=== PATIENT | female | born 1970 | race Caucasian/White ===

== ENCOUNTER → 2018-10-24 08:07 | Outpatient (CLI) | payer OTHER, SELFPAY ==
[2018-10-24 15:06] VITALS: BMI 22.4
[2018-10-30 12:02] LABS: HPV APTIMA, High Risk Negative (Negative)
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
== END ==
PROVIDERS: Family Provider Internal Medicine; PCP Internal Medicine; Referring Provider Nurse Practitioner Women's Health; Visit Provider Nurse Practitioner Women's Health
DX: Z12.4 Encounter for screening for malignant neoplasm of cervix (principal)
CPT/HCPCS: 87624; 88175; G0145

== ENCOUNTER → 2018-10-24 16:04 | Outpatient (CLI) | payer OTHER, SELFPAY ==
[2018-10-24 15:06] VITALS: BMI 22.4
[2018-10-24 17:21] LABS: Absolute Lymphocyte Count 1.82 X10^3/ul (0.83-4.51); Absolute Neutrophil Count 3.9 X10^3/uL (2.0-7.7); Basophil# 0.04 X10^3/uL; Basophil% 0.6 % (0-1); Eosinophil# 0.15 X10^3/uL; Eosinophils% 2.4 % (0-5); Hematocrit 39.5 % (37-47); Hemoglobin 13.2 g/dl (12.0-15.0); Lymphocyte # 1.82 X10^3/ul (4.0); Lymphocyte % 28.6 % (19-41); Mean Corp Hgb Conc 33.4 g/gl (32-36); Mean Corpuscular Hgb 31.2 pg (27.0-32.0); Mean Corpuscular Volume 93.4 fL (81-99); Mean Platelet Vol. 10.3 fl (6.2-12.0); Monocyte# 0.47 X10^3/uL; Monocyte% 7.4 % (0-10); Neutrophil # 3.89 X10^3/uL (2.7-7.7); Platelet Count 230 K/mm3 (150-450); RBC Distribution Width CV 12.7 % (11.6-14.6); RBC Distribution Width SD 42.9 fl (35.1-43.9); Red Blood Count 4.23 M/mm3 (4.2-5.4); White Blood Count 6.4 K/mm3 (4.4-11.0)
[2018-10-24 17:23] LABS: POSITIVE COUNT NO; POSITIVE DIFFERENTIAL NO; POSITIVE MORPHOLOGY NO
[2018-10-24 18:20] LABS: T4 Free Direct 1.04 ng/dL (0.76-1.46); Thyroid Stim Hormone (TSH) 2.41 uIU/mL (0.358-3.74)
[2018-10-29 09:54] LABS: Vitamin D 1,25-Dihydroxy 53.7 pg/mL (19.9-79.3)
--- OUTSIDE RECORDS SUMMARY | 2018-12-19 22:24 | XMS RPT_ITS ---
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 ADMIT/DISCHARGE ACCOUNT NUMBER ADMITTING ENCOUNTER LOCATION SOURCE CLASS 10/24/2018 [id number] Ambulatory [facility] ding:LAB Repository 10/24/2018/10/24/20 [id number] Ambulatory BMSBuilding: [place] 18 BMS.[facility] Repository 10/24/2018 8499 Ambulatory Building:[facility] Practices Repository 10/24/2018 [id number] Ambulatory [facility] ding:LABSPEC Repository 08/31/2018/08/31/20 [id number] COLLIN FRAGOSO, Ambulatory [place]ig[place] Lantig[place] [address] DR BRAYAN Estrada [facility] LiveBuilding Repository :MOCC 07/24/2018/07/24/20 [id number] CARRI Ambulatory Lantigua Lantigua 18 ARMANDO Valencia [facility] LiveBuilding Repository :EMERGENCY DEPTRoom: ED8Bed: A 03/28/2018 [id number] Ambulatory BMSBuilding: [place] BMS.[facility] Repository 11/21/2017 [id number] [address] [place] [address] ([place]) Repository PAYERS PAYERS ENCOUNTER GUARANTOR PAYER SUBSCRIBER SOURCE 10/24/2018 EVELYN ALLEN Primary Insurance:[employer]ATION EVELYN JORDAN[address] [place] [address] SERVICES [facility]: [facility] Number: [id number], [place] [id number] Repository [address]Jnu: (330) Date:8583-36-29O[phone] (HP) 27472TCWFYHJTN, [place] [address]OC: 10/24/2018 Secondary Insurance:SELF NOT GIVENUNK [place] PAY [facility]Children[facility] Community Number: Effective Hospital Date:2018-10-24 Repository 10/24/2018 EVELYN TIFFANY Primary Insurance:MUTUAL EVELYN ALLEN Dorothytoyin JORDAN271 HEALTH SERVICES [facility]: [facility] Number: [id number] [facility] id [id number] Repository [address]Szb: (330) Date:1719-70-30UW [phone] (HP) [address]47ZFSPXCPCS, [place] [address]MF: 10/24/2018 Secondary Insurance:SELF NOT GIVENUNK [place] PAY [facility]Pol[facility] Community Number: Effective Hospital Date:2018-10-24 Repository 10/24/2018 Evelyn Huy Primary Insurance:Medical Evelyn Son OHIP Practices SmithDOB: [facility]: Repository Number: [id number] [facility] [id number] 1 [facility] Date:8676-81-17CjxvKansas [place], [place] Name:[facility] [place]ax [place], [place] [address]Yfy: [phone], [place] [address]Rkd: [phone]: () (HP) [phone] () 10/24/2018 Secondary David OHIP Practices Insurance:Nationwide ReynoldsDOB: Repository Insurance Co.Policy [id number] Number: 31 TR [id number] [address] [place] [address], Date: 8688-04-70[place] [address] Name:[facility] Jax 996708Zjpiltrs, [place] [address]XT: 10/24/2018 Tertiary David OHIP Practices Insurance:Cooperative ReynoldsDOB: Repository Benefit [id number] [facility] 31 TR Number: [address] [place] [address] [id number] [place] [address] Date:2006-11-269305-63-64Msfo Name:[facility] Jax 6249LinHilo, [place] [address]WG: 10/24/2018 Tertiary David OHIP Practices Insurance:Medical Bastian ReynoldsDOB: Repository of [place]Policy Number: [id number] 31 TR Date:2009-11-26[place]2530-91-66Nmti Name:[facility] [address] [place] [phone]: 10/24/2018 Tertiary David OHIP Practices Insurance:Medical Bastian ReynoldsDOB: Repository of [place]Poly Number: [id number] 31 TR Date:2014-11-26[place], 4836-89-98Mkgn Name:[facility] [address] [place] [address] [phone]: 10/24/2018 Tertiary Evelyn Son OHIP Practices Insurance:[facility]carePol[facility]ceola [facility] SmithDOB: Repository Number: [id number] [address] [place] [address] Date:2015-11-26 [facility] 8662-71-45Trrk Name:[place], [place] [address], [place] [address]Ldc: [phone]: () [phone] 10/24/2018 EVELYN ALLEN Primary Insurance:MUTUAL EVELYN JORDAN[address] [place], [place] [address]DOB: [facility] Number: [id number] [place], [place] [id number] Repository [address]Cvv: ([phone]) Date:1509-78-74PH [phone] () 63271OZQYFVXNS, [place] [address]ES: 10/24/2018 Secondary Insurance:[facility] [place] PAY INS[facility]ANCESt[facility] Hospitaly [facility] Number: Effective Hospital Date:2018-10-24 Repository 08/31/2018 Primary Insurance:SELF EVELYN Lantigua [facility] PAYChildren'[facility] Of [facility] Number: SMITHDOB: Hospital Effective [id number] Repository Date: 1 [address] [facility] [place], [place] [address]TK: [phone] 07/24/2018 EVELYN Son Primary Insurance:[facility] EVELYN Lantigua [facility] SMITHDOB: Farm Auto/LiabilityPolicy SMITHDOB: Hospital N Number: [id number] Repository [facility] [id number] [address] [place], [place] Date:7815-73-98JJ [place], [place] [address]Qgo: [phone]) 050003QBKKRHL, [place] [phone] (HP) [address]QH: 07/24/2018 Secondary EVELYN Huy [facility] Insurance:MEDICAL COGAN STATION SMITHDOB: [facility] Number: [id number] Repository [id number] 1 N [facility] Date:9510-21-54UI [place], [place] [address] [address]~[facility] 6[address]WP: 03/28/2018 EVELYN ALLEN Primary EVELYN JORDAN271 N Insurance:AULTCAREPolicy SMITHDOB: [facility] Number: [id number] [place], [place] [id number] Repository [address]Egv: (330) Date:5958-97-66KJ [phone] (HP) [address] [address]FD: 03/28/2018 Secondary Insurance:SELF NOT [facility]IVENVal[facility]Care [facility] Number: Effective Hospital Date:2018-02-26 Repository
== END ==
PROVIDERS: Family Provider Internal Medicine; PCP Internal Medicine; Referring Provider Obstetrics & Gynecology; Visit Provider Obstetrics & Gynecology
DX: L65.9 Nonscarring hair loss, unspecified (principal); R53.82 Chronic fatigue, unspecified
CPT/HCPCS: 36415; 82652; 84439; 84443; 85025

== ENCOUNTER → 2018-12-18 15:45 | Outpatient (CLI) | payer OTHER, SELFPAY ==
[2018-10-24 15:06] VITALS: BMI 22.4
--- NOTE | 2018-12-18 16:09 | ECHOD_ITS ---
Reason For Study: PFO Procedure This was a 2D Doppler, Color Flow transthoracic echocardiogram. Exam performed in department. Left Ventricle Normal LV size. Left ventricular systolic function is normal. The estimated ejection fraction is 55 %. Normal diastology for age. No regional wall motion abnormalities noted. Right Ventricle Normal RV size. Normal systolic function. Atria Normal left atrium. Normal right atrium. Patent foramen ovale. Mitral Valve Mild mitral valve prolapse. Mild (1+) eccentric mitral valve insufficiency. Tricuspid Valve Normal tricuspid valve. Mild tricuspid valve insufficiency. Pulmonary artery systolic pressure is 30 mmHg. Aortic Valve Normal aortic valve. Trisinus/trileaflet aortic valve. Pulmonic Valve Normal pulmonic valve. Great Vessels Normal aortic root. The pulmonary artery is normal size. Normal inferior vena cava. Pericardium/Pleural No pericardial effusion. MMode/2D Measurements & Calculations LVIDd: 4.5 cm IVSd: 0.74 cm Ao root diam: 2.9 cm LVIDs: 3.2 cm LVPWd: 0.73 cm RVDd: 2.9 cm FS: 29.4 % LAV(MOD-bp): 47.2 ml EDV(MOD-sp4): 76.4 ml EDV(MOD-sp2): 70.3 ml LAV(MOD-bp) Indexed: 29.0 ml/m2 ESV(MOD-sp4): 31.1 ml EF(MOD-sp2): 55.0 % LAV(MOD-sp2): 45.0 ml EF(MOD-sp4): 59.3 % LAV(MOD-sp4): 46.2 ml SV(MOD-sp4): 45.3 ml SV(MOD-sp2): 38.7 ml LA A4 area: 16.7 cm2 LA dimension(2D): 3.3 cm RA A4 area: 13.4 cm2 Time Measurements MV dec time: 0.23 sec Doppler Measurements & Calculations MV E max kirk: 78.0 cm/sec Lat Peak E' Kirk: 14.5 cm/sec Med Peak E' Kirk: 11.9 cm/sec MV A max kirk: 45.9 cm/sec E/E' lat: 5.4 E/E' med: 6.6 MV E/A: 1.7 Ao V2 max: 104.8 cm/sec LV V1 max: 94.9 cm/sec TR max kirk: 252.9 cm/sec Ao max P.4 mmHg LV V1 max P.6 mmHg TR max P.6 mmHg Interpretation Summary Normal LV size. Left ventricular systolic function is normal. The estimated ejection fraction is 55 %. Normal diastology for age. Mild mitral valve prolapse. Mild (1+) eccentric mitral valve insufficiency. Mild tricuspid valve insufficiency. Patent foramen ovale. Compared to previous the above is unchanged Ordering Physician: Bambi Mondragon Referring Physician: Bambi Mondragon Performed By: Elaine Porter, ROSARIO, RVT
--- OUTSIDE RECORDS SUMMARY | 2019-02-19 18:18 | XMS RPT_ITS | Continuity of Care Document ---
:1970 Author Organization [facility] Address [address] [place] [id number] Phone Care Team Providers Name Role Phone Bambi Mondragon DO Unavailable Sarah Nieves Unavailable Erik Olivarez Unavailable Osmani JOYA, Tong Aviles Unavailable Katrina Herrera Unavailable Ami JOYA, Ankit Unavailable Pauly Sommer Unavailable Stevie Varma Unavailable Unavailable HORACE Villa Unavailable Unavailable Deboralaurieilia MANAGER MOTOR, Nayely Unavailable Unavailable Unavailable Problems Name Dates Details Acne (L70.9, 706.1) Comments: saw derm. considering spirolactone Status: Active Allergic rhinitis (J30.9, 477.9) Comments: off nasal spray. not as much nasal drainage as pressure and with barometricseasonal Status: Active Annual physical exam (Z00.00, V70.0) Status: Active BMI 20.0-20.9, adult (Z68.20, V85.1) Status: Active BMI 22.0-22.9, adult (Z68.22, V85.1) Status: Active Body mass index (BMI) 21.0-21.9, adult (Z68.21, V85.1) Status: Active Breast cancer screening (Z12.31, V76.10) Status: Active Chest pain at rest (R07.9, 786.50) Status: Active Chronic sinusitis (J32.9, 473.9) Comments: see above Status: Active Current nonsmoker (Renamed from Current non-smoker) (Z78.9, V49.89) Status: Active Degeneration of intervertebral disc of cervical region (M50.30, 722.4) Comments: mri 6-14 see duluis some herniation pain free now with PTmild cervical Status: Active Encounter for screening for lipid disorder (Z13.220, V77.91) Status: Active Encounter for screening for other suspected endocrine disorder (Z13.29, V77.99) Comments: family history of thyroid Status: Active Family history of arteriosclerotic cardiovascular disease (Z82.49, V17.49) Status: Active Headache (R51, 784.0) Comments: stable now 4 a month related to menses. under stress. rightnow not want proph. will call if need more roph. see ent for sinus Status: Active Hypercholesteremia (E78.00, 272.0) Comments: pt recntl labs she will get to me -- states normalized Status: Active Motion sickness (T75.3XXA, 994.6) Status: Active MVP (mitral valve prolapse) (I34.1, 424.0) Status: Active Palpitations (R00.2, 785.1) Status: Active Persistent headaches (R51, 784.0) Comments: has had cervical x-rays in apstmultifactorial-- cervicogenic, migraines-with weather fronts and menstrual, muscle tension, Status: Active PFO (patent foramen ovale) (Q21.1, 745.5) Status: Active Physical exam, routine (Z00.00, V70.0) Comments: pap 8-15, mammo 5-16 Status: Active PMDD (premenstrual dysphoric disorder) (F32.81, 625.4) Comments: ssri is helping. she wants to try off ssri will see. 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) Status: Active Stress reaction (F43.0, 308.9) Comments: HUGE Status: Active Unspecified Diagnosis Status: Active Unspecified Diagnosis Status: Active Urinary frequency (R35.0, 788.41) Status: Active UTI (urinary tract infection) (N39.0, 599.0) Status: Active Vitamin D deficiency, unspecified (E55.9, 268.9) Comments: ck new level to see where at Status: Active Medications Name Dates Details Ergocalciferol 14238 UNIT Oral Capsule 1 (one) Capsule weekly for 8 days Quantity: 8 {Capsule} Refills: 3 Ordered:14-Nov-2018 Harriet Mondragon DO, DO, Kathleen Start : 14-Nov-2018 Active Imitrex 50 MG Oral Tablet 1-2 Tablet for migraine for 0 days Quantity: 16 {Tablet} Refills: 6 Ordered:29-Mar-2018 Harriet Mondragon DO, DO, Kathleen Start : 29-Mar-2018 Active Macrobid 100 MG Oral Capsule 1 (one) Capsule bid for 7 days Quantity: 14 {Capsule} Refills: 0 Ordered:20-Nov-2018 Rudolph COBOS Nayely Start : 20-Nov-2018 Active MONY-D 24 HOUR, 180-240MG (Oral Tablet Extended Release 24 Hour) Tablet ER 24HR Daily for 0 days Refills: 0 Ordered:25-Mar-2007 BRANDEE Miller Start : 25-Mar-2007 End : 16-Jul-2008 Inactive ALPRAZOLAM ER, 0.5MG (Oral Tablet Extended Release 24 Hour) 1 (one) Tablet ER 24HR q 6-8 hrs prn for 0 days Quantity: 30 {Tablet} Refills: 0 Ordered:11-Nov-2015 BRANDEE Miller Start : 11-Nov-2015 End : 11-Nov-2015 Inactive Comments:th[age], patient never filled AMITRIPTYLINE HCL, 10MG (Oral Tablet) 1 Tablet qhs for 0 days Quantity: 60 {Tablet} Refills: 2 Ordered:02-Feb-2012 BRANDEE Miller Start : 17-Nov-2011 End : 02-Feb-2012 Inactive Amoxicillin 875 MG Oral Tablet 1 (one) Tablet bid for 0 days Quantity: 20 {Tablet} Refills: 0 Ordered:06-May-2018 Shala Villa LPN Start : 10-Apr-2018 End : 06-May-2018 Inactive AMOXICILLIN, 875MG (Oral Tablet) 1 (one) Tablet BID for 10 days Quantity: 20 {Tablet} Refills: 0 Ordered:25-Mar-2007 JACINTA MARIE CNP Start : 25-Mar-2007 End : 13-May-2007 Inactive ASTELIN, 137MCG/SPRAY (Nasal Solution) 1 Solution 1 spray each nostril daily for 0 days Quantity: 1 {Solution} Refills: 2 Ordered:05-Sep-2013 BRANDEE Miller Start : 11-Apr-2013 End : 05-Sep-2013 Inactive BIOTIN, 5000MCG (Oral Tablet) 1 (one) Tablet Tablet bid for 30 days Quantity: 30 {Tablet} Refills: 0 Ordered:06-Aug-2015 BRANDEE Miller Start : 24-Jun-2015 End : 24-Jul-2015 Inactive CALCIUM CITRATE-VITAMIN D3, 627-624NM-ESQT (Oral Tablet) 1 (one) Tablet Tablet qid for 30 days Quantity: 30 {Tablet} Refills: 0 Ordered:06-Aug-2015 BRANDEE Miller Start : 24-Jun-2015 End : 24-Jul-2015 Inactive CELEXA, 10MG (Oral Tablet) 1 Tablet qd except 2 daily for 5 days around menses. for 0 days Quantity: 35 {Tablet} Refills: 3 Ordered:11-Apr-2013 Svetlana Ibarra MD Start : 11-Apr-2013 End : 11-Apr-2013 Inactive Comments:fatigue CEREFOLIN NAC, 6-2-600MG (Oral Tablet) 1 Tablet qd for 0 days Quantity: 30 {Tablet} Refills: 6 Ordered:17-Nov-2011 Gricel Pimentel LPN End : 17-Nov-2011 Inactive Cipro 500 MG Oral Tablet 1 (one) Tablet bid for 7 days Quantity: 14 {Tablet} Refills: 0 Ordered:20-Nov-2018 Lauren Galdamez CNP Start : 18-Nov-2018 End : 20-Nov-2018 Inactive CYMBALTA, 30MG (Oral Capsule Delayed Release Particles) [address] Part qd for 0 days Quantity: 30 {Capsule_DR_Part} Refills: 3 Ordered:23-Jun-2013 Svetlana Ibarra MD Start : 23-Jun-2013 End : 23-Jun-2013 Inactive Comments:219.00 for 30 days Drisdol 30239 UNIT Oral Capsule uad Capsule Capsule monthly for 0 days Quantity: 30 {Capsule} Refills: 3 Ordered:10-Sep-2017 Allen Shala VU Start : 21-May-2017 End : 10-Sep-2017 Inactive Comments:then once monthly and maintain DULOXETINE HCL, 60MG (Oral Capsule Delayed Release Particles) 1 (one) Capsule DR Part daily for 0 days Quantity: 30 {Capsule} Refills: 2 Ordered:12-Aug-2015 Svetlana Ibarra MD Start : 12-Aug-2015 End : 12-Aug-2015 Inactive Comments:bad taste in mouth EFFEXOR XR, 37.5MG (Oral Capsule Extended Release 24 Hour) 1 Capsule ER 24HR daiy 2 weeks for 0 days Quantity: 14 {Capsule} Refills: 6 Ordered:04-Mar-2015 BRANDEE Miller Start : 16-Feb-2015 End : 04-Mar-2015 Inactive ERGOCALCIFEROL, 90358XZHS (Oral Capsule) 1 Capsule twice weekly for 0 days Quantity: 8 {Capsule} Refills: 3 Ordered:10-Sep-2014 BRANDEE Miller Start : 08-May-2013 End : 10-Sep-2014 Inactive MEDROL (MELBA), 4MG (Oral Tablet) 1 (one) Tablet TAD for 0 days Quantity: 1 {Package} Refills: 0 Ordered:10-Sep-2014 BARNDEE Miller Start : 18-May-2014 End : 10-Sep-2014 Inactive NASONEX, 50MCG/ACT (Nasal Suspension) 1 Suspension daily for 0 days Quantity: 3 {Suspension} Refills: 2 Ordered:19-Jul-2012 BRANDEE Miller Start : 02-Feb-2012 End : 19-Jul-2012 Inactive SPIRONOLACTONE, 50MG (Oral Tablet) 1 Tablet daily for 0 days Quantity: 30 {Tablet} Refills: 6 Ordered:12-May-2014 Mayra Bloom Start : 05-Sep-2013 End : 12-May-2014 Inactive TEMAZEPAM, 15MG (Oral Capsule) 1 (one) Capsule Capsule qhs for 0 days Quantity: 30 {Capsule} Refills: 1 Ordered:29-Apr-2015 BRANDEE Miller Start : 16-Feb-2015 End : 29-Apr-2015 Inactive Comments:thirty TESSALON, 200MG (Oral Capsule) 1 Capsule every 8 hours prn for 0 days Quantity: 20 {Capsule} Refills: 0 Ordered:02-Feb-2012 BRANDEE Miller Start : 17-Nov-2011 End : 02-Feb-2012 Inactive TREXIMET, 85-500MG (Oral Tablet) 1 Tablet onset of headache severe for 0 days Quantity: 20 {Tablet} Refills: 0 Ordered:03-Nov-2011 Long ROD CUP FILLER, Gricel L Start : 02-Nov-2011 End : 03-Nov-2011 Inactive VERAMYST, 27.5MCG/SPRAY (Nasal Suspension) 2 sprays each nostril qd for 0 days Refills: 0 Ordered:02-Feb-2012 BRANDEE Miller End : 02-Feb-2012 Inactive VITAMIN B6, 200MG (Oral Tablet) 1/2 (one half) Tablet Tablet qd for 30 days Quantity: 30 {Tablet} Refills: 0 Ordered:06-Aug-2015 BRANDEE Miller Start : 24-Jun-2015 End : 24-Jul-2015 Inactive Comments:shyann VITAMIN D3, 15395LUKL (Oral Capsule) 1 (one) Capsule Capsule qd for 30 days Quantity: 30 {Capsule} Refills: 0 Ordered:06-Aug-2015 BRANDEE Miller Start : 24-Jun-2015 End : 24-Jul-2015 Inactive VITAMIN D3, 5000UNIT (Oral Capsule) 1 Capsule qd for 0 days Quantity: 30 {Capsule} Refills: 3 Ordered:05-Sep-2013 BRANDEE Miller Start : 11-Apr-2013 End : 05-Sep-2013 Inactive ZIANA, 1.2-0.025% (External Gel) 1 Gel daily for acne for 0 days Quantity: 1 {Gel} Refills: 0 Ordered:12-May-2014 Mayra Bloom Start : 11-Apr-2013 End : 12-May-2014 Inactive ZITHROMAX Z-MELBA, 250MG (Oral Tablet) 1 Tablet qd for 5 days Quantity: 1 {package(s)} Refills: 0 Ordered:26-Dec-2011 Long ROD CUP FILLER, Gricel L Start : 21-Nov-2011 End : 26-Nov-2011 Inactive Adapalene 0.1 % External Gel uad Gel apply thin layer to affecetd area(s) after washing for 0 days Quantity: 45 {Gram} Refills: 3 Ordered:21-May-2017 Gema Berumen LPN Start : 09-Nov-2016 End : 21-May-2017 Discontinued ALDACTONE, 100MG (Oral Tablet) 1 qd (100 MG) End : 21-May-2017 Discontinued Comments:Dr. Valentin Cyclobenzaprine HCl 5 MG Oral Tablet 1 (one) Tablet tid prn for 0 days Quantity: 30 {Tablet} Refills: 1 Ordered:21-May-2017 Gema Berumen LPN Start : 12-Aug-2015 End : 21-May-2017 Discontinued Comments:thirty Effexor XR 37.5 MG Oral Capsule Extended Release 24 Hour 1 (one) Capsule ER 24HR Capsule ER 24HR daily for 0 days Quantity: 30 {Capsule} Refills: 6 Ordered:21-May-2017 Gema Berumen LPN Start : 11-Nov-2015 End : 21-May-2017 Discontinued Fluticasone Propionate 50 MCG/ACT Nasal Suspension 1-2 [place](s) each nostril daily for 0 days Quantity: 1 {Canister} Refills: 6 Ordered:21-May-2017 Gema Berumen LPN Start : 09-Oct-2016 End : 21-May-2017 Discontinued MULTIVITAMIN (Oral Liquid) 1 (one) qd End : 21-May-2017 Discontinued Transderm-Scop (1.5 MG) 1 MG/3DAYS Transdermal Patch 72 Hour uad Patch 72HR 1 q 72 hours prn travel for 0 days Quantity: 2 {Patch} Refills: 0 Ordered:21-May-2017 Gema Berumen LPN Start : 20-Sep-2016 End : 21-May-2017 Discontinued Comments:09-20-16 patient would like to have only 2 patches if possible and not an entire box Allergies and Adverse Reactions Name Dates Details No Known Drug Allergies (Allergy) Onset: 21-May-2017 Status: Active Penicillins (Allergy) Status: Active Past Medical History Name Dates Details Abrasion of right cornea, sequela (S05.01XS, 906.2) Comments: seeing eye DrRaymond for this. Status: Inactive as of 11-Nov-2015 Acute bronchitis (J20.9, 466.0) Comments: viral Status: Inactive as of 05-Sep-2013 Back pain (M54.9, 724.5) Comments: thoracic areausing ibuprofen saw Chiropracter Status: Inactive as of 10-Sep-2014 Back spasm (M62.830, 724.8) Status: Inactive as of 10-Sep-2014 Breast screening (Z12.39, V76.10) Status: Inactive as of 10-Sep-2014 CONTACT DERMATITIS, NOS (692.9) Status: Inactive as of 05-Sep-2013 DISORDER, TMJ, JOINT SOUND ON OPN/CLS JAW (524.64) Comments: saw Dr. montelongo. disc slipped and with time did heal. Status: Inactive as of 05-Sep-2013 DUB (dysfunctional uterine bleeding) (N93.8, 626.8) Comments: had endoablation, help alot Status: Inactive as of 05-Sep-2013 Dysuria (R30.0, 788.1) Status: Inactive as of 05-Sep-2013 Encounter for routine preventive care for patient older than 28 days (Z00.129, V20.2) Status: Inactive as of 10-Sep-2014 Eustachian tube dysfunction (H69.80, 381.81) Comments: Pt leaving for [place]- gave script for antibiotic in case things worsen. Status: Inactive as of 10-Sep-2014 Fatigue (R53.83, 780.79) Comments: stable after work really tired. Status: Inactive as of 10-Sep-2014 Heel spur (726.73) Status: Inactive as of 10-Sep-2014 Mitral Valve Prolapse Comments: mild over 10 plus years Status: Inactive as of 11-Nov-2015 Neck muscle spasm (M62.838, 728.85) Status: Inactive as of 10-Sep-2014 Neck pain (M54.2, 723.1) Comments: ? disc vs other use flexeril and doing Pt right now wants chiropactor Status: Inactive as of 11-Nov-2015 Other specified abnormal findings of blood chemistry (R79.89, 790.6) Status: Inactive as of 05-Sep-2013 OTITIS MEDIA, NOS (382.9) Status: Inactive as of 05-Sep-2013 Pain in unspecified joint (M25.50, 719.40) Comments: PERLITA postive but panel negative. follow if inflammatory signs and symptoms then to rheum. Status: Inactive as of 05-Sep-2013 Patent Foramen Ovale Comments: small Status: Inactive as of 12-Jul-2015 Pharyngitis, acute (J02.9, 462) Comments: ? referred pain from jaw. tom with node tender Status: Inactive as of 05-Sep-2013 Plantar fasciitis (M72.2, 728.71) Comments: see shirley herrera. orthotics really help. 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 Status: Inactive as of 10-Sep-2014 Unspecified Diagnosis Status: Inactive as of 05-Sep-2013 Unspecified Diagnosis Status: Inactive as of 10-Sep-2014 Unspecified Diagnosis Status: Inactive as of 05-Sep-2013 Unspecified Diagnosis Status: Inactive as of 05-Sep-2013 Varicose veins (I83.90, 454.9) Comments: will be seeing Dr. proctor for ones behind knee. bother her. claudette have surgery with hx of PFO will have lovenox to protect.left lower extremity Status: Inactive as of 30-Jun-2016 Visit for screening mammogram (Z12.31, V76.12) Status: Inactive as of 30-Jun-2016 VRCS VEIN, LWR EXTREMITIES W/COMPLICTN NOS (454.8) Comments: pain. will send to osmani Status: Inactive as of 05-Sep-2013 Weight loss (R63.4, 783.21) Comments: stable now Status: Resolved as of 11-Nov-2015 [facility] Comments: [facility] Status: Inactive as of 12-Jul-2015 Procedures Procedure Dates Details Adenoidectomy Completed Comments: Inpatient. Section - 2 Completed Comments: Inpatient. 2002 and 1999 endovenous laser ablation left leg- greater Completed and lesser saphenous Enometrial ablation February 2010 Completed Tonsillectomy Completed Comments: Inpatient. Tubal Ligation Completed Comments: clips 2003 tubes in ears as child Completed Appendectomy Completed Comments: 10-12-98 Date Value Details 24-Oct-2018 Entry Level Account Manager Office Visit Report Result: Comments: See Note; NOTES: [facility] [address] [place] [address] OFFICE VISIT Date of Service: 10/24/18 MR#: [id number] Acct: [id number] Name: MELVIN VARMA Rep #: [id number] : 1970 Provider: Bozena Fuentes MD Age/Sex: 48/F [place] [facility] [place]igned Intake Vital Signs10/24/18 Height 5 ft 4 in 10/24/18 Weight: 131 lb 10/24/18 Bod y Mass Index (BMI) 22.4 10/24/18 Blood Pressure 104/70 Intake Visit Reasons: ANNUAL Chief Complaint: NEW annual Surgical Instruments Inspector Required: No Is patient in pain?: No Allergies No Known Allergies Allergy ( Verified 10/24/18 15:07) Medications Sumatriptan Succinate [Imitrex] 50 mg PO .X1 PRN 09/24/14 [History Confirmed 10/24/18] Is last menstrual period known: No Post menopausal: No Patient : No : No PFSH Medical History History of headache (Acute) Tubal ligation status (Acute) Surgical History delivery delivered (Acute) History of endometrial ablation (Acute) S ocial History Smoking Status: Never smoker alcohol intake: current details: social substance use type: does not use caffeine: Yes what type of physical activity do you participate in: walking seatbelt u se: always do you feel safe at home: Yes additional social history: [facility] Pregancy History 2 Elective abortions Hx Para 2 Spontaneous abortions HPI ANNUAL: Details: TED VARMA is a 48 year old who presents for annual exam. here to establish care Last PAP: due History of abnormal PAP: no Last mammogram: due History of abnormal mammogram: Colon cancer screening: Oth er preventative health care screenings: Female Reproductive History Cycle Length: >35 associated symptoms: cyclic ovulation pain mild Questions: Metorrhagia: No, Sexually active: Yes, Dyspare unia: No Menopausal Symptoms: Yes hot flashes, No night sweats, No weight change, No mood changes, No difficulty concentrating, No sleep problems, No change in libido ROS Const Constitutional: Reports as per HPI; denies poor appetite, fatigue, increased appetite, weight gain, weight loss or night sweats Cardio Card: Denies chest pain Resp Resp: Denies dyspnea or cough GI GI: Reports as per HPI; colin es bloating, abdominal pain, constipation, vomiting or nausea : Reports as per HPI, other and hot flashes; denies blood in urine, vaginal odor, vaginal itching, vaginal dryness, vaginal discharge, urinary urgency, urinary incontinence, urinary frequency, pelvic pain, painful urination, difficulty urinating, prolapse symptoms or nipple discharge Skin Skin/Breast: Denies breast pain, breast skin ch anges, nipple discharge, breast lump or changing lesions Psych Psych: Denies difficulty concentrating or change in sex drive Exam Const General: cooperative, healthy appearing, comfortable, no acute d istress, well developed, well groomed HENWA Head: normal to inspection, normocephalic Ears: hearing grossly normal bilaterally, external ears normal Nose: external nose normal Face and sinus: normal fac ial exam Neck Neck: normal visual inspection, full ROM, no lymphadenopathy Thyroid: thyroid normal Chest Chest palpation AND inspection: normal inspection of the chest Breast inspection: normal inspecti on of the breasts, normal inspection of the axillae Breast palpation: normal palpation of the breasts, normal palpation of the axillae, no axillary lymphadenopathy Resp Effort AND Inspection: normal res piratory effort GI Inspection: normal to inspection, non-distended Palpation: no guarding, soft, no hepatosplenomegaly General: bladder normal to palpation External Female Exam: normal external appea bony, normal appearance of the urethra, no lesions [...] other: normal adnexae, no adnexal masses, adnexae non-t taya Skin General: no rashes or lesions noted Neuro General: alert, moves all extremities, no focal motor deficits Extrem General: no pedal edema, normal to inspection Psych Appearance: grossly normal Mental Status: mental status grossly normal Affect: normal affect Speech and Movement: speech and movement normal Attitude: cooperative Assessment AND Plan Problems 1. Chronic fatigue R53.82 2. Hair l oss L65.9 3. Encounter for gynecological examination with abnormal finding Z01.411 Plan Cervical cancer screening: done Breast cancer screening: ordered other health maintenance examination reviewed an d orders placed if needed. Encouraged maintenance of [...] Gynecological examination findings: abnormal findings PRESENT 10/24/18 1537 <Electronically signed by Bozena Fuentes MD> Date _ Bozena Fuentes MD Cosigner Signature: Date (if applicable) CC: 05-Apr-2016 Bilat Scrn Digital AND CAD Result: Comments: See Note; NOTES: [facility] Imaging Services [address] [place] [address] Verdana 4d Bilat Scrn Digital AND CAD MR#: [id number] Acct: [id number] Name: EVELYN VARMA Rep #: [id number] : 1970 F 46 From: Dangelo Mondragon MD PCP: Svetlana Ibarra MD Status: [facility] CLI Study: Bilat Scrn Digital AND CAD Date of Exam: 04/05/16 Exam# [id number] Or dering Dr: Svetlana Ibarra MD MAMMOGRAPHY - BILATERAL SCREENING REASON FOR EXAM: Female, 46 years old. Routine annual screening examination. PERTINENT HISTORY: Non-contributory. TECHNIQUE: Digi anisa bilateral breast tomosynthesis (3-D mammographic acquisition) in the CC and MLO projections. Synthesized 2-D images (C-View reconstruction from tomosynthesis acquisition) providing bilateral breas t CC and MLO views. Mediolateral oblique (MLO) and craniocaudad (CC) views of both breasts were obtained. CAD: Full Field Digital Mammography with Computer Added Detection was performed. COMPARISON : Comparison is made with prior study dated November 12, 2014 and May 26, 2011. FINDINGS: Breast Composition: The breasts are extremely dense, which lowers the sensitivity of mammography. There are no dominant masses or suspicious calcifications. No other significant abnormalities are identified. There has been no significant change since the prior study. IMPRESSION: Stable bilateral screening mammogram. Yearly follow-up mammogram recommended. (A) ASSESSMENT CATEGORY: BIRA DS Category 1: Negative. A letter regarding these results will be sent to the patient by the facility within 30 days. Approximately 10% of breast cancers are not detected by mammography. A normal ma mmogram should not delay biopsy of a clinically suspicious abnormality. [id number] Electronically Signed: Dangelo Mondragon MD at 10:09 EDT Tel [phone], Service support [phone], CC: Svetlana Ibarra MD Entry Level Account Manager: Signed 12-Nov-2014 Bilat Scrn Digital AND CAD Result: Comments: See Note; NOTES: [facility] Imaging Services [address] [place] [id number] Breast Imaging Report MR#: [id number] Acct: [id number] Name: EVELYN BAUTISTA Rep #: [id number] : 1970 F 44 From: Smith Ruelas MD PCP: Svetlana Ibarra MD Status: [facility] CLI Study: Clarence Walkervolodymyr Digital AND CAD Date of Exam: 11/12/14 Exam# [id number] Ordering Dr: Svetlana Ibarra MD MAMMOGRAPHY - BILATERAL SCREENING REASON FOR EXAM: Female, 44 years old. Routine annual screening examination. PERTINENT HISTORY: Non-contributory. TECHNIQUE: Digital examination. Mediolateral oblique (MLO) and craniocaudad (CC) views of both breasts were obtained. CAD: CAD was performed on this study. COMPARISON: 2010 FINDINGS: Breast Composition: The breasts are heterogeneously dense, which may obscure small masses. There are no dominant masses or suspicious calcifications. No other significant abnormalities are identified. There has been no significant change since the prior study. IMPRESSION: Stable bilateral screening mammogram. Yearly follow-up recommended. (A) ____ ASSESSMENT CATEGORY: BIRADS Category 2: Benign. A letter regarding these results will be sent to the patient by the facility within 30 days. BR2 Approximately 10% of breast cancers are not detected by mammography. A normal mammogram should not delay biopsy of a clinically suspicious abnormality. Electronically Signed: Jf Ruelas MD at 15:10 EST Tel [phone], Serv ice support [phone], CC: Svetlana Ibarra MD Entry Level Account Manager: Signed 29-Sep-2014 Operative Report Result: Comments: See Note; NOTES: [facility] Medical Records Department [address] [place] [address] Operative Report MR#: [id number] Acct: [id number] Name: EVELYN BAUTISTA Rep #: [id number] : 1970 44 From: Tong Proctor MD PCP: Svetlana Ibarra MD Status: [facility] DATE OF SERVICE: 09/29/2014 DATE OF SERVICE: September 29, 2014. PREOPERATIVE DIAGNOSES: [employer] ludy venous insufficiency, varicose veins with inflammation, leg pain, leg swelling -- left lower extremity. POSTOPERATIVE DIAGNOSES: Chronic venous insufficiency, varicose veins with inflammation, leg pain, leg swelling -- left lower extremity. OPERATIVE PROCEDURE: 1. Endovenous laser ablation of the left great saphenous vein. 2. Endovenous laser ablation of the left small saphenous vein. SURGEON: Annita Proctor MD. ANESTHESIA: 1. General anesthesia. 2. Tumescent anesthesia. ESTIMATED BLOOD LOSS: Minimal. COMPLICATIONS: None. INDICATIONS: This is a 44-year-old white femal e with a long-standing history of chronic venous insufficiency, varicose veins with inflammation, leg pain and leg swelling involving her left lower extremity. A venous duplex examination revealed i ncompetence involving the left great and small saphenous veins. The implications of this diagnosis were discussed with the patient in detail. The options of management were fully explained. Conserv ative treatment measures were implemented, which included leg elevation, avoidance of idle standing and sitting, graduated compression stockings, weight control measures, active lifestyle, over-the-c ounter analgesics, etc. Despite these measures, the patient remained symptomatic, with symptoms which adversely affected daily activities quality of life and job functions. The indications and risks of endovenous laser ablation of the left great saphenous vein and the left small saphenous vein were discussed with the patient in detail. The appropriate preoperative consent process was undertaken . DESCRIPTION OF PROCEDURE: The patient underwent ultrasound marking of the left great saphenous vein and the left small saphenous veins preoperatively. She was then brought to the operating suite , placed supine upon the operating room table, where general anesthesia was administered by the anesthesia staff. The patient's left lower extremity and left groin were prepped and draped in the filiberto ropriate sterile manner. The patient was placed in reverse Trendelenburg position. Ultrasonography was used to image the left great saphenous vein in the distal calf. The micropuncture technique was used to access the left great saphenous vein percutaneously in the distal calf. In this manner, a 0.018-inch guidewire was advanced intraluminally into the left great saphenous vein and was visuali zed by ultrasonography. A micropuncture sheath was advanced over the guidewire. The 0.018-inch guidewire was exchanged for a 0.035-inch guidewire, which was then advanced intraluminally to a level just distal to the left saphenofemoral junction, as confirmed by ultrasound imaging. A long 4-Mauritian sheath was then advanced over the guidewire, and its tip was positioned approximately 2 cm distal to the left saphenofemoral junction. Attention was then directed to the incompetent left small saphenous vein, so as to enhance exposure, the left lower extremity was placed in an externally rotated position with the left knee flexed. Using ultrasound imaging and the micropuncture technique, a micropuncture sheath was introduced intraluminally, and left in place, capped, for subsequent access purposes. Attention was then redirected to the long 4-Mauritian sheath, which had been previously placed intraluminally into the left great saphenous vein. Perivenous tumescent anesthesia was injected from the 4-Mauritian sheath exit site up to the left saphenofemoral junction. This was performed segmentally using ultrasound imaging. The [employer] laser fiber was then introduced into the 4-Fren ch sheath and coupled appropriately. Ultrasonography was used to confirm that the tip of the laser fiber was positioned within the left great saphenous vein approximately 2 cm distal to the left sap henofemoral junction. The patient was placed in Trendelenburg position and the laser fiber was activated. The AngioD[employer] laser was slowly withdrawn at a constant rate throughout the length of th e left great saphenous vein, thereby ablating the left great saphenous vein segmentally. The energy applied was approximately 80-100 joules per cm. Following laser ablation, the laser fiber and she ath were removed, and manual pressure was briefly applied to the percutaneous access site to achieve hemostasis. Attention was then directed to the micropuncture sheath, which had been previously pl aced intraluminally in the left small saphenous vein near the inferior border of the left gastrocnemius muscle. A 0.035-inch guidewire was introduced intraluminally and advanced into the proximal lef t small saphenous vein. The long 4-Mauritian sheath was advanced over the guidewire and into position intraluminally in the left small saphenous vein. Perivenous tumescent anesthesia was injected from the 4-Mauritian sheath exit site up to the tip of the sheath. This was performed segmentally using ultrasound imaging. The AngioDynamics laser fiber was then introduced into the 4-Mauritian sheath and cou pled appropriately. Ultrasonography was used to confirm that the tip of the laser fiber was positioned within the proximal left small saphenous vein, several centimeters distal to its junction with the deep venous system, and remaining within the superficial portion of the left small saphenous vein. The patient was placed in Trendelenburg position and the laser fiber was activated. The [employer] laser was slowly withdrawn at a constant rate throughout the length of the left small saphenous vein, thereby ablating the left small saphenous vein segmentally. The energy applied was filiberto roximately 80-100 joules per cm. Following the laser ablation, the laser fiber and sheath were removed, and manual pressure was briefly applied to the percutaneous access site to achieve hemostasis. After assuring satisfactory hemostasis, the access sites were approximated using Cavilon and Steri-Strips. Dry sterile gauze dressings were applied over each of the access sites, and the leg was w rapped from the base of the toes to the upper thigh with Kerlix, followed by Jeremy wrap. The blood loss for the procedure was minimal. The sponge, needle , and instrument counts at the end of the proce dure were correct. The patient tolerated the procedure well and was transported from the operating room to the post anesthesia care unit in stable condition. The amount of tumescent anesthesia uti lized, number of joules applied and treatment times were recorded separately. Tong Proctor MD T: [facility] JOB: [id number] 09/29/14 1435 <Electronically signed by Tong Proctor MD> D ate Tong Proctor MD CC: Svetlana Ibarra MD; Tong Proctor MD Date Dictated: 09/29/141135 Date Transcribed: 09/29/141135 Entry Level Account Manager: Signed 29-Sep-2014 Discharge Instruction Result: Comments: See Note; NOTES: [facility] Medical Records Department [address] [place] [address] Instructions for Home/Discharge Instructions 09/29/14 0917 MR#: [id number] Acc t: [id number] Name: EVELYN BAUTISTA Rep #: [id number] : 1970 44 From: Tong Proctor MD PCP: Svetlana Ibarra MD Status: REG [facility] Discharge Diet: No Restrictions Discharge Activity: May Not Drive May shower in (days): 2 Weight Bearing Status: Weight bearing as mulugeta Keep extremity elevated above heart level: Left Leg Call your doctor if you observe: Fever of 101 or Higher, Inability to urinate, Shortness of breath, Dizziness, Fainting spells, Chest pain, Prolonged hiccoughing, Increased palpitations (irregular heartbeat), Uncontrolled pain Suture Line Care: Avoid Pulling/Pushin g Remove Dressing in (days):: 2 - Then rewrap leg daily with Jeremy from base of toes to upper thigh. Allergies/Adverse Reactions: Allergies No Known Allergies Allergy (Verified 09/24/14 14:17) Me dications to take at Discharge Fluticasone 0.05% [Flonase Nasal [place]] 1 spray NASAL DAILY Spironolactone [Aldactone] 100 mg PO DAILY Sumatriptan Succinate [Imitrex] 50 mg PO .X1 PRN Oxycodone HCl/ Acetaminophen [Percocet 5-325] 1 - 2 tablet PO Q6H PRN PRN #20 tablet The following prescriptions were given: Oxycodone HCl/Acetaminophen [Percocet 5- 325] 1 - 2 tablet PO Q6H PRN PRN #20 tablet P RN Reason: Pain Please Follow Up With: Tong Proctor - Call [phone] to schedule a followup appointment. When: 10-14 days 09/29/14 0919 <Electronically signed by Tong Proctor MD&am p;#62; Date Tong Proctor MD CC: Svetlana Ibarra MD 27-Sep-2014 History and Physical Exam Result: Comments: See Note; NOTES: [facility] Medical Records Department [address] [place] [address] History and Physical 09/27/14 1014 MR#: [id number] Acct: [id number] Name: EVELYN BAUTISTA Rep #: [id number] : 1970 44 From: Tong Proctor MD PCP: Svetlana Ibarra MD Status: PRE [facility] Location: [facility] DATE OF SERVICE: This is a history and physical for outpatient surgery to be performed on September 29, 2014. CHIEF COMPLAINT: Chronic venous insufficiency, varicose veins with inflammation, leg pain, leg swelling - left lower extremity. HISTORY OF PRESENT I LLNESS: This is a 44-year-old white female for long-standing history of chronic venous insufficiency, varicose veins with inflammation, leg pain and leg swelling involving her lower extremities. Her left lower extremity is more severely affected. She complains of pain, aching and discomfort in her left lower extremity. This is associated with swelling. She denies history of thrombophlebitis. S he has a history of injection sclerotherapy many years ago in her lower extremities. However, her symptoms have become progressively more severe. A venous duplex examination has revealed incompeten ce involving the left great saphenous vein and the left small saphenous vein. The implications of this diagnosis have been discussed with the patient in detail. The options of management have been f ully explained. Conservative treatment measures have been implemented, which have included leg elevation, avoidance of idle standing and sitting, graduated compression stockings, weight control measu res, active lifestyle, bzvj-ico-jeyxogc analgesics, etc. Despite these measures, the patient has remained symptomatic, with symptoms which have adversely affected daily activities, quality of life and job functions. PAST MEDICAL HISTORY: ALLERGIES: No known drug allergies. MEDICATIONS: Aldactone 50 mg p.o. daily, Effexor extended release 37.5 mg daily, sumatriptan 50 mg p.r.n., vitamin an d vitamin tablets over the counter. MEDICAL ILLNESSES: The patient has a history of mitral valve prolapse and is known to have a small patent foramen ovale. She suffers from borderline hyperlipidemi a. She also suffers from acne and migraine headaches. The patient's history is negative for myocardial infarction, congestive heart failure, hypertension, diabetes mellitus, cerebrovascular acciden t, cancer, renal disease, pulmonary disease, thyroid disease, peripheral arterial occlusive disease, arthritis and gastroesophageal reflux disease. SURGERIES: The patient has undergone se ction x2. She was also undergone prior endometrial ablation. OBSTETRIC AND GYNECOLOGIC: The patient is a Ab0. FAMILY HISTORY: The patient's father of age of 77 with a history of hyper lipidemia, coronary artery disease and Alzheimer's disease. The patient's mother is living, age 80, with a history of varicose veins and deep vein thrombosis. She also has a history of hypertension , osteopenia and arthritis. SOCIAL HISTORY: The patient denies use of tobacco products. She consumes alcoholic beverages rarely. She is . 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 REVIEW OF SYSTEMS: Noncontributory. PHYSICAL EXAMINATION: GENERAL: This is a well-developed, well-nourished 44-year-old white female in no acute distress. The patient has abnormal body habitus. VITAL SIGNS: Temperature 99.4, pulse 64, respirations 16, blood pressure 98/65 , weight 128 pounds. HEENT: Head: Normocephalic, atraumatic . Eyes: Sclerae nonicteric. Extraocular muscles intact. Ears: Canals bilaterally clear. Nose: Nares patent without discharge. Throat: Mucous membranes without icterus, erythema or exudate. Dentition is intact. NECK: Soft, supple without masses. Carotids 2+ bilaterally without bruits. LUNGS: Clear to auscultation bilaterally. HEART: Regular sinus rhythm, S1, S2, physiologic without murmurs. ABD OMEN: Soft, nontender without masses. RECTAL: Deferred. NEUROLOGIC: The patient is alert and oriented x3. Cranial nerves II-XII are intact. Sensory motor is without gross deficit. EXTREMITIES: With out clubbing, cyanosis, edema or atrophy. Full range of motion. Peripheral extremities are warm and well perfused. Pedal pulses are bilaterally palpable. Multiple varicosities are noted in the lower extremities bilaterally. IMPRESSION: This is a 44-year-old white female for long-standing history of chronic venous insufficiency, varicose veins with inflammation, leg pain, leg swelling involvin g her left lower extremity. The left lower extremity is more severely affected than the right. Venous duplex examination reveals incompetence involving the left great saphenous vein and left small saphenous vein. The implications of this diagnosis have been discussed with the patient in detail. The options of management have been fully explained. Conservative treatment measures have failed to alleviate the patient's symptoms. The indications and risks of endovenous laser ablation of the left great saphenous vein and the left small saphenous vein had been discussed with the patient in de tail. PLAN: The patient was admitted for the purpose of elective endovenous laser ablation of the left great saphenous vein and the left small saphenous vein. The indications and risks of the pro cedure have been discussed with the patient in detail. The appropriate preprocedure consent process has been undertaken. Tong Proctor MD T: [facility] JOB: [id number] 09/27/14 1341 <[facility]> Date: Time: Tong Proctor MD CC: Svetlana Ibarra MD; Tong Proctor MD Date Dictated: 09/27/14 1014 Date T ranscribed: 09/27/14 1014 Entry Level Account Manager: Signed ____ I have re-examined the patient. There are no clinical changes since date of exam. ____ See Progress Notes for Changes ____ Dictated on Ad mission Date: Time: Signature: 13-Aug-2014 PT Discharge Summary Result: Comments: See Note; NOTES: [facility] [address] [place] [address]. [address] [place] [address] Fax REHABILITATION SERVICES DISCHARGE SUMMARY MR#: [id number] Acct: [id number] Name: EVELYN BAUTISTA Rep #: [id number] : 1970 44 From: Franky Bruce Referring : Lauren Galdamez Status: DIS RCR Eval Date: Discha rge Date: 06/25/14 DATE OF SERVICE: REFERRING PHYSICIAN: Ana Galdamez. This patient by the name of Evelyn Bautista was seen in our clinic with a diagnosis of cervicalgia, backache, joint sp asms. The patient was seen in our clinic for 6 visits. Our physical therapy treatment today mainly focused on Yamilka exercises, posture education, manual therapy to include soft tissue massage, ce rvical distraction manually some modalities. At the time of discharge, the patient had an MRI, which showed she had a herniated disk at C5-C6. At that point, she saw a health communications specialist and she call ed and canceled her appointments after she saw the health communications specialist and the MRI. At this point, she is discharged from our care. If physical therapy is needed different time, I am glad to see this p atient. Once again, thank you for this referral. Sincerely, Franky Bruce, PT T: [facility] JOB: [id number] <Electronically signed by Franky Bruce > 08/13/14 1502 CC: Signed 18-Jun-2014 Spine Cervical (Routine) Result: Comments: See Note; NOTES: [facility] Imaging Services [address] [place] [address] MRI Report MR#: [id number] Acct: [id number] Name: EVELYN BAUTISTA Rep #: [id number] : 1970 F 44 From: Mahnaz Ascencio MD PCP: Svetlana Ibarra MD Status: REG CLI Study: Spine Cervical (Routine) Date of Exam: 06/18/14 Exam# [id number] Ordering Dr: Lauren Galdamez STUDY: M RI CERVICAL SPINE WITHOUT CONTRAST REASON FOR EXAM: Female, 44 years old neck pain right shoulder. TECHNIQUE: Standardized fat and water weighted pulse sequences were obtained in the sagittal and a xial planes. COMPARISON: None FINDINGS: Normal foramen magnum and brainstem-cervical cord junction. Normal craniovertebral junction. Normal anterior atlantoaxi al articulation. Normal odontoid process. There is straightening of the normal cervical lordosis. Normal vertebral bodies and posterior osseous elements. C2-3: Normal endplates. Normal disc height , signal and morphology. Normal central canal and intervertebral neural foramina. C3-4: Normal endplates. Normal disc height, signal and morphology. Normal central canal and intervertebral neural fo ramina. C4-5: There is disc desiccation and normal disc height, with mild bulge and endplate spur. Normal central canal and intervertebral neural foramina. C5-6: There is disc height, and focal ri ght paramedian disc herniation superimposed on disc bulge. There is mild canal and right foraminal stenosis. C6-7: Normal endplates. Normal disc height, signal and morphology. Normal central canal and intervertebral neural foramina. C7-T1: Normal endplates. Normal disc height, signal and morphology. Normal central canal and intervertebral neural foramina. Normal cervical cord. Normal visua lized soft tissue structures. IMPRESSION: Central to right paramedian C5-6 disc herniation with mild canal and right foraminal stenosis. Mild bulge and endplat e spur slight deformity of the thecal sac C4-5. Electronically Signed: Mahnaz Ascencio MD at 22:49 EDT Tel , Service support [phone], CC: Bal Galdamez; Svetlana Ibarra MD Entry Level Account Manager: Signed 18-Jun-2014 Spine Thoracic (Routine) Result: Comments: See Note; NOTES: [facility] Imaging Services [address] [place] [address] MRI Report MR#: [id number] Acct: [id number] Name: BAUTISTAEVELYN Huy Rep #: [id number] : 1970 F 44 From: Mahnaz Ascencio MD PCP: Svetlana Ibarra MD Status: REG CLI Study: Spine Thoracic (Routine) Date of Exam: 06/18/14 Exam# [id number] Ordering Dr: Lauren Galdamez STUDY: M RI THORACIC SPINE WITHOUT CONTRAST REASON FOR EXAM: Female, 44 years old back pain. TECHNIQUE: Standardized fat and water weighted pulse sequences were obtained in the sagittal and axial planes. COMPARISON: None. FINDINGS: Normal visualized cervical spine. The visualized cervical cord is unremarkable. Normal kyphosis of the thoracic spine. There is no substantial scoliosis. Normal thoracic vertebrae and endplates. Normal hydration and heights of the visualized disc spaces. There is a small central to right paramedian T5-6 disc herniation and sli ghtly deforming the ventral cord and resulting in mild stenosis. Normal visualized thoracic cord. The soft tissue structures are unremarkable. IMPRESSION: Sm all central to right paramedian T5-6 herniation and mild stenosis. Electronically Signed: Mahnaz Ascencio MD at 22:52 EDT Tel , Service support [phone], Fax CC: Lauren Galdamez; Svetlana Ibarra MD Entry Level Account Manager: Signed 13-Jun-2014 Upper Ext Joint Only(Routine) Result: Comments: See Note; NOTES: [facility] Imaging Services [address] [place] [address] MRI Report MR#: [id number] Acct: [id number] Name: EVELYN BAUTISTA Rep #: [id number] : 1970 F 44 From: Juan Manuel Phillips MD PCP: Svetlana Ibarra MD Status: REG CLI Study: Upper Ext Joint Only(Routine) Date of Exam: 06/13/14 Exam# [id number] Ordering Dr: Lauren Galdamez STUDY: MRI RIGHT SHOULDER REASON FOR EXAM: Female, 44 years old. Right shoulder pain with decreased range of motion TECHNIQUE: Standardized fat and water weighted pulse sequences were obtained in all 3 o rthogonal planes. COMPARISON: X-rays of the right shoulder on 05-12-14. FINDINGS: Normal supraspinatus tendon. Normal infraspinatus tendon. Normal subscapulari s tendon. Normal teres minor tendon. Normal supraspinatus muscle. Normal infraspinatus muscle. Normal subscapularis muscle. Normal teres minor muscle. Normal glenohumeral articulation. There are sm all cystic changes in the greater tuberosity of the humerus Normal biceps labral complex. Normal intracapsular long biceps tendon. Normal labrum. Normal capsulo- ligamentous complex. Normal rotator i nterval. There is mild arthrosis of the acromioclavicular articulation. There is a Type II morphology (curved), with a neutral orientation. There is no subacromial-subdeltoid bursal fluid. Normal visualized coracohumeral and coracoacromial ligaments. Normal quadrilateral space. Normal axillary space. Normal deltoid muscle. Normal trapezius muscle. IMPRES TRESA: Mild arthrosis of the acromioclavicular joint. No rotator cuff or labral pathology is noted. Electronically Signed: Juan Manuel Phillips MD, FACR at 21:44 EDT , Ser vice support [phone], CC: Lauren Galdamez; Svetlana Ibarra MD Entry Level Account Manager: Signed 25-May-2014 Inital Evaluation - PT Result: Comments: See Note; NOTES: [facility] [address] [place] [address]. [address] [place] [address] Fax REHABILITATION SERVICES INITIAL EVALUATION MR#: [id number] Acct: [id number] Name: EVELYN BAUTISTA Rep #: [id number] : 1970 44 From: Franky Bruce Referring DrRaymond: Lauren Galdamez Status: REG R Insurance: [facility] Date: DATE OF SERVICE: 05/21/2014 Lauren Galdamez is the nurse practitioner. SUBJECTIVE: This patient by the name of Evelyn Bautista who was born on 1970 was referred to physical therapy with diagnosis of cervicalgia, joint dysfunction and spasms. This patient has a history of neck and upper back pain for many years. Most recently , May 03, 2014, she was gardenin g and lifting pots etc. She noticed increased pain in the upper back, neck area, which radiated across the shoulders down her arm. She also states she has a history of injuring her right shoulder man y years ago when she is lifting something and felt something pull in her shoulder. She states that ever since then she has had shoulder pain. The pain became so persistent where symptoms have been d escribed more as a burning pain, stabbing pain, left greater than right side, upper back and neck area on top of the shoulder, scapular area as well. This affected decreased range of motion in neck. She also has some headaches, crepitus and cracking in the right shoulder with a history of that injury many years ago. She states that she also has a TENS unit at home which she has been using from her . Neck pain is intermittent and worse with activities, bending, flexing her neck, sitting and especially in the morning, her job demands, homework, housework chores. She does not attempt to use heat or cold. She has a Tempur-Pedic mattress. She sleeps on her side. She has tried many foam pillows. She is able to sleep throughout the night pretty fairly well. She has a history of se eing a chiropractor for low back adjustments. She denies any dizziness, tinnitus, nausea, swallowing problems. Upper limb is normal. No abnormal night pain. No abnormal weight loss. X-rays were don e, which showed some degenerative changes in the thoracic spine and neck area as well. Her goals are to decrease pain, improve range of motion, decrease tightness on problem area, strengthen her nec k, back and shoulders. SOCIAL HISTORY: . 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 PAST MEDICAL HISTORY: She has good health otherwise. She has a mild mitral valve, tonsillecto my, adenoidectomy, history of right shoulder pain. MEDICATIONS: She was on prednisone. HOBBIES: She is very active. She does skiing, yardwork, etc. OBJECTIVE OBSERVATION: POSTURE: The patient has rounded shoulders, head forward, reduced lordosis, fair posture. Correction of posture makes symptoms a little better, but reluctantly no effect. There is no torticollis noted. PALPATION: The patient has tenderness throughout the upper trapezius, levator scapula, paraspinals, left greater than right side. The right levator is very tight and restricted tissue occipital is mildly tight. In terscapular muscle group some tightness as well. Otherwise, spasms throughout the upper trapezius levator. NEUROLOGICAL: Denies numbness/tingling. Reflexes symmetrically elicited 2/3, myotomes inta ct. Rotator cuff is 4/5. Dural signs are negative. Motor deficit strength , biceps, triceps 5/5, wrist flexion extensors are 5/5, shoulder anterior deltoid is 4/5. Rotator cuff is 4/5. Sensory examin ation is movement loss, protrusion minimal loss, slight pain, flexion minimal loss with pain, retraction with functional limitation, extension mildly with pain. Side bending to the right and rotation to the right is moderately limited and side bending to the left and rotation to the left is moderate to severe limited both with pain. She has decreased ability to side bend and rotate that left si de. PRETEST PAIN: Neck pain, scapular slight symptoms slightly worse in neck, no worse afterwards. Retraction increases symptoms, but no better. Extension increases neck pain, but no worse, increa sed symptoms in the center of neck, especially on the left side is slightly worse. SPECIAL TESTS: Distraction relieves symptoms. Compression negative. Quadrant test is negative ANR. Negative slump test is negative. Vertebral artery is negative. ASSESSMENT: This patient exhibits pressure, possible derangement due to flexion increases symptoms slightly worse. She is limited with rotation as w ell and lateral flexion along with muscle spasms in upper trapezius, levator area, paraspinals. The patient will benefit from skilled physical therapy to decrease the spasms, improve the range of m otion and decrease her pain as well as improve her overall function. PROBLEMS: 1. Decreased home exercise program. 2. Decreased posture. 3. Increased cervical pain with radicular symptoms. 4. Dec reased range of motion of cervical spine without recurrent symptoms in her neck. 5. Tenderness throughout the levator scapula, levators upper trapezius. 6. Decreased function. 7. Decreased prophylax is. GOALS: 1. The patient will be independent with home exercise program to self-manage symptoms. 2. The patient will be independent with posture for ADLs. 3. The patient to reduce cervical radicu lopathy in her neck as well by at least 60-70% or greater to improve function. 4. The patient will display the ability to perform daily functional activities to include housework chores, ADLs, job d emands with decreased recurrent symptoms as well as sitting postures. 5. The patient to restore full range of motion of cervical spine to minimally loss. Lateral flexion, rotation and return to func tional recovery with flexion. 6. The patient will be discharged with prophylaxis home exercise program to help manage her symptoms. 7. The patient to have decreased spasms in upper trapezius, levato r scapula to palpational assessment to improve function. PLAN: Plan of care was reviewed with the patient. We discussed with the patient extensively possible mechanisms of pain and how faulty post ure, poor body mechanics, cervical spine affects the disks. We educated the patient on the anatomy of the disk as well. Correction of posture. We initiated an exercise program to include cervical re tractions x10 repetitions every 1-2 hours, avoid flexion. Our goals are to decrease the patient's pain to improve her function, decrease the spasms, improve range of motion, to initiate physical th erapy twice a week for the next 4-6 weeks focusing on home exercise program, posture exercises, [place] exercises, manual therapy to include soft tissue massage, distraction, modalities, ultrasound with electrical stimulation, cold pack, moist hot pack, patient education, postural strengthening exercises. Franky Bruce, SHIVANI C C: Lauren Galdamez T: ROSE JOB: [id number] <Electronically signed by Franky Bruce > 05/25/14 1648 CC: Signed For Medicare only, by signing this I certify the plan of care. Physicians Signature Date 12-May-2014 Cerv Spine 4 or 5 Views Result: Comments: See Note; NOTES: [facility] [address] [place] [address] Radiology Report MR#: [id number] Acct: [id number] Name: EVELYN BAUTISTA Rep #: [id number] : 1970 F 44 From: Dangelo Mondragon MD PCP: Svetlana Ibarra MD Status: REG CLI Study: Cerv Spine 4 or 5 Views Date of Exam: 05/12/14 Exam# [id number] Ordering Dr: Lauren Galdamez DY: X-RAY - CERVICAL SPINE REASON FOR EXAM: Female, 44 years old. Neck pain following a lifting injury. TECHNIQUE: 6 view(s) of the cervical spine were obtained including oblique views. COMPARIS ON: None FINDINGS: Normal anterior atlantoaxial articulation. Normal odontoid process. Normal cervical lordosis. Normal vertebral bodies and endplates. Normal disc space heights. Normal visualized intervertebral neuroforamina. The soft tissue structures are unremarkable. IMPRESSION: Normal x-ray examination of the vis ualized cervical spine. Electronically Signed: Dangelo Mondragon MD at 16:13 EDT Tel [phone], Service support [phone], RAD/Cerv Spine 4 or 5 Views IMPRESSION: Normal x-ray examination of the visualized cervical spine. Electronically Signed: Dangelo Mondragon MD at 16:13 EDT Tel [phone], Service support [phone], CC: Lauren Galdamez; Svetlana Ibarra MD Entry Level Account Manager: Signed 12-May-2014 Shoulder min 2 Views Result: Comments: See Note; NOTES: [facility] [address] [place] [address] Radiology Report MR#: [id number] Acct: [id number] Name: EVELYN BAUTISTA Rep #: [id number] : 1970 F 44 From: Smith Ruelas MD PCP: Svetlana Ibarra MD Status: REG CLI Study: Shoulder min 2 Views Date of Exam: 05/12/14 Exam# [id number] Ordering Dr: Lauren Galdamez STUDY: X-RAY - RIGHT SHOULDER REASON FOR EXAM: Female, 44 years old. Pain after lifting TECHNIQUE: 4 view(s) of the shoulder. COMPARISON: None. FINDINGS: Normal glenohum eral articulation. Normal acromioclavicular joint. Normal acromion. Normal humeral head and visualized proximal humerus. The soft tissue structures are unremarkable. Normal visualized pulmonary a pex. IMPRESSION: Normal x-ray examination of the shoulder. Electronically Signed: Jf Ruelas MD at 20:14 EDT , Service suppo rt [phone], CC: Lauren Galdamez; Svetlana Ibarra MD Entry Level Account Manager: Signed 12-May-2014 Thoracic Spine 3 Views Result: Comments: See Note; NOTES: [facility] [address] [place] [address] Radiology Report MR#: [id number] Acct: [id number] Name: EVELYN BAUTISTA Rep #: [id number] : 1970 F 44 From: Dangelo Mondragon MD PCP: Svetlana Ibarra MD Status: REG CLI Study: Thoracic Spine 3 Views Date of Exam: 05/12/14 Exam# [id number] Ordering Dr: Lauren Galdamez Y: X-RAY - THORACIC SPINE REASON FOR EXAM: Female, 44 years old. Pain following a lifting injury. TECHNIQUE: 3 view(s) of the thoracic spine were obtained. COMPARISON: None. FINDINGS: Normal kyphosis of the thoracic spine. There is no substantial scoliosis. There is multilevel endplate spondylosis of the thoracic vertebrae. There is mild multilevel disc space narrowing of the thoracic spine. The soft tissue structures are unremarkable. IMPRESSION: Mild degree of disc space narrowing with anterior spondylosis. Electronically Signed: Dangelo Mondragon MD at 16:12 EDT Tel [phone], Service support [phone], [id number] RAD/Thoracic Spine 3 Views IMPRESSION: M ild degree of disc space narrowing with anterior spondylosis. Electronically Signed: Dangelo Mondragon MD at 16:12 EDT Tel [phone], Service support [phone], CC: Lauren Galdamez; Svetlana Ibarra MD Entry Level Account Manager: Signed Family History Unknown Family Member Name Dates Details Father Comments: bladder cancer alzheimer. dm. 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 Status: Active Smoking Status Name Dates Details Never smoker Vital Signs Date Test Result Details :46 Temperature 97.6 f Comments: Method: Temporal Pulse 73 /min Comments: Pattern: Regular Respiration Rate 17 /min Comments: Pattern: Unlabored O2 SAT 99 % Comments: Room air BP Systolic 116 mm[Hg] Comments: Patient Position: Sitting; Cuff Location: Left Arm; Cuff Size: Standard BP Diastolic 66 mm[Hg] Comments: Patient Position: Sitting; Cuff Location: Left Arm; Cuff Size: Standard Weight 130.125 lb Height 64 in Body Mass Index Calculated 22.34 kg/m2 Body Surface Area Calculated 1.63 m2 :56 Pulse 68 /min Comments: Pattern: Regular Respiration Rate 18 /min Comments: Pattern: Unlabored O2 SAT 98 % Comments: Room air BP Systolic 98 mm[Hg] Comments: Patient Position: Sitting; Cuff Location: Left Arm; Cuff Size: Standard BP Diastolic 68 mm[Hg] Comments: Patient Position: Sitting; Cuff Location: Left Arm; Cuff Size: Standard Weight 124.375 lb Height 64 in Body Mass Index Calculated 21.35 kg/m2 Body Surface Area Calculated 1.6 m2 :41 Temperature 98.7 f Pulse 80 /min Comments: Pattern: Regular Respiration Rate 16 /min Comments: Pattern: Unlabored O2 SAT 99 % Comments: Room air BP Systolic 102 mm[Hg] Comments: Patient Position: Sitting; Cuff Location: Left Arm; Cuff Size: Standard BP Diastolic 68 mm[Hg] Comments: Patient Position: Sitting; Cuff Location: Left Arm; Cuff Size: Standard Weight 122 lb Height 64 in Body Mass Index Calculated 20.94 kg/m2 Body Surface Area Calculated 1.59 m2 [id number] Pulse 64 /min Comments: Pattern: Regular O2 SAT 99 % Comments: Room air BP Systolic 120 mm[Hg] Comments: Patient Position: Sitting; Cuff Location: Left Arm; Cuff Size: Standard BP Diastolic 60 mm[Hg] Comments: Patient Position: Sitting; Cuff Location: Left Arm; Cuff Size: Standard Weight 122 lb Height 64 in Body Mass Index Calculated 20.94 kg/m2 Body Surface Area Calculated 1.59 m2 :59 Temperature 97.5 f Pulse 77 /min Comments: Pattern: Regular Respiration Rate 16 /min Comments: Pattern: Unlabored O2 SAT 96 % Comments: Room air BP Systolic 108 mm[Hg] Comments: Patient Position: Sitting; Cuff Location: Left Arm; Cuff Size: Standard BP Diastolic 72 mm[Hg] Comments: Patient Position: Sitting; Cuff Location: Left Arm; Cuff Size: Standard Weight 122.5 lb Height 64 in Body Mass Index Calculated 21.03 kg/m2 Body Surface Area Calculated 1.59 m2 :17 Temperature 97.9 f Comments: Method: Temporal Pulse 64 /min Comments: Pattern: Regular Respiration Rate 18 /min Comments: Pattern: Unlabored O2 SAT 99 % Comments: Room air BP Systolic 110 mm[Hg] Comments: Patient Position: Sitting; Cuff Location: Left Arm; Cuff Size: Standard BP Diastolic 70 mm[Hg] Comments: Patient Position: Sitting; Cuff Location: Left Arm; Cuff Size: Standard Weight 115.0125 lb Height 64 in Body Mass Index Calculated 19.74 kg/m2 Body Surface Area Calculated 1.55 m2 :21 Temperature 97.2 f Comments: Method: Temporal Pulse 70 /min Comments: Pattern: Regular Respiration Rate 18 /min Comments: Pattern: Unlabored O2 SAT 99 % Comments: Room air BP Systolic 104 mm[Hg] Comments: Patient Position: Sitting; Cuff Location: Left Arm; Cuff Size: Standard BP Diastolic 68 mm[Hg] Comments: Patient Position: Sitting; Cuff Location: Left Arm; Cuff Size: Standard Weight 111.0375 lb Height 64 in Body Mass Index Calculated 19.06 kg/m2 Body Surface Area Calculated 1.52 m2 :03 Temperature 97.9 f Comments: Method: Temporal Pulse 70 /min Comments: Pattern: Regular Respiration Rate 18 /min Comments: Pattern: Unlabored O2 SAT 99 % Comments: Room air BP Systolic 108 mm[Hg] Comments: Patient Position: Sitting; Cuff Location: Left Arm; Cuff Size: Standard BP Diastolic 68 mm[Hg] Comments: Patient Position: Sitting; Cuff Location: Left Arm; Cuff Size: Standard Weight 109 lb Height 64 in Body Mass Index Calculated 18.71 kg/m2 Body Surface Area Calculated 1.51 m2 :13 Temperature 97.6 f Comments: Method: Temporal Pulse 74 /min Comments: Pattern: Regular Respiration Rate 18 /min Comments: Pattern: Unlabored O2 SAT 98 % Comments: Room air BP Systolic 104 mm[Hg] Comments: Patient Position: Sitting; Cuff Location: Left Arm; Cuff Size: Standard BP Diastolic 64 mm[Hg] Comments: Patient Position: Sitting; Cuff Location: Left Arm; Cuff Size: Standard Weight 110 lb Height 64 in Body Mass Index Calculated 18.88 kg/m2 Body Surface Area Calculated 1.52 m2 :56 Temperature 98.7 f Comments: Method: Tympanic Pulse 74 /min Comments: Pattern: Regular Respiration Rate 18 /min Comments: Pattern: Unlabored O2 SAT 98 % Comments: Room air BP Systolic 116 mm[Hg] Comments: Patient Position: Sitting; Cuff Location: Left Arm; Cuff Size: Standard BP Diastolic 64 mm[Hg] Comments: Patient Position: Sitting; Cuff Location: Left Arm; Cuff Size: Standard Weight 107 lb Height 64 in Body Mass Index Calculated 18.37 kg/m2 Body Surface Area Calculated 1.5 m2 :44 Temperature 97.8 f Comments: Method: Temporal Respiration Rate 18 /min Comments: Pattern: Unlabored O2 SAT 98 % Comments: Room air BP Systolic 108 mm[Hg] Comments: Patient Position: Sitting; Cuff Location: Left Arm; Cuff Size: Standard BP Diastolic 70 mm[Hg] Comments: Patient Position: Sitting; Cuff Location: Left Arm; Cuff Size: Standard Weight 114 lb Height 64 in Body Mass Index Calculated 19.57 kg/m2 Body Surface Area Calculated 1.54 m2 :36 Temperature 97.4 f Comments: Method: Temporal Pulse 72 /min Comments: Pattern: Regular Respiration Rate 17 /min Comments: Pattern: Unlabored O2 SAT 99 % Comments: Room air BP Systolic 102 mm[Hg] Comments: Patient Position: Sitting; Cuff Location: Left Arm; Cuff Size: Standard BP Diastolic 70 mm[Hg] Comments: Patient Position: Sitting; Cuff Location: Left Arm; Cuff Size: Standard Weight 116.6 lb Height 64 in Body Mass Index Calculated 20.01 kg/m2 Body Surface Area Calculated 1.56 m2 :10 Temperature 98.9 f Comments: Method: Temporal Pulse 84 /min Comments: Pattern: Regular Respiration Rate 20 /min Comments: Pattern: Unlabored O2 SAT 98 % Comments: Room air BP Systolic 104 mm[Hg] Comments: Patient Position: Sitting; Cuff Location: Left Arm; Cuff Size: Standard BP Diastolic 70 mm[Hg] Comments: Patient Position: Sitting; Cuff Location: Left Arm; Cuff Size: Standard Weight 122 lb Height 64 in Body Mass Index Calculated 20.94 kg/m2 Body Surface Area Calculated 1.59 m2 :29 Temperature 97.6 f Comments: Method: Temporal Pulse 70 /min Comments: Pattern: Regular Respiration Rate 18 /min Comments: Pattern: Unlabored BP Systolic 100 mm[Hg] Comments: Patient Position: Sitting; Cuff Location: Left Arm; Cuff Size: Standard BP Diastolic 68 mm[Hg] Comments: Patient Position: Sitting; Cuff Location: Left Arm; Cuff Size: Standard Weight 122 lb Height 64 in Body Mass Index Calculated 20.94 kg/m2 Body Surface Area Calculated 1.59 m2 :51 Temperature 98.1 f Comments: Method: Oral Pulse 74 /min Comments: Pattern: Regular Respiration Rate 16 /min Comments: Pattern: Unlabored O2 SAT 98 % Comments: Room air BP Systolic 100 mm[Hg] Comments: Patient Position: Sitting; Cuff Location: Left Arm; Cuff Size: Standard BP Diastolic 70 mm[Hg] Comments: Patient Position: Sitting; Cuff Location: Left Arm; Cuff Size: Standard Weight 128 lb Height 64 in Body Mass Index Calculated 21.97 kg/m2 Body Surface Area Calculated 1.62 m2 :45 Temperature 97.6 f Comments: Method: Oral Pulse 70 /min Comments: Pattern: Regular Respiration Rate 20 /min Comments: Pattern: Unlabored BP Systolic 118 mm[Hg] Comments: Patient Position: Sitting; Cuff Location: Left Arm; Cuff Size: Standard BP Diastolic 72 mm[Hg] Comments: Patient Position: Sitting; Cuff Location: Left Arm; Cuff Size: Standard Weight 126 lb Height 64 in Body Mass Index Calculated 21.63 kg/m2 Body Surface Area Calculated 1.61 m2 :12 Temperature 98 f Comments: Method: Temporal Pulse 68 /min Comments: Pattern: Regular Respiration Rate 16 /min Comments: Pattern: Unlabored BP Systolic 166 mm[Hg] Comments: Patient Position: Sitting; Cuff Location: Left Arm; Cuff Size: Standard BP Diastolic 66 mm[Hg] Comments: Patient Position: Sitting; Cuff Location: Left Arm; Cuff Size: Standard Weight 128.7 lb Height 64 in Body Mass Index Calculated 22.09 kg/m2 Body Surface Area Calculated 1.62 m2 :09 Temperature 97.8 f Comments: Method: Oral Pulse 68 /min Comments: Pattern: Regular Respiration Rate 18 /min Comments: Pattern: Unlabored BP Systolic 110 mm[Hg] Comments: Patient Position: Sitting; Cuff Location: Left Arm; Cuff Size: Standard BP Diastolic 70 mm[Hg] Comments: Patient Position: Sitting; Cuff Location: Left Arm; Cuff Size: Standard Weight 126 lb Height 64 in Body Mass Index Calculated 21.63 kg/m2 Body Surface Area Calculated 1.61 m2 :38 Temperature 97.8 f Comments: Method: Oral Pulse 62 /min Comments: Pattern: Regular Respiration Rate 18 /min Comments: Pattern: Unlabored BP Systolic 102 mm[Hg] Comments: Patient Position: Sitting; Cuff Location: Left Arm; Cuff Size: Standard BP Diastolic 68 mm[Hg] Comments: Patient Position: Sitting; Cuff Location: Left Arm; Cuff Size: Standard Weight 126 lb Height 64 in Body Mass Index Calculated 21.63 kg/m2 Body Surface Area Calculated 1.61 m2 :42 Temperature 97.6 f Comments: Method: Oral Pulse 68 /min Comments: Pattern: Regular Respiration Rate 18 /min Comments: Pattern: Unlabored BP Systolic 114 mm[Hg] Comments: Patient Position: Sitting; Cuff Location: Left Arm; Cuff Size: Standard BP Diastolic 74 mm[Hg] Comments: Patient Position: Sitting; Cuff Location: Left Arm; Cuff Size: Standard Weight 129 lb Height 64 in Body Mass Index Calculated 22.14 kg/m2 Body Surface Area Calculated 1.62 m2 :39 Temperature 98.2 f Comments: Method: Oral Pulse 64 /min Comments: Pattern: Regular Respiration Rate 18 /min Comments: Pattern: Unlabored BP Systolic 122 mm[Hg] Comments: Patient Position: Sitting; Cuff Location: Left Arm; Cuff Size: Standard BP Diastolic 72 mm[Hg] Comments: Patient Position: Sitting; Cuff Location: Left Arm; Cuff Size: Standard Weight 129 lb Height 64 in Body Mass Index Calculated 22.14 kg/m2 Body Surface Area Calculated 1.62 m2 :20 Temperature 97.9 f Comments: Method: Oral Pulse 68 /min Comments: Pattern: Regular Respiration Rate 16 /min Comments: Pattern: Unlabored BP Systolic 122 mm[Hg] Comments: Patient Position: Sitting; Cuff Location: Left Arm; Cuff Size: Standard BP Diastolic 70 mm[Hg] Comments: Patient Position: Sitting; Cuff Location: Left Arm; Cuff Size: Standard Weight 126 lb Height 64 in Body Mass Index Calculated 21.63 kg/m2 Body Surface Area Calculated 1.61 m2 :00 Temperature 97.7 f Comments: Method: Oral Pulse 68 /min Comments: Pattern: Regular Respiration Rate 16 /min Comments: Pattern: Unlabored BP Systolic 118 mm[Hg] Comments: Patient Position: Sitting; Cuff Location: Left Arm; Cuff Size: Standard BP Diastolic 72 mm[Hg] Comments: Patient Position: Sitting; Cuff Location: Left Arm; Cuff Size: Standard Weight 126 lb Height 64 in Body Mass Index Calculated 21.63 kg/m2 Body Surface Area Calculated 1.61 m2 :53 Temperature 97.6 f Comments: Method: Oral Pulse 70 /min Comments: Pattern: Regular Respiration Rate 18 /min Comments: Pattern: Unlabored BP Systolic 108 mm[Hg] Comments: Patient Position: Sitting; Cuff Location: Left Arm; Cuff Size: Standard BP Diastolic 72 mm[Hg] Comments: Patient Position: Sitting; Cuff Location: Left Arm; Cuff Size: Standard Weight 126 lb Height 64 in Body Mass Index Calculated 21.63 kg/m2 Body Surface Area Calculated 1.61 m2 :44 Temperature 97 f Comments: Method: Oral Pulse 70 /min Comments: Pattern: Regular Respiration Rate 16 /min Comments: Pattern: Unlabored BP Systolic 100 mm[Hg] Comments: Patient Position: Sitting; Cuff Location: Left Arm; Cuff Size: Standard BP Diastolic 68 mm[Hg] Comments: Patient Position: Sitting; Cuff Location: Left Arm; Cuff Size: Standard Weight 120.0313 lb Height 64 in Body Mass Index Calculated 20.6 kg/m2 Body Surface Area Calculated 1.57 m2 [id number] Pulse 70 /min Comments: Pattern: Regular Respiration Rate 16 /min Comments: Pattern: Unlabored BP Systolic 100 mm[Hg] Comments: Patient Position: Sitting; Cuff Location: Left Arm; Cuff Size: Standard BP Diastolic 70 mm[Hg] Comments: Patient Position: Sitting; Cuff Location: Left Arm; Cuff Size: Standard Weight 120.0313 lb Height 64 in Body Mass Index Calculated 20.6 kg/m2 Body Surface Area Calculated 1.57 m2 Head Circumference 0.00 cm :19 Temperature 97.8 f Comments: Method: Oral Pulse 74 /min Comments: Pattern: Regular Respiration Rate 16 /min Comments: Pattern: Unlabored BP Systolic 98 mm[Hg] Comments: Patient Position: Sitting; Cuff Location: Left Arm; Cuff Size: Standard BP Diastolic 60 mm[Hg] Comments: Patient Position: Sitting; Cuff Location: Left Arm; Cuff Size: Standard Weight 117.0313 lb Height 63.5 in Body Mass Index Calculated 20.41 kg/m2 Body Surface Area Calculated 1.55 m2 Head Circumference 0.00 cm :00 Temperature 98.6 f Comments: Method: Oral Pulse 68 /min Comments: Pattern: Regular Respiration Rate 17 /min Comments: Pattern: Unlabored BP Systolic 92 mm[Hg] Comments: Patient Position: Sitting; Cuff Location: Left Arm; Cuff Size: Standard BP Diastolic 68 mm[Hg] Comments: Patient Position: Sitting; Cuff Location: Left Arm; Cuff Size: Standard Weight 0 lb Height 0 in Head Circumference 0.00 cm Results Date Description Value Details :30 CALCIFEDIOL (08419) Comments: PATIENT NOT FASTINGPERFORMED BY: KEYANNA [facility] [id number] [facility] [id number] Vitamin D, 25-Hydroxy 18.7 ng/mL (Abnormal) Range: 30.0-100.0 Comments: Vitamin D deficiency has been defined by the [place] of[employer] and an Endocrine Society practice guideline as alevel of serum 25-OH vitamin D less than 20 ng/mL (1,2).The Endocrine Society went on to further define vitamin Dinsufficiency as a level between 21 and 29 ng/mL (2).1. IOM ([place] of [employer]). 2010. Dietary reference intakes for calcium and D. [place]: The National Academies Press.2. Mp MF, Marco A NC, Asif MOULTON, et al. Evaluation, treatment, and prevention of vitamin D deficiency: an Endocrine Society clinical practice guideline. JCEM. 2010; 96(7):1911-30. [id number] URINE RIZWAN CULTURE-IDENTIFICATN Comments: PATIENT NOT FASTINGPERFORMED BY: [facility] [id number] [facility] [id number] Information: SRC: ([id number]) Antimicrobial MIHEAD (Normal) Comments: S = Susceptible; I = Intermediate; R = Resistant P = Positive; N = Negative MICS are expressed in micrograms per mL Antibiotic RSLT#1 RSLT#2 RS Susceptibility LT#3 RSLT#4Amoxicillin/Clavulanic Acid SAmpicillin SCefepime SCeftriaxone SCefuroxime SCiprofloxacin SErtapenem SGentamicin SImipenem SLevofloxacin SMeropenem SNitrofurantoin SPipera cillin/Tazobactam STetracycline RTobramycin STrimethoprim/Sulfa S Result 1 Escherichia coli Comments: Greater than 100,000 colony forming units per mLCefazolin <=4 ug/mLCefazolin with an TIM <=16 predicts susceptibility to the oral agentscefaclor, cefdinir, cefpodoxime, cefprozil, cefuroxime, ceph (Abnormal) alexin,and loracarbef when used for therapy of uncomplicated urinary tractinfections due to E. coli, Klebsiella pneumoniae, and Proteusmirabilis. Urine Final report Culture,Comprehensive (Abnormal) [id number] Urinalysis, Office ([id number]) UA - LEUKOCYTE ESTERASE Moderate (Normal) Comments: 15leu/uL UA - NITRITE Negative (Normal) URINE UROBILINGN MITRA TIMED 2 mg/dL (Normal) UA - PROTEIN Negative mg/dL (Normal) UA - PH 6 (Abnormal) UA - BLOOD Negative (Normal) UA - SPECIFIC GRAVITY 1.025 (Normal) UA - KETONES Negative mg/dL (Normal) UA - BILIRUBIN Negative (Normal) UA - GLUCOSE Negative (Normal) [id number] CBC W/Diff, Automated Comments: [facility] [id number] [place], [place], [id number] Absolute Lymph 1.82 {X10_3/ul} (Normal) Range: 0.83-4.51 Absolute Neut 3.9 {X10_3/uL} (Normal) Range: 2.0-7.7 IM GRAN % 0.000 % (Normal) Range: 0.0-0.9 Comments: IG% - Immature Granulocytes (promyelocytes, myelocytes andmetamyelocytes) > 1% indicates that a LEFT SHIFT is Present. BASO% 0.6 % (Normal) Range: 0-1 EO% 2.4 % (Normal) Range: 0-5 MONO% 7.4 % (Normal) Range: 0-10 LY% 28.6 % (Normal) Range: 19-41 NEUT% 61.0 % (Normal) Range: 47-70 MPV 10.3 fL (Normal) Range: 6.2-12.0 PLT 230 K/mm3 (Normal) Range: 150-450 RDW SD 42.9 fL (Normal) Range: 35.1-43.9 RDW CV 12.7 % (Normal) Range: 11.6-14.6 MCHC 33.4 {g/gl} (Normal) Range: 32-36 MCH 31.2 pg (Normal) Range: 27.0-32.0 MCV 93.4 fL (Normal) Range: 81-99 HCT 39.5 % (Normal) Range: 37-47 HGB 13.2 g/dL (Normal) Range: 12.0-15.0 RBC 4.23 {M/mm3} (Normal) Range: 4.2-5.4 WBC 6.4 K/mm3 (Normal) Range: 4.4-11.0 96-Lzv-038410:10 T4 Free Direct Comments: [facility] [address] [place], [address] T4 FREE DIRECT 1.04 ng/dL (Normal) Range: 0.76-1.46 03-Guh-599076:10 Thyroid Stim Hormone (TSH) Comments: [facility] Qrvnigomyq2436 KEKE Morris, [address] TSH 2.41 {uIU/mL} (Normal) Range: 0.358-3.74 16-Hal-342906:10 Vitamin D 1,25-Dihydroxy Comments: [facility] (refer to report for specific site)refer to report for address and phone number VITD 35780 53.7 pg/mL (Normal) Range: 19.9-79.3 Comments: Performed at: [facility] Lab[address] [id number] Director: Suzy Vigil MD, Phone: [phone] 85-Egw-968303:00 PAP IG HPV APTIMA Comments: CYTOLOGY INFORMATION:- CLINICAL INFORMATION: ANNUAL- DATE LMP/MENOPAUSE:- COLLECTION 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 of containers..01 ThinPrep [facility]ialLab[facility] (refer to report for specific site)refer to report for address and phone number HPV APTIMA, HR Negative (Normal) Comments: This test detects fourteen high- risk HPV types(16/18/31/33/35/39/45/ 51/52/56/58/59/66/68) withoutdifferentiation.Performed at: - [address] [place], [place] [id number] Dire ctor: Shari Hall MD, Phone: [phone] at: =[facility] [place], [place] [id number] Director: Shari Hall MD, Phone: [phone] PAPSMR Comment (Normal) Comments: The Pap smear is a screening test designed to aid in thedetection of premalignant and malignant conditions of theuterine cervix. It is not a diagnostic procedure andshould not be used as the sole means of detecting cervicalcancer. Both false-positive and false-negative reports dooccur. COMM . (Normal) TEST METHOD Comment (Normal) Comments: This liquid based ThinPrep(R) pap test was screened withthe use of an image guided system. PERFORM Comment (Normal) Comments: Krystle Ferro, Administrator Pesticide (ASCP) ADEQ Comment (Normal) Comments: Satisfactory for evaluation. Endocervical and/or squamous metaplasticcells (endocervical component) are present. DIAGN Comment (Normal) Comments: NEGATIVE FOR INTRAEPITHELIAL LESION AND MALIGNANCY. :42 Rapid Strep Test, Office (42241) Rapid Strep Test, Office Negative (Normal) :48 THROAT CULTURE (15211) Comments: PATIENT NOT FASTINGPERFORMED BY: [facility]70 [facility] [id number] Information: SRC:TH Result 1 RRF (Normal) Comments: Routine respiratory mellisa Upper Respiratory Culture Final report (Normal) 81-Pov-329761:53 Metabolic Panel, Comprehensive Comments: PATIENT WAS FASTINGPERFORMED BY: [employer] Jdscsy4746 [facility] [id number] (93004) ALT (SGPT) 46 [iU]/L (Abnormal) Range: 0-32 AST (SGOT) 51 [iU]/L (Abnormal) Range: 0-40 Alkaline Phosphatase, S 68 [iU]/L (Normal) Range: 39-117 Bilirubin, Total 0.4 mg/dL (Normal) Range: 0.0-1.2 A/G Ratio 2.1 (Normal) Range: 1.2-2.2 Globulin, Total 2.3 g/dL (Normal) Range: 1.5-4.5 Albumin, Serum 4.8 g/dL (Normal) Range: 3.5-5.5 Protein, Total, Serum 7.1 g/dL (Normal) Range: 6.0-8.5 Calcium, Serum 8.9 mg/dL (Normal) Range: 8.7-10.2 Carbon Dioxide, Total 24 mmol/L (Normal) Range: 18-29 Chloride, Serum 103 mmol/L (Normal) Range: 96-106 Potassium, Serum 4.2 mmol/L (Normal) Range: 3.5-5.2 Sodium, Serum 144 mmol/L (Normal) Range: 134-144 BUN/Creatinine Ratio 24 (Abnormal) Range: 9-23 eGFR If Africn Am 122 mL/min/1.73 (Normal) eGFR If NonAfricn Am 106 mL/min/1.73 (Normal) Creatinine, Serum 0.67 mg/dL (Normal) Range: 0.57-1.00 BUN 16 mg/dL (Normal) Range: 6-24 Glucose, Serum 89 mg/dL (Normal) Range: 65-99 88-Tan-219704:53 TSH (THYROID STIMULATING Comments: PATIENT WAS FASTINGPERFORMED BY: [facility] EnergyPalisades Medical CenterXzycdx4412 [facility] [id number] HORMONE) (58897) TSH 1.840 {uIU/mL} (Normal) Range: 0.450-4.500 84-Knq-740084:53 LIPID PANEL (29043) Comments: PATIENT WAS FASTINGPERFORMED BY: [facility] EnergyPalisades Medical CenterWuuypg6790 [facility] [id number] LDL/HDL Ratio 1.7 {ratio_units} (Normal) Range: 0.0-3.2 Comments: LDL/HDL Ratio Men Women 1/2 Avg.Risk 1.0 1.5 Av g.Risk 3.6 3.2 2X Avg.Risk 6.2 5.0 3X Avg.Risk 8.0 6.1 LDL Cholesterol Calc 120 mg/dL (Abnormal) Range: 0-99 VLDL Cholesterol Zeyad 10 mg/dL (Normal) Range: 5-40 HDL Cholesterol 71 mg/dL (Normal) Triglycerides 51 mg/dL (Normal) Range: 0-149 Cholesterol, Total 201 mg/dL (Abnormal) Range: 100-199 41-Jhv-276455:53 Thin prep Pap Comments: Source.............Cervical;EndocervicalNo. of containers..01 CYTYC Thin Prep VialPATIENT NOT FASTINGPERFORMED BY: [facility] [employer] [id number] Information: [id number] (82912) (no STD testing) Note: PAPSMR (Normal) Comments: The Pap smear is a screening test designed to aid in the detection ofpremalignant and malignant conditions of the uterine cervix. It is not adiagnostic procedure and should not be used as the sole mean s of detectingcervical cancer. Both false-positive and false-negative reports do occur. .This liquid based ThinPrep(R) pap test w as screened with theuse of an image guided system.The HPV DNA reflex criteria were not met with this specimen resulttherefore, no HPV testing was performed. . See Note . (Normal) DIAGNOSIS: SPRCS (Normal) Comments: NEGATIVE FOR INTRAEPITHELIAL LESION AND MALIGNANCY.Satisfactory for evaluation. Endocervical and/or squamous metaplasticcells (endocervical component) are present.V70.0 ; Routine general va dical examin [facility]Astrdi Rodríguez Administrator Pesticide (ASCP) 12-Ksd-461255:54 [facility] STD (STD W/ Comments: PATIENT NOT FASTINGPERFORMED BY: Lab[address] [id number] Information: [id number] Herpes) (04671) HSV 2 ALEA Negative (Normal) HSV 1 ALEA Negative (Normal) Neisseria gonorrhoeae, ALEA Negative (Normal) Chlamydia trachomatis, ALEA Negative (Normal) Trich vag by ALEA Negative (Normal) Susi glabrata, ALEA Negative (Normal) Comments: This test was developed and its performance characteristics determinedby [facility]. It has not been cleared or approved by the Food and DrugAdministration. The FDA has determined that such clearance orapproval is not necessary. Susi albicans, ALEA Negative (Normal) Megasphaera 1 Low - 0 {Score} (Normal) Comments: Calculate total score by adding the 3 individual bacterial vaginosis(BV) marker scores together. Total score is interpreted as follows: .Total score 0-1: Indicates the absence of BV.Total score 2: Indeterminate for BV. Additional clinical data should be evaluated to establish a diagnosis.Total score 3-6: Indicates th e presence of BV. .This test was developed and its performance characteristics determinedby [facility]. It has not been cleared or appro bhavesh by the Food and DrugAdministration. The FDA has determined that such clearance orapproval is not necessary. BVAB 2 Low - 0 {Score} (Normal) Atopobium vaginae Low - 0 {Score} (Normal) 18-Toe-063332:21 Thyroid Stim Hormone (TSH) Comments: Test performed at:[facility] [address] [place] [address] TSH 2.22 {uIU/mL} (Normal) Range: 0.358-3.74 16-Csq-237485:21 Vitamin B12 366 pg/mL (Normal) Comments: Test performed at:[facility] [address] [place] [address] Range: 211-911 95-Rog-732608:21 Vitamin D,25 Hydroxy Comments: Test performed at:[facility] [address] [place], [place] [id number] Vitamin D 25-OH 21.6 ng/mL (Normal) Comments: Vitamin D 25(OH) Status Range Deficiency <20 ng/mL (50nmol/L) Insuffciency 20 - 30 ng/mL (50 - 75 nmol/L) Sufficiency 30 - 100 ng/mL (75 - 250 nmol/L) Toxicity >100 ng/mL (>250 nmol/L) 29-Sep-20146:20 BMP GAP 8 (Normal) Range: 5-15 CO2 26.0 mmol/L (Normal) Range: 21.0-32.0 CL 106 mmol/L (Normal) Range: 98-107 K 3.3 mmol/L (Abnormal) Range: 3.5-5.1 NA 140 mmol/L (Normal) Range: 136-145 CA 8.7 mg/dL (Normal) Range: 8.5-10.1 BC 22.9 {RATIO} (Abnormal) Range: 10-20 ECRCL 89.04 ml/min (Normal) GFRAA 118 mL/min (Normal) GFR 97 mL/min (Normal) CREAT 0.7 mg/dL (Normal) Range: 0.6-1.0 BUN 16 mg/dL (Normal) Range: 7-18 GLU 88 mg/dL (Normal) Range: 70-110 98-Qhj-758263:54 CBCD ALC 1.35 {X10_3/ul} (Normal) Range: 0.83-4.51 ANC 4.5 {X10_3/uL} (Normal) Range: 2.0-7.7 IG% 0.200 % (Normal) Range: 0.0-0.9 Comments: IG% - Immature Granulocytes (promyelocytes, myelocytes andmetamyelocytes) > 1% indicates that a LEFT SHIFT is Present. B% 0.5 % (Normal) Range: 0-1 E% 0.8 % (Normal) Range: 0-5 M% 6.0 % (Normal) Range: 0-10 L% 21.5 % (Normal) Range: 19-41 N% 71.0 % (Abnormal) Range: 47-70 MPV 10.8 fL (Normal) Range: 6.2-12.0 PLT 227 K/mm3 (Normal) Range: 150-450 RDWSD 42.9 fL (Normal) Range: 35.1-43.9 RDWCV 12.5 % (Normal) Range: 11.6-14.6 MCHC 34.0 {g/gl} (Normal) Range: 32-36 MCH 32.1 pg (Abnormal) Range: 27.0-32.0 MCV 94.3 fL (Normal) Range: 81-99 HCT 39.7 % (Normal) Range: 37-47 HGB 13.5 g/dL (Normal) Range: 12.0-15.0 RBC 4.21 {M/mm3} (Normal) Range: 4.2-5.4 WBC 6.3 K/mm3 (Normal) Range: 4.4-11.0 47-Zxn-392349:05 PREGU tPREGU Negative {Negative} (Normal) Comments: Very dilute urine specimens, as indicated by a low specificgravity, may not contain sales representative publications levels of hCG.If is still suspected, a first morning urinespecimen should be collected 48 hours later and tested. :23 Metabolic Panel, Basic Comments: PATIENT WAS FASTINGPERFORMED BY: LabCoPalisades Medical CenterJzfqvd3325 [facility] [id number] Information: [id number] (84336) Calcium, Serum 9.6 mg/dL (Normal) Range: 8.7-10.2 Carbon Dioxide, Total 22 mmol/L (Normal) Range: 19-28 Chloride, Serum 103 mmol/L (Normal) Range: 97-108 Potassium, Serum 4.6 mmol/L (Normal) Range: 3.5-5.2 Sodium, Serum 141 mmol/L (Normal) Range: 134-144 BUN/Creatinine Ratio 21 (Normal) Range: 9-23 eGFR If Africn Am 108 mL/min/1.73 (Normal) eGFR If NonAfricn Am 94 mL/min/1.73 (Normal) Creatinine, Serum 0.78 mg/dL (Normal) Range: 0.57-1.00 BUN 16 mg/dL (Normal) Range: 6-24 Glucose, Serum 95 mg/dL (Normal) Range: 65-99 :23 CALCIFEDIOL (48305) Comments: PATIENT WAS FASTINGPERFORMED BY: [facility] [id number] Vitamin D, 25-Hydroxy 38.5 ng/mL (Normal) Range: 30.0-100.0 Comments: Vitamin D deficiency has been defined by the [place] of[facility] and an Endocrine Society practice guideline as alevel of serum 25-OH vitamin D less than 20 ng/mL (1,2).The Endocrine Society went on to further define vitamin Dinsufficiency as a level between 21 and 29 ng/mL (2).1. IOM ([place] of Medicine). 2010. Dietary reference intakes for calcium and D. [place]: The National Academies Press.2. Mp MF, Marco A NC, Asif MOULTON, et al. Evaluation, treatment, and prevention of vitamin D deficiency: an Endocrine Society clinical practice guideline. JCEM. 2010; 96(7):1911-30. :23 LIPID PANEL (17104) Comments: PATIENT WAS FASTINGPERFORMED BY: [employer]70 [facility] [id number] LDL/HDL Ratio 2.4 {ratio_units} (Normal) Range: 0.0-3.2 LDL Cholesterol Calc 156 mg/dL (Abnormal) Range: 0-99 VLDL Cholesterol Zeyad 12 mg/dL (Normal) Range: 5-40 HDL Cholesterol 64 mg/dL (Normal) Comments: According to ATP-III Guidelines, HDL-C >59 mg/dL is considered anegative risk factor for CHD. Triglycerides 60 mg/dL (Normal) Range: 0-149 Cholesterol, Total 232 mg/dL (Abnormal) Range: 100-199 :56 LIPID PANEL (84088) Comments: PATIENT WAS FASTINGPERFORMED BY: [employer] [facility] [id number] LDL/HDL Ratio 2.0 {ratio_units} (Normal) Range: 0.0-3.2 LDL Cholesterol Calc 133 mg/dL (Abnormal) Range: 0-99 VLDL Cholesterol Zeyad 10 mg/dL (Normal) Range: 5-40 HDL Cholesterol 66 mg/dL (Normal) Comments: According to ATP-III Guidelines, HDL-C >59 mg/dL is considered anegative risk factor for CHD. Triglycerides 52 mg/dL (Normal) Range: 0-149 Cholesterol, Total 209 mg/dL (Abnormal) Range: 100-199 :56 TSH (95135) Comments: PATIENT WAS FASTINGPERFORMED BY: [employer]70 [facility] [id number] TSH 2.520 {uIU/mL} (Normal) Range: 0.450-4.500 :56 CBC (Auto) (37727) Comments: PATIENT WAS FASTINGPERFORMED BY: [employer] Fhrzqj6883 [facility] [id number] Platelets 193 {x10E3/uL} (Normal) Range: 140-415 RDW 12.7 % (Normal) Range: 12.3-15.4 MCHC 32.5 g/dL (Normal) Range: 31.5-35.7 MCH 30.6 pg (Normal) Range: 26.6-33.0 MCV 94 fL (Normal) Range: 79-97 Hematocrit 40.6 % (Normal) Range: 34.0-46.6 Hemoglobin 13.2 g/dL (Normal) Range: 11.1-15.9 RBC 4.32 {x10E6/uL} (Normal) Range: 3.77-5.28 WBC 5.6 {x10E3/uL} (Normal) Range: 4.0-10.5 :56 Metabolic Panel, Comments: PATIENT WAS FASTINGPERFORMED BY: [employer] Xfbsrb3638 [facility] [id number] Information: [id number] Comprehensive (19112) ALT (SGPT) 17 [iU]/L (Normal) Range: 0-32 AST (SGOT) 20 [iU]/L (Normal) Range: 0-40 Alkaline Phosphatase, S 44 [iU]/L (Normal) Range: 25-150 Bilirubin, Total 0.6 mg/dL (Normal) Range: 0.0-1.2 A/G Ratio 2.1 (Normal) Range: 1.1-2.5 Globulin, Total 2.3 g/dL (Normal) Range: 1.5-4.5 Albumin, Serum 4.9 g/dL (Normal) Range: 3.5-5.5 Protein, Total, Serum 7.2 g/dL (Normal) Range: 6.0-8.5 Calcium, Serum 9.7 mg/dL (Normal) Range: 8.7-10.2 Carbon Dioxide, Total 21 mmol/L (Normal) Range: 20-32 Chloride, Serum 104 mmol/L (Normal) Range: 97-108 Potassium, Serum 4.4 mmol/L (Normal) Range: 3.5-5.2 BUN/Creatinine Ratio 20 (Normal) Range: 9-23 Sodium, Serum 142 mmol/L (Normal) Range: 134-144 eGFR If Africn Am 116 mL/min/1.73 (Normal) eGFR If NonAfricn Am 100 mL/min/1.73 (Normal) BUN 15 mg/dL (Normal) Range: 6-24 Creatinine, Serum 0.74 mg/dL (Normal) Range: 0.57-1.00 Glucose, Serum 100 mg/dL (Abnormal) Range: 65-99 :56 CALCIFIDIOL (26263) VIT D 25 Comments: PATIENT WAS FASTINGPERFORMED BY: [facility] FundsCoPalisades Medical CenterCwgros9589 [facility] [id number] Vitamin D, 25-Hydroxy 19.1 ng/mL (Abnormal) Range: 30.0-100.0 Comments: Vitamin D deficiency has been defined by the [place] ofMedicine and an Endocrine Society practice guideline as alevel of serum 25-OH vitamin D less than 20 ng/mL (1,2).The Endocrine Society went on to further define vitamin Dinsufficiency as a level between 21 and 29 ng/mL (2).1. IOM ([place] of Medicine). 2010. Dietary reference intakes for calcium and D. [place]: The National Academies Press.2. Mp MF, Marco A BHAKTA, Asif MOULTON, et al. Evaluation, treatment, and prevention of vitamin D deficiency: an Endocrine Society clinical practice guideline. JCEM. 2010; 96(7):1911-30. 52-Tmp-842873:34 BMP GAP 8 (Normal) Range: 5-15 CO2 28.0 mmol/L (Normal) Range: 21.0-32.0 CL 104 mmol/L (Normal) Range: 98-107 K 4.0 mmol/L (Normal) Range: 3.5-5.1 NA 140 mmol/L (Normal) Range: 136-145 CA 9.0 mg/dL (Normal) Range: 8.5-10.1 BC 20.0 {RATIO} (Normal) Range: 10-20 GFRAA 119 mL/min (Normal) GFR 98 mL/min (Normal) CREAT 0.7 mg/dL (Normal) Range: 0.6-1.0 BUN 14 mg/dL (Normal) Range: 7-18 GLU 84 mg/dL (Normal) Range: 70-110 31-Yyu-621622:34 CBC MPV 9.2 fL (Normal) Range: 6.5-12.0 PLT 198 K/mm3 (Normal) Range: 150-450 RDW 12.5 % (Normal) Range: 11.6-14.6 MCHC 34.5 g/dL (Normal) Range: 32-36 MCH 31.7 pg (Normal) Range: 27.0-32.0 MCV 91.9 fL (Normal) Range: 81-99 HCT 37.9 % (Normal) Range: 37-47 HGB 13.1 g.dL (Normal) Range: 12.0-15.0 Comments: Please note: Revised HEMOGLOBIN REFERENCE RANGES Reference Range effective 12. RBC 4.13 {M/mm3} (Abnormal) Range: 4.2-5.4 WBC 6.4 K/mm3 (Normal) Range: 4.4-11.0 :34 FT3 3.5 pg/mL (Normal) Range: 2.18-3.98 :34 LIPID VLDL 11 mg/dL (Normal) Range: 5-40 HDL 56 mg/dL (Normal) Comments: Reference Range HDL <40 mg/dL Low HDL Cholesterol HDL >or= 60 mg/dL High HDL Cholesterol LDL 119 mg/dL (Normal) Range: 0-130 TRIG 55 mg/dL (Normal) Comments: Serum Triglycerides Reference Interval Normal <150 mg/dL Borderline high 150 - 199 mg/dL High 200 - 499 mg/dL Very High > or = 500 mg/dL CHOL 186 mg/dL (Normal) Comments: <200 mg/dL Desirable 200-240 mg/dL Borderline >240 mg/dL High Risk :34 T4F 1.05 ng/dL (Normal) Range: 0.76-1.46 :34 TSH 2.18 {uIU/mL} (Normal) Range: 0.358-3.74 :34 VITD 27.3 ng/mL (Abnormal) Range: 30.0-100.0 Comments: Vitamin D deficiency has been defined by the [place] ofMedicine and an Endocrine Society practice guideline as alevel of serum 25-OH vitamin D less than 20 ng/mL (1,2).The Endocrine Society went on to further define vitamin Dinsufficiency as a level between 21 and 29 ng/mL (2).1. IOM ([place] of Medicine). 2010. Dietary reference intakes for calcium and D. [place]: The National Academies Press.2. Mp MF, Marco A NC, Asif MOULTON, et al. Evaluation, treatment, and prevention of vitamin D deficiency: an Endocrine Society clinical practice guideline. JCEM. 2010; 96(7): 1911-30.Performed at: [address] [id number] Director: Faye Mackey MD, Phone: [phone] 27-Oct-20119:22 PERLITA DIR SEMI-QL PERLITA DIRECT 202 AU/mL (Abnormal) Comments: REFLEX PERLITA PANEL TESTING CAN BE PERFORMED FROM THISSPECIMEN. PHYSICIAN ORDER REQUIRED. CALL [facility] FORTHIS REFLEX TESTING. [phone] :22 ANTI-CCP [id number] 5 {units} (Normal) Range: 0-19 Comments: Negative <20 Weak positive 20 - 39 Moderate positive 40 - 59 Strong positive >59Performed at: - [facility] [id number] Director: Faye Mackey MD, Phone: [phone] at: - [facility] [place], [place] [id number] Director: Yoni Orozco MD, Phone: [phone] :22 C-REACTIVE PROT < 2.90 mg/L (Normal) Range: 0.0-3.0 Comments: C-Reactive Protein (CRP) provides useful information for thediagnosis, therapy and monitoring of inflammatory processesand associated diseases. For the evaluation of Relative Riskfor Cardiovascular Dise ase, a High Sensitivity CRP (HSCRP)should be ordered. :22 CBCD,SMEAR DIFF RED CELL MORPH SeeNote {NORMAL} (Normal) Comments: Result: NORM C+C PLT MORPH LARGE (Normal) PLT EST SeeNote (Normal) Comments: Result: ADEQUATE BASOPHIL 1 % (Normal) Range: 0-1 EOS 1 % (Normal) Range: 0-5 MONOCYTE 4 % (Normal) Range: 0-10 LYMPH 21 % (Normal) Range: 19-41 SEGS 73 % (Abnormal) Range: 47-70 CELLS COUNTED 100 (Normal) ABSOLUTE NEUT 3.7 3/uL (Normal) Range: 2.0-7.7 PLT 197 K/mm3 (Normal) Range: 150-450 RDW 12.8 % (Normal) Range: 11.6-14.6 MCHC 35.0 g/dL (Normal) Range: 32-36 MCH 32.5 pg (Abnormal) Range: 27.0-32.0 MCV 92.8 fL (Normal) Range: 81-99 HCT 38.2 % (Normal) Range: 37-47 HGB 13.4 g/dL (Normal) Range: 12.0-16.0 RBC 4.12 {M/mm3} (Abnormal) Range: 4.2-5.4 WBC 5.3 K/mm3 (Normal) Range: 4.4-11.0 :22 COMP METABOLIC GAP 7 (Normal) Range: 5-15 CL 103 mmol/L (Normal) Range: 98-107 CO2 28.0 mmol/L (Normal) Range: 21.0-32.0 K 4.5 mmol/L (Normal) Range: 3.5-5.1 NA 138 mmol/L (Normal) Range: 136-145 T BILI 0.40 mg/dL (Normal) Range: 0.00-1.00 ALT 41 U/L (Normal) Range: 12-78 ALK P 62 U/L (Normal) Range: 50-136 AST 24 U/L (Normal) Range: 15-37 CA 8.7 mg/dL (Normal) Range: 8.5-10.1 A/G 1.5 {RATIO} (Normal) Range: 0.9-2.4 GLOB 3.0 g/dL (Normal) Range: 2.7-4.2 ALB 4.6 g/dL (Normal) Range: 3.4-5.0 T PROT 7.6 g/dL (Normal) Range: 6.4-8.2 BUN/CRE 22.9 {RATIO} (Abnormal) Range: 10-20 EST GFR - AA 120 mL/min (Normal) EST GFR 99 mL/min (Normal) CREAT,SERUM 0.7 mg/dL (Normal) Range: 0.6-1.0 BUN 16 mg/dL (Normal) Range: 7-18 GLU 94 mg/dL (Normal) Range: 70-110 :22 ESR SED RATE 4 mm/h (Normal) Range: 0-20 :22 FREE T3 3.4 pg/mL (Normal) Range: 2.18-3.98 :22 LIPID VLDL 8 mg/dL (Normal) Range: 5-40 HDL 67 mg/dL (Normal) Comments: Reference Range HDL <40 mg/dL Low HDL Cholesterol HDL >or= 60 mg/dL High HDL Cholesterol LDL 144 mg/dL (Abnormal) Range: 0-130 TRIG 40 mg/dL (Normal) Comments: Serum Triglycerides Reference Interval Normal <150 mg/dL Borderline high 150 - 199 mg/dL High 200 - 499 mg/dL Very High > or = 500 mg/dL CHOL 219 mg/dL (Abnormal) Comments: <200 mg/dL Desirable 200-240 mg/dL Borderline >240 mg/dL High Risk :22 [facility] . (Normal) Comments: ADD ON BY OFFICE 11/02/11 Comments: TEST RESULT LIMITSSystemic Lupus Profile A TIRE TRUCKER Antibodies < 0.2 AI 0.0 - 0.9 Varma Antibodies < 0.2 AI 0.0 - 0.9 RA Latex Tu rbid. 1.4 IU/mL 0.0 - 13.9 Antichromatin Abs < 0.2 AI 0.0 - 0.9 Sjogren's Anti-SS-A < 0.2 AI 0.0 - 0.9 Sjogren's Anti-SS-B 0.2 AI 0.0 - 0.9 Anti-DNA (DS) Ab Qn 1 IU/mL 0 - 9 Negative < 5 Equivocal 5 - 9 Positive > 9 TESTING PERFORMED AT [facility]. ORIGINAL REPORT ON FILE IN LAB CONTAINS ADDITIONAL TEST SITE INFORMATION.___ :22 RHEUMATOID FAC < 10.0 {IU/mL} (Normal) :22 T4 FREE DIRECT 1.04 ng/dL (Normal) Range: 0.76-1.46 :22 TSH 2.31 {uIU/mL} (Normal) Range: 0.358-3.74 :22 VIT D,25 60588 28.5 ng/mL (Abnormal) Comments: appt 11/17/11 Range: 30.0-100.0 Comments: Vitamin D deficiency has been defined by the [place] ofMedicine and an Endocrine Society practice guideline as alevel of serum 25-OH vitamin D less than 20 ng/mL (1,2).The Endocrine Society went on to further define vitamin Dinsufficiency as a level between 21 and 29 ng/mL (2).1. IOM ([place] of Medicine). 2011. Dietary reference intakes for calcium and D. [place]: The National Academies Press.2. Mp MF, Marco A NC, Asif MOULTON, et al. Evaluation, treatment, and prevention of vitamin D deficiency: an Endocrine Society clinical practice guideline. JCEM. 2010; 96(7): 1911-30. Please note reference interval change 0-Ymt-293550:33 BILAT SCRN DIGITAL & CAD Radiology Report See Note (Normal) Comments: MAMMOGRAPHY - BILATERAL SCREENING REASON FOR EXAM: Female, 41 years old. Routine annual screeningexamination. PERTINENT HISTORY: Non-contributory. This is a baseline study. TECHNIQUE: Digital e xamination. Mediolateral oblique (MLO) andcraniocaudad (CC) views of both breasts were obtained. CAD: CAD wasperformed on this study. COMPARISON: None. FINDINGS:The breast composition is extremely de nse and this may lower thesensitivity of mammography. There are no masses or suspicious microcalcifications. No other significant abnormalities are identified. IMPRESSION:Normal bilateral screening mamm ogram. One year follow-up recommended. (A) ASSESSMENT CATEGORY:BIRADS Category 2: Benign finding(s). A letter regarding these resultswill be sent to the patient by the facility within 30 days. Approx imately 10% of breast cancers are not detected by mammography. Anormal mammogram should not delay biopsy of a clinically suspiciousabnormality. Dictated on 05/26/11954 by Roberto Mondragon MD scribed on 05/26/11 1136 by ITS IMPORTSign by Dangelo Mondragon MD on 05/26/11 1137 Sign by: Dangelo Mondragon MD VIT D,25 37827 20.2 ng/mL Range: 32.0-100.0 :45 (Abnormal) Comments: Recent studies consider the lower limit of 32.0 ng/mL to rita threshold for optimal health.Dominic ARSHAD. J Nutr. 2004;135(2):317- 22.Performed at: - [facility] [address] [id number] Director: Faye Mackey MD, Phone: [phone] TSH 2.17 {uIU/mL} Range: 0.358-3.74 :04 (Normal) 15-Nwu-318837:35 CBCD ABSOLUTE NEUT 2.8 3/uL (Normal) Range: 2.0-7.7 BASO% 0.5 % (Normal) Range: 0-1 EO% 4.1 % (Normal) Range: 0-5 LY% 32.5 % (Normal) Range: 19-41 MONO% 5.5 % (Normal) Range: 0-10 NEUT% 57.4 % (Normal) Range: 47-70 MPV 9.8 fL (Normal) Range: 6.5-12.0 PLT 163 K/mm3 (Normal) Range: 150-450 RDW 13.2 % (Normal) Range: 11.6-14.6 MCH 32.5 pg (Abnormal) Range: 27.0-32.0 MCHC 34.1 g/dL (Normal) Range: 32-36 MCV 95.2 fL (Normal) Range: 81-99 HCT 37.8 % (Normal) Range: 37-47 HGB 12.9 g/dL (Normal) Range: 12.0-16.0 RBC 3.98 {M/mm3} (Abnormal) Range: 4.2-5.4 WBC 4.9 K/mm3 (Normal) Range: 4.4-11.0 39-Cnh-[id number]:00 CULTURE, THROAT See Note (Normal) Comments: Normal throat mellisa isolated. No beta-hemolyticstreptococcus isolated. [id number] Rapid Strep Test, Office ([id number]) Rapid Strep Test, Office Negative (Normal) [id number]:25 Urinalysis, Office ([id number]) UA - LEUKOCYTE ESTERASE Negative (Normal) UA - NITRITE Negative (Normal) URINE UROBILINGN MITRA TIMED Normal mg/dL (Normal) UA - PROTEIN Negative mg/dL (Normal) UA - PH 6.0 (Normal) UA - BLOOD Negative (Normal) UA - SPECIFIC GRAVITY 1.020 (Normal) UA - KETONES Negative mg/dL (Normal) UA - BILIRUBIN Negative (Normal) UA - GLUCOSE Negative (Normal) :00 PROLACTIN ([id number]) Comments: PATIENT WAS FASTINGPERFORMED BY: [address] [id number] Prolactin 6.5 ng/mL (Normal) Range: 2.8-29.2 Comments: Age Male Female 0- 1 mon. 3.7 - 81.2 0.3 - 95.0 1-12 mons. 0.3 - 28.9 0.2 - 29.9 1- 3 yrs. 2.3 - 13.2 1.0 - 17.0 4- 6 yrs. 0.8 - 16.9 1.6 - 13.1 7- 9 yrs. 1.9 - 11.6 0.3 - 12.9 10-12 yrs. 0.9 - 12.9 1.9 - 9.6 13-15 yrs. 1.6 - 16.6 3.0 - 14.4 Adult 2.1 - 17.7 2.8 - 29.2 Female: Non- 2.8 - 29.2 9.7 - 208.5 Postmenopausal 1.8 - 20.3 :00 TSH (72010) Comments: PATIENT WAS FASTINGPERFORMED BY: [facility] [facility] [id number] TSH 2.440 {uIU/mL} (Normal) Range: 0.450-4.500 :00 T4, FREE (THYROXINE) (94251) Comments: PATIENT WAS FASTINGPERFORMED BY: [facility] [facility] [id number] T4,Free(Direct) 1.10 ng/dL (Normal) Range: 0.61-1.76 :00 T3, FREE (TRIDOTHYRONINE) (57946) Comments: PATIENT WAS FASTINGPERFORMED BY: [address] [id number] Triiodothyronine,Free,Serum 2.9 pg/mL (Normal) Range: 2.3-4.2 :00 CBC, Platelet; No Differential Comments: PATIENT WAS FASTINGPERFORMED BY: [facility] [facility] [id number] Hematocrit 40.4 % (Normal) Range: 34.0-44.0 Hemoglobin 14.0 g/dL (Normal) Range: 11.5-15.0 MCH 32.5 pg (Normal) Range: 27.0-34.0 MCHC 34.7 g/dL (Normal) Range: 32.0-36.0 MCV 94 fL (Normal) Range: 80-98 Platelets 187 {x10E3/uL} (Normal) Range: 140-415 RBC 4.30 {x10E6/uL} (Normal) Range: 3.80-5.10 RDW 12.9 % (Normal) Range: 11.7-15.0 WBC 5.8 {x10E3/uL} (Normal) Range: 4.0-10.5 :00 Comp. Metabolic Panel (14) Comments: PATIENT WAS FASTINGPERFORMED BY: [facility] [id number] A/G Ratio 1.7 (Normal) Range: 1.1-2.5 Albumin, Serum 5.1 g/dL (Normal) Range: 3.5-5.5 Alkaline Phosphatase, S 53 [iU]/L (Normal) Range: 25-150 ALT (SGPT) 17 [iU]/L (Normal) Range: 0-40 AST (SGOT) 19 [iU]/L (Normal) Range: 0-40 Bilirubin, Total 0.5 mg/dL (Normal) Range: 0.1-1.2 BUN 12 mg/dL (Normal) Range: 5-26 BUN/Creatinine Ratio 15 (Normal) Range: 8-27 Calcium, Serum 9.7 mg/dL (Normal) Range: 8.5-10.6 Carbon Dioxide, Total 22 mmol/L (Normal) Range: 20-32 Chloride, Serum 100 mmol/L (Normal) Range: 97-108 Creatinine, Serum 0.79 mg/dL (Normal) Range: 0.57-1.00 eGFR >59 mL/min/1.73 (Normal) eGFR AfricanAmerican >59 mL/min/1.73 Comments: Note: Persistent reduction for 3 months or more in an eGFR<60 mL/min/1.73 m2 defines CKD. Patients with eGFR values>/=60 mL/min/1.73 m2 may also have CKD if evidence of persistentproteinuria is (Normal) present. Additional information may be found [email or web address]. Globulin, Total 3.0 g/dL (Normal) Range: 1.5-4.5 Glucose, Serum 90 mg/dL (Normal) Range: 65-99 Potassium, Serum 3.6 mmol/L (Normal) Range: 3.5-5.2 Protein, Total, Serum 8.1 g/dL (Normal) Range: 6.0-8.5 Sodium, Serum 138 mmol/L (Normal) Range: 135-145 :00 Dehydroepiandrosterone Sulfate Comments: PATIENT WAS FASTINGPERFORMED BY: [facility] [id number] DHEA-Sulfate 106 ug/dL (Normal) Range: 45-270 :00 Lipid Panel With LDL/HDL Comments: PATIENT WAS FASTINGPERFORMED BY: [facility] [id number] Ratio Cholesterol, Total 200 mg/dL (Abnormal) Range: 100-199 HDL Cholesterol 63 mg/dL (Normal) Comments: According to ATP-III Guidelines, HDL-C >59 mg/dL is considered anegative risk factor for CHD. LDL Cholesterol Calc 126 mg/dL (Abnormal) Range: 0-99 LDL/HDL Ratio 2.0 {ratio_units} Range: 0.0-3.2 (Normal) Triglycerides 54 mg/dL (Normal) Range: 0-149 VLDL Cholesterol Zeyad 11 mg/dL (Normal) Range: 5-40 Vitamin D, 25-Hydroxy 27.9 ng/mL Comments: PATIENT WAS FASTINGPERFORMED BY: [facility] [id number] :00 (Abnormal) Range: 32.0-100.0 Comments: Recent studies consider the lower limit of 32.0 ng/mL to be athreshold for optimal health.Dominic ARSHAD. J Nutr. 2004;135(2):317-22. :18 B12/FOLATES FOLATES,SERUM 19.70 ng/mL (Normal) VITAMIN B12 309 pg/mL (Normal) Range: 211-911 :18 C-REACTIVE PROT 0.80 mg/L (Normal) Range: 0.0-6.0 Comments: Test performed using the Dimension C-Reactive ProteinExtended Range assay method. This assay meets the AHA/CDC 2003 recommendations fordetermining patients at high risk for cardiovasculardisease. Reference: High risk CRP >3.0 mg/L :18 CBCD BASO% 1.5 % (Abnormal) Range: 0-1 EO% 7.2 % (Abnormal) Range: 0-5 HCT 36.0 % (Abnormal) Range: 37-47 HGB 12.6 g/dL (Normal) Range: 12.0-16.0 LY% 32.3 % (Normal) Range: 19-41 MCH 31.4 pg (Normal) Range: 27.0-32.0 MCHC 35.1 g/dL (Normal) Range: 32-36 MCV 89.6 fL (Normal) Range: 81-99 MONO% 6.3 % (Normal) Range: 0-10 MPV 8.9 fL (Normal) Range: 6.5-12.0 NEUT% 52.7 % (Normal) Range: 47-70 PLT 182 K/mm3 (Normal) Range: 150-450 RBC 4.02 {M/mm3} (Abnormal) Range: 4.2-5.4 RDW 12.2 % (Normal) Range: 11.6-14.6 WBC 5.0 K/mm3 (Normal) Range: 4.4-11.0 :18 COMP METABOLIC A/G 1.3 {RATIO} (Normal) Range: 0.9-2.4 ALB 4.4 g/dL (Normal) Range: 3.4-5.0 ALK P 65 U/L (Normal) Range: 50-136 ALT 49 U/L (Normal) Range: 30-65 AST 21 U/L (Normal) Range: 15-37 CA 8.8 mg/dL (Normal) Range: 8.5-10.1 CL 103 mmol/L (Normal) Range: 98-107 CO2 28.5 mmol/L (Normal) Range: 21.0-32.0 GAP 7 (Normal) Range: 5-15 GLOB 3.3 g/dL (Normal) Range: 2.7-4.2 K 3.7 mmol/L (Normal) Range: 3.5-5.1 NA 138 mmol/L (Normal) Range: 136-145 T BILI 0.66 mg/dL (Normal) Range: 0.00-1.00 T PROT 7.7 g/dL (Normal) Range: 6.4-8.2 BUN 13 mg/dL (Normal) Range: 7-18 BUN/CRE 16.3 {RATIO} (Normal) Range: 10-20 CREAT,SERUM 0.8 mg/dL (Normal) Range: 0.6-1.0 GLU 78 mg/dL (Normal) Range: 70-110 :18 ESR SED RATE 3 mm/h (Normal) Range: 0-20 :18 TSH 1.97 {uIU/mL} (Normal) Range: 0.34-4.82 :43 CBC, EMPLOYEE Comments: EMPLOYEE REFUSED UA. ONLY PRN EMPOYEE HCT 37.8 % (Normal) Range: 37-47 HGB 13.1 g/dL (Normal) Range: 12.0-16.0 MCH 32.4 pg (Abnormal) Range: 27.0-32.0 MCHC 34.7 g/dL (Normal) Range: 32-36 MCV 93.4 fL (Normal) Range: 81-99 MPV 9.3 fL (Normal) Range: 6.5-12.0 PLT 186 K/mm3 (Normal) Range: 150-450 RBC 4.05 {M/mm3} (Abnormal) Range: 4.2-5.4 RDW 12.8 % (Normal) Range: 11.6-14.6 WBC 6.9 K/mm3 (Normal) Range: 4.4-11.0 :43 EMP PROF Comments: EMPLOYEE REFUSED UA. ONLY PRN EMPOYEE A/G 1.4 {RATIO} (Normal) Range: 0.9-2.4 ALB 4.7 g/dL (Normal) Range: 3.4-5.0 ALK P 50 U/L (Normal) Range: 50-136 AST 20 U/L (Normal) Range: 15-37 BUN 14 mg/dL (Normal) Range: 7-18 BUN/CRE 20.0 {RATIO} (Normal) Range: 10-20 CA 8.9 mg/dL (Normal) Range: 8.5-10.1 CHOL 185 mg/dL (Normal) Comments: <200 mg/dL Desirable 200-240 mg/dL Borderline >240 mg/dL High Risk CREAT,SERUM 0.7 mg/dL (Normal) Range: 0.6-1.0 GLOB 3.3 g/dL (Normal) Range: 2.7-4.2 Comments: Please Note Reference Interval Change GLU 86 mg/dL (Normal) Range: 70-110 HDL 65 mg/dL (Normal) Comments: Reference Range HDL <40 mg/dL Low HDL Cholesterol HDL >or= 60 mg/dL High HDL Cholesterol LDH 124 U/L (Normal) Range: 100-190 LDL 112 mg/dL (Normal) Range: 0-130 PHOS 2.8 mg/dL (Normal) Range: 2.5-4.9 T BILI 0.48 mg/dL (Normal) Range: 0.00-1.00 T PROT 8.0 g/dL (Normal) Range: 6.4-8.2 TRIG 40 mg/dL (Normal) Comments: Serum Triglycerides Reference Interval Normal <150 mg/dL Borderline high 150 - 199 mg/dL High 200 - 499 mg/dL Very High > or = 500 mg/dL URIC 2.2 mg/dL (Abnormal) Range: 2.6-6.0 VLDL 8 mg/dL (Normal) Range: 5-40 Plan of Care Name Dates Details Instructions Chest pain at rest : Reviewed Lab Indication: Chest pain at rest Vitamin D deficiency, unspecified : Reviewed Lab Indication: Vitamin D deficiency, unspecified Current nonsmoker (Renamed from Current non-smoker) : Eprescribed prescriptions (G8553) Indication: Current nonsmoker (Renamed from Current non-smoker) BMI 20.0-20.9, adult : Eprescribed prescriptions (G8553) Indication: BMI 20.0-20.9, adult Annual physical exam : Reviewed Lab Indication: Annual physical exam Headache : Eprescribed prescriptions (G8553) Indication: Headache [facility] V73.21 (Renamed from [facility]) : Mammogram *: gynecological health Indication: [facility] V73.21 ([facility]amed [facility]) Stress reaction : Eprescribed prescriptions (G8553) Indication: Stress reaction Back spasm : Follow up if no improvement or if symptoms worsen Indication: Back spasm Neck pain : Muscle Spasms *: muscle spasm Indication: Neck pain Neck pain : Eprescribed prescriptions (G8553) Indication: Neck pain Acne : Acne: Brief Version *: acne Indication: Acne Fatigue : Fatigue: fatigue Indication: Fatigue Fatigue : *fatigue education Indication: Fatigue Planned Observations QVAOB-ARIRLMNGGGH-DXVGN (79611)Indication: Unspecified Diagnosis On: 41-Kgf-84399:48 Request Metabolic Panel, Comprehensive (05380)Indication: Unspecified Diagnosis On: :47 Request HEPATIC FUNCTION PANEL (97272)Indication: Unspecified Diagnosis On: :47 Request LIPID PANEL (55615)Indication: Unspecified Diagnosis On: :47 Request URINE RIZWAN CULTURE-MITRA COL COUNT (04648)Indication: UTI (urinary tract infection) On: 52-Pvt-75471:16 Request Comments: post-atb METABOLIC PANEL, COMPREHENSIVE (51389)Indication: Hypercholesteremia On: 66-Gsd-959260:00 Request LIPID PANEL (69571)Indication: Hypercholesteremia On: 01-Mvq-285596:00 Request CALCIFIDIOL (15513) VIT D 25Indication: Vitamin D deficiency, unspecified On: 23-Mpn-77698:59 Request CULTURE, GONOCOCCUS (92094) (culture obtained)Indication: [facility] V73.21 (Renamed from [facility]) On: 76-Foe-501797:10 Request CULTURE CHLAMYDIA (13379) (culture obtained)Indication: [facility] V73.21 (Renamed from [facility]) On: 03-Nip-973524:10 Request TSH (THYROID STIMULATING HORMONE) (34305)Indication: Weight loss On: 60-Hrk-664001:43 Request CALCIFEDIOL (40549)Indication: Vitamin D deficiency, unspecified On: 94-Hvw-128908:43 Request PREALBUMIN (03632)Indication: Weight loss On: 78-Kem-979024:42 Request CBC with auto diff (15128)Indication: Weight loss On: 51-Lon-564523:42 Request METABOLIC PANEL, COMPREHENSIVE (77567)Indication: Hypercholesteremia On: 10-Vuh-364111:42 Request LIPID PANEL (51186)Indication: Hypercholesteremia On: 17-Xpu-917668:42 Request CALCIFIDIOL (85693) VIT D 25Indication: Vitamin D deficiency, unspecified On: 0-Oap-194498:14 Request CALCIFIDIOL (63808) VIT D 25Indication: Vitamin D deficiency, unspecified On: 91-Lae-541867:16 Request URINALYSIS (71885)Indication: Encounter for routine preventive care for patient older than 28 days On: :11 Request Metabolic Panel, Comprehensive (05416)Indication: Encounter for routine preventive care for patient older than 28 days On: :11 Request Lipid Panel (95021)Indication: Encounter for routine preventive care for patient older than 28 days On: :11 Request CBC, Platelets & Auto Diff (97089)Indication: Encounter for routine preventive care for patient older than 28 days On: :11 Request CALCIFEDIOL (29989)Indication: Vitamin D deficiency, unspecified On: 66-Ink-373692:08 Request GLUCOSE (07905)Indication: Hypercholesteremia On: 5-Gan-395179:19 Request CALCIFEDIOL (94372)Indication: Hypercholesteremia On: 8-Pvj-362315:19 Request LIPID PANEL (83397)Indication: Hypercholesteremia On: 3-Orv-894407:19 Request LIPID PANEL (34516)Indication: Hypercholesteremia On: 84-Psi-291218:38 Request Comments: getting around 02/2014 Potassium Serum (92205)Indication: Acne On: 07-Yqh-93660:44 Request Comments: recheck in 3-4 weeks CALCIFIDIOL (21267) VIT D 25Indication: Vitamin D deficiency, unspecified On: 31-Jmx-75830:34 Request CALCIFIDIOL (16006) VIT D 25Indication: Telogen effluvium On: 29-Kbl-442088:05 Request CBC (Auto) (33582)Indication: Telogen effluvium On: 90-Svn-448545:05 Request Metabolic Panel, Basic (24937)Indication: Telogen effluvium On: 29-Ndw-138034:05 Request TSH (32946)Indication: Telogen effluvium On: 72-Fmu-649147:04 Request T4, FREE (THYROXINE) (32127)Indication: Telogen effluvium On: 62-Luf-519162:04 Request T3, FREE (TRIDOTHYRONINE) (50074)Indication: Telogen effluvium On: 83-Qeh-057851:04 Request LIPID PANEL (25204)Indication: Hypercholesteremia On: 02-Feb-20128:03 Request Lupus ProfileIndication: Other specified abnormal findings of blood chemistry On: 7-Vdr-044952:09 Request T4, FREE (THYROXINE) (46579)Indication: Fatigue On: :39 Request CCP ANTIBODY (47309)Indication: Pain in unspecified joint On: :39 Request SED RATE ERYTHROCYTE (93459)Indication: Pain in unspecified joint On: :39 Request C-REACTIVE PROTEIN (55410)Indication: Pain in unspecified joint On: :39 Request TSH (22083)Indication: Pain in unspecified joint On: :39 Request RHEUMATOID FACTOR-QUANT (22926)Indication: Pain in unspecified joint On: :39 Request PERLITA (ANTINUCLEAR ANTIBODY) (49897)Indication: Pain in unspecified joint On: :39 Request CBC WITH MANUAL DIFF (84731)Indication: Pain in unspecified joint On: :39 Request METABOLIC PANEL, COMPREHENSIVE (34479)Indication: Fatigue On: :39 Request CALCIFIDIOL (95125) VIT D 25Indication: Vitamin D deficiency, unspecified On: 45-Idt-05404:56 Request TSH (02617)Indication: Fatigue On: 86-Kov-616843:26 Request CBC (Auto) (16308)Indication: Fatigue On: 05-Jpn-443161:26 Request CALCIFIDIOL (57563) VIT D 25Indication: Vitamin D deficiency, unspecified On: 11-Asf-118268:26 Request RIZWAN CULTURE-OTHER (52192)Indication: Pharyngitis, acute On: 42-Guj-018915:26 Request CALCIFIDIOL (82667) VIT D 25Indication: Fatigue On: 43-Lty-076438:22 Request CBC (Auto) (32204)Indication: Fatigue On: 20-Azh-642312:15 Request Metabolic Panel, Comprehensive (95470)Indication: Fatigue On: 61-Odb-737614:15 Request Lipid Panel (19411)Indication: [facility] V73.21 (Renamed [facility]) On: 39-Nqx-894733:12 Request DHEA-S (DEHYDROEPIANDROSTERONE SULFATE) (90746)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 On: 51-Yje-324545:11 Request C-REACTIVE PROTEIN (49270)Indication: Fatigue On: 50-Ith-480375:44 Request CBC (AUTO) (99359)Indication: Fatigue On: 07-Usa-170824:44 Request Folate (07135)Indication: Fatigue On: 58-Cim-402064:44 Request METABOLIC PANEL, COMPREHENSIVE (94430)Indication: Fatigue On: 68-Dsz-054942:44 Request SED RATE ERYTHROCYTE (03302)Indication: Fatigue On: 54-Fed-447985:44 Request TSH (48762)Indication: Fatigue On: 37-Wao-652268:44 Request VITAMIN B-12 (CYANOCOBALAMIN) (29211)Indication: Fatigue On: 97-Qqx-739295:44 Request Planned Procedures PROLONGED PHYSICIAN SERVICE, OFFICE On: 13-Nov-2018 Intent (21115)By: Bambi Mondragon DO, DO, Kathleen HOLTER MONITORING WITH INTERPRETATION On: 13-Nov-2018 Intent (40590)By: Bambi Mondragon DO Comments: 24-hours Bambi FRAGOSO Nuclear Stress Test/Stress On: 13-Nov-2018 Intent SPECT/TreadmillBy: Bambi Mondragon DO, DO, Kathleen Echo CompleteBy: Bambi Mondragon DO On: 13-Nov-2018 Intent Bambi Mondragon DO Comments: with bubble study ELECTROCARDIOGRAM, COMPLETE (ECG) On: 13-Nov-2018 Intent ([id number])By: Bambi Mondragon DO Comments: nsr no acute chg Bambi FRAGOSO CT SCAN OF HEAD OR BRAIN WITHOUT On: 06-May-2018 Intent CONTRAST ([id number])By: Bambi Mondragon DO, DO, Kathleen MAMMOGRAM BREAST BILATERAL SCREENING On: 21-May-2017 Intent DIGITAL (32292)By: Lauren Galdamez CNP BILATERAL MAMMOGRAMS (76541)By: On: 11-Nov-2015 Intent Svetlana Ibarra MD MAMMOGRAM, SCREENING, BOTH BREAST On: 10-Sep-2014 Intent ([id number])By: Svetlana Ibarra MD BILATERAL MAMMOGRAMS ([id number])By: On: 28-Jul-2014 Intent Svetlana Ibarra MD MRI - Cervical SpineBy: Rudolph COBOS, On: 27-May-2014 Intent Lauren Negrete MRI - Shoulder(s) - RightBy: Rudolph On: 14-May-2014 Intent Lauren COBOS Comments: having lateral pain MRI - Cervical SpineBy: Rudolph COBOS, On: 13-May-2014 Intent Lauren Negrete MRI - Thoracic Spine (IV Contrast On: 13-May-2014 Intent Needed)By: Lauren Galdamez CNP PHYSICAL THERAPY EVALUATION ([id number])By: On: 12-May-2014 Intent Lauren Galdamez CNP Radiology - Shoulder - RightBy: Rudolph On: 12-May-2014 Intent Lauren COBOS Toradol Injection, 30 mg ([id number])By: On: 12-May-2014 Intent Lauren Galdamez CNP Comments: rt hip Oct 26, 2015, 36-341-DK Radiology - Cervical SpineBy: Rudolph On: 12-May-2014 Intent Lauren COBOS Radiology - Thoracic SpineBy: Rudolph On: 12-May-2014 Intent Lauren COBOS Eprescribed prescriptions (G8553)By: On: 05-Sep-2013 Intent Svetlana Ibarra MD EKG (52909)By: Svetlana Ibarra MD On: 16-Aug-2012 Intent Comments: see scanned document of test done to see results reviewed today with patient MAMMOGRAM, SCREENING, BOTH BREASTS On: 19-Jul-2012 Intent ([id number])By: Svetlana Ibarra MD MAMMOGRAM, SCREENING, BOTH BREASTS On: 27-Mar-2011 Intent ([id number])By: Svetlana Ibarra MD Comments: 04-05 SPECIMEN HNDLNG/TRNSPRT, OFFC > LAB On: 15-Nov-2010 Intent ([id number])By: Svetlana Ibarra MD Planned Medications INJECTION, KETOROLAC TROMETHAMINE, PER 15 MG Ordered: 12-May-2014 Pending Rudolph COBOS, Lauren Negrete Instructions Name Dates Details Current nonsmoker (Renamed from Current non-smoker) : How to access health information online Indication: Current nonsmoker (Renamed from Current non-smoker) Current nonsmoker (Renamed from Current non-smoker) : How to access health information online - Detail Indication: Current nonsmoker (Renamed from Current non-smoker) Current nonsmoker (Renamed from Current non-smoker) : Patient Instructions Indication: Current nonsmoker (Renamed from Current non-smoker) Current nonsmoker (Renamed from Current non-smoker) : How to access health information online Indication: Current nonsmoker (Renamed from Current non-smoker) Current nonsmoker (Renamed from Current non-smoker) : How to access health information online - Detail Indication: Current nonsmoker (Renamed from Current non-smoker) Current nonsmoker (Renamed from Current non-smoker) : Patient Instructions Indication: Current nonsmoker (Renamed from Current non-smoker) BMI 20.0-20.9, adult : How to access health information online Indication: BMI 20.0-20.9, adult BMI 20.0-20.9, adult : How to access health information online - Detail Indication: BMI 20.0-20.9, adult BMI 20.0-20.9, adult : Patient Instructions Indication: BMI 20.0-20.9, adult Body mass index (BMI) 21.0-21.9, adult : How to access health information online Indication: Body mass index (BMI) 21.0-21.9, adult Body mass index (BMI) 21.0-21.9, adult : How to access health information online - Detail Indication: Body mass index (BMI) 21.0-21.9, adult Body mass index (BMI) 21.0-21.9, adult : Patient Instructions Indication: Body mass index (BMI) 21.0-21.9, adult Physical exam, routine : How to access health information online Indication: Physical exam, routine Physical exam, routine : How to access health information online - Detail Indication: Physical exam, routine Physical exam, routine : Patient Instructions Indication: Physical exam, routine Stress reaction : How to access health information online Indication: Stress reaction Stress reaction : How to access health information online - Detail Indication: Stress reaction Stress reaction : Patient Instructions Indication: Stress reaction Headache : How to access health information online Indication: Headache Headache : How to access health information online - Detail Indication: Headache Headache : Patient Instructions Indication: Headache [facility] V73.21 (Renamed from [facility]) : How to access health information online - Detail Indication: [facility] V73.21 (Renamed from [facility]) [facility] V73.21 (Renamed from [facility]) : Patient Instructions Indication: [facility] V73.21 (Renamed from [facility]) Stress reaction : How to access health information online Indication: Stress reaction Stress reaction : How to access health information online - Detail Indication: Stress reaction Stress reaction : Patient Instructions Indication: Stress reaction Neck pain : Patient Instructions Indication: Neck pain Acne : Patient Instructions Indication: Acne Fatigue : Patient Instructions Indication: Fatigue Encounters Annotation/Addendum On: 20-Nov-2018 16:02 Encounter Diagnosis: Unspecified Diagnosis End: 20-Nov-2018 16:08 [facility] Annotation/Addendum On: 14-Nov-2018 8:46 Encounter Diagnosis: Vitamin D deficiency, unspecified End: 14-Nov-2018 9:04 [facility] Office Visit On: 13-Nov-2018 13:34 Encounter Reason: Follow up for chronic medical issues - The patient feels well with minor complaints, has good energy level (depends on day) and is sleeping well. Patient has been compliant with instructions. Current me End: 13-Nov-2018 17:42 dication use: no side effects, compliant with dosing regimen and considered effective by patient. Patient sleeps 7 hours per night. Impact of disease: emotional impact-mild. Nutrition: balanced diet and supplemental vitamins. The medical issues the patient is following up for include cardiac issues, high cholesterol and other (stress reaction,vitamin d def., acne, DDD (cervical)). Note for Follow up for chronic medical issues: i have heaviness in lower center abd -- took a bath one week ago -- no buring some freq startign -- very dark and smelly urine lately -no fevers no flank painEncounter Diagnosis: BMI 22.0-22.9, adult, Current nonsmoker (Renamed from Current non-smoker), Stress reaction, PFO (patent foramen ovale), MVP (mitral valve prolapse), Chest pain at rest, Family history of arteriosclerotic cardiovascular disease, Hypercholesteremia, Vitamin D deficiency, unspecified, Palpitations, Urinary frequency [facility] Office Visit On: 06-May-2018 9:38 Encounter Diagnosis: Body mass index (BMI) 21.0-21.9, adult, Current nonsmoker (Renamed from Current non-smoker), Persistent headaches, SOB (shortness of breath), Vitamin D deficiency, unspecified, Stress reaction End: 08-May-2018 10:08 [facility] Office Visit On: 10-Apr-2018 8:39 Encounter Reason: Sore Throat - Symptoms include sore throat. The symptoms are symmetrical. Onset was sudden 4 day(s) ago. The patient describes this as worsening.Encounter Diagnosis: Current nonsmoker (Renamed from Current non- smoker), Sore throat, End: 10-Apr-2018 9:18 BMI 20.0-20.9, adult [facility] Office Visit On: 10-Sep-2017 11:19 Encounter Reason: Forms - had physical done already in April and now needs the forms filled outEncounter Diagnosis: Current nonsmoker (Renamed from Current non- smoker), Body mass index (BMI) 21.0-21.9, adult, Annual physical exam End: 10-Sep-2017 12:06 [facility] Phone Encounter On: 22-May-2017 9:47 Encounter Diagnosis: Unspecified Diagnosis End: 22-May-2017 9:50 [facility] Office Visit On: 21-May-2017 9:47 Encounter Reason: Physical female exam - Last seen between 6-12 months ago. General health: feels well with no complaints and has good energy level. The patient's appetite is normal. Nutrition: appropriate balanced diet. End: 21-May-2017 11:06 Exercises 2 days per week. Sleeps on average 6 hours per night. Normal bowel and bladder habits. screening, mammography (03/2016) and screening, Pap smear (2014 on record here).Encounter Diagnosis: Current nonsmoker (Renamed from Current non-smoker) , Body mass index (BMI) 21.0-21.9, adult, Breast cancer screening, Physical exam, routine, Encounter for screening for lipid disorder, Encounter for screening for other suspected endocrine disorder, Screening for diabetes mellitus [facility] Prescription Refill On: 09-Nov-2016 7:33 Encounter Diagnosis: Acne End: 09-Nov-2016 7:37 [facility] Refill Request On: 20-Sep-2016 16:04 Encounter Diagnosis: Motion sickness End: 20-Sep-2016 16:06 [facility] Phone Encounter On: 21-Jun-2016 15:12 Encounter Diagnosis: UTI (urinary tract infection) End: 22-Jun-2016 8:18 [facility] Office Visit On: 18-May-2016 10:17 Encounter Diagnosis: Physical exam, routine, Current nonsmoker (Renamed from Current non-smoker), Degeneration of intervertebral disc of cervical region, Acne, Allergic rhinitis, Visit for screening mammogram, Spondylosis, thoracic, End: 21-May-2016 20:46 MVP (mitral valve prolapse), Stress reaction, Vitamin D deficiency, unspecified, Hypercholesteremia, Chronic sinusitis, PFO (patent foramen ovale), PMDD (premenstrual dysphoric disorder), Headache [facility] Office Visit On: 11-Nov-2015 9:20 Encounter Reason: Follow up for chronic medical issues - The patient feels well with no complaints, has good energy level and is sleeping well. Patient has been compliant with instructions. Current medication use: no immanuel End: 11-Nov-2015 10:04 e effects, compliant with dosing regimen and considered effective by patient. Patient sleeps 7 hours per night. Impact of disease: emotional impact-mild. Nutrition: balanced diet and supplemental vitami ns. The medical issues the patient is following up for include cardiac issues, high cholesterol and other (stress reaction,vitamin d def., acne, DDD (cervical) ).Encounter Diagnosis: Stress reaction, Current nonsmoker (Renamed from Current non-smoker), Visit for screening mammogram, Weight loss, Vitamin D deficiency, unspecified, Plantar fasciitis, Spondylosis, thoracic, Varicose veins (454.9), MVP (mitral valve prolapse), PFO (patent foramen ovale), Headache, Hypercholesteremia, PMDD (premenstrual dysphoric disorder), Degeneration of intervertebral disc of cervical region, Acne, Allergic rhinitis, Chronic sinusitis [facility] Office Visit On: 12-Aug-2015 9:01 Encounter Reason: Follow up acute care visit - The patient feeling better since last seen and improving. Patient has been compliant with instructions. Current medication use: experiencing side effects (cymbalta caused ba End: 12-Aug-2015 13:06 d taste in mouth ). Patient sleeps 7 hours per night. Impact of disease: emotional impact-moderate. Nutrition: balanced diet and supplemental vitamins. The medical issues the patient is following up for include other (stress reaction ). Encounter Diagnosis: Headache (784.0), Stress Reaction (308.4), Weight loss, Neck pain [facility] Office Visit On: 08-Jul-2015 11:45 Encounter Diagnosis: PHYSICAL EXAM, ROUTINE (V70.0) End: 08-Jul-2015 11:46 [facility] Office Visit On: 08-Jul-2015 10:12 Encounter Reason: Well Women Exam - The patient feels well with no complaints, has good energy level and is sleeping well. Pap smear: date of last pap: (2013). Contraceptive history: The patient is not using any method o End: 08-Jul-2015 11:15 f contraception at this time. Patient exercises 3 - 4 times per week. The patient's libido is normal. The patient reports that she performs monthly self breast exam. Calcium intake includes 1200 mg hussein y supplment and 1 serving milk daily (yogurt ). Menstruation: Last menstrual period date: (hx. ablation but approx. 2 weeks ago (very scant) ).Encounter Diagnosis: [facility] V73.21 (Renamed from [facility]), Stress Reaction (308.4) [facility] Office Visit On: 24-Jun-2015 11:36 Encounter Reason: Depression - Symptoms include depressed mood, fatigue, appetite change, poor sleep, headaches and anxiety. Onset was gradual. Onset followed stress and family stressors. Symptoms are exacerbated by emot End: 24-Jun-2015 12:52 ional stress, fatigue and family stressors., [ADDITIONAL REASON] Follow up for chronic medical issues - The patient feels well with minor complaints, has good energy level (exercising more) and is sleeping poorly. Patient has been compliant with instructions. Current medication use: no side effects and compliant with dosing regimen. Patient sleeps 4 hours per night. Nutrition: balanced diet. , [ADDITIONAL REASON] Depression - characteristics include distractable, trouble concentrating or staying on track, got less sleep and felt not need it (doing laundry so less sleep) and irritable, shout and argue with otherscharacteristics do not include did unusual things, risky, foolish, felt more confident than usual, more energy than usual, more interested in sex, more talkative and spoke faster t rojas usual, much more active and did many more things than usual, much more social, like phone friend in middle of night, racing thoughts, unable to slow mind down or spending money got family in trouble. Encounter Diagnosis: Stress Reaction (308.4), PHYSICAL EXAM, ROUTINE (V70.0), MVP (mitral valve prolapse), PFO (patent foramen ovale), Weight loss, DEFICIENCY, VITAMIN D NOS (268.9), Hypercholesteremia (272.0), Syndrome, premenstrual tension (625.4) [facility] Office Visit On: 29-Apr-2015 9:43 Encounter Reason: Follow up acute care visit - The patient feeling better since last seen and improving. Patient has been compliant with instructions. Current medication use: no side effects, compliant with dosing regime End: 29-Apr-2015 10:28 n and considered effective by patient. Patient sleeps 7 hours per night. Impact of disease: emotional impact-mild. Nutrition: balanced diet and supplemental vitamins. The medical issues the patient is following up for include depression (anxiety ). Encounter Diagnosis: Stress Reaction (308.4), Headache (784.0), DEFICIENCY, VITAMIN D NOS (268.9) [facility] Office Visit On: 16-Mar-2015 9:35 Encounter Reason: Follow up acute care visit - The patient improving (seeing Carol -- Jyothi)., [ADDITIONAL REASON] Forms - The patient presents to the office to be evaluate for disability (fmla) (see scanned in form filled out). End: 16-Mar-2015 10:23 Encounter Diagnosis: Stress Reaction (308.4), DEFICIENCY, VITAMIN D NOS (268.9) [facility] Refill Request On: 16-Feb-2015 9:28 Encounter Diagnosis: Stress Reaction (308.4) End: 16-Feb-2015 9:29 [facility] Office Visit On: 16-Feb-2015 8:10 Encounter Diagnosis: Stress Reaction (308.4) End: 16-Feb-2015 9:20 [facility] Office Visit On: 10-Sep-2014 11:29 Encounter Reason: Follow up for chronic medical issues - The patient feels well with minor complaints, has good energy level and is sleeping well. Patient has been compliant with instructions. Current medication use: no End: 10-Sep-2014 12:27 side effects, compliant with dosing regimen and considered effective by patient. Patient sleeps 7 hours per night. Impact of disease: emotional impact-mild. Nutrition: balanced diet and supplemental vit amins. The medical issues the patient is following up for include high cholesterol and other (vitamin d def., anemia, acne, anxiety, migraine, varicose veins ).Encounter Diagnosis: Degenerative Disc Disease (722.6), Abrasion of right cornea, sequela , PHYSICAL EXAM, ROUTINE (V70.0), Varicose veins (454.9), Acne (706.1) [facility] Admission Note On: 13-Aug-2014 14:08 Encounter Diagnosis: DEFICIENCY, VITAMIN D NOS (268.9), Encounter for routine preventive care for patient older than 28 days End: 13-Aug-2014 14:21 [facility] Phone Encounter On: 28-Jul-2014 17:17 Encounter Diagnosis: Hypercholesteremia (272.0), Breast screening End: 28-Jul-2014 17:21 [facility] Phone Encounter On: 27-May-2014 12:01 Encounter Diagnosis: Neck pain End: 27-May-2014 12:03 [facility] Annotation/Addendum On: 18-May-2014 12:05 Encounter Diagnosis: Unspecified Diagnosis End: 18-May-2014 12:07 [facility] Phone Encounter On: 14-May-2014 8:32 Encounter Diagnosis: Shoulder pain End: 14-May-2014 8:38 [facility] Annotation/Addendum On: 13-May-2014 15:45 Encounter Diagnosis: Spondylosis, thoracic End: 13-May-2014 15:51 [facility] Office Visit On: 12-May-2014 11:45 Encounter Reason: Back Pain - Symptoms include back pain, spasm and stiffness. Symptoms are located in the midline upper back. The pain radiates to the neck and shoulder. The patient describes the pain as burning and sti End: 12-May-2014 12:26 nging. Onset was week(s) after the injury. The symptoms occur constantly. The patient describes symptoms as severe and worsening. Symptoms are exacerbated by twisting. Associated symptoms do not include arm numbness. Current treatment includes physical therapy (chiropractor), ice and heat.Encounter Diagnosis: Back pain, Neck pain, Shoulder pain, Neck muscle spasm, Back spasm [facility] Phone Encounter On: 09-Sep-2013 12:34 Encounter Diagnosis: Hypercholesteremia (272.0) End: 09-Sep-2013 12:38 [facility] Office Visit On: 05-Sep-2013 7:45 Encounter Reason: Follow up for chronic medical issues - The patient feels well with minor complaints and has decreased energy level. Patient has been compliant with instructions. Current medication use: no side effects, End: 05-Sep-2013 8:21 compliant with dosing regimen and considered effective by patient. Patient sleeps 7 hours per night. Impact of disease: emotional impact-mild. Nutrition: balanced diet and supplemental vitamins. 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), Hypercholesteremia (272.0), Fatigue (780.79), Heel spur (726.73), Eustachian tube dysfunction (381.81), Chronic sinusitis (473.9), Plantar Fascititis (728.71), Stress Reaction (308.4), DEFICIENCY, VITAMIN D NOS (268.9), WWV V73.21 (Renamed from [facility]), Varicose veins (454.9) [facility] Phone Encounter On: 12-May-2013 17:50 Encounter Diagnosis: Headache (784.0) End: 12-May-2013 17:57 [facility] Office Visit On: 11-Apr-2013 8:07 Encounter Reason: Follow up for chronic medical issues - The patient feels well with minor complaints and has decreased energy level. Patient sleeps 6 hours per night. Nutrition: balanced diet. 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 Patient has been compliant with instructions. Current medication use: compliant with dosing regimen. Patient sleeps End: 16-Aug-2012 9:43 7 hours per night. Impact of disease: emotional impact-moderate. Nutrition: balanced diet and supplemental vitamins. 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), Stress Reaction (308.4), Syndrome, premenstrual tension (625.4), Headache (784.0), VRCS VEIN, LWR EXTREMITIES W/COMPLICTN NOS (454.8), Plantar Fascititis (728.71), WWV V73.21 (Renamed from [facility]) End: 19-Jul-2012 11:14 [facility] Office Visit On: 02-Feb-2012 7:42 Encounter Diagnosis: Stress Reaction (308.4), Fatigue (780.79), Headache (784.0), Chronic sinusitis (473.9), Hypercholesteremia (272.0) End: 02-Feb-2012 8:04 [facility] Office Visit On: 05-Jan-2012 7:33 Encounter Reason: Follow up acute care visit - The patient does not feel well and has decreased energy level. Patient has been compliant with instructions. Current medication use: experiencing side effects (amitriptyline End: 05-Jan-2012 8:24 - very sedating), compliant with dosing regimen and considered effective by patient. Patient sleeps 7 hours per night. Impact of disease: emotional impact-moderate. Nutrition: balanced diet and suppleme ntal vitamins. The medical issues the patient is following up for include other (fatigue and headaches).Encounter Diagnosis: DEFICIENCY, VITAMIN D NOS (268.9), Headache (784.0), Fatigue (780.79), Stress Reaction (308.4), Syndrome, premenstrual tension (625.4) [facility] Phone Encounter On: 21-Nov-2011 13:32 Encounter Diagnosis: Unspecified Diagnosis End: 21-Nov-2011 13:35 [facility] Office Visit On: 17-Nov-2011 7:51 Encounter Reason: Follow up acute care visit, [ADDITIONAL REASON] Follow up tests - Date: (october 2011). Encounter Diagnosis: Headache (784.0), Fatigue (780.79), ARTHRALGIAS 719.40, Acute bronchitis (466.0), Hypercholesteremia (272.0) End: 17-Nov-2011 9:04 [facility] Phone Encounter On: 03-Nov-2011 11:40 Encounter Diagnosis: Unspecified Diagnosis End: 03-Nov-2011 11:44 [facility] Phone Encounter On: 03-Nov-2011 11:20 Encounter Diagnosis: Unspecified Diagnosis End: 03-Nov-2011 11:25 [facility] Office Visit On: 02-Nov-2011 13:05 Encounter Diagnosis: ABNORMAL BLOOD CHEMISTRY NEC (790.6) End: 02-Nov-2011 13:10 [facility] Annotation/Addendum On: 02-Nov-2011 12:42 Encounter Diagnosis: ABNORMAL BLOOD CHEMISTRY NEC (790.6) End: 02-Nov-2011 13:05 [facility] Office Visit On: 27-Oct-2011 7:46 Encounter Reason: Headache, [ADDITIONAL REASON] Fatigue - Symptoms include fatigue (bloating), irritability and depressed mood. Encounter Diagnosis: DEFICIENCY, VITAMIN D NOS (268.9), Fatigue (780.79), WWV V73.21 (Renamed from [facility]), End: 27-Oct-2011 8:54 Allergic rhinitis (477.9), DISORDER, TMJ, JOINT SOUND ON OPN/CLS JAW (524.64), Headache (784.0), DUB (626.8), ARTHRALGIAS 719.40 [facility] Annotation/Addendum On: 21-Nov-2010 9:55 Encounter Diagnosis: DEFICIENCY, VITAMIN D NOS (268.9) End: 21-Nov-2010 9:57 [facility] Nurse Visit (Non-Billalbe) On: 21-Nov-2010 9:54 Encounter Diagnosis: DEFICIENCY, VITAMIN D NOS (268.9) End: 21-Nov-2010 9:55 [facility] Annotation/Addendum On: 15-Nov-2010 15:53 Encounter Diagnosis: Fatigue (780.79) End: 15-Nov-2010 16:20 [facility] Office Visit On: 15-Nov-2010 14:51 Encounter Reason: Physical female exam - Last seen more than 1 year ago. General health: feels well with minor complaints and has decreased energy level. The patient's appetite is normal. Nutrition: normal/adequate. Exer End: 15-Nov-2010 15:30 cises 2 days per week. Sleeps on average 8 hours per night. Normal bowel and bladder habits. Safety measures include appropriate use of safety belts and home smoke detectors. There are no current emotio nal problems. screening, Pap smear (Shruthi Miranda ).Encounter Diagnosis: Fatigue (780.79), Acute Pharyngitis (462.), DISORDER, TMJ, JOINT SOUND ON OPN/CLS JAW (524.64), DEFICIENCY, VITAMIN D NOS (268.9), DUB (626.8), WWV V73.21 (Renamed from [facility]) [facility] Office Visit On: 31-Mar-2010 11:24 Encounter Reason: Dysuria - The onset of the dysuria has been sudden and has been occurring in a persistent pattern for days. The course has been constant. The dysuria is described as moderate. The quality of the pain is End: 31-Mar-2010 11:53 described as a burning sensation The dysuria does not radiate. The symptoms have been associated with frequency and urgency, while the symptoms have not been associated with fever ,flank pain ,history of passing a stone ,incontinence or nocturia. Encounter Diagnosis: Dysuria (788.1) [facility] Phone Encounter On: 16-Aug-2009 17:26 [facility] End: 16-Aug-2009 17:29 Phone Encounter On: 28-Jun-2009 15:04 [facility] End: 28-Jun-2009 15:06 Office Visit On: 25-Jun-2009 10:41 Encounter Reason: Follow up for chronic medical issues - The patient feels well with minor complaints and has decreased energy level. Patient has been compliant with instructions. Patient sleeps 7 hours per night. Impact End: 25-Jun-2009 11:22 of disease: emotional impact-mild. Nutrition: balanced diet. 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 General health: feels well with minor complaints ,has decreased energy level and is sleeping well. The patient's appetite is normal. Nutrition: nor End: 16-Jul-2008 10:55 mal/adequate. Exercises 0 days per week. Sleeps on average 7 hours per night. Normal bowel and bladder habits. Safety measures include appropriate use of safety belts and home smoke detectors. There are no current emotional problems. screening, Pap smear (2006 Dr. Miller ) and screening, visual acuity (2005 wears reading glasses ). Encounter Diagnosis: Allergic rhinitis (477.9), Fatigue (780.79), Eustachian tube dysfunction (381.81), [facility] Historical Summary On: 03-Mar-2008 10:09 [facility] End: 03-Mar-2008 10:16 Office Visit On: 25-Mar-2007 8:56 Encounter Reason: Ear pain - The onset of the pain has been gradual (had sinus infection) and has been occurring in a persistent pattern for 2 days. The course has been constant. The pain is described as a moderate dull End: 25-Mar-2007 13:18 aching and stabbing (occasional). The pain is described as being located in the inner ear. The pain is felt in the right ear. The symptoms have been associated with decreased hearing and sinus problems (wasn't treated with ATB, 2 weeks ago), while the symptoms have not been associated with chills ,fever ,inability to 'pop' ear drum ,non-purulent discharge from ear ,protrusion of ear or purulent discharge from ear. 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
--- OUTSIDE RECORDS SUMMARY | 2019-02-19 18:19 | XMS RPT_ITS | Continuity of Care Document ---
:1970 Author Organization [facility] Address [facility] [address] [address] Phone Care Team Providers Name Role Phone Bambi Mondragon DO Unavailable Sarah Nieves Unavailable Erik Olivarez Unavailable Osmani JOYA, Tong Aviles Unavailable Katrina Herrera Unavailable Ami JOYA, Ankit Unavailable Pauly Sommer Unavailable Stevie Varma Unavailable Unavailable HORACE Villa Unavailable Unavailable Unavailable Unavailable Problems Name Dates Details [...] HUGE Status: Active Unspecified Diagnosis Status: Active Urinary frequency (R35.0, 788.41) Status: Active UTI (urinary tract infection) (N39.0, 599.0) Status: Active Vitamin D deficiency, unspecified (E55.9, 268.9) Comments: ck new level to see where at Status: Active Medications Name Dates Details Imitrex 50 MG Oral Tablet 1-2 Tablet for migraine for 0 days Quantity: 16 {Tablet} Refills: 6 Ordered:29-Mar-2018 Harriet Mondragon DO, DO, Kathleen Start : 29-Mar-2018 Active MONY-D 24 HOUR, 180-240MG (Oral Tablet [...] End : 24-Jul-2015 Inactive CALCIUM CITRATE-VITAMIN D3, 001-021JO-LBCB (Oral Tablet) 1 (one) Tablet Tablet qid [...] Oral Tablet 1 (one) Tablet bid for 10 days Quantity: 20 {Tablet} Refills: 0 Ordered:21-Jun-2016 Evelyn Staples Start : 21-Jun-2016 End : 01-Jul-2016 Inactive CYMBALTA, 30MG (Oral Capsule Delayed Release Particles) [address] Part qd for 0 days Quantity: 30 {Capsule_DR_Part} Refills: 3 Ordered:23-Jun-2013 Svetlana Ibarra MD Start : 23-Jun-2013 End : 23-Jun-2013 Inactive Comments:219.00 for 30 days Drisdol 10673 UNIT Oral Capsule uad Capsule Capsule monthly for 0 days Quantity: 30 {Capsule} Refills: 3 Ordered:10-Sep-2017 Shala Villa LPN Start : 21-May-2017 End : 10-Sep-2017 Inactive [...] : 16-Feb-2015 End : 04-Mar-2015 Inactive ERGOCALCIFEROL, 50234WKQW (Oral Capsule) 1 Capsule twice weekly for 0 days Quantity: 8 {Capsule} Refills: 3 Ordered:10-Sep-2014 BRANDEE Miller Start : 08-May-2013 End : 10-Sep-2014 Inactive MEDROL (MELBA), 4MG (Oral Tablet) 1 (one) Tablet TAD for 0 days Quantity: 1 {Package} Refills: 0 Ordered:10-Sep-2014 BRANDEE Miller Start : 18-May-2014 End : 10-Sep-2014 [...] Quantity: 20 {Tablet} Refills: 0 Ordered:03-Nov-2011 Long CONCRETING SUPERVISOR, Gricel L Start : 02-Nov-2011 End : 03-Nov-2011 Inactive VERAMYST, 27.5MCG/SPRAY (Nasal Suspension) 2 sprays each nostril qd for 0 days Refills: 0 Ordered:02-Feb-2012 BRANDEE Miller End : 02-Feb-2012 Inactive VITAMIN B6, 200MG (Oral Tablet) 1/2 (one half) Tablet Tablet qd for 30 days Quantity: 30 {Tablet} Refills: 0 Ordered:06-Aug-2015 BRANDEE Miller Start : 24-Jun-2015 End : 24-Jul-2015 Inactive Comments:shyann VITAMIN D3, 17879LDCS (Oral Capsule) 1 (one) Capsule Capsule qd [...] days Quantity: 1 {package(s)} Refills: 0 Ordered:26-Dec-2011 Gricel Pimentel LPN Start : 21-Nov-2011 End : 26-Nov-2011 Inactive [...] days Quantity: 30 {Tablet} Refills: 1 Ordered:21-May-2017 Kit Berumen LPNa Start : 12-Aug-2015 End : 21-May-2017 Discontinued Comments:thirty Effexor XR 37.5 MG Oral Capsule Extended Release 24 Hour 1 (one) Capsule ER 24HR Capsule ER 24HR daily for 0 days Quantity: 30 {Capsule} Refills: 6 Ordered:21-May-2017 Gema Berumen LPN Start : 11-Nov-2015 End : 21-May-2017 Discontinued Fluticasone Propionate 50 MCG/ACT Nasal Suspension 1-2 Pitman(s) each nostril daily for 0 days Quantity: [...] dysfunction (H69.80, 381.81) Comments: Pt leaving for [place]- gave script for antibiotic in case things [...] stable now Status: Resolved as of 11-Nov-2015 [facility] V73.21 (Renamed from [facility]) Comments: [facility] Status: Inactive as of 12-Jul-2015 Procedures Procedure Dates Details Adenoidectomy Completed Comments: Inpatient. Section - 2 Completed Comments: Inpatient. 2002 and 1999 endovenous laser ablation left leg- greater Completed and lesser saphenous Enometrial ablation February 2010 Completed Tonsillectomy Completed Comments: Inpatient. Tubal Ligation Completed Comments: clips 2002 tubes in ears as child Completed Appendectomy Completed Comments: 10-12-98 Date Value Details 24-Oct-2018 Food Stand Manager Office Visit Report Result: Comments: See Note; NOTES: [facility] [address] [place] [address] OFFICE VISIT Date of Service: 10/24/18 MR#: [id number] Acct: [id number] Name: MELVIN VARMA Rep #: [id number] : 1970 Provider: Bozena Fuentes MD Age/Sex: 48/F [place] [facility] [place]: Signed Intake Vital Signs10/24/18 Height 5 ft 4 in 10/24/18 Weight: 131 lb 10/24/18 Bod y Mass Index (BMI) 22.4 10/24/18 Blood Pressure 104/70 Intake Visit Reasons: ANNUAL Chief Complaint: NEW annual Diagnostic Imaging Manager Required: No Is patient in pain?: No [...] safe at home: Yes additional social history: [facility] Pre[facility] History 2 Elective abortions Hx Para 2 Spontaneous abortions HPI ANNUAL: Details: TED VARMA is a 48 year old who presents for annual exam. here to establish care Last PAP: due History of abnormal PAP: no Last mammogram: due History of abnormal mammogram: Colon [facility] screenings: Female Reproductive History [...] acute d istress, well developed, well groomed [facility] Head: normal to inspection, normocephalic Ears: hearing [...] AND CAD Result: Comments: See Note; NOTES: [facility] Imaging Services [address] [place] [address] Verdana 4d Bilat Scrn Digital AND CAD MR#: [id number] Acct: [id number] Name: EVELYN VARMA Rep #: [id number] : 1970 F 46 From: Dangelo Mondragon MD PCP: Svetlana Ibarra MD [facility]: Bilat Scrn Digital AND CAD Date of Exam: 04/05/16 Exam# [id number] Or brendaing Dr: Svetlana Ibarra MD MAMMOGRAPHY - BILATERAL [...] delay biopsy of a clinically suspicious abnormality. [id number] Electronically Signed: Dangelo Mondragon MD at 10:09 EDT Tel [phone], Service support [phone], CC: Svetlana Ibarra MD Handkerchief Folder: Signed 12-Nov-2014 Bilat Scrn Digital AND CAD Result: Comments: See Note; NOTES: [facility] Imaging Services [address] [place] [address] Breast Imaging Report MR#: [id number] Acct: [id number] Name: EVELYN BAUTISTA Rep #: [id number] : 1970 F 44 From: Smith Ruelas MD PCP: Svetlana Ibarra MD Status: REG CLI Study: Bilat Scrn Digital AND CAD Date of Exam: 11/12/14 Exam# [id number] Ordering Dr: Svetlana Ibarra MD MAMMOGRAPHY - [...] Jf Ruelas MD at 15:10 EST Tel [phone], Serv ice support [phone], CC: Svetlana Ibarra MD Handkerchief Folder: Signed 29-Sep-2014 Operative Report Result: Comments: See Note; NOTES: [facility] Medical Records Department [address] [place] [address] Operative Report MR#: [id number] Acct: [id number] Name: EVELYN BAUTISTA Rep #: [id number] : 1970 44 From: Tong Proctor MD PCP: Svetlana Ibarra MD Status: [facility] DATE OF SERVICE: 09/29/2014 DATE OF SERVICE: September 29, 2014. 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 A long 4-Bangladeshi sheath was then advanced over the guidewire, [...] Attention was then redirected to the long 4-Bangladeshi sheath, which had been previously placed intraluminally into the left great saphenous vein. Perivenous tumescent anesthesia was injected from the 4-Bangladeshi sheath exit site up to the left [...] lef t small saphenous vein. The long 4-Bangladeshi sheath was advanced over the guidewire and into position intraluminally in the left small saphenous vein. Perivenous tumescent anesthesia was injected from the 4-Bangladeshi sheath exit site up to the tip of the sheath. This was performed segmentally using ultrasound imaging. The AngioDynamics laser fiber was then introduced into the 4-Bangladeshi sheath and cou pled appropriately. Ultrasonography was [...] the laser fiber was activated. The Karla enosiXs laser was slowly withdrawn at a constant [...] separately. Tong Proctor MD T: NTS JOB: [id number] 09/29/14 1435 <Electronically signed by Tong Proctor MD> D ate Tong Proctro MD CC: Svetlana Ibarra MD; Tong Proctor MD Date Dictated: 09/29/141135 Date Transcribed: 09/29/141135 Handkerchief Folder: Signed 29-Sep-2014 Discharge Instruction Result: Comments: See Note; NOTES: [facility] Medical Records Department [address] [place] [address] Instructions for Home/Discharge Instructions 09/29/14 0917 MR#: [id number] Acc t: [id number] Name: EVELYN BAUTISTA Rep #: [id number] : 1970 44 From: Tong Proctor MD PCP: Svetlana Ibarra MD Status: REG [facility] Discharge Diet: No Restrictions Discharge Activity: May [...] take at Discharge Fluticasone 0.05% [Flonase Nasal Pitman] 1 spray NASAL DAILY Spironolactone [Aldactone] 100 [...] Follow Up With: Tong Proctor - Call [phone] to schedule a followup appointment. When: - days 09/29/14 0919 <Electronically signed by Tong Proctor MD&am p;#62; Date Tong Proctor MD CC: Svetlana Ibarra MD 27-Sep-2014 History and Physical Exam Result: Comments: See Note; NOTES: [facility] Medical Records Department [address] [place] [address] History and Physical 09/27/14 1014 MR#: [id number] Acct: [id number] Name: EVELYN BAUTISTA Rep #: [id number] : 1970 44 From: Tong Proctor MD PCP: Svetlana Ibarra MD Status: PRE [facility] Location: [facility] DATE OF SERVICE: This is a history [...] stockings, weight control measu res, active lifestyle, ullj-msv-vphyovn analgesics, etc. 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 REVIEW [...] has been undertaken. Tong Proctor MD T: NTS JOB: [id number] 09/27/14 1341 <[facility] signed by Tong A Proctor MD> Date: Time: Tong Proctor MD CC: Svetlana Ibarra MD; Tong Proctor MD Date Dictated: 09/27/14 1014 Date T ranscribed: 09/27/14 1014 Handkerchief Folder: Signed ____ I have re-examined the patient. There are no clinical changes since date of exam. ____ See Progress Notes for Changes ____ Dictated on Ad mission Date: Time: Signature: -Jul-2014 PT Discharge Summary Result: Comments: See Note; NOTES: [facility] [address] [place] [address]. [address] [place] [address] Fax REHABILITATION SERVICES DISCHARGE SUMMARY MR#: [id number] Acct: [id number] Name: EVELYN BAUTISTA Rep #: [id number] : 1970 44 From: Franky Bruce Referring DrRaymond: Lauren Galdamez Status: DIS RCR Eval Date: [...] C5-C6. At that point, she saw a seo specialist and she call ed and canceled her appointments after she saw the seo specialist and the MRI. At this point, she is discharged from our care. If physical therapy is needed different time, I am glad to see this p atient. Once again, thank you for this referral. Sincerely, Franky Bruce, PT T: NTS JOB: [id number] <Electronically signed by Franky Bruce > 08/13/14 1502 CC: Signed 18-Jun-2014 Spine Cervical (Routine) Result: Comments: See Note; NOTES: [facility] Imaging Services [address] [place] [address] MRI Report MR#: [id number] Acct: [id number] Name: EVELYN BAUTISTA Rep #: [id number] : 1970 F 44 From: Mahnaz Ascencio MD PCP: Svetlana Ibarra MD Status: REG CLI Study: Spine Cervical (Routine) Date of Exam: 06/18/14 Exam# [id number] Ordering Dr: Lauren Galdamez STUDY: M RI [...] at 22:49 EDT Tel , Service support [phone], CC: Bal Galdamez; Svetlana Ibarra MD Handkerchief Folder: Signed 18-Jun-2014 Spine Thoracic (Routine) Result: Comments: See Note; NOTES: [facility] Imaging Services [address] [place] [address] MRI Report MR#: [id number] Acct: [id number] Name: EVELYN BAUTISTA Rep #: [id number] : 1970 F 44 From: Mahnaz Ascencio MD PCP: Svetlana Ibarra MD Status: REG CLI Study: Spine Thoracic (Routine) Date of Exam: 06/18/14 Exam# [id number] Ordering Dr: Lauren Galdamez STUDY: M RI [...] at 22:52 EDT Tel , Service support [phone], Fax CC: Lauren Galdamez; Svetlana Ibarra MD Handkerchief Folder: Signed 13-Jun-2014 Upper Ext Joint Only(Routine) Result: Comments: See Note; NOTES: [facility] Imaging Services [address] [place] [address] MRI Report MR#: [id number] Acct: [id number] Name: EVELYN BAUTISTA Rep #: [id number] : 1970 F 44 From: Juan Manuel Phillips MD PCP: Svetlana Ibarra MD Status: REG CLI Study: Upper Ext Joint Only(Routine) Date of Exam: 06/13/14 Exam# [id number] Ordering Dr: Lauren Galdamez STUDY: MRI RIGHT [...] at 21:44 EDT , Ser vice support [phone], CC: Lauren Galdamez; Svetlana Ibarra MD Handkerchief Folder: Signed 25-May-2014 Inital Evaluation - PT Result: Comments: See Note; NOTES: [facility] [address] [place], [place] [address] Fax REHABILITATION SERVICES INITIAL EVALUATION MR#: [id number] Acct: [id number] Name: EVELYN BAUTISTA Rep #: [id number] : 1970 44 From: Franky Bruce Referring Dr.: Lauren Galdamez Status: REG R Insurance: [facility] Date: DATE OF SERVICE: 05/21/2014 Lauren Galdamez is the nurse practitioner. 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 PAST MEDICAL HISTORY: She has good health [...] patient education, postural strengthening exercises. Franky Bruce, PT C C: Lauren Galdamez T: ROSE JOB: [id number] <Electronically signed by Franky Bruce > 05/25/14 1648 CC: Signed For Medicare only, by signing this I certify the plan of care. Physicians Signature Date 12-May-2014 Cerv Spine 4 or 5 Views Result: Comments: See Note; NOTES: [facility] Imaging Services [address] [place] [address] Radiology Report MR#: [id number] Acct: [id number] Name: EVELYN BAUTISTA Rep #: [id number] : 1970 F 44 From: Dangelo Mondragon MD PCP: Svetlana Ibarra MD Status: REG CLI Study: Cerv Spine 4 or 5 Views Date of Exam: 05/12/14 Exam# [id number] Ordering Dr: Lauren Galdamez DY: X-RAY - [...] Dangelo Mondragon MD at 16:13 EDT Tel [phone], Service support [phone], RAD/Cerv Spine 4 or 5 Views IMPRESSION: Normal x-ray examination of the visualized cervical spine. Electronically Signed: Dangelo Mondragon MD at 16:13 EDT Tel [phone], Service support [phone], CC: Lauren Galdamez; Svetlana Ibarra MD Handkerchief Folder: Signed 12-May-2014 Shoulder min 2 Views Result: Comments: See Note; NOTES: [facility] Imaging Services [address] [place] [address] Radiology Report MR#: [id number] Acct: [id number] Name: EVELYN BAUTISTA Rep #: [id number] : 1970 F 44 From: Smith Ruelas MD PCP: Svetlana Ibarra MD Status: REG CLI Study: Shoulder min 2 Views Date of Exam: 05/12/14 Exam# [id number] Ordering Dr: Lauren Galdamez STUDY: X-RAY - [...] at 20:14 EDT , Service suppo rt [phone], CC: Lauren Galdamez; Svetlana Ibarra MD Handkerchief Folder: Signed 12-May-2014 Thoracic Spine 3 Views Result: Comments: See Note; NOTES: [facility] Imaging Services [address] [place] [address] Radiology Report MR#: [id number] Acct: [id number] Name: EVELYN BAUTISTA Rep #: [id number] : 1970 F 44 From: Dangelo Mondragon MD PCP: Svetlana Ibarra MD Status: REG CLI Study: Thoracic Spine 3 Views Date of Exam: 05/12/14 Exam# [id number] Ordering Dr: Lauren Galdamez Y: X-RAY - [...] Dangelo Mondragon MD at 16:12 EDT Tel [phone], Service support [phone], 0038 RAD/Thoracic Spine 3 Views IMPRESSION: M ild degree of disc space narrowing with anterior spondylosis. Electronically Signed: Dangelo Mondragon MD at 16:12 EDT Tel [phone], Service support [phone], CC: Lauren Galdamez; Svetlana Ibarra MD Handkerchief Folder: Signed Family History Unknown Family Member Name Dates Details Father Comments: bladder cancer alzheimer. dm. 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 No Drug Use [...] kg/m2 Body Surface Area Calculated 1.59 m2 :23 Pulse 64 /min Comments: Pattern: Regular O2 [...] kg/m2 Body Surface Area Calculated 1.57 m2 98-Xfn-534294:41 Pulse 70 /min Comments: Pattern: Regular Respiration [...] 0.00 cm Results Date Description Value Details 84-Nsv-680578:45 Urinalysis, Office (71161) UA - LEUKOCYTE ESTERASE Moderate (Normal) Comments: 15leu/uL UA - NITRITE Negative (Normal) URINE UROBILINGN MITRA TIMED 2 mg/dL (Normal) UA - PROTEIN Negative mg/dL (Normal) UA - PH 6 (Abnormal) UA - BLOOD Negative (Normal) UA - SPECIFIC GRAVITY 1.025 (Normal) UA - KETONES Negative mg/dL (Normal) UA - BILIRUBIN Negative (Normal) UA - GLUCOSE Negative (Normal) 48-Vjh-389063:10 CBC W/Diff, Automated Comments: [facility] [address] [place], [place], [address] Absolute Lymph 1.82 {X10_3/ul} (Normal) Range: 0.83-4.51 [...] 4.2-5.4 WBC 6.4 K/mm3 (Normal) Range: 4.4-11.0 72-Utn-051161:10 T4 Free Direct Comments: [facility] [address] [place] [address], [id number] T4 FREE DIRECT 1.04 ng/dL (Normal) Range: 0.76-1.46 83-Oif-170822:10 Thyroid Stim Hormone (TSH) Comments: [facility] [address] [place], [place], [address] TSH 2.41 {uIU/mL} (Normal) Range: 0.358-3.74 31-Qap-034642:10 Vitamin D 1,25-Dihydroxy Comments: [facility] (refer to report for specific site)refer to report for address and phone number VITD 1,25 01635 53.7 pg/mL (Normal) Range: 19.9-79.3 Comments: Performed at: [facility] [address] [id number] Director: Suzy Vigil MD, Phone: [phone] 92-Vhz-889197:00 PAP IG HPV APTIMA Comments: CYTOLOGY INFORMATION:- CLINICAL INFORMATION: ANNUAL- DATE LMP/MENOPAUSE:- COLLECTION VIAL: Thin Prep Vial- CONCRETE STONE FABRICATING SUPERVISOR SOURCE: CERVICAL- COLLECTION TECHNIQUE: CX BROOM/BRUSHSpecimen Comment: [facility] [id number] 16/18,45 Specimen Comment: Source.............CervixSpecimen Comment: No. of containers..01 ThinPrep Vial[facility] (refer to report for specific site)refer to report for address and phone number HPV APTIMA, HR Negative (Normal) Comments: This test detects fourteen high- risk HPV types(16/18/31/33/35/39/45/ 51/52/56/58/59/66/68) withoutdifferentiation.Performed at: [address] [id number] Dire ctor: Shari Hall MD, Phone: [phone] at: =[address] [id number] Director: Shari Hall MD, Phone: [phone] PAPSMR Comment (Normal) Comments: The Pap smear [...] system. PERFORM Comment (Normal) Comments: Krystle Ferro, Program Manager Transportation (ASCP) ADEQ Comment (Normal) Comments: Satisfactory for evaluation. Endocervical and/or squamous metaplasticcells (endocervical component) are present. DIAGN Comment (Normal) Comments: NEGATIVE FOR INTRAEPITHELIAL LESION AND MALIGNANCY. 44-Ibl-37898:42 Rapid Strep Test, Office (93832) Rapid Strep Test, Office Negative (Normal) :48 THROAT CULTURE (48989) Comments: PATIENT NOT FASTINGPERFORMED BY: [facility] Czdjwv4021 [facility] [id number] Information: SRC:TH Result 1 RRF (Normal) Comments: Routine respiratory mellisa Upper Respiratory Culture Final report (Normal) 66-Pjc-542945:53 Metabolic Panel, Comprehensive Comments: PATIENT WAS FASTINGPERFORMED BY: [facility] Hgwjcu6654 [facility] [id number] (55188) ALT (SGPT) 46 [iU]/L (Abnormal) Range: 0-32 [...] Glucose, Serum 89 mg/dL (Normal) Range: 65-99 69-Etg-175595:53 TSH (THYROID STIMULATING Comments: PATIENT WAS FASTINGPERFORMED BY: [facility]6370 [facility] [id number] HORMONE) (23156) TSH 1.840 {uIU/mL} (Normal) Range: 0.450-4.500 :53 LIPID PANEL (85325) Comments: PATIENT WAS FASTINGPERFORMED BY: [facility] [id number] LDL/HDL Ratio 1.7 {ratio_units} (Normal) Range: 0.0-3.2 Comments: LDL/HDL Ratio Men Women 1/2 Avg.Risk 1.0 1.5 Av g.Risk 3.6 3.2 2X Avg.Risk 6.2 5.0 3X Avg.Risk 8.0 6.1 LDL Cholesterol Calc 120 mg/dL (Abnormal) Range: 0-99 VLDL Cholesterol Zeyad 10 mg/dL (Normal) Range: 5-40 HDL Cholesterol 71 mg/dL (Normal) Triglycerides 51 mg/dL (Normal) Range: 0-149 Cholesterol, Total 201 mg/dL (Abnormal) Range: 100-199 58-Leg-531454:53 Thin prep Pap Comments: Source.............Cervical;EndocervicalNo. of containers..01 CYTYC Thin Prep VialPATIENT NOT FASTINGPERFORMED BY: [address] [place] [id number] Information: [id number] (80688) (no STD testing) Note: PAPSMR (Normal) Comments: [...] (endocervical component) are present.V70.0 ; Routine general me dical examin [facility] health centerAstrid Rodríguez Program Manager Transportation (ESTELLEP) 10-Uuw-833362:54 Nuab STD (STD W/ Comments: PATIENT NOT FASTINGPERFORMED BY: [address] [id number] Information: [id number] Herpes) (04867) HSV 2 ALEA Negative (Normal) HSV 1 ALEA Negative (Normal) Neisseria gonorrhoeae, ALEA Negative (Normal) Chlamydia trachomatis, ALEA Negative (Normal) Trich vag by ALEA Negative (Normal) Susi glabrata, ALEA Negative (Normal) Comments: This test was developed and its performance characteristics determinedby [facility]. It has not been cleared or approved [...] was developed and its performance characteristics determinedby [facility]. It has not been cleared or appro bhavesh by the Food and DrugAdministration. The FDA has determined that such clearance orapproval is not necessary. BVAB 2 Low - 0 {Score} (Normal) Atopobium vaginae Low - 0 {Score} (Normal) 92-Hvf-221347:21 Thyroid Stim Hormone (TSH) Comments: Test performed at:[facility] [address] [place] [address] TSH 2.22 {uIU/mL} (Normal) Range: 0.358-3.74 01-Opq-690784:21 Vitamin B12 366 pg/mL (Normal) Comments: Test performed at:[facility] [address] [address] Range: 211-911 78-Orq-262249:21 Vitamin D,25 Hydroxy Comments: Test performed at:[facility] [address]adt[address] [address] Vitamin D 25-OH 21.6 ng/mL (Normal) Comments: Vitamin D 25(OH) Status Range Deficiency <20 ng/mL (50nmol/L) Insuffciency 20 - 30 ng/mL (50 - 75 nmol/L) Sufficiency 30 - 100 ng/mL (75 - 250 nmol/L) Toxicity >100 ng/mL (>250 nmol/L) :20 BMP GAP 8 (Normal) Range: 5-15 CO2 [...] 7-18 GLU 88 mg/dL (Normal) Range: 70-110 13-Qkj-194532:54 CBCD ALC 1.35 {X10_3/ul} (Normal) Range: 0.83-4.51 [...] 4.2-5.4 WBC 6.3 K/mm3 (Normal) Range: 4.4-11.0 42-Ihd-740460:05 PREGU tPREGU Negative {Negative} (Normal) Comments: Very dilute urine specimens, as indicated by a low specificgravity, may not contain guest experience representative levels of hCG.If is still suspected, a first morning urinespecimen should be collected 48 hours later and tested. 64-Dab-22911:23 Metabolic Panel, Basic Comments: PATIENT WAS FASTINGPERFORMED BY: [facility]CoThe [facility] HospitalWoazjf2542 [facility] [id number] Information: [id number] (30502) Calcium, Serum 9.6 mg/dL (Normal) Range: 8.7-10.2 [...] 95 mg/dL (Normal) Range: 65-99 :23 CALCIFEDIOL (50108) Comments: PATIENT WAS FASTINGPERFORMED BY: [facility] ToolsThe Valley HospitalOaigns3225 [facility] [id number] Vitamin D, 25-Hydroxy 38.5 ng/mL (Normal) Range: 30.0-100.0 Comments: Vitamin D deficiency has been defined by the [place] and an Endocrine Society practice guideline as alevel of serum 25-OH vitamin D less than 20 ng/mL (1,2).The Endocrine Society went on to further define vitamin Dinsufficiency as a level between 21 and 29 ng/mL (2).1. IOM ([place] [employer]). 2010. Dietary reference intakes for calcium and D. [place]: The National Academies Press.2. Mp MF, Marco A BHAKTA, Asif MOULTON, et al. Evaluation, treatment, and prevention of vitamin D deficiency: an Endocrine Society clinical practice guideline. JCEM. 2010; 96(7):1911-30. :23 LIPID PANEL (82734) Comments: PATIENT WAS FASTINGPERFORMED BY: Bosse ToolsThe Valley HospitalKervrt6088 [facility] [id number] LDL/HDL Ratio 2.4 {ratio_units} (Normal) Range: 0.0-3.2 LDL Cholesterol Calc 156 mg/dL (Abnormal) Range: 0-99 VLDL Cholesterol Zeyad 12 mg/dL (Normal) Range: 5-40 HDL Cholesterol 64 mg/dL (Normal) Comments: According to ATP-III Guidelines, HDL-C >59 mg/dL is considered anegative risk factor for CHD. Triglycerides 60 mg/dL (Normal) Range: 0-149 Cholesterol, Total 232 mg/dL (Abnormal) Range: 100-199 :56 LIPID PANEL (92080) Comments: PATIENT WAS FASTINGPERFORMED BY: Bosse ToolsThe Valley HospitalOyezjf2162 [facility] [id number] LDL/HDL Ratio 2.0 {ratio_units} (Normal) Range: 0.0-3.2 LDL Cholesterol Calc 133 mg/dL (Abnormal) Range: 0-99 VLDL Cholesterol Zeyad 10 mg/dL (Normal) Range: 5-40 HDL Cholesterol 66 mg/dL (Normal) Comments: According to ATP-III Guidelines, HDL-C >59 mg/dL is considered anegative risk factor for CHD. Triglycerides 52 mg/dL (Normal) Range: 0-149 Cholesterol, Total 209 mg/dL (Abnormal) Range: 100-199 :56 TSH (08310) Comments: PATIENT WAS FASTINGPERFORMED BY: [employer] [facility] [id number] TSH 2.520 {uIU/mL} (Normal) Range: 0.450-4.500 :56 CBC (Auto) (45155) Comments: PATIENT WAS FASTINGPERFORMED BY: [place] [employer]6370 [facility] [id number] Platelets 193 {x10E3/uL} (Normal) Range: 140-415 RDW 12.7 % (Normal) Range: 12.3-15.4 MCHC 32.5 g/dL (Normal) Range: 31.5-35.7 MCH 30.6 pg (Normal) Range: 26.6-33.0 MCV 94 fL (Normal) Range: 79-97 Hematocrit 40.6 % (Normal) Range: 34.0-46.6 Hemoglobin 13.2 g/dL (Normal) Range: 11.1-15.9 RBC 4.32 {x10E6/uL} (Normal) Range: 3.77-5.28 WBC 5.6 {x10E3/uL} (Normal) Range: 4.0-10.5 :56 Metabolic Panel, Comments: PATIENT WAS FASTINGPERFORMED BY: [employer]3169 [facility] [id number] Information: [id number] Comprehensive (86264) ALT (SGPT) 17 [iU]/L (Normal) Range: 0-32 [...] Glucose, Serum 100 mg/dL (Abnormal) Range: 65-99 26-Eou-68843:56 CALCIFIDIOL (87495) VIT D 25 Comments: PATIENT WAS FASTINGPERFORMED BY: LabCoThe Valley HospitalOsxjkt3119 [facility] [id number] Vitamin D, 25-Hydroxy 19.1 ng/mL (Abnormal) Range: 30.0-100.0 Comments: Vitamin D deficiency has been defined by the [place] and an Endocrine Society practice guideline as alevel of serum 25-OH vitamin D less than 20 ng/mL (1,2).The Endocrine Society went on to further define vitamin Dinsufficiency as a level between 21 and 29 ng/mL (2).1. IOM ([place]). 2010. Dietary reference intakes for calcium and D. [place]: The National Academies Press.2. Mp MF, Maroc A BHAKTA, Asif MOULTON, et al. Evaluation, treatment, and prevention of vitamin D deficiency: an Endocrine Society clinical practice guideline. JCEM. 2010; 96(7):1911-30. 19-Vtk-792779:34 BMP GAP 8 (Normal) Range: 5-15 CO2 [...] 7-18 GLU 84 mg/dL (Normal) Range: 70-110 :34 CBC MPV 9.2 fL (Normal) Range: 6.5-12.0 [...] D deficiency has been defined by the [place] and an Endocrine Society practice guideline as alevel of serum 25-OH vitamin D less than 20 ng/mL (1,2).The Endocrine Society went on to further define vitamin Dinsufficiency as a level between 21 and 29 ng/mL (2).1. IOM ([place]). 2010. Dietary reference intakes for calcium and D. [place]: The National Academies Press.2. Mp MF, Marco A BHAKTA, Asif MOULTON, et al. Evaluation, treatment, and prevention of vitamin D deficiency: an Endocrine Society clinical practice guideline. JCEM. 2010; 96(7): 1911-30.Performed at: [facility] [address] [id number] Director: Faye Mackey MD, Phone: [phone] :[phone] PERLITA DIR SEMI-QL PERLITA DIRECT 202 AU/mL (Abnormal) Comments: REFLEX PERLITA PANEL TESTING CAN BE PERFORMED FROM [facility]. PHYSICIAN ORDER REQUIRED. CALL [facility] FORTHIS REFLEX TESTING. [phone] :22 ANTI-CCP 064709 5 {units} (Normal) Range: 0-19 Comments: Negative <20 Weak positive 20 - 39 Moderate positive 40 - 59 Strong positive >59Performed at: [facility] [id number] Director: Faye Mackey MD, Phone: [phone] at: [facility] [place] [address] [address] [place], [place] [id number] Director: Yoni Orozco MD, Phone: [phone] :22 C-REACTIVE PROT < 2.90 mg/L (Normal) [...] mg/dL Borderline >240 mg/dL High Risk :22 [facility] . (Normal) Comments: ADD ON BY OFFICE 11/02/11 Comments: TEST RESULT LIMITSSystemic Lupus Profile A BRIM CURLER Antibodies < 0.2 AI 0.0 - 0.9 [...] 9 Positive > 9 TESTING PERFORMED AT [facility]. ORIGINAL REPORT ON FILE IN LAB CONTAINS ADDITIONAL TEST SITE INFORMATION.___ :22 RHEUMATOID FAC < 10.0 {IU/mL} (Normal) :22 T4 FREE DIRECT 1.04 ng/dL (Normal) Range: 0.76-1.46 :22 TSH 2.31 {uIU/mL} (Normal) Range: 0.358-3.74 :22 VIT D,25 66966 28.5 ng/mL (Abnormal) Comments: appt 11/17/11 Range: 30.0-100.0 Comments: Vitamin D deficiency has been defined by the [place] and an Endocrine Society practice guideline as alevel of serum 25-OH vitamin D less than 20 ng/mL (1,2).The Endocrine Society went on to further define vitamin Dinsufficiency as a level between 21 and 29 ng/mL (2).1. IOM ([place]). 2011. Dietary reference intakes for calcium and D. [place]: The National Academies Press.2. Mp MF, Marco A [place], Asif MOULTON, et al. Evaluation, treatment, and prevention of vitamin D deficiency: an Endocrine Society clinical practice guideline. JCEM. 2010; 96(7): 1911-30. Please note reference interval change 6-Yqf-938639:33 BILAT SCRN DIGITAL & CAD Radiology Report [...] biopsy of a clinically suspiciousabnormality. Dictated on 05/26/11 0955 by Roberto Mondragon MD scribed on 05/26/11 113 by ITS IMPORTSign by Dangelo Mondragon MD on 05/26/11 113 Sign by: Dangelo Mondragon MD VIT D,25 82207 20.2 ng/mL Range: 32.0-100.0 :45 (Abnormal) Comments: Recent studies consider the lower limit of 32.0 ng/mL to rita threshold for optimal health.Dominic ARSHAD. J Nutr. 2004;135(2):317- 22.Performed at: [place] [address] Director: Faye Mackey MD, Phone: [phone] TSH 2.17 {uIU/mL} Range: 0.358-3.74 :04 (Normal) 62-Iwb-989800:35 CBCD ABSOLUTE NEUT 2.8 3/uL (Normal) Range: [...] 4.2-5.4 WBC 4.9 K/mm3 (Normal) Range: 4.4-11.0 68-Fer-09243:00 CULTURE, THROAT See Note (Normal) Comments: Normal throat mellisa isolated. No beta-hemolyticstreptococcus isolated. 45-Ehl-421281:26 Rapid Strep Test, Office (18492) Rapid Strep Test, Office Negative (Normal) 0-Ryh-019802:25 Urinalysis, Office (20446) UA - LEUKOCYTE ESTERASE Negative (Normal) UA - NITRITE Negative (Normal) URINE UROBILINGN MITRA TIMED Normal mg/dL (Normal) UA - PROTEIN Negative mg/dL (Normal) UA - PH 6.0 (Normal) UA - BLOOD Negative (Normal) UA - SPECIFIC GRAVITY 1.020 (Normal) UA - KETONES Negative mg/dL (Normal) UA - BILIRUBIN Negative (Normal) UA - GLUCOSE Negative (Normal) 13-Dpk-88075:00 PROLACTIN (72941) Comments: PATIENT WAS FASTINGPERFORMED BY: LabCoThe Valley HospitalGspjyn7982 [facility] [id number] Prolactin 6.5 ng/mL (Normal) Range: 2.8-29.2 Comments: [...] 9.7 - 208.5 Postmenopausal 1.8 - 20.3 49-Wrt-29545:00 TSH (40927) Comments: PATIENT WAS FASTINGPERFORMED BY: [place] [id number] [facility] [id number] TSH 2.440 {uIU/mL} (Normal) Range: 0.450-4.500 :00 T4, FREE (THYROXINE) (84179) Comments: PATIENT WAS FASTINGPERFORMED BY: [address] [id number] T4,Free(Direct) 1.10 ng/dL (Normal) Range: 0.61-1.76 :00 T3, FREE (TRIDOTHYRONINE) (79469) Comments: PATIENT WAS FASTINGPERFORMED BY: [facility]6370 [facility] [id number] Triiodothyronine,Free,Serum 2.9 pg/mL (Normal) Range: 2.3-4.2 :00 CBC, Platelet; No Differential Comments: PATIENT WAS FASTINGPERFORMED BY: [facility]6370 [facility] [id number] Hematocrit 40.4 % (Normal) Range: 34.0-44.0 Hemoglobin 14.0 g/dL (Normal) Range: 11.5-15.0 MCH 32.5 pg (Normal) Range: 27.0-34.0 MCHC 34.7 g/dL (Normal) Range: 32.0-36.0 MCV 94 fL (Normal) Range: 80-98 Platelets 187 {x10E3/uL} (Normal) Range: 140-415 RBC 4.30 {x10E6/uL} (Normal) Range: 3.80-5.10 RDW 12.9 % (Normal) Range: 11.7-15.0 WBC 5.8 {x10E3/uL} (Normal) Range: 4.0-10.5 30-Jhk-07352:00 Comp. Metabolic Panel (14) Comments: PATIENT WAS FASTINGPERFORMED BY: [facility] Vbpqhq5626 [facility] [id number] A/G Ratio 1.7 (Normal) Range: 1.1-2.5 Albumin, [...] Dehydroepiandrosterone Sulfate Comments: PATIENT WAS FASTINGPERFORMED BY: [facility]6370 [facility] [id number] DHEA-Sulfate 106 ug/dL (Normal) Range: 45-270 :00 Lipid Panel With LDL/HDL Comments: PATIENT WAS FASTINGPERFORMED BY: [facility]6370 [facility] [id number] Ratio Cholesterol, Total 200 mg/dL (Abnormal) Range: [...] 27.9 ng/mL Comments: PATIENT WAS FASTINGPERFORMED BY: [facility]6370 [facility] [id number] :00 (Abnormal) Range: 32.0-100.0 Comments: Recent studies consider the lower limit of 32.0 ng/mL to be athreshold for optimal health.Dominic ARSHAD. J Nutr. 2004;135(2):317-22. 93-Fpg-254978:18 B12/FOLATES FOLATES,SERUM 19.70 ng/mL (Normal) VITAMIN B12 309 pg/mL (Normal) Range: 211-911 00-Kdd-358238:18 C-REACTIVE PROT 0.80 mg/L (Normal) Range: 0.0-6.0 Comments: Test performed using the Dimension C-Reactive ProteinExtended Range assay method. This assay meets the AHA/CDC 2003 recommendations fordetermining patients at high risk for cardiovasculardisease. Reference: High risk CRP >3.0 mg/L 24-Tus-267723:18 CBCD BASO% 1.5 % (Abnormal) Range: 0-1 [...] 11.6-14.6 WBC 5.0 K/mm3 (Normal) Range: 4.4-11.0 90-Wtg-289603:18 COMP METABOLIC A/G 1.3 {RATIO} (Normal) Range: [...] 0.6-1.0 GLU 78 mg/dL (Normal) Range: 70-110 97-Umw-642189:18 ESR SED RATE 3 mm/h (Normal) Range: [...] Headache : Eprescribed prescriptions (G8553) Indication: Headache [facility] V73.21 (Renamed from myMatrixx) : Mammogram *: gynecological health Indication: [facility] V73.21 (Renamed from [employer]x) Stress reaction : Eprescribed prescriptions (G8553) Indication: [...] : *fatigue education Indication: Fatigue Planned Observations CALCIFEDIOL (21781)Indication: Vitamin D deficiency, unspecified On: 07-Hlu-344064:47 Request URINE RIZWAN CULTURE-IDENTIFICATN (76740)Indication: Urinary frequency On: 24-Fow-246478:46 Request VUJWB-YAKVPQXIYHB-PTCBD (46586)Indication: Unspecified Diagnosis On: 32-Zhs-30435:48 Request Metabolic Panel, Comprehensive (27133)Indication: Unspecified Diagnosis On: :47 Request HEPATIC FUNCTION PANEL (16579)Indication: Unspecified Diagnosis On: 28-Qhc-25972:47 Request LIPID PANEL (97530)Indication: Unspecified Diagnosis On: :47 Request URINE RIZWAN CULTURE-MITRA COL COUNT (76943)Indication: UTI (urinary tract infection) On: 30-Hci-10331:16 Request Comments: post-atb METABOLIC PANEL, COMPREHENSIVE (53129)Indication: Hypercholesteremia On: 26-Ekh-817145:00 Request LIPID PANEL (58162)Indication: Hypercholesteremia On: 58-Bob-231457:00 Request CALCIFIDIOL (07417) VIT D 25Indication: Vitamin D deficiency, unspecified On: 58-Lur-03059:59 Request CULTURE, GONOCOCCUS (11202) (culture obtained)Indication: WWV V73.21 (Renamed from [facility]) On: 68-Lsi-477475:10 Request CULTURE CHLAMYDIA (57806) (culture obtained)Indication: WWV V73.21 (Renamed from [facility]) On: 87-Lri-638157:10 Request TSH (THYROID STIMULATING HORMONE) (80963)Indication: Weight loss On: 31-Adi-975656:43 Request CALCIFEDIOL (24405)Indication: Vitamin D deficiency, unspecified On: 20-Exz-256910:43 Request PREALBUMIN (96869)Indication: Weight loss On: :42 Request CBC with auto diff (80550)Indication: Weight loss On: 64-Vjn-602861:42 Request METABOLIC PANEL, COMPREHENSIVE (30773)Indication: Hypercholesteremia On: 82-Lje-706001:42 Request LIPID PANEL (22485)Indication: Hypercholesteremia On: 81-Gfp-216495:42 Request CALCIFIDIOL (35890) VIT D 25Indication: Vitamin D deficiency, unspecified On: 4-Tlw-764447:14 Request CALCIFIDIOL (93605) VIT D 25Indication: Vitamin D deficiency, unspecified On: 82-Dmv-466719:16 Request URINALYSIS (92474)Indication: Encounter for routine preventive care for patient older than 28 days On: :11 Request Metabolic Panel, Comprehensive (04373)Indication: Encounter for routine preventive care for patient older than 28 days On: :11 Request Lipid Panel (35195)Indication: Encounter for routine preventive care for patient older than 28 days On: :11 Request CBC, Platelets & Auto Diff (03570)Indication: Encounter for routine preventive care for patient older than 28 days On: :11 Request CALCIFEDIOL (54148)Indication: Vitamin D deficiency, unspecified On: :08 Request GLUCOSE (70978)Indication: Hypercholesteremia On: :19 Request CALCIFEDIOL (92357)Indication: Hypercholesteremia On: :19 Request LIPID PANEL (91102)Indication: Hypercholesteremia On: :19 Request LIPID PANEL (87847)Indication: Hypercholesteremia On: 49-Gyf-574873:38 Request Comments: getting around 02/2014 Potassium Serum (06811)Indication: Acne On: 36-And-86333:44 Request Comments: recheck in 3-4 weeks CALCIFIDIOL (70090) VIT D 25Indication: Vitamin D deficiency, unspecified On: 65-Mnr-99827:34 Request CALCIFIDIOL (81988) VIT D 25Indication: Telogen effluvium On: 24-Jxk-767975:05 Request CBC (Auto) (07887)Indication: Telogen effluvium On: 25-Ond-007613:05 Request Metabolic Panel, Basic (83431)Indication: Telogen effluvium On: 09-Ism-110847:05 Request TSH (63406)Indication: Telogen effluvium On: :04 Request T4, FREE (THYROXINE) (16905)Indication: Telogen effluvium On: :04 Request T3, FREE (TRIDOTHYRONINE) (38942)Indication: Telogen effluvium On: 74-Kne-860722:04 Request LIPID PANEL (14877)Indication: Hypercholesteremia On: 02-Feb-20128:03 Request Lupus ProfileIndication: Other specified abnormal findings of blood chemistry On: 9-Yzp-832564:09 Request T4, FREE (THYROXINE) (75347)Indication: Fatigue On: :39 Request CCP ANTIBODY (85955)Indication: Pain in unspecified joint On: :39 Request SED RATE ERYTHROCYTE (80458)Indication: Pain in unspecified joint On: :39 Request C-REACTIVE PROTEIN (62287)Indication: Pain in unspecified joint On: :39 Request TSH (09173)Indication: Pain in unspecified joint On: :39 Request RHEUMATOID FACTOR-QUANT (21102)Indication: Pain in unspecified joint On: :39 Request PERLIAT (ANTINUCLEAR ANTIBODY) (99212)Indication: Pain in unspecified joint On: :39 Request CBC WITH MANUAL DIFF (87642)Indication: Pain in unspecified joint On: :39 Request METABOLIC PANEL, COMPREHENSIVE (57424)Indication: Fatigue On: :39 Request CALCIFIDIOL (65207) VIT D 25Indication: Vitamin D deficiency, unspecified On: 97-Tob-02780:56 Request TSH (85162)Indication: Fatigue On: 27-Fzh-599012:26 Request CBC (Auto) (53610)Indication: Fatigue On: 24-Xza-500902:26 Request CALCIFIDIOL (22763) VIT D 25Indication: Vitamin D deficiency, unspecified On: 69-Ses-666051:26 Request RIZWAN CULTURE-OTHER (78316)Indication: Pharyngitis, acute On: 88-Utl-479055:26 Request CALCIFIDIOL (09672) VIT D 25Indication: Fatigue On: 62-Bhf-749548:22 Request CBC (Auto) (44495)Indication: Fatigue On: 64-Zrz-218218:15 Request Metabolic Panel, Comprehensive (48614)Indication: Fatigue On: 02-Veg-033941:15 Request Lipid Panel (95493)Indication: WWV V73.21 (Renamed from WW) On: 62-Mlt-103250:12 Request DHEA-S (DEHYDROEPIANDROSTERONE SULFATE) (99135)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 On: 23-Pzu-923657:11 Request C-REACTIVE PROTEIN (49252)Indication: Fatigue On: :44 Request CBC (AUTO) (26862)Indication: Fatigue On: 86-Vto-601497:44 Request Folate (20665)Indication: Fatigue On: 22-Vzi-319600:44 Request METABOLIC PANEL, COMPREHENSIVE (36435)Indication: Fatigue On: :44 Request SED RATE ERYTHROCYTE (13753)Indication: Fatigue On: :44 Request TSH (20215)Indication: Fatigue On: :44 Request VITAMIN B-12 (CYANOCOBALAMIN) (57490)Indication: Fatigue On: :44 Request Planned Procedures PROLONGED PHYSICIAN SERVICE, OFFICE On: 13-Nov-2018 Intent (27546)By: Bambi Mondragon DO, DO, Kathleen HOLTER MONITORING WITH INTERPRETATION On: 13-Nov-2018 Intent (36641)By: Bambi Mondragon DO Comments: 24-hours Bambi FRAGOSO Nuclear Stress Test/Stress On: 13-Nov-2018 Intent SPECT/TreadmillBy: Bambi Mondragon DO, DO, Kathleen Echo CompleteBy: aBmbi Mondragon DO On: 13-Nov-2018 Intent Bambi Mondragon DO Comments: with bubble study ELECTROCARDIOGRAM, COMPLETE (ECG) On: 13-Nov-2018 Intent (96447)By: Bambi Mondragon DO Comments: nsr no acute chg Bambi FRAGOSO CT SCAN OF HEAD OR BRAIN WITHOUT On: 06-May-2018 Intent CONTRAST (60152)By: Bambi Mondragon DO, DO, Kathleen MAMMOGRAM BREAST BILATERAL SCREENING On: 21-May-2017 Intent DIGITAL (40548)By: Lauren Galdamez CNP BILATERAL MAMMOGRAMS (23089)By: On: 11-Nov-2015 Intent Svetlana Ibarra MD MAMMOGRAM, SCREENING, BOTH BREAST On: 10-Sep-2014 Intent (90848)By: Svetlana Ibarra MD BILATERAL MAMMOGRAMS (90201)By: On: 28-Jul-2014 Intent Svetlana Ibarra MD MRI - Cervical SpineBy: Rudolph COBOS, On: 27-May-2014 Intent Lauren Negrete MRI - Shoulder(s) - RightBy: Rudolph On: 14-May-2014 Intent Lauren COBOS Comments: having lateral pain MRI - Cervical SpineBy: Rudolph COBOS, On: 13-May-2014 Intent Nayely MRI - Thoracic Spine (IV Contrast On: 13-May-2014 Intent Needed)By: Lauren Galdamez CNP PHYSICAL THERAPY EVALUATION (18629)By: On: 12-May-2014 Intent Lauren Galdamez CNP Radiology [...] On: 05-Sep-2013 Intent Svetlana Ibarra MD EKG (49429)By: Svetlana Ibarra MD On: 16-Aug-2012 Intent Comments: see scanned document of test done to see results reviewed today with patient MAMMOGRAM, SCREENING, BOTH BREASTS On: 19-Jul-2012 Intent (95814)By: Svetlana Ibarra MD MAMMOGRAM, SCREENING, BOTH BREASTS On: 27-Mar-2011 Intent (71477)By: Svetlana Ibarra MD Comments: 04-05 SPECIMEN HNDLNG/TRNSPRT, OFFC > LAB On: 15-Nov-2010 Intent (31622)By: Svetlana Ibarra MD Planned Medications INJECTION, KETOROLAC TROMETHAMINE, PER 15 MG Ordered: 12-May-2014 Pending Lauren Galdamez CNP Instructions Name Dates Details Current nonsmoker (Renamed [...] Instructions Indication: Headache WWV V73.21 (Renamed from myMatrixxV) : How to access health information online - Detail Indication: WWV V73.21 (Renamed from WWV) WWV V73.21 (Renamed from WWV) : Patient Instructions Indication: WWV V73.21 (Renamed from WWV) Stress reaction : How to access health information online Indication: Stress reaction Stress reaction : How to access health information online - Detail Indication: Stress reaction Stress reaction : Patient Instructions Indication: Stress reaction Neck pain : Patient Instructions Indication: Neck pain Acne : Patient Instructions Indication: Acne Fatigue : Patient Instructions Indication: Fatigue Encounters Office Visit On: 13-Nov-2018 13:34 Encounter Reason: [...] scant) ).Encounter Diagnosis: WWV V73.21 (Renamed from [facility]), Stress Reaction (308.4) [facility] [...] care visit - The patient improving (seeing [facility])., [ADDITIONAL REASON] Forms - The [...] Nutrition: balanced diet and supplemental vitamins. The me dical issues the patient is following up [...] D NOS (268.9), WWV V73.21 (Renamed from myMatrixx), Varicose veins (454.9) [facility] Phone [...] (454.8), ARTHRALGIAS 719.40, WWV V73.21 (Renamed from WWV), Headache (784.0), Acne (706.1) [facility] [...] Plantar Fascititis (728.71), WWV V73.21 (Renamed from [facility]) End: 19-Jul-2012 11:14 [facility] Office [...] DEFICIENCY, VITAMIN D NOS (268.9), Fatigue (780.79), [facility] V73.21 (Renamed from [facility]), End: 27-Oct-2011 8:54 Allergic rhinitis (477.9), DISORDER, [...] DEFICIENCY, VITAMIN D NOS (268.9), DUB (626.8), [facility] V73.21 (Renamed from [facility]) [facility] Office Visit On: 31-Mar-2010 [...] dysfunction with other specified psychosexual dysfunctions (302.79), [facility] V73.21 (Renamed from [facility]) [facility] Office Visit On: 16-Jul-2008 [...] (477.9), Fatigue (780.79), Eustachian tube dysfunction (381.81), [facility] Historical Summary On: 03-Mar-2008 [...] dysfunction (381.81) [facility] Yari Varma; ilia guarantor
--- OUTSIDE RECORDS SUMMARY | 2019-02-19 18:20 | XMS RPT_ITS | Continuity of Care Document ---
:1970 Author Organization [facility] Address [address] [place] [address] Phone Care Team Providers Name Role Phone Bambi Mondragon DO Unavailable Sarah Nieves Unavailable Erik Olivarez Unavailable Osmani JOYA, Tong Aviles Unavailable Katrina Herrera Unavailable Ami JOYA, Ankit Unavailable Pauly Sommer Unavailable Stevie Varma Unavailable Unavailable HORACE Villa Unavailable Unavailable Tonya CHANDRIKA, Nayely Unavailable Mayra Bloom Unavailable Unavailable Unavailable Unavailable Problems Name Dates [...] Status: Active Medications Name Dates Details Ergocalciferol 58354 UNIT Oral Capsule 1 (one) Capsule weekly [...] days Quantity: 20 {Tablet} Refills: 0 Ordered:25-Mar-2007 CYNTHIA COBOS JACINTA Start : 25-Mar-2007 End : 13-May-2007 Inactive [...] End : 24-Jul-2015 Inactive CALCIUM CITRATE-VITAMIN D3, 152-029XC-GQUB (Oral Tablet) 1 (one) Tablet Tablet qid [...] days Quantity: 14 {Tablet} Refills: 0 Ordered:20-Nov-2018 Rudolph COBOS Nayely Start : 18-Nov-2018 End : 20-Nov-2018 Inactive CYMBALTA, 30MG (Oral Capsule Delayed Release Particles) [address] Part qd for 0 days Quantity: 30 {Capsule_DR_Part} Refills: 3 Ordered:23-Jun-2013 Svetlana Ibarra MD Start : 23-Jun-2013 End : 23-Jun-2013 Inactive Comments:219.00 for 30 days Drisdol 83483 UNIT Oral Capsule uad Capsule Capsule monthly [...] : 16-Feb-2015 End : 04-Mar-2015 Inactive ERGOCALCIFEROL, 16739EOQS (Oral Capsule) 1 Capsule twice weekly for 0 days Quantity: 8 {Capsule} Refills: 3 Ordered:10-Sep-2014 BRANDEE Miller Start : 08-May-2013 End : 10-Sep-2014 Inactive Macrobid 100 MG Oral Capsule 1 (one) Capsule bid for 7 days Quantity: 14 {Capsule} Refills: 0 Ordered:20-Nov-2018 Deboraantione CHANDRIKALauren Start : 20-Nov-2018 End : 27-Nov-2018 Inactive MEDROL (MELBA), 4MG (Oral Tablet) 1 [...] Quantity: 20 {Tablet} Refills: 0 Ordered:03-Nov-2011 Long BRICK PICKER, Gricel L Start : 02-Nov-2011 End : 03-Nov-2011 Inactive VERAMYST, 27.5MCG/SPRAY (Nasal Suspension) 2 sprays each nostril qd for 0 days Refills: 0 Ordered:02-Feb-2012 BRANDEE Miller End : 02-Feb-2012 Inactive VITAMIN B6, 200MG (Oral Tablet) 1/2 (one half) Tablet Tablet qd for 30 days Quantity: 30 {Tablet} Refills: 0 Ordered:06-Aug-2015 BRANDEE Miller Start : 24-Jun-2015 End : 24-Jul-2015 Inactive Comments:shyann VITAMIN D3, 28902YRBM (Oral Capsule) 1 (one) Capsule Capsule qd [...] Quantity: 1 {package(s)} Refills: 0 Ordered:26-Dec-2011 Long BRICK PICKER, Gricel L Start : 21-Nov-2011 End : [...] Fluticasone Propionate 50 MCG/ACT Nasal Suspension 1-2 [place](s) each nostril daily for 0 days Quantity: [...] cornea, sequela (S05.01XS, 906.2) Comments: seeing eye for this. Status: Inactive as of 11-Nov-2015 [...] dysfunction (H69.80, 381.81) Comments: Pt leaving for [place]- gave script for antibiotic in case things [...] (Z12.31, V76.12) Status: Inactive as of 30-Jun-2016 CS VEIN, LWR EXTREMITIES W/COMPLICTN NOS (454.8) Comments: pain. will send to osmani Status: Inactive as of 05-Sep-2013 Weight loss (R63.4, 783.21) Comments: stable now Status: Resolved as of 11-Nov-2015 [facility] V73.21 (Renamed from [facility]) Comments: [facility] Status: Inactive as of 12-Jul-2015 Procedures Procedure Dates Details Adenoidectomy Completed Comments: Inpatient. Section - 2 Completed Comments: Inpatient. 2002 and 1999 endovenous laser ablation left leg- greater Completed and lesser saphenous Enometrial ablation February 2010 Completed Tonsillectomy Completed Comments: Inpatient. Tubal Ligation Completed Comments: 2002 tubes in ears as child Completed Appendectomy Completed Comments: 10-12-98 Date Value Details 24-Oct-2018 Felt Pad Cutter Office Visit Report Result: Comments: See Note; NOTES: [facility] 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 Is patient in pain?: No [...] safe at home: Yes additional social history: [facility] Pregancy History 2 Elective abortions Hx Para [...] acute d istress, well developed, well groomed [facility] Head: normal to inspection, normocephalic Ears: hearing [...] AND CAD Result: Comments: See Note; NOTES: [facility] Imaging Services [address] [address] Verdana 4d Bilat Scrn Digital AND CAD MR#: [id number] Acct: [id number] Name: EVELYN VARMA Rep #: [id number] : 1970 F 46 From: Dangelo Mondragon MD PCP: Svetlana Ibarra MD Status: REG CLI Study: Bilat Scrn Digital AND CAD Date of Exam: 04/05/16 Exam# [id number] Or dering Dr: Svetlana Ibarra MD MAMMOGRAPHY - BILATERAL SCREENING REASON FOR EXAM: Female, 46 years old. Routine annual screening examination. PERTINENT HISTORY: Non-contributory. TECHNIQUE: Teresai anisa bilateral breast tomosynthesis (3-D mammographic acquisition) [...] delay biopsy of a clinically suspicious abnormality. [id number] Electronically Signed: Dangelo Mondragon MD at 10:09 EDT Tel [phone], Service support [phone], CC: Svetlana Ibarra MD Editorial Director: Signed 12-Nov-2014 [facility] Result: Comments: See Note; NOTES: [facility] Imaging Services [address] [place] [address] Breast Imaging Report MR#: [id number] Acct: [id number] Name: EVELYN BAUTISTA Rep #: [id number] : 1970 F 44 From: Smith Ruelas MD PCP: Svetlana Ibarra MD Status: REG CLI Study: Clarence Hare Digital AND CAD Date of Exam: 11/12/14 Exam# [id number] Ordering Dr: Svetlana Ibarra MD MAMMOGRAPHY - [...] Jf Ruelas MD at 15:10 EST Tel [phone], Serv ice support [phone], CC: Svetlana Ibarra MD Editorial Director: Signed 29-Sep-2014 Operative Report Result: Comments: See Note; NOTES: [facility] Medical Records Department [address] [address] Operative Report MR#: [id number] Acct: [id number] Name: EVELYN BAUTISTA Rep #: [id number] : 1970 44 From: Tong Proctor MD PCP: Svetlana Ibarra MD Status: [facility] DATE OF SERVICE: 09/29/2014 DATE OF SERVICE: September 29, 2014. 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 A long 4-Cuban sheath was then advanced over the guidewire, [...] Attention was then redirected to the long 4-Cuban sheath, which had been previously placed intraluminally into the left great saphenous vein. Perivenous tumescent anesthesia was injected from the 4-Cuban sheath exit site up to the left [...] lef t small saphenous vein. The long 4-Cuban sheath was advanced over the guidewire and into position intraluminally in the left small saphenous vein. Perivenous tumescent anesthesia was injected from the 4-Cuban sheath exit site up to the tip of the sheath. This was performed segmentally using ultrasound imaging. The AngioDynamics laser fiber was then introduced into the 4-Cuban sheath and cou pled appropriately. Ultrasonography was [...] the laser fiber was activated. The Karla Playdoms laser was slowly withdrawn at a constant [...] separately. Tong Proctor MD T: NTS JOB: [id number] 09/29/14 1435 <Electronically signed by Tong Proctor MD> D ate Tong Proctor MD CC: Svetlana Ibarra MD; Tong Proctor MD Date Dictated: 09/29/141135 Date Transcribed: 09/29/141135 Editorial Director: Signed 29-Sep-2014 Discharge Instruction Result: Comments: See Note; NOTES: [facility] Medical Records Department [address] [place] [address] Instructions for Home/Discharge Instructions 09/29/14916 MR#: [id number] Acc t: [id number] Name: EVELYN BAUTISTA Rep #: [id number] : 1970 44 From: Tong Proctor MD PCP: Svetlana Ibarra MD Status: REG CAC Discharge Diet: No Restrictions Discharge Activity: May [...] take at Discharge Fluticasone 0.05% [Flonase Nasal [place]] 1 spray NASAL DAILY Spironolactone [Aldactone] 100 [...] Follow Up With: Tong Proctor - Call [phone] to schedule a followup appointment. When: - days 09/29/14918 <Electronically signed by Tong Proctor MD&am p;#62; Date Tong Proctor MD CC: Svetlana Ibarra MD 27-Sep-2014 History and Physical Exam Result: Comments: See Note; NOTES: [facility] Medical Records Department [address] [place] [address] History and Physical 09/27/14 1014 MR#: [id number] Acct: [id number] Name: EVELYN BAUTISTA Rep #: [id number] : 1970 44 From: Tong Proctor MD PCP: Sevtlana Ibarra MD Status: PRE [facility] [place] [facility] Location: [facility] [place] [facility] DATE OF SERVICE: This is a history [...] stockings, weight control measu res, active lifestyle, yvgk-klk-jwsmbzt analgesics, etc. 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 [...] has been undertaken. Tong Proctor MD T: [facility] JOB: [id number] 09/27/14 1341 <Electron ically signed by Tong Proctor MD> Date: Time: Tong Proctor MD CC: Svetlana Ibarra MD; Tong Proctor MD Date Dictated: 09/27/144 Date T ranscribed: 09/27/14 1014 Editorial Director: Signed ____ I have re-examined the patient. There are no clinical changes since date of exam. ____ See Progress Notes for Changes ____ Dictated on Ad mission Date: Time: Signature: 13-Aug-2014 PT Discharge Summary Result: Comments: See Note; NOTES: [facility] [address] [place] [address]. [address] [place], [place] [address] Fax REHABILITATION SERVICES DISCHARGE SUMMARY MR#: [id number] Acct: [id number] Name: EVELYN BAUTISTA Huy Rep #: [id number] : 1970 44 From: Franky Bruce Referring [...] C5-C6. At that point, she saw a start up specialist and she call ed and canceled her appointments after she saw the start up specialist and the MRI. At this point, she is discharged from our care. If physical therapy is needed different time, I am glad to see this p atient. Once again, thank you for this referral. Sincerely, Franky Bruce, PT T: ROSE JOB: [id number] <Electronically signed by Franky Bruce > 08/13/14 1502 CC: Signed 18-Jun-2014 Spine Cervical (Routine) Result: Comments: See Note; NOTES: [facility] Imaging Services [address] [place] [address] MRI Report MR#: [id number] Acct: [id number] Name: EVELYN BAUTISTA Rep #: [id number] : 1970 F 44 From: Mahnaz Ascencio MD PCP: Svetlana Ibarra MD Status: REG CLI Study: Spine Cervical (Routine) Date of Exam: 06/18/14 Exam# [id number] Ordering Dr: Lauren Galdamez STUDY: M RI [...] at 22:49 EDT Tel , Service support [phone], CC: Bal Galdamez; Svetlana Ibarra MD Editorial Director: Signed 18-Jun-2014 Spine Thoracic (Routine) Result: Comments: See Note; NOTES: [facility] Imaging Services [address] [place] [address] MRI Report MR#: [id number] Acct: [id number] Name: EVELYN BAUTISTA Rep #: [id number] : 1970 F 44 From: Mahnaz Ascencio MD PCP: Svetlana Ibarra MD Status: REG CLI Study: Spine Thoracic (Routine) Date of Exam: 06/18/14 Exam# [id number] Ordering Dr: Lauren Galdamez STUDY: M RI [...] at 22:52 EDT Tel , Service support [phone], Fax CC: Lauren Galdamez; Svetlana Ibarra MD Editorial Director: Signed 13-Jun-2014 Upper Ext Joint Only(Routine) Result: Comments: See Note; NOTES: [facility] Imaging Services [address] [place] [address] MRI Report MR#: [id number] Acct: [id number] Name: EVELYN BAUTISTA Rep #: [id number] : 1970 F 44 From: Juan Manuel Phillips MD PCP: Svetlana Ibarra MD Status: REG CLI Study: Upper Ext Joint Only(Routine) Date of Exam: 06/13/14 Exam# [id number] Ordering Dr: Lauren Galdamez STUDY: MRI RIGHT [...] at 21:44 EDT , Ser vice support [phone], CC: Lauren Galdamez; Svetlana Ibarra MD Editorial Director: Signed 25-May-2014 Inital Evaluation - PT Result: Comments: See Note; NOTES: [facility] Physical Therapy 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 PAST MEDICAL HISTORY: She has good health [...] C C: Lauren Galdamez T: ROSE JOB: [id number] <Electronically signed by Franky Bruce > 05/25/14 1648 CC: Signed For Medicare only, by signing this I certify the plan of care. Physicians Signature Date 12-May-2014 Cerv Spine 4 or 5 Views Result: Comments: See Note; NOTES: [facility] Imaging Services [address] [place] [address] Radiology Report MR#: [id number] Acct: [id number] Name: EVELYN BAUTISTA Rep #: [id number] : 1970 F 44 From: Dangelo Mondragon MD PCP: Svetlana Ibarra MD Status: REG CLI Study: Cerv Spine 4 or 5 Views Date of Exam: 05/12/14 Exam# [id number] Ordering Dr: Lauren Galdamez DY: X-RAY - [...] Dangelo Mondragon MD at 16:13 EDT Tel [phone], Service support [phone], RAD/Cerv Spine 4 or 5 Views IMPRESSION: Normal x-ray examination of the visualized cervical spine. Electronically Signed: Dangelo Mondragon MD at 16:13 EDT Tel [phone], Service support , CC: Lauren Galdamez; Svetlana Ibarra MD Editorial Director: Signed 12-May-2014 Shoulder min 2 Views Result: Comments: See Note; NOTES: [facility] Imaging Services [address] [place] [address] Radiology Report MR#: [id number] Acct: [id number] Name: EVELYN BAUTISTA Rep #: [id number] : 1970 F 44 From: Smith Ruelas MD PCP: Svetlana Ibarra MD Status: REG CLI Study: Shoulder min 2 Views Date of Exam: 05/12/14 Exam# [id number] Ordering Dr: Lauren Galdamez STUDY: X-RAY - [...] at 20:14 EDT , Service suppo rt [phone], CC: Lauren Galdamez; Svetlana Ibarra MD Editorial Director: Signed 12-May-2014 Thoracic Spine 3 Views Result: Comments: See Note; NOTES: [facility] Imaging Services [address] [place] [address] Radiology Report MR#: [id number] Acct: [id number] Name: EVELYN BAUTISTA Rep #: [id number] : 1970 F 44 From: Dangelo Mondragon MD PCP: Svetlana Ibarra MD Status: REG CLI Study: Thoracic Spine 3 Views Date of Exam: 05/12/14 Exam# [id number] Ordering Dr: Lauren Galdamez STUD Y: X-RAY - THORACIC SPINE REASON FOR [...] Dangelo Mondragon MD at 16:12 EDT Tel [phone], Service support [phone], 0038 RAD/Thoracic Spine 3 Views IMPRESSION: M ild degree of disc space narrowing with anterior spondylosis. Electronically Signed: Dangelo Mondragon MD at 16:12 EDT Tel [phone], Service support [phone], CC: Lauren Galdamez; Svetlana Ibarra MD Editorial Director: Signed Family History Unknown Family Member Name Dates Details Father Comments: bladder cancer alzheimer. dm. 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 No Drug Use [...] kg/m2 Body Surface Area Calculated 1.57 m2 43-Qzy-703543:41 Pulse 70 /min Comments: Pattern: Regular Respiration [...] Results Date Description Value Details :30 CALCIFEDIOL (52730) Comments: PATIENT NOT FASTINGPERFORMED BY: [facility] [id number] [facility] [id number] Vitamin D, 25-Hydroxy 18.7 ng/mL (Abnormal) Range: 30.0-100.0 Comments: Vitamin D deficiency has been defined by the Emerson ofMedicine and an Endocrine Society practice guideline as alevel of serum 25-OH vitamin D less than 20 ng/mL (1,2).The Endocrine Society went on to further define vitamin Dinsufficiency as a level between 21 and 29 ng/mL (2).1. IOM (Emerson of Medicine). 2010. Dietary reference intakes for calcium and D. [place]: The National Academies Press.2. Mp MF, Marco A BHAKTA, Asif MOULTON, et al. Evaluation, treatment, and prevention of vitamin D deficiency: an Endocrine Society clinical practice guideline. JCEM. 2010; 96(7):1911-30. 55-Wec-189697:04 URINE RIZWAN CULTURE-IDENTIFICATN Comments: PATIENT NOT FASTINGPERFORMED BY: [facility] [id number] [facility] [id number] Information: SRC: ([id number]) Antimicrobial MIHEAD (Normal) Comments: S = Susceptible; [...] and Proteusmirabilis. Urine Final report Culture,Comprehensive (Abnormal) 48-Fex-164855:45 Urinalysis, Office (62387) UA - LEUKOCYTE ESTERASE Moderate (Normal) Comments: 15leu/uL UA - NITRITE Negative (Normal) URINE UROBILINGN MITRA TIMED 2 mg/dL (Normal) UA - PROTEIN Negative mg/dL (Normal) UA - PH 6 (Abnormal) UA - BLOOD Negative (Normal) UA - SPECIFIC GRAVITY 1.025 (Normal) UA - KETONES Negative mg/dL (Normal) UA - BILIRUBIN Negative (Normal) UA - GLUCOSE Negative (Normal) 51-Yfr-620310:10 CBC W/Diff, Automated Comments: [facility] [address] [place], [place], [address] Absolute Lymph 1.82 {X10_3/ul} (Normal) Range: 0.83-4.51 [...] 4.2-5.4 WBC 6.4 K/mm3 (Normal) Range: 4.4-11.0 13-Lmj-975183:10 T4 Free Direct Comments: [facility] [address] [place], [address] T4 FREE DIRECT 1.04 ng/dL (Normal) Range: 0.76-1.46 05-Osj-846894:10 Thyroid Stim Hormone (TSH) Comments: [facility] [address]qhyc59[address] [place], [address] TSH 2.41 {uIU/mL} (Normal) Range: 0.358-3.74 57-Sbe-014123:10 Vitamin D 1,25-Dihydroxy Comments: [facility] (refer to report for specific site)refer to report for address and phone number VITD 67451 53.7 pg/mL (Normal) Range: 19.9-79.3 Comments: Performed at: - [facility] [id number] Director: Suzy Vigil MD, Phone: [phone] 83-Tch-316092:00 PAP IG HPV APTIMA Comments: CYTOLOGY INFORMATION:- CLINICAL INFORMATION: ANNUAL- DATE LMP/MENOPAUSE:- COLLECTION VIAL: Thin Prep Vial- MEDICAL 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 of containers..01 ThinPrep VialLabCorp (refer to report for specific site)refer to report for address and phone number HPV APTIMA, HR Negative (Normal) Comments: This test detects fourteen high- risk HPV types(16/18/31/33/35/39/45/ 51/52/56/58/59/66/68) withoutdifferentiation.Performed at: - [facility] [id number] Dire ctor: Shari Hall MD, Phone: [phone] at: =G - [facility] [id number] Director: Shari Hall MD, Phone: [phone] PAPSMR Comment (Normal) Comments: The Pap smear [...] system. PERFORM Comment (Normal) Comments: Krystle Ferro, French Comber (ASCP) ADEQ Comment (Normal) Comments: Satisfactory for evaluation. Endocervical and/or squamous metaplasticcells (endocervical component) are present. DIAGN Comment (Normal) Comments: NEGATIVE FOR INTRAEPITHELIAL LESION AND MALIGNANCY. :42 Rapid Strep Test, Office (86796) Rapid Strep Test, Office Negative (Normal) :48 THROAT CULTURE (24426) Comments: PATIENT NOT FASTINGPERFORMED BY: [facility] [id number] [facility] [id number] Information: SRC:TH Result 1 RRF (Normal) Comments: Routine respiratory mellisa Upper Respiratory Culture Final report (Normal) 96-Yux-648714:53 Metabolic Panel, Comprehensive Comments: PATIENT WAS FASTINGPERFORMED BY: [facility] [id number] [facility] [id number] ([address]108) ALT (SGPT) 46 [iU]/L (Abnormal) Range: 0-32 [...] Glucose, Serum 89 mg/dL (Normal) Range: 65-99 94-Xcd-322994:53 TSH (THYROID STIMULATING Comments: PATIENT WAS FASTINGPERFORMED BY: [id number] [facility] [id number] HORMONE) (47580) TSH 1.840 {uIU/mL} (Normal) Range: 0.450-4.500 23-Tqh-845461:53 LIPID PANEL (37620) Comments: PATIENT WAS FASTINGPERFORMED BY: [facility] Yqeuws6809 [facility] [id number] LDL/HDL Ratio 1.7 {ratio_units} (Normal) Range: 0.0-3.2 Comments: LDL/HDL Ratio Men Women 1/2 Avg.Risk 1.0 1.5 Av g.Risk 3.6 3.2 2X Avg.Risk 6.2 5.0 3X Avg.Risk 8.0 6.1 LDL Cholesterol Calc 120 mg/dL (Abnormal) Range: 0-99 VLDL Cholesterol Zeyad 10 mg/dL (Normal) Range: 5-40 HDL Cholesterol 71 mg/dL (Normal) Triglycerides 51 mg/dL (Normal) Range: 0-149 Cholesterol, Total 201 mg/dL (Abnormal) Range: 100-199 36-Pad-245576:53 Thin prep Pap Comments: Source.............Cervical;EndocervicalNo. of containers..01 CYTYC Thin Prep VialPATIENT NOT FASTINGPERFORMED BY: [facility] [address] [place] [id number] Information: [id number] (97219) (no STD testing) Note: PAPSMR (Normal) Comments: [...] (endocervical component) are present.V70.0 ; Routine general dc dical examin [facility] Marcos French Comber (ASCP) 07-Msx-510236:54 Nuab STD (STD W/ Comments: PATIENT NOT FASTINGPERFORMED BY: [facility] [id number] Information: [id number] Herpes) (80896) HSV 2 ALEA Negative (Normal) HSV 1 ALEA Negative (Normal) Neisseria gonorrhoeae, ALEA Negative (Normal) Chlamydia trachomatis, ALEA Negative (Normal) Trich vag by ALEA Negative (Normal) Susi glabrata, ALEA Negative (Normal) Comments: This test was developed and its performance characteristics determinedby [facility]. It has not been cleared or approved [...] was developed and its performance characteristics determinedby [facility]. It has not been cleared or appro bhavesh by the Food and DrugAdministration. The FDA has determined that such clearance orapproval is not necessary. BVAB 2 Low - 0 {Score} (Normal) Atopobium vaginae Low - 0 {Score} (Normal) 78-Fim-743389:21 Thyroid Stim Hormone (TSH) Comments: Test performed at:[facility] [address] [place] [address] TSH 2.22 {uIU/mL} (Normal) Range: 0.358-3.74 30-Dkl-682795:21 Vitamin B12 366 pg/mL (Normal) Comments: Test performed at:[facility] [address] [place] [address] Range: 211-911 11-Pna-555895:21 Vitamin D,25 Hydroxy Comments: Test performed at:[facility] [address] [place] [address] Vitamin D 25-OH 21.6 ng/mL (Normal) Comments: [...] 7-18 GLU 88 mg/dL (Normal) Range: 70-110 56-Mwm-045909:54 CBCD ALC 1.35 {X10_3/ul} (Normal) Range: 0.83-4.51 [...] 4.2-5.4 WBC 6.3 K/mm3 (Normal) Range: 4.4-11.0 01-Yvy-181444:05 PREGU tPREGU Negative {Negative} (Normal) Comments: Very dilute urine specimens, as indicated by a low specificgravity, may not contain dental detail representative levels of hCG.If is still suspected, a first morning urinespecimen should be collected 48 hours later and tested. 73-Jae-08004:23 Metabolic Panel, Basic Comments: PATIENT WAS FASTINGPERFORMED BY: [facility] Phnhby5869 [facility] [id number] Information: [id number] (40129) Calcium, Serum 9.6 mg/dL (Normal) Range: 8.7-10.2 [...] 95 mg/dL (Normal) Range: 65-99 :23 CALCIFEDIOL (36892) Comments: PATIENT WAS FASTINGPERFORMED BY: [facility] [id number] Vitamin D, 25-Hydroxy 38.5 ng/mL (Normal) Range: 30.0-100.0 Comments: Vitamin D deficiency has been defined by the Emerson ofOhio[facility] Hospitalcine and an Endocrine Society practice guideline as alevel of serum 25-OH vitamin D less than 20 ng/mL (1,2).The Endocrine Society went on to further define vitamin Dinsufficiency as a level between 21 and 29 ng/mL (2).1. IOM (Emerson of Medicine). 2010. Dietary reference intakes for calcium and D. [place]: The National Academies Press.2. Mp MF, Marco A NC, Asif MOULTON, et al. Evaluation, treatment, and prevention of vitamin D deficiency: an Endocrine Society clinical practice guideline. JCEM. 2010; 96(7):1911-30. :23 LIPID PANEL (93366) Comments: PATIENT WAS FASTINGPERFORMED BY: [email or web address] [facility] [place] [id number] LDL/HDL Ratio 2.4 {ratio_units} (Normal) Range: 0.0-3.2 LDL Cholesterol Calc 156 mg/dL (Abnormal) Range: 0-99 VLDL Cholesterol Zeyad 12 mg/dL (Normal) Range: 5-40 HDL Cholesterol 64 mg/dL (Normal) Comments: According to ATP-III Guidelines, HDL-C >59 mg/dL is considered anegative risk factor for CHD. Triglycerides 60 mg/dL (Normal) Range: 0-149 Cholesterol, Total 232 mg/dL (Abnormal) Range: 100-199 :56 LIPID PANEL (27990) Comments: PATIENT WAS FASTINGPERFORMED BY: [facility] [id number] LDL/HDL Ratio 2.0 {ratio_units} (Normal) Range: 0.0-3.2 LDL Cholesterol Calc 133 mg/dL (Abnormal) Range: 0-99 VLDL Cholesterol Zeyad 10 mg/dL (Normal) Range: 5-40 HDL Cholesterol 66 mg/dL (Normal) Comments: According to ATP-III Guidelines, HDL-C >59 mg/dL is considered anegative risk factor for CHD. Triglycerides 52 mg/dL (Normal) Range: 0-149 Cholesterol, Total 209 mg/dL (Abnormal) Range: 100-199 :56 TSH (05402) Comments: PATIENT WAS FASTINGPERFORMED BY: [employer] [id number] TSH 2.520 {uIU/mL} (Normal) Range: 0.450-4.500 :56 CBC (Auto) (10056) Comments: PATIENT WAS FASTINGPERFORMED BY: [employer] [facility] [id number] Platelets 193 {x10E3/uL} (Normal) Range: 140-415 RDW 12.7 % (Normal) Range: 12.3-15.4 MCHC 32.5 g/dL (Normal) Range: 31.5-35.7 MCH 30.6 pg (Normal) Range: 26.6-33.0 MCV 94 fL (Normal) Range: 79-97 Hematocrit 40.6 % (Normal) Range: 34.0-46.6 Hemoglobin 13.2 g/dL (Normal) Range: 11.1-15.9 RBC 4.32 {x10E6/uL} (Normal) Range: 3.77-5.28 WBC 5.6 {x10E3/uL} (Normal) Range: 4.0-10.5 :56 Metabolic Panel, Comments: PATIENT WAS FASTINGPERFORMED BY: [employer] [facility] [id number] Information: [id number] Comprehensive (50801) ALT (SGPT) 17 [iU]/L (Normal) Range: 0-32 [...] 100 mg/dL (Abnormal) Range: 65-99 :56 CALCIFIDIOL (91982) VIT D 25 Comments: PATIENT WAS FASTINGPERFORMED BY: [email or web address] [facility] [id number] Vitamin D, 25-Hydroxy 19.1 ng/mL (Abnormal) Range: 30.0-100.0 Comments: Vitamin D deficiency has been defined by the Emerson ofMedicine and an Endocrine Society practice guideline as alevel of serum 25-OH vitamin D less than 20 ng/mL (1,2).The Endocrine Society went on to further define vitamin Dinsufficiency as a level between 21 and 29 ng/mL (2).1. IOM (Em[employer] of Medicine). 2010. Dietary reference intakes for calcium and D. [place]: The National Academies Press.2. Mp MF, Marco A BHAKTA, Asif MOULTON, et al. Evaluation, treatment, and prevention of vitamin D deficiency: an Endocrine Society clinical practice guideline. JCEM. 2010; 96(7):1911-30. 28-Tpf-071277:34 BMP GAP 8 (Normal) Range: 5-15 CO2 [...] 7-18 GLU 84 mg/dL (Normal) Range: 70-110 32-Mzn-776131:34 CBC MPV 9.2 fL (Normal) Range: 6.5-12.0 [...] 4.2-5.4 WBC 6.4 K/mm3 (Normal) Range: 4.4-11.0 27-Vtv-322040:34 FT3 3.5 pg/mL (Normal) Range: 2.18-3.98 :34 [...] D deficiency has been defined by the Emerson ofMedicine and an Endocrine Society practice guideline as alevel of serum 25-OH vitamin D less than 20 ng/mL (1,2).The Endocrine Society went on to further define vitamin Dinsufficiency as a level between 21 and 29 ng/mL (2).1. IOM (Emerson of Medicine). 2010. Dietary reference intakes for calcium and D. [place]: The National Academies Press.2. Mp MF, Marco A NC, Serafin-Josiah MOULTON, et al. Evaluation, treatment, and prevention of vitamin D deficiency: an Endocrine Society clinical practice guideline. JCEM. 2010; 96(7): 1911-30.Performed at: [facility] [id number] Director: Faye Mackey MD, Phone: [phone] :22 PERLITA DIR SEMI-QL PERLITA DIRECT 202 AU/mL (Abnormal) Comments: REFLEX PERLITA PANEL TESTING CAN BE PERFORMED FROM THISSPECIMEN. PHYSICIAN ORDER REQUIRED. CALL [facility] FORTHIS REFLEX TESTING. [phone] :[phone] ANTI-CCP 121350 5 {units} (Normal) Range: 0-19 Comments: Negative <20 Weak positive 20 - 39 Moderate positive 40 - 59 Strong positive >59Performed at: - [facility] [address] [id number] Director: Faye Mackey MD, Phone: [phone] at: - [facility] [id number] Director: Yoni Orozco MD, Phone: [phone] :22 C-REACTIVE PROT < 2.90 mg/L (Normal) [...] mg/dL Borderline >240 mg/dL High Risk :22 [facility] TEST . (Normal) Comments: ADD ON BY OFFICE 11/02/11 Comments: TEST RESULT LIMITSSystemic Lupus Profile A TIME STUDY CLERK Antibodies < 0.2 AI 0.0 - 0.9 [...] 9 Positive > 9 TESTING PERFORMED AT [facility]. ORIGINAL REPORT ON FILE IN LAB CONTAINS ADDITIONAL TEST SITE INFORMATION.___ :22 RHEUMATOID FAC < 10.0 {IU/mL} (Normal) :22 T4 FREE DIRECT 1.04 ng/dL (Normal) Range: 0.76-1.46 :22 TSH 2.31 {uIU/mL} (Normal) Range: 0.358-3.74 :22 VIT D,25 26834 28.5 ng/mL (Abnormal) Comments: appt 11/17/11 Range: 30.0-100.0 Comments: Vitamin D deficiency has been defined by the [employer] ofMedicine and an Endocrine Society practice guideline as alevel of serum 25-OH vitamin D less than 20 ng/mL (1,2).The Endocrine Society went on to further define vitamin Dinsufficiency as a level between 21 and 29 ng/mL (2).1. IOM (Em[employer] of Medicine). 2011. Dietary reference intakes for calcium and D. [place]: The National Academies Press.2. Mp MF, Marco A NC, Asif MOULTON, et al. Evaluation, treatment, and prevention of vitamin D deficiency: an Endocrine Society clinical practice guideline. JCEM. 2010; 96(7): 1911-30. Please note reference interval change 6-Uxv-914862:33 BILAT SCRN DIGITAL & CAD Radiology Report [...] Sign by: Dangelo Mondragon MD VIT D,25 47592 20.2 ng/mL Range: 32.0-100.0 :45 (Abnormal) Comments: Recent studies consider the lower limit of 32.0 ng/mL to rita threshold for optimal health.Dominic ARSHAD. J Nutr. 2004;135(2):317- 22.Performed at: - [place] [id number] Director: Faye Mackey MD, Phone: [phone] TSH 2.17 {uIU/mL} Range: 0.358-3.74 :04 (Normal) 90-Nof-067548:35 CBCD ABSOLUTE NEUT 2.8 3/uL (Normal) Range: [...] 4.2-5.4 WBC 4.9 K/mm3 (Normal) Range: 4.4-11.0 :00 CULTURE, THROAT See Note (Normal) Comments: Normal throat mellisa isolated. No beta-hemolyticstreptococcus isolated. 09-Mfe-456982:26 Rapid Strep Test, Office (05238) Rapid Strep Test, Office Negative (Normal) 6-Kog-984146:25 Urinalysis, Office (67055) UA - LEUKOCYTE ESTERASE Negative (Normal) UA - NITRITE Negative (Normal) URINE UROBILINGN MITRA TIMED Normal mg/dL (Normal) UA - PROTEIN Negative mg/dL (Normal) UA - PH 6.0 (Normal) UA - BLOOD Negative (Normal) UA - SPECIFIC GRAVITY 1.020 (Normal) UA - KETONES Negative mg/dL (Normal) UA - BILIRUBIN Negative (Normal) UA - GLUCOSE Negative (Normal) :00 PROLACTIN (96727) Comments: PATIENT WAS FASTINGPERFORMED BY: [facility] [id number] [facility] [id number] Prolactin 6.5 ng/mL (Normal) Range: 2.8-29.2 Comments: [...] 9.7 - 208.5 Postmenopausal 1.8 - 20.3 22-Aps-54456:00 TSH (90613) Comments: PATIENT WAS FASTINGPERFORMED BY: [facility] [id number] TSH 2.440 {uIU/mL} (Normal) Range: 0.450-4.500 :00 T4, FREE (THYROXINE) (44350) Comments: PATIENT WAS FASTINGPERFORMED BY: [place] [id number] [facility] [id number] T4,Free(Direct) 1.10 ng/dL (Normal) Range: 0.61-1.76 27-Tzv-73205:00 T3, FREE (TRIDOTHYRONINE) (30068) Comments: PATIENT WAS FASTINGPERFORMED BY: [place] [id number] [facility] [id number] Triiodothyronine,Free,Serum 2.9 pg/mL (Normal) Range: 2.3-4.2 :00 CBC, Platelet; No Differential Comments: PATIENT WAS FASTINGPERFORMED BY: [facility] [id number] Hematocrit 40.4 % (Normal) Range: 34.0-44.0 Hemoglobin [...] Panel (14) Comments: PATIENT WAS FASTINGPERFORMED BY: [facility] [id number] A/G Ratio 1.7 (Normal) Range: 1.1-2.5 Albumin, [...] Dehydroepiandrosterone Sulfate Comments: PATIENT WAS FASTINGPERFORMED BY: [employer] [facility] [id number] DHEA-Sulfate 106 ug/dL (Normal) Range: 45-270 :00 Lipid Panel With LDL/HDL Comments: PATIENT WAS FASTINGPERFORMED BY: MaxxAthlete6370 [facility] [id number] Ratio Cholesterol, Total 200 mg/dL (Abnormal) Range: [...] 27.9 ng/mL Comments: PATIENT WAS FASTINGPERFORMED BY: [employer] Ppdiuj6331 [facility] [id number] :00 (Abnormal) Range: 32.0-100.0 Comments: Recent studies consider the lower limit of 32.0 ng/mL to be athreshold for optimal health.Dominic ARSHAD. J Nutr. 2005 Dec;135(2):317-22. :18 B12/FOLATES FOLATES,SERUM 19.70 ng/mL (Normal) VITAMIN [...] Headache : Eprescribed prescriptions (G8553) Indication: Headache WWV V73.21 (Renamed from [facility]) : Mammogram *: gynecological health Indication: [facility] V73.21 (Renamed from [facility]) Stress reaction : Eprescribed prescriptions (G8553) Indication: [...] *fatigue education Indication: Fatigue Planned Observations CALCIFEDIOL (25534)Indication: Vitamin D deficiency, unspecified On: 4-Hso-830429:30 Request DAIEB-HKFNLAVBLGA-GAZNC (46185)Indication: Unspecified Diagnosis On: :48 Request Metabolic Panel, Comprehensive (00495)Indication: Unspecified Diagnosis On: :47 Request HEPATIC FUNCTION PANEL (58781)Indication: Unspecified Diagnosis On: :47 Request LIPID PANEL (48038)Indication: Unspecified Diagnosis On: :47 Request URINE RIZWAN CULTURE-MITRA COL COUNT (63400)Indication: UTI (urinary tract infection) On: 34-Qmm-70921:16 Request Comments: post-atb METABOLIC PANEL, COMPREHENSIVE (39925)Indication: Hypercholesteremia On: 73-Vzu-057246:00 Request LIPID PANEL (47336)Indication: Hypercholesteremia On: 71-Rny-426892:00 Request CALCIFIDIOL (46701) VIT D 25Indication: Vitamin D deficiency, unspecified On: 38-Hzk-54204:59 Request CULTURE, GONOCOCCUS (71219) (culture obtained)Indication: WWV V73.21 (Renamed from [facility]) On: 23-Vof-337289:10 Request CULTURE CHLAMYDIA (08855) (culture obtained)Indication: [facility] V73.21 (Renamed from [facility]) On: 05-Jsi-277884:10 Request TSH (THYROID STIMULATING HORMONE) (19748)Indication: Weight loss On: 24-Yjh-510901:43 Request CALCIFEDIOL (19660)Indication: Vitamin D deficiency, unspecified On: 69-Klr-836816:43 Request PREALBUMIN (18477)Indication: Weight loss On: 33-Frw-446009:42 Request CBC with auto diff (82455)Indication: Weight loss On: 25-Hly-404730:42 Request METABOLIC PANEL, COMPREHENSIVE (50894)Indication: Hypercholesteremia On: 25-Ssh-250617:42 Request LIPID PANEL (04746)Indication: Hypercholesteremia On: 19-Ulb-425243:42 Request CALCIFIDIOL (29308) VIT D 25Indication: Vitamin D deficiency, unspecified On: 4-Ahr-245601:14 Request CALCIFIDIOL (68026) VIT D 25Indication: Vitamin D deficiency, unspecified On: 53-Lml-750382:16 Request URINALYSIS (15774)Indication: Encounter for routine preventive care for patient older than 28 days On: :11 Request Metabolic Panel, Comprehensive (96522)Indication: Encounter for routine preventive care for patient older than 28 days On: 43-Fkr-293110:11 Request Lipid Panel (88306)Indication: Encounter for routine preventive care for patient older than 28 days On: 54-Apq-344533:11 Request CBC, Platelets & Auto Diff (61996)Indication: Encounter for routine preventive care for patient older than 28 days On: 45-Pfg-087357:11 Request CALCIFEDIOL (49714)Indication: Vitamin D deficiency, unspecified On: 09-Tcp-089021:08 Request GLUCOSE (77555)Indication: Hypercholesteremia On: 8-Irb-627722:19 Request CALCIFEDIOL (42889)Indication: Hypercholesteremia On: 8-Fsf-895200:19 Request LIPID PANEL (87115)Indication: Hypercholesteremia On: 9-Bmo-434672:19 Request LIPID PANEL (43988)Indication: Hypercholesteremia On: 49-Dfu-028991:38 Request Comments: getting around 02/2014 Potassium Serum (73673)Indication: Acne On: 81-Tkb-03243:44 Request Comments: recheck in 3-4 weeks CALCIFIDIOL (37882) VIT D 25Indication: Vitamin D deficiency, unspecified On: 53-Vvw-54341:34 Request CALCIFIDIOL (84181) VIT D 25Indication: Telogen effluvium On: 21-Uvy-876926:05 Request CBC (Auto) (38412)Indication: Telogen effluvium On: 78-Rjc-285903:05 Request Metabolic Panel, Basic (66834)Indication: Telogen effluvium On: 75-Pjy-128336:05 Request TSH (98351)Indication: Telogen effluvium On: 09-Lia-381503:04 Request T4, FREE (THYROXINE) (80402)Indication: Telogen effluvium On: :04 Request T3, FREE (TRIDOTHYRONINE) (92553)Indication: Telogen effluvium On: 03-Wlx-523659:04 Request LIPID PANEL (24127)Indication: Hypercholesteremia On: 02-Feb-20128:03 Request Lupus ProfileIndication: Other specified abnormal findings of blood chemistry On: :09 Request T4, FREE (THYROXINE) (76282)Indication: Fatigue On: :39 Request CCP ANTIBODY (41661)Indication: Pain in unspecified joint On: :39 Request SED RATE ERYTHROCYTE (57418)Indication: Pain in unspecified joint On: :39 Request C-REACTIVE PROTEIN (53533)Indication: Pain in unspecified joint On: :39 Request TSH (80285)Indication: Pain in unspecified joint On: :39 Request RHEUMATOID FACTOR-QUANT (31252)Indication: Pain in unspecified joint On: :39 Request PERLITA (ANTINUCLEAR ANTIBODY) (99699)Indication: Pain in unspecified joint On: :39 Request CBC WITH MANUAL DIFF (10663)Indication: Pain in unspecified joint On: :39 Request METABOLIC PANEL, COMPREHENSIVE (53488)Indication: Fatigue On: :39 Request CALCIFIDIOL (95570) VIT D 25Indication: Vitamin D deficiency, unspecified On: :56 Request TSH (29261)Indication: Fatigue On: 68-Wnd-708945:26 Request CBC (Auto) (72492)Indication: Fatigue On: 49-Ypg-509372:26 Request CALCIFIDIOL (40003) VIT D 25Indication: Vitamin D deficiency, unspecified On: 45-Atu-894364:26 Request RIZWAN CULTURE-OTHER (04572)Indication: Pharyngitis, acute On: 39-Rdq-820948:26 Request CALCIFIDIOL (52288) VIT D 25Indication: Fatigue On: 80-Jkd-835148:22 Request CBC (Auto) (20510)Indication: Fatigue On: 22-Kxr-527362:15 Request Metabolic Panel, Comprehensive (59061)Indication: Fatigue On: 42-Bgl-813740:15 Request Lipid Panel (08915)Indication: WWV V73.21 (Renamed from [facility]) On: 49-Klr-701702:12 Request DHEA-S (DEHYDROEPIANDROSTERONE SULFATE) (58142)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 On: 75-Hdj-100969:11 Request C-REACTIVE PROTEIN (70476)Indication: Fatigue On: 05-Mnx-612296:44 Request CBC (AUTO) (00887)Indication: Fatigue On: 07-Vxb-508406:44 Request Folate (54938)Indication: Fatigue On: 83-Yil-680045:44 Request METABOLIC PANEL, COMPREHENSIVE (62458)Indication: Fatigue On: 18-Ule-511756:44 Request SED RATE ERYTHROCYTE (26792)Indication: Fatigue On: 98-Iwb-545133:44 Request TSH (57755)Indication: Fatigue On: 32-Icm-098986:44 Request VITAMIN B-12 (CYANOCOBALAMIN) (76559)Indication: Fatigue On: 73-Lzy-806506:44 Request Planned Procedures PROLONGED PHYSICIAN SERVICE, OFFICE On: 13-Nov-2018 Intent (75387)By: Bambi Mondragon DO, DO, Kathleen HOLTER MONITORING WITH INTERPRETATION On: 13-Nov-2018 Intent (26789)By: Bambi Mondragon DO Comments: 24-hours Bambi FRAGOSO Nuclear Stress Test/Stress On: 13-Nov-2018 Intent SPECT/TreadmillBy: Bambi Mondragon DO, DO, Kathleen Echo CompleteBy: Bambi Mondragon DO On: 13-Nov-2018 Intent Bambi Mondragon DO Comments: with bubble study ELECTROCARDIOGRAM, COMPLETE (ECG) On: 13-Nov-2018 Intent (25203)By: Bambi Mondragon DO Comments: nsr no acute chg Bambi FRAGOSO CT SCAN OF HEAD OR BRAIN WITHOUT On: 06-May-2018 Intent CONTRAST (96830)By: Bambi Mondragon DO, DO, Kathleen MAMMOGRAM BREAST BILATERAL SCREENING On: 21-May-2017 Intent DIGITAL (80073)By: Lauren Galdamez CNP BILATERAL MAMMOGRAMS (70825)By: On: 11-Nov-2015 Intent Svetlana Ibarra MD MAMMOGRAM, SCREENING, BOTH BREAST On: 10-Sep-2014 Intent (15116)By: Svetlana Ibarra MD BILATERAL MAMMOGRAMS (64741)By: On: 28-Jul-2014 Intent Svetlana Ibarra MD MRI - Cervical SpineBy: Rudolph COBOS, On: 27-May-2014 Intent Lauren Negrete MRI - Shoulder(s) - RightBy: Rudolph On: 14-May-2014 Intent Lauren COBOS Comments: having lateral pain MRI - Cervical SpineBy: Rudolph COBOS, On: 13-May-2014 Intent Lauren Negrete MRI - Thoracic Spine (IV Contrast On: 13-May-2014 Intent Needed)By: Lauren Galdamez CNP PHYSICAL THERAPY EVALUATION (23467)By: On: 12-May-2014 Intent Lauren Galdamez CNP Radiology - Shoulder - RightBy: Rudolph On: 12-May-2014 Intent Lauren COBOS Toradol Injection, 30 mg (J1885)By: On: 12-May-2014 Intent Lauren Galdamez CNP Comments: rt hip Oct 26, 2015, 36-341-DK Radiology - Cervical SpineBy: Rudolph On: 12-May-2014 Intent Lauren COBOS Radiology - Thoracic SpineBy: Rudolph On: 12-May-2014 Intent CHANDRIKA Nayely Eprescribed prescriptions (G8553)By: On: 05-Sep-2013 Intent Svetlana Ibarra MD EKG (32120)By: Svetlana Ibarra MD On: 16-Aug-2012 Intent Comments: see scanned document of test done to see results reviewed today with patient MAMMOGRAM, SCREENING, BOTH BREASTS On: 19-Jul-2012 Intent (00304)By: Svetlana Ibarra MD MAMMOGRAM, SCREENING, BOTH BREASTS On: 27-Mar-2011 Intent (06397)By: Svetlana Ibarra MD Comments: 5-11 SPECIMEN HNDLNG/TRNSPRT, OFFC > LAB On: 15-Nov-2010 Intent (82093)By: Svetlana Ibarra MD Planned Medications INJECTION, KETOROLAC [...] Instructions Indication: Headache WWV V73.21 (Renamed from NextPage) : How to access health information online - Detail Indication: WWV V73.21 (Renamed from NextPage) WWV V73.21 (Renamed from [employer]Page) : Patient Instructions Indication: WWV V73.21 (Renamed from NextPage) Stress reaction : How to access health information online Indication: Stress reaction Stress reaction : How to access health information online - Detail Indication: Stress reaction Stress reaction : Patient Instructions Indication: Stress reaction Neck pain : Patient Instructions Indication: Neck pain Acne : Patient Instructions Indication: Acne Fatigue : Patient Instructions Indication: Fatigue Encounters Phone Encounter On: 02-Dec-2018 16:24 Encounter Diagnosis: Vitamin D deficiency, unspecified End: 02-Dec-2018 16:30 [facility] Annotation/Addendum On: 20-Nov-2018 16:02 Encounter Diagnosis: Unspecified [...] 2 weeks ago (very scant) ).Encounter Diagnosis: [facility] V73.21 (Renamed from [facility]), Stress Reaction (308.4) [facility] [...] (454.8), ARTHRALGIAS 719.40, WWV V73.21 (Renamed from [facility]), Headache (784.0), Acne (706.1) [facility] [...] Plantar Fascititis (728.71), WWV V73.21 (Renamed from [facility]) End: 19-Jul-2012 11:14 [facility] Office [...] (268.9), Fatigue (780.79), WWV V73.21 (Renamed from [facility]), End: 27-Oct-2011 8:54 Allergic rhinitis (477.9), [...] (268.9), DUB (626.8), WWV V73.21 (Renamed from [facility]) [facility] Office Visit On: [...] dysfunction with other specified psychosexual dysfunctions (302.79), [facility] V73.21 (Renamed from [facility]) [facility] Office Visit On: [...] (477.9), Fatigue (780.79), Eustachian tube dysfunction (381.81), [facility] Internal Medicine Historical Summary On: 03-Mar-2008 10:09 [...] dysfunction (381.81) [facility] CenterEvelyn Varma; ilia guarantor
--- OUTSIDE RECORDS SUMMARY | 2019-02-19 18:21 | XMS RPT_ITS | Continuity of Care Document ---
:1970 Author Organization [facility] Address [facility] [address] Phone Care Team Providers Name Role Phone [...] Status: Active Medications Name Dates Details Ergocalciferol 71799 UNIT Oral Capsule 1 (one) Capsule weekly [...] End : 24-Jul-2015 Inactive CALCIUM CITRATE-VITAMIN D3, 161-297AT-TWPQ (Oral Tablet) 1 (one) Tablet Tablet qid [...] 23-Jun-2013 Inactive Comments:219.00 for 30 days Drisdol 49735 UNIT Oral Capsule uad Capsule Capsule monthly [...] : 16-Feb-2015 End : 04-Mar-2015 Inactive ERGOCALCIFEROL, 19991QTLA (Oral Capsule) 1 Capsule twice weekly for [...] days Quantity: 20 {Tablet} Refills: 0 Ordered:03-Nov-2011 Margarito VU, Gricel L Start : 02-Nov-2011 End : 03-Nov-2011 Inactive VERAMYST, 27.5MCG/SPRAY (Nasal Suspension) 2 sprays each nostril qd for 0 days Refills: 0 Ordered:02-Feb-2012 BRANDEE Miller End : 02-Feb-2012 Inactive VITAMIN B6, 200MG (Oral Tablet) 1/2 (one half) Tablet Tablet qd for 30 days Quantity: 30 {Tablet} Refills: 0 Ordered:06-Aug-2015 BRANDEE Miller Start : 24-Jun-2015 End : 24-Jul-2015 Inactive Comments:syhann VITAMIN D3, 15484YALC (Oral Capsule) 1 (one) Capsule Capsule qd [...] {package(s)} Refills: 0 Ordered:26-Dec-2011 Gricel Pimentel LPN L Start : 21-Nov-2011 End : 26-Nov-2011 Inactive Adapalene 0.1 % External Gel uad Gel apply thin layer to affecetd area(s) after washing for 0 days Quantity: 45 {Gram} Refills: 3 Ordered:21-May-2017 Slarb Gema VU Start : 09-Nov-2016 End : 21-May-2017 Discontinued [...] Fluticasone Propionate 50 MCG/ACT Nasal Suspension 1-2 [place](s) each nostril daily for 0 days Quantity: [...] ON OPN/CLS JAW (524.64) Comments: saw Dr. monetlongo. disc slipped and with time did heal. Status: Inactive as of 05-Sep-2013 DUB (dysfunctional uterine bleeding) (N93.8, 626.8) Comments: had endoablation, help alot Status: Inactive as of 05-Sep-2013 Dysuria (R30.0, 788.1) Status: Inactive as of 05-Sep-2013 Encounter for routine preventive care for patient older than 28 days (Z00.129, V20.2) Status: Inactive as of 10-Sep-2014 Eustachian tube dysfunction (H69.80, 381.81) Comments: Pt leaving for [place]- gave script for antibiotic in case things [...] stable now Status: Resolved as of 11-Nov-2015 [facility] V73.21 (Renamed from [facility]) Comments: [facility] Status: Inactive as of 12-Jul-2015 Procedures Procedure Dates Details Adenoidectomy Completed Comments: Inpatient. Section - 2 Completed Comments: Inpatient. 2002 and 1999 endovenous laser ablation left leg- greater Completed and lesser saphenous Enometrial ablation February 2010 Completed Tonsillectomy Completed Comments: Inpatient. 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 [place] [address] OFFICE VISIT Date of Service: 10/24/18 MR#: [id number] Acct: [id number] Name: MELVIN VARMA Rep #: [id number] : 1970 Provider: Bozena Fuentes MD Age/Sex: 48/F Location: [facility] Status: Signed Intake Vital Signs10/24/18 Height 5 ft 4 in 10/24/18 Weight: 131 lb 10/24/18 Bod y Mass Index (BMI) 22.4 10/24/18 Blood Pressure 104/70 Intake Visit Reasons: ANNUAL Chief Complaint: NEW annual Expense Clerk Required: No Is patient in pain?: No [...] safe at home: Yes additional social history: [facility] Pregancy History 2 Elective abortions Hx Para 2 Spontaneous abortions HPI ANNUAL: Details: TED VARMA is a 48 year old who presents for annual exam. here to establish care Last PAP: due History of abnormal PAP: no Last mammogram: due History of abnormal mammogram: Colon cancer screening: Ot er preventative health care screenings: Female Reproductive [...] acute d istress, well developed, well groomed [facility] Head: normal to inspection, normocephalic [...] AND CAD Result: Comments: See Note; NOTES: [facility] Imaging Services [address] [place] [address] Verdana 4d Bilat Scrn Digital AND CAD MR#: [id number] Acct: [id number] Name: EVELYN VARMA Rep #: [id number] : 1970 F 46 From: Dangelo Mondragon MD PCP: Svetlana Ibarra MD Status: REG CLI Study: Bilat Scrn Digital AND CAD Date of Exam: 04/05/16 Exam# [id number] Or meghan Dr: Svetlana Ibarra MD MAMMOGRAPHY - BILATERAL [...] delay biopsy of a clinically suspicious abnormality. [id number] Electronically Signed: Dangelo Mondragon MD at 10:09 EDT Tel [phone], Service support [phone], CC: Svetlana Ibarra MD Apartment Locator: Signed 12-Nov-2014 Bilat Scrn Digital AND CAD Result: Comments: See Note; NOTES: [facility] Imaging Services [address] [place] [address] Breast Imaging Report MR#: [id number] Acct: [id number] Name: EVELYN BAUTISTA Rep #: [id number] : 1970 F 44 From: Smith Ruelas MD PCP: Svetlana Ibarra MD Status: REG CLI Study: Bilat Scrn Digital AND CAD Date of Exam: 11/12/14 Exam# [id number] Ordering Dr: Svetlana Ibarra MD MAMMOGRAPHY - [...] Jf Ruelas MD at 15:10 EST Tel [phone], Serv ice support [phone], CC: Svetlana Ibarra MD Apartment Locator: Signed 29-Sep-2014 Operative Report Result: Comments: See Note; NOTES: [facility] Medical Records Department [address] [place] [address] Operative Report MR#: [id number] Acct: [id number] Name: EVELYN BAUTISTA Rep #: [id number] : 1970 44 From: Tong Proctor MD PCP: Svetlana Ibarra MD Status: [facility] DATE OF SERVICE: 09/29/2014 DATE OF SERVICE: September 29, 2014. 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 A long 4-[place] sheath was then advanced over the guidewire, [...] Attention was then redirected to the long 4-[place] Citizen sheath, which had been previously placed intraluminally into the left great saphenous vein. Perivenous tumescent anesthesia was injected from the 4-[place] Citizen sheath exit site up to the left [...] lef t small saphenous vein. The long 4-[place] Citizen sheath was advanced over the guidewire and into position intraluminally in the left small saphenous vein. Perivenous tumescent anesthesia was injected from the 4-[place] Citizen sheath exit site up to the tip of the sheath. This was performed segmentally using ultrasound imaging. The AngioDynamics laser fiber was then introduced into the 4-[place] Citizen sheath and cou pled appropriately. Ultrasonography was [...] the laser fiber was activated. The Karla Mismis laser was slowly withdrawn at a constant [...] and treatment times were recorded separately. Tong Porctor MD T: NTS JOB: [id number] 09/29/14 1435 <Electronically signed by Tong Proctor MD> D ate Tong Proctor MD CC: Svetlana Ibarra MD; Tong Proctor MD Date Dictated: 09/29/141135 Date Transcribed: 09/29/14 113 Apartment Locator: Signed 29-Sep-2014 Discharge Instruction Result: Comments: See Note; NOTES: [facility] Medical Records Department [address] [place] [address] Instructions for Home/Discharge Instructions 09/29/14 0917 MR#: [id number] Acc t: [id number] Name: EVELYN BAUTISTA Rep #: [id number] : 1970 44 From: Tong Proctor MD PCP: Svetlana Ibarra MD Status: REG [facility] Discharge Diet: No Restrictions Discharge Activity: May [...] take at Discharge Fluticasone 0.05% [Flonase Nasal [place]] 1 spray NASAL DAILY Spironolactone [Aldactone] 100 mg PO DAILY Sumatriptan Succinate [Imitrex] 50 mg PO .X1 PRN Oxycodone HCl/ Acetaminophen [Percocet 5-325] 1 - 2 tablet PO Q6H PRN PRN #20 tablet The following prescriptions were given: Oxycodone HCl/Acetaminophen [Percocet 5- 325] 1 - 2 tablet PO Q6H PRN PRN #20 tablet P RN Reason: Pain Please Follow Up With: Tong Proctor A - Call [phone] to schedule a followup appointment. When: - days 09/29/14 0919 <Electronically signed by Tong Proctor MD&am p;#62; Date Tong Proctor MD CC: Svetlana Ibarra MD 27-Sep-2014 History and Physical Exam Result: Comments: See Note; NOTES: [facility] Medical Records Department [address] [place] [address] History and Physical 09/27/14 1014 MR#: [id number] Acct: [id number] Name: EVELYN BAUTISTA Rep #: [id number] : 1970 44 From: Tong Proctor MD PCP: Svetlana Ibarra MD Status: PRE [facility] Location: [facility] DATE OF SERVICE: This is a history [...] stockings, weight control measu res, active lifestyle, mkjo-fea-cbiqjsf analgesics, etc. 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 [...] has been undertaken. Tong Proctor MD T: [facility] JOB: [id number] 09/27/14 1341 <Electron icallnick signed by Tong Proctor MD> Date: Time: Tong Proctor MD CC: Svetlana Ibarra MD; Tong Proctor MD Date Dictated: 09/27/144 Date T ranscribed: 09/27/14 101 Apartment Locator: Signed ____ I have re-examined the patient. There are no clinical changes since date of exam. ____ See Progress Notes for Changes ____ Dictated on Ad mission Date: Time: Signature: -Jul-2014 PT Discharge Summary Result: Comments: See Note; NOTES: [facility] Physical Therapy [facility] [address] [place] [address]. [address] [place] [address] Fax REHABILITATION SERVICES DISCHARGE SUMMARY MR#: [id number] Acct: [id number] Name: EVELYN BAUTISTA Rep #: [id number] : 1970 44 From: Franky Bruce Referring DrRaymond: Lauren Galdamez Status: DIS RCR Eval Date: Discha rge Date: 06/25/14 DATE OF SERVICE: REFERRING PHYSICIAN: Ana Galdamez. This patient by the name of Evelyn Farhat was seen in our clinic with a [...] C5-C6. At that point, she saw a curatorial specialist and she call ed and canceled her appointments after she saw the curatorial specialist and the MRI. At this point, she is discharged from our care. If physical therapy is needed different time, I am glad to see this p atient. Once again, thank you for this referral. Sincerely, Franky Bruce, PT T: NTS JOB: [id number] <Electronically signed by Franky Bruce > 08/13/14 1502 CC: Signed 18-Jun-2014 Spine Cervical (Routine) Result: Comments: See Note; NOTES: [facility] Imaging Services [address] [place] [address] MRI Report MR#: [id number] Acct: [id number] Name: EVELYN BAUTISTA Rep #: [id number] : 1970 F 44 From: Mahnaz Ascencio MD PCP: Svetlana Ibarra MD Status: REG CLI Study: Spine Cervical (Routine) Date of Exam: 06/18/14 Exam# [id number] Ordering Dr: Lauren Galdamez STUDY: M RI [...] at 22:49 EDT Tel , Service support [phone], CC: Bal Galdamez; Svetlana Ibarra MD Apartment Locator: Signed 18-Jun-2014 Spine Thoracic (Routine) Result: Comments: See Note; NOTES: [facility] Imaging Services [address] [place] [address] MRI Report MR#: [id number] Acct: [id number] Name: EVELYN BAUTISTA Rep #: [id number] : 1970 F 44 From: Mahnaz Ascencio MD PCP: Svetlana Ibarra MD Status: REG CLI Study: Spine Thoracic (Routine) Date of Exam: 06/18/14 Exam# [id number] Ordering Dr: Lauren Galdamez STUDY: M RI [...] at 22:52 EDT Tel , Service support [phone], Fax CC: Lauren Galdamez; Svetlana Ibarra MD Apartment Locator: Signed 13-Jun-2014 Upper Ext Joint Only(Routine) Result: Comments: See Note; NOTES: [facility] Imaging Services [address] [place] [address] MRI Report MR#: [id number] Acct: [id number] Name: EVELYN BAUTISTA Rep #: [id number] : 1970 F 44 From: Juan Manuel Phillips MD PCP: Svetlana Ibarra MD Status: REG CLI Study: Upper Ext Joint Only(Routine) Date of Exam: 06/13/14 Exam# [id number] Ordering Dr: Lauren Galdamez STUDY: MRI RIGHT [...] at 21:44 EDT , Ser vice support [phone], CC: Lauren Galdamez; Svetlana Ibarra MD Apartment Locator: Signed 25-May-2014 Inital Evaluation - PT Result: Comments: See Note; NOTES: [facility] Physical Therapy [facility] [address] [place] [address]. 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 PAST MEDICAL HISTORY: She has good health [...] Bruce, PT C C: Lauren Galdamez T: [facility] JOB: [id number] <Electronically signed by Franky Bruce > 05/25/14 1648 CC: Signed For Medicare only, by signing this I certify the plan of care. Physicians Signature Date 12-May-2014 Cerv Spine 4 or 5 Views Result: Comments: See Note; NOTES: [facility] Imaging Services [address] [place] [address] Radiology Report MR#: [id number] Acct: [id number] Name: EVELYN BAUTISTA Rep #: [id number] : 1970 F 44 From: Dangelo Mondragon MD PCP: Svetlana Ibarra MD Status: REG CLI Study: Cerv Spine 4 or 5 Views Date of Exam: 05/12/14 Exam# [id number] Ordering Dr: Lauren Galdamez DY: X-RAY - [...] Dangelo Mondragon MD at 16:13 EDT Tel [phone], Service support [phone], RAD/Cerv Spine 4 or 5 Views IMPRESSION: Normal x-ray examination of the visualized cervical spine. Electronically Signed: Dangelo Mondragon MD at 16:13 EDT Tel [phone], Service support [phone], CC: Lauren Galdamez; Svetlana Ibarra MD Apartment Locator: Signed 12-May-2014 Shoulder min 2 Views Result: Comments: See Note; NOTES: [facility] Imaging Services [address] [place] [address] Radiology Report MR#: [id number] Acct: [id number] Name: EVELYN BAUTISTA Huy Rep #: [id number] : 1970 F 44 From: Smith Ruelas MD PCP: Svetlana Ibarra MD Status: REG CLI Study: Shoulder min 2 Views Date of Exam: 05/12/14 Exam# [id number] Ordering Dr: Lauren Galdamez STUDY: X-RAY - [...] at 20:14 EDT , Service suppo rt [phone], CC: Lauren Galdamez; Svetlana Ibarra MD Apartment Locator: Signed 12-May-2014 Thoracic Spine 3 Views Result: Comments: See Note; NOTES: [facility] Imaging Services [address] [place], [place] [address] Radiology Report MR#: [id number] Acct: [id number] Name: EVELYN BAUTISTA Rep #: [id number] : 1970 F 44 From: Dangelo Mondragon MD PCP: Svetlana Ibarra MD Status: REG CLI Study: Thoracic Spine 3 Views Date of Exam: 05/12/14 Exam# [id number] Ordering Dr: Lauren Galdamez Y: X-RAY - [...] Dangelo Mondragon MD at 16:12 EDT Tel [phone], Service support [phone], 0038 RAD/Thoracic Spine 3 Views IMPRESSION: M ild degree of disc space narrowing with anterior spondylosis. Electronically Signed: Dangelo Mondragon MD at 16:12 EDT Tel [phone], Service support [phone], CC: Lauren Galdamez; Svetlana Ibarra MD Apartment Locator: Signed Family History Unknown Family Member Name Dates Details Father Comments: bladder cancer alzheimer. dm. 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 No Drug Use [...] kg/m2 Body Surface Area Calculated 1.59 m2 : Pulse 64 /min Comments: Pattern: Regular O2 [...] kg/m2 Body Surface Area Calculated 1.57 m2 :41 Pulse 70 /min Comments: Pattern: Regular Respiration [...] 0.00 cm Results Date Description Value Details 06-Kyb-117303:30 CALCIFEDIOL (27092) Comments: PATIENT NOT FASTINGPERFORMED BY: [facility] Hospital[facility]keaue[facility] [id number] Vitamin D, 25-Hydroxy 18.7 ng/mL (Abnormal) Range: 30.0-100.0 Comments: Vitamin D deficiency has been defined by the [place] of[place]icine and an Endocrine Society practice guideline as alevel of serum 25-OH vitamin D less than 20 ng/mL (1,2).The Endocrine Society went on to further define vitamin Dinsufficiency as a level between 21 and 29 ng/mL (2).1. IOM ([place] of Medicine). 2010. Dietary reference intakes for calcium and D. [place]: The National Academies Press.2. Mp MF, Marco A BHAKTA, Asif MOULTON, et al. Evaluation, treatment, and prevention of vitamin D deficiency: an Endocrine Society clinical practice guideline. JCEM. 2010; 96(7):1911-30. 19-Ibp-712800:45 Urinalysis, Office (77631) UA - LEUKOCYTE ESTERASE Moderate (Normal) Comments: 15leu/uL UA - NITRITE Negative (Normal) URINE UROBILINGN MITRA TIMED 2 mg/dL (Normal) UA - PROTEIN Negative mg/dL (Normal) UA - PH 6 (Abnormal) UA - BLOOD Negative (Normal) UA - SPECIFIC GRAVITY 1.025 (Normal) UA - KETONES Negative mg/dL (Normal) UA - BILIRUBIN Negative (Normal) UA - GLUCOSE Negative (Normal) 79-Fxa-804931:10 CBC W/Diff, Automated Comments: [facility] [address] [place], [place], [id number] Absolute Lymph 1.82 {X10_3/ul} (Normal) Range: 0.83-4.51 [...] 4.2-5.4 WBC 6.4 K/mm3 (Normal) Range: 4.4-11.0 61-Tpv-137485:10 T4 Free Direct Comments: [facility] [address] [place], [place], [address] T4 FREE DIRECT 1.04 ng/dL (Normal) Range: 0.76-1.46 14-Tws-522537:10 Thyroid Stim Hormone (TSH) Comments: [facility] Rxgpwekkvv1267 [facility] [place], [place], [address] TSH 2.41 {uIU/mL} (Normal) Range: 0.358-3.74 27-Pwy-796922:10 Vitamin D 1,25-Dihydroxy Comments: [facility] (refer to report for specific site)refer to report for address and phone number VITD ,25 [address] 53.7 pg/mL (Normal) Range: 19.9-79.3 Comments: Performed at: [address] [id number] Director: Suzy Vigil MD, Phone: [phone] 29-Led-225576:00 PAP IG HPV APTIMA Comments: CYTOLOGY INFORMATION:- CLINICAL INFORMATION: ANNUAL- DATE LMP/MENOPAUSE:- COLLECTION VIAL: Thin Prep Vial- MEASURER MACHINE SOURCE: CERVICAL- COLLECTION TECHNIQUE: CX BROOM/BRUSHSpecimen Comment: CO-CWB2 16/18,45 Specimen Comment: Source.............CervixSpecimen Comment: No. of containers..01 ThinPrep VialLabCorp (refer to report for specific site)refer to report for address and phone number HPV APTIMA, HR Negative (Normal) Comments: This test detects fourteen high- risk HPV types(16/18/31/33/35/39/45/ 51/52/56/58/59/66/68) withoutdifferentiation.Performed at: [address] [id number] Dire ctor: Shari Hall MD, Phone: [phone] at: =[address] [id number] Director: Shari Hall MD, Phone: [phone] PAPSMR Comment (Normal) Comments: The Pap smear [...] system. PERFORM Comment (Normal) Comments: Krystle Ferro, Silica Spray Mixer (ASCP) ADEQ Comment (Normal) Comments: Satisfactory for evaluation. Endocervical and/or squamous metaplasticcells (endocervical component) are present. DIAGN Comment (Normal) Comments: NEGATIVE FOR INTRAEPITHELIAL LESION AND MALIGNANCY. :42 Rapid Strep Test, Office (42415) Rapid Strep Test, Office Negative (Normal) :48 THROAT CULTURE (23881) Comments: PATIENT NOT FASTINGPERFORMED BY: [employer] Kmercx8893 [facility] [id number] Information: SRC:TH Result 1 RRF (Normal) Comments: Routine respiratory mellisa Upper Respiratory Culture Final report (Normal) 54-Jvm-666201:53 Metabolic Panel, Comprehensive Comments: PATIENT WAS FASTINGPERFORMED BY: [facility]zacq3636 [facility] [id number] (78054) ALT (SGPT) 46 [iU]/L (Abnormal) Range: 0-32 [...] Glucose, Serum 89 mg/dL (Normal) Range: 65-99 56-Wea-919207:53 TSH (THYROID STIMULATING Comments: PATIENT WAS FASTINGPERFORMED BY: [employer] [facility]6370 [facility] [id number] HORMONE) (94173) TSH 1.840 {uIU/mL} (Normal) Range: 0.450-4.500 55-Iux-840180:53 LIPID PANEL (18114) Comments: PATIENT WAS FASTINGPERFORMED BY: [employer] [facility] [id number] LDL/HDL Ratio 1.7 {ratio_units} (Normal) Range: 0.0-3.2 Comments: LDL/HDL Ratio Men Women 1/2 Avg.Risk 1.0 1.5 Av g.Risk 3.6 3.2 2X Avg.Risk 6.2 5.0 3X Avg.Risk 8.0 6.1 LDL Cholesterol Calc 120 mg/dL (Abnormal) Range: 0-99 VLDL Cholesterol Zeyad 10 mg/dL (Normal) Range: 5-40 HDL Cholesterol 71 mg/dL (Normal) Triglycerides 51 mg/dL (Normal) Range: 0-149 Cholesterol, Total 201 mg/dL (Abnormal) Range: 100-199 54-Nbc-088018:53 Thin prep Pap Comments: Source.............Cervical;EndocervicalNo. of containers..01 CYTYC Thin Prep VialPATIENT NOT FASTINGPERFORMED BY: [facility] [id number] Information: [id number] (62889) (no STD testing) Note: PAPSMR (Normal) Comments: [...] (endocervical component) are present.V70.0 ; Routine general de dical examin [facility] hospital columbusAstrid Rodríguez Silica Spray Mixer (ASCP) 87-Sjg-917867:54 Nuab STD (STD W/ Comments: PATIENT NOT FASTINGPERFORMED BY: [facility] [id number] Information: [id number] Herpes) (47028) HSV 2 ALEA Negative (Normal) HSV 1 ALEA Negative (Normal) Neisseria gonorrhoeae, ALEA Negative (Normal) Chlamydia trachomatis, ALEA Negative (Normal) Trich vag by ALEA Negative (Normal) Susi glabrata, ALEA Negative (Normal) Comments: This test was developed and its performance characteristics determinedby [facility]. It has not been cleared or approved [...] was developed and its performance characteristics determinedby [facility]. It has not been cleared or appro bhavesh by the Food and DrugAdministration. The FDA has determined that such clearance orapproval is not necessary. BVAB 2 Low - 0 {Score} (Normal) Atopobium vaginae Low - 0 {Score} (Normal) 87-Eoh-859206:21 Thyroid Stim Hormone (TSH) Comments: Test performed at:[facility] [address] [place] [address] TSH 2.22 {uIU/mL} (Normal) Range: 0.358-3.74 76-Hlm-644382:21 Vitamin B12 366 pg/mL (Normal) Comments: Test performed at:[facility] [address] [place] [address] Range: 211-911 38-Usn-851779:21 Vitamin D,25 Hydroxy Comments: Test performed at:[place] [address] Vitamin D 25-OH 21.6 ng/mL (Normal) Comments: [...] 7-18 GLU 88 mg/dL (Normal) Range: 70-110 85-Cim-989613:54 CBCD ALC 1.35 {X10_3/ul} (Normal) Range: 0.83-4.51 [...] 4.2-5.4 WBC 6.3 K/mm3 (Normal) Range: 4.4-11.0 00-Ptq-183980:05 PREGU tPREGU Negative {Negative} (Normal) Comments: Very dilute urine specimens, as indicated by a low specificgravity, may not contain sales representative trainee levels of hCG.If is still suspected, a first morning urinespecimen should be collected 48 hours later and tested. :23 Metabolic Panel, Basic Comments: PATIENT WAS FASTINGPERFORMED BY: [facility]Christ HospitalMgsxtt7786 [facility] [id number] Information: [id number] (49620) Calcium, Serum 9.6 mg/dL (Normal) Range: 8.7-10.2 [...] 95 mg/dL (Normal) Range: 65-99 :23 CALCIFEDIOL (67409) Comments: PATIENT WAS FASTINGPERFORMED BY: [facility] HospitalXkalgh8870 [facility] [id number] Vitamin D, 25-Hydroxy 38.5 ng/mL (Normal) Range: 30.0-100.0 Comments: Vitamin D deficiency has been defined by the [place] of[place]icine and an Endocrine Society practice guideline as alevel of serum 25-OH vitamin D less than 20 ng/mL (1,2).The Endocrine Society went on to further define vitamin Dinsufficiency as a level between 21 and 29 ng/mL (2).1. IOM ([place] of [place]). 2010. Dietary reference intakes for calcium and D. [place]: The National Academies Press.2. Mp ROUSE, Marco A BHAKTA, Asif MOULTON, et al. Evaluation, treatment, and prevention of vitamin D deficiency: an Endocrine Society clinical practice guideline. JCEM. 2010; 96(7):1911-30. :23 LIPID PANEL (08039) Comments: PATIENT WAS FASTINGPERFORMED BY: [employer] Yoktio3477 [facility] [id number] LDL/HDL Ratio 2.4 {ratio_units} (Normal) Range: 0.0-3.2 LDL Cholesterol Calc 156 mg/dL (Abnormal) Range: 0-99 VLDL Cholesterol Zeyad 12 mg/dL (Normal) Range: 5-40 HDL Cholesterol 64 mg/dL (Normal) Comments: According to ATP-III Guidelines, HDL-C >59 mg/dL is considered anegative risk factor for CHD. Triglycerides 60 mg/dL (Normal) Range: 0-149 Cholesterol, Total 232 mg/dL (Abnormal) Range: 100-199 :56 LIPID PANEL (58244) Comments: PATIENT WAS FASTINGPERFORMED BY: [employer] [id number] [facility] [id number] LDL/HDL Ratio 2.0 {ratio_units} (Normal) Range: 0.0-3.2 LDL Cholesterol Calc 133 mg/dL (Abnormal) Range: 0-99 VLDL Cholesterol Zeyad 10 mg/dL (Normal) Range: 5-40 HDL Cholesterol 66 mg/dL (Normal) Comments: According to ATP-III Guidelines, HDL-C >59 mg/dL is considered anegative risk factor for CHD. Triglycerides 52 mg/dL (Normal) Range: 0-149 Cholesterol, Total 209 mg/dL (Abnormal) Range: 100-199 :56 TSH (37943) Comments: PATIENT WAS FASTINGPERFORMED BY: [facility] Bqawdq5733 [facility] [id number] TSH 2.520 {uIU/mL} (Normal) Range: 0.450-4.500 :56 CBC (Auto) (61175) Comments: PATIENT WAS FASTINGPERFORMED BY: [facility] Fecsir9643 [facility] [id number] Platelets 193 {x10E3/uL} (Normal) Range: 140-415 RDW 12.7 % (Normal) Range: 12.3-15.4 MCHC 32.5 g/dL (Normal) Range: 31.5-35.7 MCH 30.6 pg (Normal) Range: 26.6-33.0 MCV 94 fL (Normal) Range: 79-97 Hematocrit 40.6 % (Normal) Range: 34.0-46.6 Hemoglobin 13.2 g/dL (Normal) Range: 11.1-15.9 RBC 4.32 {x10E6/uL} (Normal) Range: 3.77-5.28 WBC 5.6 {x10E3/uL} (Normal) Range: 4.0-10.5 36-Fuv-57531:56 Metabolic Panel, Comments: PATIENT WAS FASTINGPERFORMED BY: [facility]6370 [facility] [id number] Information: [id number] Comprehensive (15117) ALT (SGPT) 17 [iU]/L (Normal) Range: 0-32 [...] Glucose, Serum 100 mg/dL (Abnormal) Range: 65-99 04-Wum-36629:56 CALCIFIDIOL (15763) VIT D 25 Comments: PATIENT WAS FASTINGPERFORMED BY: [facility] Ukwgnr6909 [facility] [id number] Vitamin D, 25-Hydroxy 19.1 ng/mL (Abnormal) Range: 30.0-100.0 Comments: Vitamin D deficiency has been defined by the [place] of[place]icine and an Endocrine Society practice guideline as alevel of serum 25-OH vitamin D less than 20 ng/mL (1,2).The Endocrine Society went on to further define vitamin Dinsufficiency as a level between 21 and 29 ng/mL (2).1. IOM ([place] of Medicine). 2010. Dietary reference intakes for calcium and D. [place]: The National Academies Press.2. Mp MF, Marco A BHAKTA, Asif MOULTON, et al. Evaluation, treatment, and prevention of vitamin D deficiency: an Endocrine Society clinical practice guideline. JCEM. 2010; 96(7):1911-30. 03-Not-511698:34 BMP GAP 8 (Normal) Range: 5-15 CO2 [...] 7-18 GLU 84 mg/dL (Normal) Range: 70-110 89-Zdq-310881:34 CBC MPV 9.2 fL (Normal) Range: 6.5-12.0 [...] D deficiency has been defined by the [place] of[place]icine and an Endocrine Society practice guideline as alevel of serum 25-OH vitamin D less than 20 ng/mL (1,2).The Endocrine Society went on to further define vitamin Dinsufficiency as a level between 21 and 29 ng/mL (2).1. IOM ([place] of [place]). 2010. Dietary reference intakes for calcium and D. [place]: The National Academies Press.2. Mp MF, Marco A [place], Asif MOULTON, et al. Evaluation, treatment, and prevention of vitamin D deficiency: an Endocrine Society clinical practice guideline. JCEM. 2010; 96(7): 1911-30.Performed at: [facility] [id number] Director: Faye Mackey MD, Phone: [phone] :[phone] PERLITA DIR SEMI-QL PERLITA DIRECT 202 AU/mL (Abnormal) Comments: REFLEX PERLITA PANEL TESTING CAN BE PERFORMED FROM [facility] PHYSICIAN ORDER REQUIRED. CALL [facility] FORTHIS REFLEX TESTING. [phone] :[phone] ANTI-CCP 598518 5 {units} (Normal) Range: 0-19 Comments: Negative <20 Weak positive 20 - 39 Moderate positive 40 - 59 Strong positive >59Performed at: [employer] [facility] [id number] Director: Faye Mackey MD, Phone: [phone] at: [facility] [employer] TechnologiesRonald [place] [address] [address] [place], [place] [id number] Director: Yoni Orozco MD, Phone: [phone] :22 C-REACTIVE PROT < 2.90 mg/L (Normal) [...] mg/dL Borderline >240 mg/dL High Risk :22 [facility] LAB TEST . (Normal) Comments: ADD ON BY OFFICE 11/02/11 Comments: TEST RESULT LIMITSSystemic Lupus Profile A MILK DELIVERER Antibodies < 0.2 AI 0.0 - 0.9 [...] 9 Positive > 9 TESTING PERFORMED AT [facility]. ORIGINAL REPORT ON FILE IN LAB CONTAINS ADDITIONAL TEST SITE INFORMATION.___ :22 RHEUMATOID FAC < 10.0 {IU/mL} (Normal) :22 T4 FREE DIRECT 1.04 ng/dL (Normal) Range: 0.76-1.46 :22 TSH 2.31 {uIU/mL} (Normal) Range: 0.358-3.74 :22 VIT D,25 [address]9039 28.5 ng/mL (Abnormal) Comments: appt 11/17/11 Range: 30.0-100.0 Comments: Vitamin D deficiency has been defined by the [place] of[place]icine and an Endocrine Society practice guideline as alevel of serum 25-OH vitamin D less than 20 ng/mL (1,2).The Endocrine Society went on to further define vitamin Dinsufficiency as a level between 21 and 29 ng/mL (2).1. IOM ([place] of [place]). 2011. Dietary reference intakes for calcium and D. [place]: The National [employer] Press.2. Mp MF, Marco A [place], Asif MOULTON, et al. Evaluation, treatment, and prevention of vitamin D deficiency: an Endocrine Society clinical practice guideline. JCEM. 2010; 96(7): 1911-30. Please note reference interval change 9-Bdp-326522:33 BILAT SCRN DIGITAL & CAD Radiology Report [...] on 05/26/11 0955 by Roberto Mondragon MD on 05/26/111135 by ITS IMPORTSign by Dangelo Mondragon MD on 05/26/111136 Sign by: Dangelo Mondragon MD VIT D,25 62570 20.2 ng/mL Range: 32.0-100.0 :45 (Abnormal) Comments: Recent studies consider the lower limit of 32.0 ng/mL to rita threshold for optimal health.Dominic ARSHAD. J Nutr. 2004;135(2):317- 22.Performed at: [facility] LabCoKathleen [place] [address] Director: Faye Mackey MD, Phone: [phone] TSH 2.17 {uIU/mL} Range: 0.358-3.74 :04 (Normal) 59-Wzb-184530:35 CBCD ABSOLUTE NEUT 2.8 3/uL (Normal) Range: [...] Normal throat mellisa isolated. No beta-hemolyticstreptococcus isolated. 22-Ksm-375019:26 Rapid Strep Test, Office (07844) Rapid Strep Test, Office Negative (Normal) 4-Eex-906771:25 Urinalysis, Office (16595) UA - LEUKOCYTE ESTERASE Negative (Normal) UA - NITRITE Negative (Normal) URINE UROBILINGN MITRA TIMED Normal mg/dL (Normal) UA - PROTEIN Negative mg/dL (Normal) UA - PH 6.0 (Normal) UA - BLOOD Negative (Normal) UA - SPECIFIC GRAVITY 1.020 (Normal) UA - KETONES Negative mg/dL (Normal) UA - BILIRUBIN Negative (Normal) UA - GLUCOSE Negative (Normal) :00 PROLACTIN (85052) Comments: PATIENT WAS FASTINGPERFORMED BY: [facility] [id number] Prolactin 6.5 ng/mL (Normal) Range: 2.8-29.2 Comments: [...] 9.7 - 208.5 Postmenopausal 1.8 - 20.3 65-Gjf-20047:00 TSH (39455) Comments: PATIENT WAS FASTINGPERFORMED BY: [facility]70 [facility] [id number] TSH 2.440 {uIU/mL} (Normal) Range: 0.450-4.500 19-Bju-35314:00 T4, FREE (THYROXINE) (79284) Comments: PATIENT WAS FASTINGPERFORMED BY: [facility] [place] [id number] T4,Free(Direct) 1.10 ng/dL (Normal) Range: 0.61-1.76 T3, FREE (TRIDOTHYRONINE) (92465) Comments: PATIENT WAS FASTINGPERFORMED BY: [facility] [place] [address] [id number] Triiodothyronine,Free,Serum 2.9 pg/mL (Normal) Range: 2.3-4.2 CBC, Platelet; No Differential Comments: PATIENT WAS FASTINGPERFORMED BY: [facility]6370 [facility] [id number] Hematocrit 40.4 % (Normal) Range: 34.0-44.0 Hemoglobin 14.0 g/dL (Normal) Range: 11.5-15.0 MCH 32.5 pg (Normal) Range: 27.0-34.0 MCHC 34.7 g/dL (Normal) Range: 32.0-36.0 MCV 94 fL (Normal) Range: 80-98 Platelets 187 {x10E3/uL} (Normal) Range: 140-415 RBC 4.30 {x10E6/uL} (Normal) Range: 3.80-5.10 RDW 12.9 % (Normal) Range: 11.7-15.0 WBC 5.8 {x10E3/uL} (Normal) Range: 4.0-10.5 Comp. Metabolic Panel (14) Comments: PATIENT WAS FASTINGPERFORMED BY: [facility]6370 [facility] [id number] A/G Ratio 1.7 (Normal) Range: 1.1-2.5 Albumin, [...] Dehydroepiandrosterone Sulfate Comments: PATIENT WAS FASTINGPERFORMED BY: [employer] Vcpups9096 [facility] [id number] DHEA-Sulfate 106 ug/dL (Normal) Range: 45-270 :00 Lipid Panel With LDL/HDL Comments: PATIENT WAS FASTINGPERFORMED BY: [facility] HospitalKxendo3407 [facility] [id number] Ratio Cholesterol, Total 200 mg/dL (Abnormal) Range: [...] 27.9 ng/mL Comments: PATIENT WAS FASTINGPERFORMED BY: [facility] HospitalXqrpso3060 [address] [id number] :00 (Abnormal) Range: 32.0-100.0 Comments: Recent studies [...] 11.6-14.6 WBC 5.0 K/mm3 (Normal) Range: 4.4-11.0 59-Ivv-310862:18 COMP METABOLIC A/G 1.3 {RATIO} (Normal) Range: [...] 0.6-1.0 GLU 78 mg/dL (Normal) Range: 70-110 74-Dzl-063949:18 ESR SED RATE 3 mm/h (Normal) Range: 0-20 09-Gts-676971:18 TSH 1.97 {uIU/mL} (Normal) Range: 0.34-4.82 11-Blq-636747:43 CBC, EMPLOYEE Comments: EMPLOYEE REFUSED UA. ONLY [...] 11.6-14.6 WBC 6.9 K/mm3 (Normal) Range: 4.4-11.0 56-Akp-559632:43 EMP PROF Comments: EMPLOYEE REFUSED UA. ONLY [...] : Eprescribed prescriptions (G8553) Indication: Headache WWV V73. (Renamed from Nex[employer]) : Mammogram *: gynecological health Indication: WWV V7. (Renamed from KeepconV) Stress reaction : Eprescribed prescriptions (G8553) Indication: [...] : *fatigue education Indication: Fatigue Planned Observations URINE RIZWAN CULTURE-IDENTIFICATN (57479)Indication: Urinary frequency On: 27-Qom-894781:46 Request PTBYN-FXZTJGUKYCS-DBGUE (40861)Indication: Unspecified Diagnosis On: 83-Qrd-30659:48 Request Metabolic Panel, Comprehensive (22930)Indication: Unspecified Diagnosis On: 58-Cpl-77319:47 Request HEPATIC FUNCTION PANEL (60129)Indication: Unspecified Diagnosis On: 58-Jdl-99063:47 Request LIPID PANEL (13383)Indication: Unspecified Diagnosis On: 70-Sjc-91071:47 Request URINE RIZWAN CULTURE-MITRA COL COUNT (41022)Indication: UTI (urinary tract infection) On: 28-Wrt-11805:16 Request Comments: post-atb METABOLIC PANEL, COMPREHENSIVE (22111)Indication: Hypercholesteremia On: 81-Dcb-627441:00 Request LIPID PANEL (30336)Indication: Hypercholesteremia On: 18-Eka-841489:00 Request CALCIFIDIOL (83550) VIT D 25Indication: Vitamin D deficiency, unspecified On: 46-Pmt-30198:59 Request CULTURE, GONOCOCCUS (52089) (culture obtained)Indication: WWV V73.21 (Renamed from [facility]) On: 09-Jfn-214519:10 Request CULTURE CHLAMYDIA (79285) (culture obtained)Indication: WWV V73.21 (Renamed from [facility]) On: 89-Lsm-314171:10 Request TSH (THYROID STIMULATING HORMONE) (13018)Indication: Weight loss On: 08-Gxe-231259:43 Request CALCIFEDIOL (26882)Indication: Vitamin D deficiency, unspecified On: 34-Ccc-185088:43 Request PREALBUMIN (04459)Indication: Weight loss On: 51-Ntl-018222:42 Request CBC with auto diff (93890)Indication: Weight loss On: 55-Tqi-182117:42 Request METABOLIC PANEL, COMPREHENSIVE (09907)Indication: Hypercholesteremia On: 12-Trx-512769:42 Request LIPID PANEL (18271)Indication: Hypercholesteremia On: 23-Lhi-807103:42 Request CALCIFIDIOL (50604) VIT D 25Indication: Vitamin D deficiency, unspecified On: 6-Vgd-139130:14 Request CALCIFIDIOL (43652) VIT D 25Indication: Vitamin D deficiency, unspecified On: 41-Zfp-896895:16 Request URINALYSIS (50343)Indication: Encounter for routine preventive care for patient older than 28 days On: 70-Bmx-439311:11 Request Metabolic Panel, Comprehensive (10884)Indication: Encounter for routine preventive care for patient older than 28 days On: 83-Mcm-327368:11 Request Lipid Panel (48483)Indication: Encounter for routine preventive care for patient older than 28 days On: 57-Pxg-131821:11 Request CBC, Platelets & Auto Diff (88018)Indication: Encounter for routine preventive care for patient older than 28 days On: 10-Ioa-358401:11 Request CALCIFEDIOL (57573)Indication: Vitamin D deficiency, unspecified On: 07-Xnp-713275:08 Request GLUCOSE (26361)Indication: Hypercholesteremia On: 1-Dib-758973:19 Request CALCIFEDIOL (12673)Indication: Hypercholesteremia On: 1-Vmy-869096:19 Request LIPID PANEL (44583)Indication: Hypercholesteremia On: 0-Vmp-779629:19 Request LIPID PANEL (85341)Indication: Hypercholesteremia On: 74-Dfk-755837:38 Request Comments: getting around 02/2014 Potassium Serum (56395)Indication: Acne On: :44 Request Comments: recheck in 3-4 weeks CALCIFIDIOL (36184) VIT D 25Indication: Vitamin D deficiency, unspecified On: 43-Jok-32673:34 Request CALCIFIDIOL (65866) VIT D 25Indication: Telogen effluvium On: :05 Request CBC (Auto) (80208)Indication: Telogen effluvium On: 42-Fhg-993710:05 Request Metabolic Panel, Basic (06780)Indication: Telogen effluvium On: :05 Request TSH (91967)Indication: Telogen effluvium On: :04 Request T4, FREE (THYROXINE) (76058)Indication: Telogen effluvium On: :04 Request T3, FREE (TRIDOTHYRONINE) (00766)Indication: Telogen effluvium On: :04 Request LIPID PANEL (29705)Indication: Hypercholesteremia On: 02-Feb-20128:03 Request Lupus ProfileIndication: Other specified abnormal findings of blood chemistry On: :09 Request T4, FREE (THYROXINE) (56257)Indication: Fatigue On: :39 Request CCP ANTIBODY (85399)Indication: Pain in unspecified joint On: :39 Request SED RATE ERYTHROCYTE (40628)Indication: Pain in unspecified joint On: :39 Request C-REACTIVE PROTEIN (08782)Indication: Pain in unspecified joint On: :39 Request TSH (12481)Indication: Pain in unspecified joint On: :39 Request RHEUMATOID FACTOR-QUANT (84694)Indication: Pain in unspecified joint On: :39 Request PERLITA (ANTINUCLEAR ANTIBODY) (89393)Indication: Pain in unspecified joint On: :39 Request CBC WITH MANUAL DIFF (74750)Indication: Pain in unspecified joint On: :39 Request METABOLIC PANEL, COMPREHENSIVE (98767)Indication: Fatigue On: 27-Oct-20118:39 Request CALCIFIDIOL (65011) VIT D 25Indication: Vitamin D deficiency, unspecified On: 22-Lmc-69139:56 Request TSH (98421)Indication: Fatigue On: 49-Wox-684139:26 Request CBC (Auto) (62867)Indication: Fatigue On: 44-Agl-802109:26 Request CALCIFIDIOL (17936) VIT D 25Indication: Vitamin D deficiency, unspecified On: 35-Drh-846880:26 Request RIZWAN CULTURE-OTHER (31144)Indication: Pharyngitis, acute On: 33-Kis-060663:26 Request CALCIFIDIOL (21220) VIT D 25Indication: Fatigue On: :22 Request CBC (Auto) (89051)Indication: Fatigue On: 46-Qpw-040773:15 Request Metabolic Panel, Comprehensive (07932)Indication: Fatigue On: :15 Request Lipid Panel (58428)Indication: WWV V73.21 (Renamed from [facility]) On: 79-Gko-045735:12 Request DHEA-S (DEHYDROEPIANDROSTERONE SULFATE) (87798)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 On: 14-Hlz-772994:11 Request C-REACTIVE PROTEIN (65059)Indication: Fatigue On: 28-Maa-771287:44 Request CBC (AUTO) (44683)Indication: Fatigue On: 26-Iib-372652:44 Request Folate (20375)Indication: Fatigue On: 20-Daj-030784:44 Request METABOLIC PANEL, COMPREHENSIVE (32130)Indication: Fatigue On: 09-Yge-149265:44 Request SED RATE ERYTHROCYTE (19669)Indication: Fatigue On: 61-Xzh-414067:44 Request TSH (48561)Indication: Fatigue On: 24-Lmm-082171:44 Request VITAMIN B-12 (CYANOCOBALAMIN) (07886)Indication: Fatigue On: 99-Hte-919391:44 Request Planned Procedures PROLONGED PHYSICIAN SERVICE, OFFICE On: 13-Nov-2018 Intent (29198)By: Bambi Mondragon DO, DO, Kathleen HOLTER MONITORING WITH INTERPRETATION On: 13-Nov-2018 Intent (65881)By: Bambi Mondragon DO Comments: 24-hours Bambi FRAGOSO Nuclear Stress Test/Stress On: 13-Nov-2018 Intent SPECT/TreadmillBy: Bambi Mondragon DO, DO, Kathleen Echo CompleteBy: Bambi Mondragon DO On: 13-Nov-2018 Intent Bambi Mondragon DO Comments: with bubble study ELECTROCARDIOGRAM, COMPLETE (ECG) On: 13-Nov-2018 Intent (00301)By: Bambi Mondragon DO Comments: nsr no acute chg Bambi FRAGOSO CT SCAN OF HEAD OR BRAIN WITHOUT On: 06-May-2018 Intent CONTRAST (77603)By: Bambi Mondragon DO, DO, Kathleen MAMMOGRAM BREAST BILATERAL SCREENING On: 21-May-2017 Intent DIGITAL (04531)By: Lauren Galdamez CNP BILATERAL MAMMOGRAMS (57468)By: On: 11-Nov-2015 Intent Svetlana Ibarra MD MAMMOGRAM, SCREENING, BOTH BREAST On: 10-Sep-2014 Intent (44064)By: Svetlana Ibarra MD BILATERAL MAMMOGRAMS (70728)By: On: 28-Jul-2014 Intent Svetlana Ibarra MD MRI - Cervical SpineBy: Rudolph COBOS, On: 27-May-2014 Intent Lauren Negrete MRI - Shoulder(s) - RightBy: Rudolph On: 14-May-2014 Intent Lauren COBOS Comments: having lateral pain MRI - Cervical SpineBy: Rudolph COBOS, On: 13-May-2014 Intent Lauren Negrete MRI - Thoracic Spine (IV Contrast On: 13-May-2014 Intent Needed)By: Lauren Galdamez CNP PHYSICAL THERAPY EVALUATION (49846)By: On: 12-May-2014 Intent Lauren Galdamez CNP Radiology - Shoulder - RightBy: Rudolph On: 12-May-2014 Intent Lauren COBOS Toradol Injection, 30 mg (J1885)By: On: 12-May-2014 Intent Lauren Galdamez CNP Comments: rt hip Oct 26, 2015, 36-341-DK Radiology - Cervical SpineBy: Rudolph On: 12-May-2014 Intent Lauren COBOS Radiology - Thoracic SpineBy: Rudolph On: 12-May-2014 Intent Luaren COBOS Eprescribed prescriptions (G8553)By: On: 05-Sep-2013 Intent Svetlana Ibarra MD EKG (82928)By: Svetlana Ibarra MD On: 16-Aug-2012 Intent Comments: see scanned document of test done to see results reviewed today with patient MAMMOGRAM, SCREENING, BOTH BREASTS On: 19-Jul-2012 Intent (61537)By: Svetlana Ibarra MD MAMMOGRAM, SCREENING, BOTH BREASTS On: 27-Mar-2011 Intent (27835)By: Svetlana Ibarra MD Comments: 5- SPECIMEN HNDLNG/TRNSPRT, OFFC > LAB On: 15-Nov-2010 Intent (57472)By: Svetlana Ibarra MD Planned Medications INJECTION, KETOROLAC [...] Instructions Indication: Headache WWV V73.21 (Renamed from Nexamp) : How to access health information online - Detail Indication: WWV V73.21 (Renamed from [employer]) WWV V73.21 (Renamed from [employer]) : Patient Instructions Indication: WWV V73.21 (Renamed from Nex[employer]) Stress reaction : How to access health information online Indication: Stress reaction Stress reaction : How to access health information online - Detail Indication: Stress reaction Stress reaction : Patient Instructions Indication: Stress reaction Neck pain : Patient Instructions Indication: Neck pain Acne : Patient Instructions Indication: Acne Fatigue : Patient Instructions Indication: Fatigue Encounters Annotation/Addendum On: 14-Nov-2018 8:46 Encounter Diagnosis: Vitamin D deficiency, unspecified End: 14-Nov-2018 9:04 [facility] Office Visit On: 13-Nov-2018 13:34 Encounter Reason: Follow up for chronic medical issues - The patient feels well with minor complaints, has good energy level (depends on day) and is sleeping well. Patient has been compliant with instructions. Current de End: 13-Nov-2018 17:42 dication use: no side [...] scant) ).Encounter Diagnosis: WWV V73.21 (Renamed from WW), Stress Reaction (308.4) [facility] Office [...] Nutrition: balanced diet and supplemental vitamins. The de dical issues the patient is following up [...] EXTREMITIES W/COMPLICTN NOS (454.8), Plantar Fascititis (728.71), V V73.21 (Renamed from [facility]) End: 19-Jul-2012 11:14 [facility] [...] (268.9), Fatigue (780.79), WWV V73.21 (Renamed from [facility]), End: 27-Oct-2011 8:54 Allergic rhinitis (477.9), [...] (268.9), DUB (626.8), WWV V73.21 (Renamed from [facility]) [facility] Office Visit On: [...] dysfunction with other specified psychosexual dysfunctions (302.79), [facility] V73.21 (Renamed from [facility]) [facility] Office Visit On: [...] (477.9), Fatigue (780.79), Eustachian tube dysfunction (381.81), [facility] Historical Summary On: [...] tube dysfunction (381.81) [facility] Payers [facility] CenterEvleyn Varma; a guarantor
--- OUTSIDE RECORDS SUMMARY | 2019-02-19 18:21 | XMS RPT_ITS | Continuity of Care Document ---
:1970 Author Organization [facility] Address [facility] [address] Phone Care Team Providers Name Role Phone [...] at Status: Active Medications Name Dates Details Cipro 500 MG Oral Tablet 1 (one) Tablet bid for 7 days Quantity: 14 {Tablet} Refills: 0 Ordered:18-Nov-2018 Harriet Mondragon DO, DO, Kathleen Start : 18-Nov-2018 Active Ergocalciferol 64021 UNIT Oral Capsule 1 (one) Capsule weekly [...] End : 24-Jul-2015 Inactive CALCIUM CITRATE-VITAMIN D3, 114-650DO-NDFI (Oral Tablet) 1 (one) Tablet Tablet qid [...] days Quantity: 30 {Tablet} Refills: 6 Ordered:17-Nov-2011 Long Gricel VU End : 17-Nov-2011 Inactive CYMBALTA, 30MG (Oral Capsule Delayed Release Particles) [address] Part qd for 0 days Quantity: 30 {Capsule_DR_Part} Refills: 3 Ordered:23-Jun-2013 Svetlana Ibarra MD Start : 23-Jun-2013 End : 23-Jun-2013 Inactive Comments:219.00 for 30 days Drisdol 17173 UNIT Oral Capsule uad Capsule Capsule monthly [...] : 16-Feb-2015 End : 04-Mar-2015 Inactive ERGOCALCIFEROL, 07431LBWQ (Oral Capsule) 1 Capsule twice weekly for [...] Quantity: 20 {Tablet} Refills: 0 Ordered:03-Nov-2011 Margarito LEONN, Gricel L Start : 02-Nov-2011 End : 03-Nov-2011 Inactive VERAMYST, 27.5MCG/SPRAY (Nasal Suspension) 2 sprays each nostril qd for 0 days Refills: 0 Ordered:02-Feb-2012 BRANDEE Miller End : 02-Feb-2012 Inactive VITAMIN B6, 200MG (Oral Tablet) 1/2 (one half) Tablet Tablet qd for 30 days Quantity: 30 {Tablet} Refills: 0 Ordered:06-Aug-2015 BRANDEE Miller Start : 24-Jun-2015 End : 24-Jul-2015 Inactive Comments:shyann VITAMIN D3, 29143VRGD (Oral Capsule) 1 (one) Capsule Capsule qd [...] Quantity: 45 {Gram} Refills: 3 Ordered:21-May-2017 Slarb Kit VUa Start : 09-Nov-2016 End : 21-May-2017 Discontinued [...] Fluticasone Propionate 50 MCG/ACT Nasal Suspension 1-2 Raleigh(s) each nostril daily for 0 days Quantity: [...] dysfunction (H69.80, 381.81) Comments: Pt leaving for [place]- gave script for antibiotic in case things [...] stable now Status: Resolved as of 11-Nov-2015 [facility] V73.21 (Renamed from [facility]) Comments: [facility] Status: Inactive as of 12-Jul-2015 Procedures Procedure Dates Details Adenoidectomy Completed Comments: Inpatient. Section - 2 Completed Comments: Inpatient. 2002 and 1999 endovenous laser ablation left leg- greater Completed and lesser saphenous Enometrial ablation February 2010 Completed Tonsillectomy Completed Comments: Inpatient. Tubal Ligation Completed Comments: clips 2002 tubes in ears as child Completed Appendectomy Completed Comments: 10-12-98 Date Value Details 24-Oct-2018 Laboratory Technician Office Visit Report Result: Comments: See Note; NOTES: [facility] [place] [address] [place] [address] OFFICE VISIT Date of Service: 10/24/18 MR#: [id number] Acct: [id number] Name: MELVIN VARMA Rep #: [id number] : 1970 Provider: Bozena Fuentes MD Age/Sex: 48/F Location: [facility] Status: Signed Intake Vital Signs10/24/18 Height 5 ft 4 in 10/24/18 Weight: 131 lb 10/24/18 Bod y Mass Index (BMI) 22.4 10/24/18 Blood Pressure 104/70 Intake Visit Reasons: ANNUAL Chief Complaint: NEW annual Dye Weigher Required: No Is patient in pain?: No [...] safe at home: Yes additional social history: [facility] Pregancy History 2 Elective abortions Hx [...] acute d istress, well developed, well groomed [facility] Head: normal to inspection, normocephalic [...] AND CAD Result: Comments: See Note; NOTES: [facility] Imaging Services [address] [place] [address] Verdana 4d Bilat Scrn Digital AND CAD MR#: [id number] Acct: [id number] Name: EVELYN VARMA Rep #: [id number] : 1970 F 46 From: Dangelo Mondragon MD PCP: Svetlana Ibarra MD Status: REG CLI Study: Bilat Scrn Digital AND CAD Date of Exam: 04/05/16 Exam# [id number] Or meghan Dr: Svetlana Ibarra MD MAMMOGRAPHY [...] delay biopsy of a clinically suspicious abnormality. [id number] Electronically Signed: Dangelo Mondragon MD at 10:09 EDT Tel [phone], Service support [phone], CC: Svetlana Ibarra MD Public Health Service Officer: Signed 12-Nov-2014 Bilat Scrn Digital AND CAD Result: Comments: See Note; NOTES: [facility] Imaging Services [address] [place] [address] Breast Imaging Report MR#: [id number] Acct: [id number] Name: EVELYN BAUTISTA Rep #: [id number] : 1970 F 44 From: Smith Ruelas MD PCP: Svetlana Ibarra MD Status: REG CLI Study: Bilat Scrn Digital AND CAD Date of Exam: 11/12/14 Exam# [id number] Ordering Dr: Svetlana Ibarra MD MAMMOGRAPHY - [...] Jf Ruelas MD at 15:10 EST Tel [phone], Serv ice support [phone], CC: Svetlana Ibarra MD Public Health Service Officer: Signed 29-Sep-2014 Operative Report Result: Comments: See Note; NOTES: [facility] Medical Records Department [address] [place] [address] Operative Report MR#: [id number] Acct: [id number] Name: EVELYN BAUTISTA Rep #: [id number] : 1970 44 From: Tong Proctor MD PCP: Svetlana Ibarra MD Status: [facility] DATE OF SERVICE: 09/29/2014 DATE OF SERVICE: September 29, 2014. 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 A long 4[place] sheath was then advanced over the guidewire, [...] Attention was then redirected to the long 4[place] sheath, which had been previously placed intraluminally into the left great saphenous vein. Perivenous tumescent anesthesia was injected from the 4-[place] sheath exit site up to the left [...] lef t small saphenous vein. The long 4[place] sheath was advanced over the guidewire and into position intraluminally in the left small saphenous vein. Perivenous tumescent anesthesia was injected from the 4-[place] sheath exit site up to the tip of the sheath. This was performed segmentally using ultrasound imaging. The AngioDynamics laser fiber was then introduced into the 4-[place]izen [place] sheath and cou pled appropriately. Ultrasonography was [...] the laser fiber was activated. The Karla Smartsheets laser was slowly withdrawn at a constant rate throughout the length of the left small saphenous vein, thereby ablating the left small saphenous vein segmentally. The energy applied was filibreto roximately 80-100 joules per cm. Following the [...] separately. Tong Proctor MD T: NTS JOB: [id number] 09/29/14 1435 <Electronically signed by Tong Proctor MD> D ate Tong Proctor MD CC: Svetlana Ibarra MD; Tong Proctor MD Date Dictated: 09/29/141135 Date Transcribed: 09/29/14 113 Public Health Service Officer: Signed 29-Sep-2014 Discharge Instruction Result: Comments: See Note; NOTES: [facility] Medical Records Department [address] [place] [address] Instructions for Home/Discharge Instructions 09/29/14 0917 MR#: [id number] Acc t: [id number] Name: EVELYN BAUTISTA Rep #: [id number] : 1970 44 From: Tong Proctor MD PCP: Svetlana Ibarra MD Status: REG [facility] Discharge Diet: No Restrictions Discharge Activity: May [...] take at Discharge Fluticasone 0.05% [Flonase Nasal Raleigh] 1 spray NASAL DAILY Spironolactone [Aldactone] 100 [...] Follow Up With: Tong Proctor - Call [phone] to schedule a followup appointment. When: - days 09/29/14 0919 <Electronically signed by Tong Proctor MD&am p;#62; Date Tong Proctor MD CC: Svetlana Ibarra MD 27-Sep-2014 History and Physical Exam Result: Comments: See Note; NOTES: [facility] Medical Records Department [address] [place] [address] History and Physical 09/27/14 1014 MR#: [id number] Acct: [id number] Name: EVELYN BAUTISTA Rep #: [id number] : 1970 44 From: Tong Proctor MD PCP: Svetlana Ibarra MD Status: PRE [facility] Location: [facility] DATE OF SERVICE: This is a history [...] stockings, weight control measu res, active lifestyle, nusr-iuy-doaivrk analgesics, etc. 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 [...] has been undertaken. Tong Proctor MD T: [facility] JOB: [id number] 09/27/14 1341 <Electron icallnick signed by Tong Proctor MD> Date: Time: Tong Proctor MD CC: Svetlana Ibarra MD; Tong Proctor MD Date Dictated: 09/27/144 Date T ranscribed: 09/27/141013 Public Health Service Officer: Signed ____ I have re-examined the patient. There are no clinical changes since date of exam. ____ See Progress Notes for Changes ____ Dictated on Ad mission Date: Time: Signature: -Jul-2014 PT Discharge Summary Result: Comments: See Note; NOTES: [facility] [address] [place] [address]. [address] [place] [address] Fax REHABILITATION SERVICES DISCHARGE SUMMARY MR#: [id number] Acct: [id number] Name: EVELYN BAUTISTA Rep #: [id number] : 1970 44 From: Franky Bruce Referring [...] C5-C6. At that point, she saw a packaging specialist and she call ed and canceled her appointments after she saw the packaging specialist and the MRI. At this point, she is discharged from our care. If physical therapy is needed different time, I am glad to see this p atient. Once again, thank you for this referral. Sincerely, Franky Bruce, PT T: NTS JOB: [id number] <Electronically signed by Franky Bruce > 08/13/14 1502 CC: Signed 18-Jun-2014 Spine Cervical (Routine) Result: Comments: See Note; NOTES: [facility] Imaging Services [address] [place] [address] MRI Report MR#: [id number] Acct: [id number] Name: EVELYN BAUTISTA Rep #: [id number] : 1970 F 44 From: Mahnaz Ascencio MD PCP: Svetlana Ibarra MD Status: REG CLI Study: Spine Cervical (Routine) Date of Exam: 06/18/14 Exam# [id number] Ordering Dr: Lauren Galdamez STUDY: M RI [...] at 22:49 EDT Tel , Service support [phone], CC: Bal Galdamez; Svetlana Ibarra MD Public Health Service Officer: Signed 18-Jun-2014 Spine Thoracic (Routine) Result: Comments: See Note; NOTES: [facility] Imaging Services [address] [place] [address] MRI Report MR#: [id number] Acct: [id number] Name: EVELYN BAUTISTA Rep #: [id number] : 1970 F 44 From: Mahnaz Ascencio MD PCP: Svetlana Ibarra MD Status: REG CLI Study: Spine Thoracic (Routine) Date of Exam: 06/18/14 Exam# [id number] Ordering Dr: Lauren Galdamez STUDY: M RI [...] at 22:52 EDT Tel , Service support [phone], Fax CC: Lauren Galdamez; Svetlana Ibarra MD Public Health Service Officer: Signed 13-Jun-2014 Upper Ext Joint Only(Routine) Result: Comments: See Note; NOTES: [facility] Imaging Services [address] [place] [address] MRI Report MR#: [id number] Acct: [id number] Name: EVELYN BAUTISTA Rep #: [id number] : 1970 F 44 From: Juan Manuel Phillips MD PCP: Svetlana Ibarra MD Status: REG CLI Study: Upper Ext Joint Only(Routine) Date of Exam: 06/13/14 Exam# [id number] Ordering Dr: Lauren Galdamez STUDY: MRI RIGHT [...] at 21:44 EDT , Ser vice support [phone], CC: Lauren Galdamez; Svetlana Ibarra MD Public Health Service Officer: Signed 25-May-2014 Inital Evaluation - PT Result: Comments: See Note; NOTES: [facility] [address] [place] [address]. 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 PAST MEDICAL HISTORY: She has good health [...] Bruce, PT C C: Lauren Galdamez T: [facility] JOB: [id number] <Electronically signed by Franky Bruce > 05/25/14 1648 CC: Signed For Medicare only, by signing this I certify the plan of care. Physicians Signature Date 12-May-2014 Cerv Spine 4 or 5 Views Result: Comments: See Note; NOTES: [facility] Imaging Services [address] [place] [address] Radiology Report MR#: [id number] Acct: [id number] Name: EVELYN BAUTISTA Rep #: [id number] : 1970 F 44 From: Dangelo Mondragon MD PCP: Svetlana Ibarra MD Status: REG CLI Study: Cerv Spine 4 or 5 Views Date of Exam: 05/12/14 Exam# [id number] Ordering Dr: Lauren Galdamez DY: X-RAY - [...] Dangelo Mondragon MD at 16:13 EDT Tel [phone], Service support [phone], RAD/Cerv Spine 4 or 5 Views IMPRESSION: Normal x-ray examination of the visualized cervical spine. Electronically Signed: Dangelo Mondragon MD at 16:13 EDT Tel [phone], Service support , CC: Lauren Galdamez; Svetlana Ibarra MD Public Health Service Officer: Signed 12-May-2014 Shoulder min 2 Views Result: Comments: See Note; NOTES: [facility] Imaging Services [address] [place] [address] Radiology Report MR#: [id number] Acct: [id number] Name: EVELYN BAUTISTA Huy Rep #: [id number] : 1970 F 44 From: Smith Ruelas MD PCP: Svetlana Ibarra MD Status: REG CLI Study: Shoulder min 2 Views Date of Exam: 05/12/14 Exam# [id number] Ordering Dr: Lauren Galdamez STUDY: X-RAY - [...] at 20:14 EDT , Service suppo rt [phone], CC: Lauren Galdamez; Svetlana Ibarra MD Public Health Service Officer: Signed 12-May-2014 Thoracic Spine 3 Views Result: Comments: See Note; NOTES: [facility] Imaging Services [address] [place] [address] Radiology Report MR#: [id number] Acct: [id number] Name: EVELYN BAUTISTA Rep #: [id number] : 1970 F 44 From: Dangelo Mondragon MD PCP: Svetlana Ibarra MD Status: REG CLI Study: Thoracic Spine 3 Views Date of Exam: 05/12/14 Exam# [id number] Ordering Dr: Lauren Galdamez Y: X-RAY - [...] narrowing with anterior spondylosis. Electronically Signed: Dangelo Mondraogn MD at 16:12 EDT Tel [phone], Service support [phone], 0038 RAD/Thoracic Spine 3 Views IMPRESSION: M ild degree of disc space narrowing with anterior spondylosis. Electronically Signed: Dangelo Mondragon MD at 16:12 EDT Tel [phone], Service support [phone], CC: Lauren Galdamez; Svetlana Ibarra MD Public Health Service Officer: Signed Family History Unknown Family Member Name Dates Details Father Comments: bladder cancer alzheimer. dm. 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 Comments: [employer] Status: Active Living Situation: Lives with spouse. 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 Status: Active No Drug Use [...] 0.00 cm Results Date Description Value Details 73-Hug-419864:30 CALCIFEDIOL (79966) Comments: PATIENT NOT FASTINGPERFORMED BY: [facility] InstituteXhjswu4809 [facility] [id number] Vitamin D, 25-Hydroxy 18.7 ng/mL (Abnormal) Range: 30.0-100.0 Comments: Vitamin D deficiency has been defined by the [place] of[place]icine and an Endocrine Society practice guideline as alevel of serum 25-OH vitamin D less than 20 ng/mL (1,2).The Endocrine Society went on to further define vitamin Dinsufficiency as a level between 21 and 29 ng/mL (2).1. IOM ([place] of Medicine). 2010. Dietary reference intakes for calcium and D. [place]: The National Academies Press.2. Mp MF, Marco A BHAKTA, Asif MOULTON, et al. Evaluation, treatment, and prevention of vitamin D deficiency: an Endocrine Society clinical practice guideline. JCEM. 2010; 96(7):1911-30. 36-Cgk-968573:04 URINE RIZWAN CULTURE-IDENTIFICATN Comments: PATIENT NOT FASTINGPERFORMED BY: [facility] Bfbplj8290 [facility] [id number] Information: SRC:HUI (01571) Antimicrobial MIHEAD (Normal) Comments: S = Susceptible; [...] and Proteusmirabilis. Urine Final report Culture,Comprehensive (Abnormal) 14-Nli-606936:45 Urinalysis, Office (57368) UA - LEUKOCYTE ESTERASE Moderate (Normal) Comments: 15leu/uL UA - NITRITE Negative (Normal) URINE UROBILINGN MITRA TIMED 2 mg/dL (Normal) UA - PROTEIN Negative mg/dL (Normal) UA - PH 6 (Abnormal) UA - BLOOD Negative (Normal) UA - SPECIFIC GRAVITY 1.025 (Normal) UA - KETONES Negative mg/dL (Normal) UA - BILIRUBIN Negative (Normal) UA - GLUCOSE Negative (Normal) 74-Lve-161289:10 CBC W/Diff, Automated Comments: [facility] [address] [place], [place], [address] Absolute Lymph 1.82 {X10_3/ul} (Normal) Range: 0.83-4.51 [...] 4.2-5.4 WBC 6.4 K/mm3 (Normal) Range: 4.4-11.0 16-Qul-456364:10 T4 Free Direct Comments: [facility] [address] [place], [place], [address] T4 FREE DIRECT 1.04 ng/dL (Normal) Range: 0.76-1.46 83-Fkb-531950:10 Thyroid Stim Hormone (TSH) Comments: [facility] [address] [place], [place], [address] TSH 2.41 {uIU/mL} (Normal) Range: 0.358-3.74 18-Jxi-512472:10 Vitamin D 1,25-Dihydroxy Comments: [facility] (refer to report for specific site)refer to report for address and phone number VITD 1,25 66266 53.7 pg/mL (Normal) Range: 19.9-79.3 Comments: Performed at: - [facility] [id number] Director: Suzy Vigil MD, Phone: [phone] 71-Tkt-631054:00 PAP IG HPV APTIMA Comments: CYTOLOGY INFORMATION:- CLINICAL INFORMATION: ANNUAL- DATE LMP/MENOPAUSE:- COLLECTION VIAL: Thin Prep Vial- ALODIZE MACHINE HELPER SOURCE: CERVICAL- COLLECTION TECHNIQUE: CX BROOM/BRUSHSpecimen Comment: CO-B2 [id number] 16/18,45 Specimen Comment: Source.............CervixSpecimen Comment: No. of containers..01 ThinPrep VialLabCorp (refer to report for specific site)refer to report for address and phone number HPV APTIMA, HR Negative (Normal) Comments: This test detects fourteen high- risk HPV types(16/18/31/33/35/39/45/ 51/52/56/58/59/66/68) withoutdifferentiation.Performed at: - [facility] [id number] Dire ctor: Shari Hall MD, Phone: [phone] at: = - [facility] [id number] Director: Shari Hall MD, Phone: [phone] PAPSMR Comment (Normal) Comments: The Pap smear [...] system. PERFORM Comment (Normal) Comments: Krystle Ferro, Gym Supervisor (ASCP) ADEQ Comment (Normal) Comments: Satisfactory for evaluation. Endocervical and/or squamous metaplasticcells (endocervical component) are present. DIAGN Comment (Normal) Comments: NEGATIVE FOR INTRAEPITHELIAL LESION AND MALIGNANCY. :42 Rapid Strep Test, Office (55742) Rapid Strep Test, Office Negative (Normal) :48 THROAT CULTURE (02511) Comments: PATIENT NOT FASTINGPERFORMED BY: [facility] [id number] Information: SRC:TH Result 1 RRF (Normal) Comments: Routine respiratory mellisa Upper Respiratory Culture Final report (Normal) 74-Vhv-657685:53 Metabolic Panel, Comprehensive Comments: PATIENT WAS FASTINGPERFORMED BY: [facility] [id number] (40587) ALT (SGPT) 46 [iU]/L (Abnormal) Range: 0-32 [...] Glucose, Serum 89 mg/dL (Normal) Range: 65-99 32-Gtj-470755:53 TSH (THYROID STIMULATING Comments: PATIENT WAS FASTINGPERFORMED BY: [facility] InstituteGlqljz3703 [facility] [id number] HORMONE) (01282) TSH 1.840 {uIU/mL} (Normal) Range: 0.450-4.500 29-Udc-836091:53 LIPID PANEL (56276) Comments: PATIENT WAS FASTINGPERFORMED BY: [facility] InstituteQvlgcg5850 [facility] [id number] LDL/HDL Ratio 1.7 {ratio_units} (Normal) Range: 0.0-3.2 Comments: LDL/HDL Ratio Men Women 1/2 Avg.Risk 1.0 1.5 Av g.Risk 3.6 3.2 2X Avg.Risk 6.2 5.0 3X Avg.Risk 8.0 6.1 LDL Cholesterol Calc 120 mg/dL (Abnormal) Range: 0-99 VLDL Cholesterol Zeyad 10 mg/dL (Normal) Range: 5-40 HDL Cholesterol 71 mg/dL (Normal) Triglycerides 51 mg/dL (Normal) Range: 0-149 Cholesterol, Total 201 mg/dL (Abnormal) Range: 100-199 53-Puf-288297:53 Thin prep Pap Comments: Source.............Cervical;EndocervicalNo. of containers..01 CYTYC Thin Prep VialPATIENT NOT FASTINGPERFORMED BY: [facility] [id number] Information: [id number] (66661) (no STD testing) Note: PAPSMR (Normal) Comments: [...] (endocervical component) are present.V70.0 ; Routine general ny dical examin [facility] hospitalAmy Marcos Gym Supervisor (ASCP) 52-Wce-426433:54 NuSwab STD (STD W/ Comments: PATIENT NOT FASTINGPERFORMED BY: [facility] [id number] Information: X23900 Herpes) (00794) HSV 2 ALEA Negative (Normal) HSV 1 ALEA Negative (Normal) Neisseria gonorrhoeae, ALEA Negative (Normal) Chlamydia trachomatis, ALEA Negative (Normal) Trich vag by ALEA Negative (Normal) Susi glabrata, ALEA Negative (Normal) Comments: This test was developed and its performance characteristics determinedby [employer]. It has not been cleared or approved [...] was developed and its performance characteristics determinedby [employer]. It has not been cleared or appro bhavesh by the Food and DrugAdministration. The FDA has determined that such clearance orapproval is not necessary. BVAB 2 Low - 0 {Score} (Normal) Atopobium vaginae Low - 0 {Score} (Normal) 79-Phw-615305:21 Thyroid Stim Hormone (TSH) Comments: Test performed at:[facility] [address] [place] [address] TSH 2.22 {uIU/mL} (Normal) Range: 0.358-3.74 22-Pav-448333:21 Vitamin B12 366 pg/mL (Normal) Comments: Test performed at:[facility] [address] [place] [address] Range: 211-911 98-Wnd-264977:21 Vitamin D,25 Hydroxy Comments: Test performed at:[facility] Kvhlvpupwg5902 [facility] [place] [address] Vitamin D 25-OH 21.6 ng/mL (Normal) Comments: [...] 7-18 GLU 88 mg/dL (Normal) Range: 70-110 37-Vgo-624292:54 CBCD ALC 1.35 {X10_3/ul} (Normal) Range: 0.83-4.51 [...] 4.2-5.4 WBC 6.3 K/mm3 (Normal) Range: 4.4-11.0 94-Fbg-365710:05 PREGU tPREGU Negative {Negative} (Normal) Comments: Very dilute urine specimens, as indicated by a low specificgravity, may not contain reimbursement representative levels of hCG.If is still suspected, a first morning urinespecimen should be collected 48 hours later and tested. 06-Ikc-41310:23 Metabolic Panel, Basic Comments: PATIENT WAS FASTINGPERFORMED BY: [facility] InstituteUldemn6982 [facility] [id number] Information: [id number] (70177) Calcium, Serum 9.6 mg/dL (Normal) Range: 8.7-10.2 [...] 95 mg/dL (Normal) Range: 65-99 :23 CALCIFEDIOL (13129) Comments: PATIENT WAS FASTINGPERFORMED BY: [employer]70 [facility] [id number] Vitamin D, 25-Hydroxy 38.5 ng/mL (Normal) Range: 30.0-100.0 Comments: Vitamin D deficiency has been defined by the [place] of[place] and an Endocrine Society practice guideline as alevel of serum 25-OH vitamin D less than 20 ng/mL (1,2).The Endocrine Society went on to further define vitamin Dinsufficiency as a level between 21 and 29 ng/mL (2).1. IOM ([place] of [place]). 2010. Dietary reference intakes for calcium and D. [place]: The National Academies Press.2. Mp MF, Marco A [place], Asif MOULTON, et al. Evaluation, treatment, and prevention of vitamin D deficiency: an Endocrine Society clinical practice guideline. JCEM. 2010; 96(7):1911-30. :23 LIPID PANEL (34462) Comments: PATIENT WAS FASTINGPERFORMED BY: [facility] Imvksh2253 [facility] [id number] LDL/HDL Ratio 2.4 {ratio_units} (Normal) Range: 0.0-3.2 LDL Cholesterol Calc 156 mg/dL (Abnormal) Range: 0-99 VLDL Cholesterol Zeyad 12 mg/dL (Normal) Range: 5-40 HDL Cholesterol 64 mg/dL (Normal) Comments: According to ATP-III Guidelines, HDL-C >59 mg/dL is considered anegative risk factor for CHD. Triglycerides 60 mg/dL (Normal) Range: 0-149 Cholesterol, Total 232 mg/dL (Abnormal) Range: 100-199 :56 LIPID PANEL (41351) Comments: PATIENT WAS FASTINGPERFORMED BY: [facility] InstituteMgwldw9593 [facility] [id number] LDL/HDL Ratio 2.0 {ratio_units} (Normal) Range: 0.0-3.2 LDL Cholesterol Calc 133 mg/dL (Abnormal) Range: 0-99 VLDL Cholesterol Zeyad 10 mg/dL (Normal) Range: 5-40 HDL Cholesterol 66 mg/dL (Normal) Comments: According to ATP-III Guidelines, HDL-C >59 mg/dL is considered anegative risk factor for CHD. Triglycerides 52 mg/dL (Normal) Range: 0-149 Cholesterol, Total 209 mg/dL (Abnormal) Range: 100-199 :56 TSH (16344) Comments: PATIENT WAS FASTINGPERFORMED BY: [facility] TechnologiesAtl[facility] Rehabilitation InstituteYztfxn6184 [facility] [id number] TSH 2.520 {uIU/mL} (Normal) Range: 0.450-4.500 :56 CBC (Auto) (07183) Comments: PATIENT WAS FASTINGPERFORMED BY: LabSMCprosAtlantic Rehabilitation InstituteDoeleo8378 [facility] [id number] Platelets 193 {x10E3/uL} (Normal) Range: 140-415 RDW 12.7 % (Normal) Range: 12.3-15.4 MCHC 32.5 g/dL (Normal) Range: 31.5-35.7 MCH 30.6 pg (Normal) Range: 26.6-33.0 MCV 94 fL (Normal) Range: 79-97 Hematocrit 40.6 % (Normal) Range: 34.0-46.6 Hemoglobin 13.2 g/dL (Normal) Range: 11.1-15.9 RBC 4.32 {x10E6/uL} (Normal) Range: 3.77-5.28 WBC 5.6 {x10E3/uL} (Normal) Range: 4.0-10.5 :56 Metabolic Panel, Comments: PATIENT WAS FASTINGPERFORMED BY: [facility] [id number] Information: [id number] Comprehensive (74300) ALT (SGPT) 17 [iU]/L (Normal) Range: 0-32 [...] Glucose, Serum 100 mg/dL (Abnormal) Range: 65-99 27-Zfc-74954:56 CALCIFIDIOL (05042) VIT D 25 Comments: PATIENT WAS FASTINGPERFORMED BY: [facility] [id number] Vitamin D, 25-Hydroxy 19.1 ng/mL (Abnormal) Range: 30.0-100.0 Comments: Vitamin D deficiency has been defined by the [place] ofMedicine and an Endocrine Society practice guideline as alevel of serum 25-OH vitamin D less than 20 ng/mL (1,2).The Endocrine Society went on to further define vitamin Dinsufficiency as a level between 21 and 29 ng/mL (2).1. IOM ([place] of Medicine). 2010. Dietary reference intakes for calcium and D. [place]: The National Academies Press.2. Mp MF, Marco A NC, Asif MOULTON, et al. Evaluation, treatment, and prevention of vitamin D deficiency: an Endocrine Society clinical practice guideline. JCEM. 2010; 96(7):1911-30. :34 BMP GAP 8 (Normal) Range: 5-15 CO2 [...] D deficiency has been defined by the [place] of[facility] and an Endocrine Society practice guideline as alevel of serum 25-OH vitamin D less than 20 ng/mL (1,2).The Endocrine Society went on to further define vitamin Dinsufficiency as a level between 21 and 29 ng/mL (2).1. IOM ([place] of Medicine). 2010. Dietary reference intakes for calcium and D. [place]: The National Academies Press.2. Mp MF, Marco A BHAKTA, Asif MOULTON, et al. Evaluation, treatment, and prevention of vitamin D deficiency: an Endocrine Society clinical practice guideline. JCEM. 2010; 96(7): 1911-30.Performed at: - [facility] [id number] Director: Faye Mackey MD, Phone: [phone] :[phone] PERLITA DIR SEMI-QL PERLITA DIRECT 202 AU/mL (Abnormal) Comments: REFLEX PERLITA PANEL TESTING CAN BE PERFORMED FROM THISSPECIMEN. PHYSICIAN ORDER REQUIRED. CALL [facility] FORTHIS REFLEX TESTING. [phone] :[phone] ANTI-CCP 415772 5 {units} (Normal) Range: 0-19 Comments: Negative <20 Weak positive 20 - 39 Moderate positive 40 - 59 Strong positive >59Performed at: - [facility] [address] [place], [place] [id number] Director: Faye Mackey MD, Phone: [phone] at: - [facility] [address] [place], [place] [id number] Director: Yoni Orozco MD, Phone: [phone] :22 C-REACTIVE PROT < 2.90 mg/L (Normal) [...] mg/dL Borderline >240 mg/dL High Risk :22 [facility] . (Normal) Comments: ADD ON BY OFFICE 11/02/11 Comments: TEST RESULT LIMITSSystemic Lupus Profile A PATIENT INSURANCE CLERK Antibodies < 0.2 AI 0.0 - [...] 9 Positive > 9 TESTING PERFORMED AT [facility]. ORIGINAL REPORT ON FILE IN LAB CONTAINS ADDITIONAL TEST SITE INFORMATION.___ :22 RHEUMATOID FAC < 10.0 {IU/mL} (Normal) :22 T4 FREE DIRECT 1.04 ng/dL (Normal) Range: 0.76-1.46 :22 TSH 2.31 {uIU/mL} (Normal) Range: 0.358-3.74 :22 VIT D,25 90652 28.5 ng/mL (Abnormal) Comments: appt 11/17/11 Range: 30.0-100.0 Comments: Vitamin D deficiency has been defined by the [place] ofMedicine and an Endocrine Society practice guideline as alevel of serum 25-OH vitamin D less than 20 ng/mL (1,2).The Endocrine Society went on to further define vitamin Dinsufficiency as a level between 21 and 29 ng/mL (2).1. IOM ([place] of [place]). 2011. Dietary reference intakes for calcium and D. [place]: The National Academies Press.2. Mp ROUSE, Marco A NC, Asif MOULTON, et al. Evaluation, treatment, and prevention of vitamin D deficiency: an Endocrine Society clinical practice guideline. JCEM. 2010; 96(7): 1911-30. Please note reference interval change 3-Qyo-543610:33 BILAT SCRN DIGITAL & CAD Radiology Report [...] clinically suspiciousabnormality. Dictated on 05/26/11 0955 by oRberto Mondragon MD scribed on 05/26/11 1136 by ITS IMPORTSign by Dangelo Mondragon MD on 05/26/11 1137 Sign by: Dangelo Mondragon MD VIT D,25 72374 20.2 ng/mL Range: 32.0-100.0 :45 (Abnormal) Comments: Recent studies consider the lower limit of 32.0 ng/mL to rita threshold for optimal health.Dominic ARSHAD. J Nutr. 2004;135(2):317- 22.Performed at: [place] [id number] Director: Faye Mackey MD, Phone: [phone] TSH 2.17 {uIU/mL} Range: 0.358-3.74 :04 (Normal) 38-Iem-748555:35 CBCD ABSOLUTE NEUT 2.8 3/uL (Normal) Range: [...] Normal throat mellisa isolated. No beta-hemolyticstreptococcus isolated. 46-Tqo-274126:26 Rapid Strep Test, Office (56190) Rapid Strep Test, Office Negative (Normal) 5-Oqu-034201:25 Urinalysis, Office (06516) UA - LEUKOCYTE ESTERASE Negative (Normal) UA - NITRITE Negative (Normal) URINE UROBILINGN MITRA TIMED Normal mg/dL (Normal) UA - PROTEIN Negative mg/dL (Normal) UA - PH 6.0 (Normal) UA - BLOOD Negative (Normal) UA - SPECIFIC GRAVITY 1.020 (Normal) UA - KETONES Negative mg/dL (Normal) UA - BILIRUBIN Negative (Normal) UA - GLUCOSE Negative (Normal) 94-Uot-25560:00 PROLACTIN (80592) Comments: PATIENT WAS FASTINGPERFORMED BY: [facility] Qufqaw5134 [facility] [id number] Prolactin 6.5 ng/mL (Normal) Range: 2.8-29.2 Comments: [...] 208.5 Postmenopausal 1.8 - 20.3 :00 TSH (06345) Comments: PATIENT WAS FASTINGPERFORMED BY: [place] [address] [facility] [id number] TSH 2.440 {uIU/mL} (Normal) Range: 0.450-4.500 :00 T4, FREE (THYROXINE) (01328) Comments: PATIENT WAS FASTINGPERFORMED BY: [place] [address] [facility] [id number] T4,Free(Direct) 1.10 ng/dL (Normal) Range: 0.61-1.76 :00 T3, FREE (TRIDOTHYRONINE) (77423) Comments: PATIENT WAS FASTINGPERFORMED BY: [place] [address] [facility] [id number] Triiodothyronine,Free,Serum 2.9 pg/mL (Normal) Range: 2.3-4.2 :00 CBC, Platelet; No Differential Comments: PATIENT WAS FASTINGPERFORMED BY: [place] [address] [facility] [id number] Hematocrit 40.4 % (Normal) Range: 34.0-44.0 Hemoglobin 14.0 g/dL (Normal) Range: 11.5-15.0 MCH 32.5 pg (Normal) Range: 27.0-34.0 MCHC 34.7 g/dL (Normal) Range: 32.0-36.0 MCV 94 fL (Normal) Range: 80-98 Platelets 187 {x10E3/uL} (Normal) Range: 140-415 RBC 4.30 {x10E6/uL} (Normal) Range: 3.80-5.10 RDW 12.9 % (Normal) Range: 11.7-15.0 WBC 5.8 {x10E3/uL} (Normal) Range: 4.0-10.5 17-Ahh-69193:00 Comp. Metabolic Panel (14) Comments: PATIENT WAS FASTINGPERFORMED BY: [facility] Jaxbkg6543 [facility] [id number] A/G Ratio 1.7 (Normal) Range: 1.1-2.5 Albumin, [...] Dehydroepiandrosterone Sulfate Comments: PATIENT WAS FASTINGPERFORMED BY: [facility] TechnologiesAtl[facility] InstituteNedwku7006 [facility] [id number] DHEA-Sulfate 106 ug/dL (Normal) Range: 45-270 :00 Lipid Panel With LDL/HDL Comments: PATIENT WAS FASTINGPERFORMED BY: Sentinel TechnologiesMark Ville [address]70 [facility] [id number] Ratio Cholesterol, Total 200 mg/dL (Abnormal) Range: [...] 27.9 ng/mL Comments: PATIENT WAS FASTINGPERFORMED BY: Sentinel TechnologiesMark [place] [address] [facility] [id number] :00 (Abnormal) Range: 32.0-100.0 Comments: Recent studies [...] cardiovasculardisease. Reference: High risk CRP >3.0 mg/L 78-Tfh-133107:18 CBCD BASO% 1.5 % (Abnormal) Range: 0-1 [...] (G8553) Indication: Headache WWV V73. (Renamed from [employer]) : Mammogram *: gynecological health Indication: WWV V73. (Renamed from [employer]) Stress reaction : Eprescribed prescriptions (G8553) Indication: [...] : *fatigue education Indication: Fatigue Planned Observations [id number]-VQCSQVBTBGT-QCODP (14756)Indication: Unspecified Diagnosis On: 97-Kmh-78297:48 Request Metabolic Panel, Comprehensive (84561)Indication: Unspecified Diagnosis On: :47 Request HEPATIC FUNCTION PANEL (62407)Indication: Unspecified Diagnosis On: :47 Request LIPID PANEL (65984)Indication: Unspecified Diagnosis On: :47 Request URINE RIZWAN CULTURE-MITRA COL COUNT (59331)Indication: UTI (urinary tract infection) On: 50-Bdt-26289:16 Request Comments: post-atb METABOLIC PANEL, COMPREHENSIVE (19138)Indication: Hypercholesteremia On: 91-Abr-273882:00 Request LIPID PANEL (65618)Indication: Hypercholesteremia On: 39-Cva-782991:00 Request CALCIFIDIOL (55516) VIT D 25Indication: Vitamin D deficiency, unspecified On: 43-Gzu-12914:59 Request CULTURE, GONOCOCCUS (47404) (culture obtained)Indication: WWV V73.21 (Renamed from [facility]) On: 05-Ubg-675829:10 Request CULTURE CHLAMYDIA (42734) (culture obtained)Indication: WWV V73.21 (Renamed from [facility]) On: 40-Lce-596207:10 Request TSH (THYROID STIMULATING HORMONE) (79417)Indication: Weight loss On: 75-Uby-633371:43 Request CALCIFEDIOL (36783)Indication: Vitamin D deficiency, unspecified On: 60-Uvc-513502:43 Request PREALBUMIN (86611)Indication: Weight loss On: :42 Request CBC with auto diff (59540)Indication: Weight loss On: 95-Wbh-064825:42 Request METABOLIC PANEL, COMPREHENSIVE (74195)Indication: Hypercholesteremia On: 84-Evg-007443:42 Request LIPID PANEL (65965)Indication: Hypercholesteremia On: 33-Kfy-407618:42 Request CALCIFIDIOL (50470) VIT D 25Indication: Vitamin D deficiency, unspecified On: 8-Xtd-910798:14 Request CALCIFIDIOL (55463) VIT D 25Indication: Vitamin D deficiency, unspecified On: 52-Rtp-196643:16 Request URINALYSIS (17212)Indication: Encounter for routine preventive care for patient older than 28 days On: :11 Request Metabolic Panel, Comprehensive (29498)Indication: Encounter for routine preventive care for patient older than 28 days On: :11 Request Lipid Panel (41349)Indication: Encounter for routine preventive care for patient older than 28 days On: :11 Request CBC, Platelets & Auto Diff (70093)Indication: Encounter for routine preventive care for patient older than 28 days On: :11 Request CALCIFEDIOL (59197)Indication: Vitamin D deficiency, unspecified On: :08 Request GLUCOSE (65308)Indication: Hypercholesteremia On: 0-Hdd-515030:19 Request CALCIFEDIOL (87724)Indication: Hypercholesteremia On: 1-Ego-253978:19 Request LIPID PANEL (41981)Indication: Hypercholesteremia On: 0-Foi-438951:19 Request LIPID PANEL (62486)Indication: Hypercholesteremia On: 59-Wbe-391325:38 Request Comments: getting around 02/2014 Potassium Serum (07442)Indication: Acne On: 73-Psk-03240:44 Request Comments: recheck in 3-4 weeks CALCIFIDIOL (35138) VIT D 25Indication: Vitamin D deficiency, unspecified On: 01-Agi-01864:34 Request CALCIFIDIOL (82833) VIT D 25Indication: Telogen effluvium On: 32-Uzi-635827:05 Request CBC (Auto) (18475)Indication: Telogen effluvium On: 43-Uvg-696682:05 Request Metabolic Panel, Basic (71147)Indication: Telogen effluvium On: 60-Nwr-352347:05 Request TSH (68333)Indication: Telogen effluvium On: 50-Prd-851957:04 Request T4, FREE (THYROXINE) (42703)Indication: Telogen effluvium On: :04 Request T3, FREE (TRIDOTHYRONINE) (20686)Indication: Telogen effluvium On: 54-Zoo-365107:04 Request LIPID PANEL (92068)Indication: Hypercholesteremia On: 02-Feb-20128:03 Request Lupus ProfileIndication: Other specified abnormal findings of blood chemistry On: 2-Kpa-826840:09 Request T4, FREE (THYROXINE) (21811)Indication: Fatigue On: :39 Request CCP ANTIBODY (04420)Indication: Pain in unspecified joint On: :39 Request SED RATE ERYTHROCYTE (72195)Indication: Pain in unspecified joint On: :39 Request C-REACTIVE PROTEIN (46683)Indication: Pain in unspecified joint On: :39 Request TSH (04337)Indication: Pain in unspecified joint On: :39 Request RHEUMATOID FACTOR-QUANT (91569)Indication: Pain in unspecified joint On: :39 Request PERLITA (ANTINUCLEAR ANTIBODY) (55405)Indication: Pain in unspecified joint On: :39 Request CBC WITH MANUAL DIFF (97498)Indication: Pain in unspecified joint On: :39 Request METABOLIC PANEL, COMPREHENSIVE (34812)Indication: Fatigue On: :39 Request CALCIFIDIOL (29948) VIT D 25Indication: Vitamin D deficiency, unspecified On: 71-Vpi-27860:56 Request TSH (31773)Indication: Fatigue On: 72-Afb-203876:26 Request CBC (Auto) (06240)Indication: Fatigue On: 74-Qnr-471145:26 Request CALCIFIDIOL (50773) VIT D 25Indication: Vitamin D deficiency, unspecified On: 31-Rac-568263:26 Request RIZWAN CULTURE-OTHER (35971)Indication: Pharyngitis, acute On: 69-Zwn-491915:26 Request CALCIFIDIOL (50743) VIT D 25Indication: Fatigue On: 53-Hbk-870386:22 Request CBC (Auto) (71331)Indication: Fatigue On: 46-Fgc-046433:15 Request Metabolic Panel, Comprehensive (79820)Indication: Fatigue On: 04-Kcj-237286:15 Request Lipid Panel (54072)Indication: WWV V73.21 (Renamed from [facility]) On: 33-Van-106896:12 Request DHEA-S (DEHYDROEPIANDROSTERONE SULFATE) (84683)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 On: 84-Fes-327066:11 Request C-REACTIVE PROTEIN (91751)Indication: Fatigue On: 84-Qkh-879038:44 Request CBC (AUTO) (05534)Indication: Fatigue On: :44 Request Folate (39916)Indication: Fatigue On: 24-Ler-692097:44 Request METABOLIC PANEL, COMPREHENSIVE (17364)Indication: Fatigue On: :44 Request SED RATE ERYTHROCYTE (18310)Indication: Fatigue On: :44 Request TSH (31370)Indication: Fatigue On: :44 Request VITAMIN B-12 (CYANOCOBALAMIN) (29912)Indication: Fatigue On: :44 Request Planned Procedures PROLONGED PHYSICIAN SERVICE, OFFICE On: 13-Nov-2018 Intent (79437)By: Bambi Mondragon DO, DO, Kathleen HOLTER MONITORING WITH INTERPRETATION On: 13-Nov-2018 Intent (61908)By: Bambi Mondragon DO Comments: 24-hours Bambi FRAGOSO Nuclear Stress Test/Stress On: 13-Nov-2018 Intent SPECT/TreadmillBy: Bambi Mondragon DO, DO, Kathleen Echo CompleteBy: Bambi Mondragon DO On: 13-Nov-2018 Intent Bambi Mondragon DO Comments: with bubble study ELECTROCARDIOGRAM, COMPLETE (ECG) On: 13-Nov-2018 Intent (18470)By: Bambi Mondragon DO Comments: nsr no acute chg Bambi FRAGOSO CT SCAN OF HEAD OR BRAIN WITHOUT On: 06-May-2018 Intent CONTRAST (79606)By: Bambi Mondragon DO, DO, Kathleen MAMMOGRAM BREAST BILATERAL SCREENING On: 21-May-2017 Intent DIGITAL (45496)By: Lauren Galdamez CNP BILATERAL MAMMOGRAMS (87221)By: On: 11-Nov-2015 Intent Stacey JOYA, Svetlana Selby MAMMOGRAM, SCREENING, BOTH BREAST On: 10-Sep-2014 Intent (21696)By: Svetlana Ibarra MD BILATERAL MAMMOGRAMS (26812)By: On: 28-Jul-2014 Intent Svetlana Ibarra MD MRI - Cervical SpineBy: Rudolph COBOS, On: 27-May-2014 Intent Nayely MRI - Shoulder(s) - RightBy: Rudolph On: 14-May-2014 Intent Lauren COBOS Comments: having lateral pain MRI - Cervical SpineBy: Rudolph COBOS, On: 13-May-2014 Intent Nayely MRI - Thoracic Spine (IV Contrast On: 13-May-2014 Intent Needed)By: Lauren Galdamez CNP PHYSICAL THERAPY EVALUATION (03317)By: On: 12-May-2014 Intent Lauren Galdamez CNP Radiology - Shoulder - RightBy: Ciantione On: 12-May-2014 Intent Lauren COBOS Toradol Injection, 30 mg (J1885)By: On: 12-May-2014 Intent Lauren Galdamez CNP Comments: rt hip Oct 26, 2015, 36-341-DK Radiology - Cervical SpineBy: Rudolph On: 12-May-2014 Intent Lauren COBOS Radiology - Thoracic SpineBy: Rudolph On: 12-May-2014 Intent CHANDRIKA Nayely Eprescribed prescriptions (G8553)By: On: 05-Sep-2013 Intent Svetlana Ibarra MD EKG (90531)By: Svetlana Ibarra MD On: 16-Aug-2012 Intent Comments: see scanned document of test done to see results reviewed today with patient MAMMOGRAM, SCREENING, BOTH BREASTS On: 19-Jul-2012 Intent (30473)By: Svetlana Ibarra MD MAMMOGRAM, SCREENING, BOTH BREASTS On: 27-Mar-2011 Intent (19147)By: Svetlana Ibarra MD Comments: 04-05 SPECIMEN HNDLNG/TRNSPRT, OFFC > LAB On: 15-Nov-2010 Intent (37361)By: Svetlana Ibarra MD Planned Medications INJECTION, KETOROLAC [...] Instructions Indication: Headache WWV V73.21 (Renamed from WWV) : How to access health information online - Detail Indication: WWV V73.21 (Renamed from [employer]) WWV V73.21 (Renamed from [employer]) : Patient Instructions Indication: WWV V73.21 (Renamed from [employer]) Stress reaction : How to access health [...] - The patient improving (seeing Joel and -- Jyothi)., [ADDITIONAL REASON] Forms - The [...] (454.8), ARTHRALGIAS 719.40, WWV V73.21 (Renamed from [facility]), Headache (784.0), Acne (706.1) [facility] [...] Plantar Fascititis (728.71), WWV V73.21 (Renamed from [facility]) End: 19-Jul-2012 11:14 [facility] Office [...] (268.9), DUB (626.8), WWV V73.21 (Renamed from [facility]) [facility] Office Visit On: [...] dysfunction with other specified psychosexual dysfunctions (302.79), [facility] V73.21 (Renamed from [facility]) [facility] Office Visit On: [...] (477.9), Fatigue (780.79), Eustachian tube dysfunction (381.81), [facility] Historical Summary On: [...] tube dysfunction (381.81) [facility] Payers [facility] HospitalEvelyn Varma; ilia guarantor
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
== END ==
PROVIDERS: Family Provider Internal Medicine; PCP Internal Medicine; Referring Provider Internal Medicine; Visit Provider Internal Medicine
DX: Q21.1 Atrial septal defect (principal)
CPT/HCPCS: 93306

== ENCOUNTER → 2018-12-21 07:20 | Outpatient (CLI) | payer OTHER, SELFPAY ==
[2018-10-24 15:06] VITALS: BMI 22.4
--- NOTE | 2018-12-21 07:24 | BI_ITS ---
MAMMOGRAPHY - BILATERAL SCREENING REASON FOR EXAM: Female, 48 years old. Routine annual screening examination. PERTINENT HISTORY: Non-contributory. TECHNIQUE: Digital bilateral breast brooke (3D mammographic acquisition) in the CC and MLO projections. 2-D mediolateral oblique (MLO) and craniocaudad (CC) views of both breasts were obtained. CAD: Full Field Digital Mammography with Computer Added Detection was performed. COMPARISON: Comparison is made with prior study dated April 05, 2016 and November 12, 2014. FINDINGS: Breast Composition: The breasts are extremely dense, which lowers the sensitivity of mammography. There are no dominant masses or suspicious calcifications. No other significant abnormalities are identified. There has been no significant change since the prior study. BI/SCREENING MAMM (CAD), BILAT IMPRESSION: Stable bilateral screening mammogram. Yearly follow-up mammogram recommended. (A) ASSESSMENT CATEGORY: BIRADS Category 1: Negative. A letter regarding these results will be sent to the patient by the facility within 30 days. Approximately 10% of breast cancers are not detected by mammography. A normal mammogram should not delay biopsy of a clinically suspicious abnormality. [id number] Electronically Signed: Dangelo Mondragon MD at 9:35 EST , Service support ,
== END ==
PROVIDERS: Family Provider Internal Medicine; PCP Internal Medicine; Referring Provider Obstetrics & Gynecology; Visit Provider Obstetrics & Gynecology
DX: Z12.31 Encounter for screening mammogram for malignant neoplasm of breast (principal)
CPT/HCPCS: 77063; 77067

== ENCOUNTER → 2018-12-24 07:26 | Outpatient (CLI) | payer OTHER, SELFPAY ==
[2018-10-24 15:06] VITALS: BMI 22.4
--- NOTE | 2018-12-24 12:03 | STRESSREP ---
Stress Test Report Date: 12/24/2018 Procedure: Exercise tolerance test/imaging study Indications: Chest pain Consent: Per the patient Procedure: The patient exercised on a Fabián protocol for 12 minutes and 30 seconds completing Stage IV and 30 seconds of of Stage V achieving a peak heart rate of 187 bpm (108 % predicted maximal heart rate) with a peak blood pressure 144/86 mmHg and a peak MET capacity of 14 METs. The baseline ECG demonstrated normal sinus rhythm . The peak exercise ECG demonstrated no obvious ECG changes . There were no cardiac dysrhythmias pretest, during exercise, or recovery. The functional capacity was considered excellent . There was no complaint of chest discomfort during exercise or recovery. The examination was discontinued secondary to dysrhythmia . Impression: 1. Technically adequate (percent predicted maximal heart rate greater than 85%) exercise tolerance test 2. Negative (adequate (ECG exercise tolerance test 3. There were no cardiac dysrhythmias pretest, during exercise, or recovery 4. Nuclear images pending Myocardial perfusion imaging study: Technique: The patient was injected with 11.6 mCi of technetium 99m Cardiolite and subsequently rest SPECT Cardiolite nuclear imaging was obtained in the horizontal long, vertical long, and short axis views. The patient exercised on a Fabián protocol for 12 minutes and 30 seconds completing stage IV and 30 seconds of stage V achieving a peak heart rate of 187 bpm (1-0 8 % predicted maximal heart rate) with a peak blood pressure 144/86 mmHg and a peak MET capacity of 14 METs. The patient was injected with 33.6 mCi of technetium 99m Cardiolite and subsequently stress SPECT Cardiolite nuclear imaging was obtained in the horizontal long, vertical long, and short axis views. A gated Cardiolite study at peak stress was obtained. Interpretation: Rest and stress SPECT Cardiolite nuclear imaging status post realignment, normalization, and attenuation correction, demonstrates the appearance of relative uniform tracer uptake and myocardial perfusion appearing within normal limits. There is end systolic thickening and brightening. The gated Cardiolite study demonstrates myocardial thickening and inward wall motion. The reported LVEF is 76 %. Impression: 1. Rest and stress SPECT Cardiolite nuclear imaging demonstrate relative uniform tracer uptake and myocardial perfusion appearing within normal limits. 2. The gated Cardiolite study reports an LVEF of 76 %. This note was generated with [employer] software. It may contain incorrect words, spelling, and punctuation that were not noted in checking the note before signing.
--- NOTE | 2018-12-24 12:09 | STRESSREP_ITS ---
Stress Test Report Date: 12/24/2018 Procedure: Exercise tolerance test/imaging study Indications: Chest pain Consent: Per the patient Procedure: The patient exercised on a Fabián protocol for 12 minutes and 30 seconds completing Stage IV and 30 seconds of of Stage V achieving a peak heart rate of 187 bpm (108 % predicted maximal heart rate) with a peak blood pressure 144/86 mmHg and a peak MET capacity of 14 METs. The baseline ECG demonstrated normal sinus rhythm . The peak exercise ECG demonstrated no obvious ECG changes . There were no cardiac dysrhythmias pretest, during exercise, or recovery. The functional capacity was considered excellent . There was no complaint of chest discomfort during exercise or recovery. The examination was discontinued secondary to dysrhythmia . Impression: 1. Technically adequate (percent predicted maximal heart rate greater than 85%) exercise tolerance test 2. Negative (adequate (ECG exercise tolerance test 3. There were no cardiac dysrhythmias pretest, during exercise, or recovery 4. Nuclear images pending Myocardial perfusion imaging study: Technique: The patient was injected with 11.6 mCi of technetium 99m Cardiolite and subsequently rest SPECT Cardiolite nuclear imaging was obtained in the horizontal long, vertical long, and short axis views. The patient exercised on a Fabián protocol for 12 minutes and 30 seconds completing stage IV and 30 seconds of stage V achieving a peak heart rate of 187 bpm (1-0 8 % predicted maximal heart rate) with a peak blood pressure 144/86 mmHg and a peak MET capacity of 14 METs. The patient was injected with 33.6 mCi of technetium 99m Cardiolite and subsequently stress SPECT Cardiolite nuclear imaging was obtained in the horizontal long, vertical long, and short axis views. A gated Cardiolite study at peak stress was obtained. Interpretation: Rest and stress SPECT Cardiolite nuclear imaging status post realignment, normalization, and attenuation correction, demonstrates the appearance of relative uniform tracer uptake and myocardial perfusion appearing within normal limits. There is end systolic thickening and brightening. The gated Cardiolite study demonstrates myocardial thickening and inward wall motion. The reported LVEF is 76 %. Impression: 1. Rest and stress SPECT Cardiolite nuclear imaging demonstrate relative u niform tracer uptake and myocardial perfusion appearing within normal limits. 2. The gated Cardiolite study reports an LVEF of 76 %. This note was generated with [employer] software. It may contain incorrect words, spelling, and punctuation that were not noted in checking the note before signing.
== END ==
PROVIDERS: Family Provider Internal Medicine; PCP Internal Medicine; Referring Provider Internal Medicine; Visit Provider Internal Medicine
DX: Q21.1 Atrial septal defect (principal); R07.9 Chest pain, unspecified
CPT/HCPCS: 78452; 93017; A9500; A4216

== ENCOUNTER → 2019-05-09 | Outpatient (CLI) | payer OTHER, SELFPAY ==
[2018-10-24 15:06] VITALS: BMI 22.4
--- NOTE | 2019-05-09 09:02 | US_ITS ---
STUDY: ULTRASOUND BREAST - LEFT REASON FOR EXAM: Female, 49 years old. Palpable lump left breast. TECHNIQUE: Axial and longitudinal images of the LEFT breast were performed with a high resolution ultrasound transducer. COMPARISON: Comparison is made with prior mammogram done earlier in the day. FINDINGS: LEFT Breast: The retroareolar region of the breast was examined by ultrasound. Multiple small cysts are seen. The largest is at the 6:00 position breast at 1 cm from the nipple measuring 8 mm x 7 mm x 5 mm. US/Breast Limited Unilateral IMPRESSION: Multiple small cysts. Routine mammographic follow-up is recommended. ASSESSMENT CATEGORY: BIRADS Category 2: Benign. A letter regarding these results will be sent to the patient by the facility within 30 days. Electronically Signed: Dangelo Mondragon, at 11:12 EDT , Service support ,
--- NOTE | 2019-05-09 09:02 | BI_ITS ---
MAMMOGRAPHY - UNILATERAL DIAGNOSTIC: LEFT BREAST REASON FOR EXAM: Female, 49 years old. Left breast lump. PERTINENT HISTORY: Non-contributory. TECHNIQUE: Digital unilateral breast brooke (3D mammographic acquisition) in the CC and MLO projections. 2-D mediolateral oblique (MLO) and craniocaudad (CC) views of both breasts were obtained. CAD: Full Field Digital Mammography with Computer Added Detection was performed. COMPARISON: Comparison is made with prior examination dated December 21, 2018 and April 05, 2016. FINDINGS: Breast Composition: The breasts are extremely dense, which lowers the sensitivity of mammography. There are no dominant masses or suspicious calcifications. No other significant abnormalities are identified. There has been no significant change since the prior study. BI/DIAG MAMM W/CAD, UNILAT IMPRESSION: Stable unilateral diagnostic mammogram. With the patient's history of a palpable abnormality in the retroareolar region of the breast, Colace with ultrasound is recommended. ASSESSMENT CATEGORY: BIRADS Category 0: Incomplete. Need additional imaging evaluation. A letter regarding these results will be sent to the patient by the facility within 30 days. Approximately 10% of breast cancers are not detected by mammography. A normal mammogram should not delay biopsy of a clinically suspicious abnormality. Electronically Signed: Dangelo Mondragon, at 11:05 EDT , Service support ,
--- NOTE | 2019-07-10 13:01 | STRESSREP ---
Stress Test Report Date: 07-10-19 Addendum: Correction to previous stress nuclear imaging study dated 12-24-18: The procedure portion of the report states that the examination was discontinued secondary to dysrhythmia. The procedure portion of the report should state that the examination was discontinued secondary to dyspnea. This note was generated using a voice recognition system and there may be incorrect words, spelling or punctuation that were not noted when reviewing the office note prior to saving.
== END | disposition home or self-care (01) ==
PROVIDERS: Family Provider Internal Medicine; PCP Internal Medicine; Referring Provider Nurse Practitioner Women's Health; Visit Provider Nurse Practitioner Women's Health
DX: N63.20 Unspecified lump in the left breast, unspecified quadrant (principal)
CPT/HCPCS: 76642; 77061; 77065; G0279

== ENCOUNTER → 2019-12-08 14:52 | Outpatient (CLI) | payer OTHER, SELFPAY ==
[2019-12-08 14:18] VITALS: BMI 22.4
[2019-12-08 16:34] LABS: HIV - WCH Non-Reactive (Nonreactive)
[2019-12-08 21:26] LABS: Chlamydia Trachomatis by PCR Negative (Negative); Neisserai gonorrhoeae by PCR Negative (Negative); Probe Check PASS; Sample Adequacy Control PASS; Specimen Processing Control PASS
[2019-12-11 02:55] LABS: Rapid Plasmin Reagin (RPR) NONREACTIVE (NONREACTIVE)
[2019-12-11 14:08] LABS: HCV Quant. RNA PCR HCV Not Detected IU/mL (.)
[2019-12-11 16:12] LABS: HSV 2 IgG < 0.91 index (0.00-0.90)
== END ==
PROVIDERS: Family Provider Internal Medicine; PCP Internal Medicine; Referring Provider Nurse Practitioner Women's Health; Visit Provider Nurse Practitioner Women's Health
DX: Z11.3 Encounter for screening for infections with a predominantly sexual mode of transmission (principal); N89.8 Other specified noninflammatory disorders of vagina
CPT/HCPCS: 36415; 86592; 86695; 86696; 86703; 87070; 87205; 87491; 87522; 87591

== ENCOUNTER → 2019-12-18 08:04 | Outpatient (CLI) | payer OTHER, SELFPAY ==
[2019-12-08 14:18] VITALS: BMI 22.4
[2019-12-18 10:29] LABS: Cholesterol 230 mg/dL (200); High Density Lipoprotein 67 mg/dL; Triglycerides 95 mg/dL; Very Low Density Lipoprotein 19 mg/dL (5-40)
[2019-12-18 10:35] LABS: Vitamin D,25 Hydroxy 19.6 ng/mL (29.95-100.01)
== END ==
LOC: MTLAB 08:08
PROVIDERS: PCP Internal Medicine; Referring Provider Internal Medicine; Visit Provider Internal Medicine
DX: E78.00 Pure hypercholesterolemia, unspecified (principal); E55.9 Vitamin D deficiency, unspecified
CPT/HCPCS: 36415; 80061; 82306

== ENCOUNTER 2020-03-22 16:05 | Inpatient (IN) | payer OTHER, SELFPAY ==
[2019-12-08 14:18] VITALS: BMI 22.4
[2020-03-22 16:07] VITALS: BP 124/73; PULSE 101; RESP 18; TEMP 37.7; O2SAT 97; BMI 23.1
[2020-03-22 16:09] VITALS: BP 124/73; PULSE 101; RESP 18; TEMP 37.7; O2SAT 97
--- NOTE | 2020-03-22 16:19 | CT_ITS ---
STUDY: CT ABDOMEN AND PELVIS WITHOUT CONTRAST REASON FOR EXAM: Female, 49 years old. RLQ PAIN/FEVER. RADIATION DOSAGE (If Supplied By Facility): CTDIvol = ( 11.50 ) mGy, DLP = ( 1017.02 ) mGycm TECHNIQUE: Transaxial images were obtained from the dome of the diaphragm to the symphysis pubis without oral contrast, and without intravenous contrast. Sagittal and coronal images were reconstructed. Individualized dose optimization techniques were used for this CT. COMPARISON: None. FINDINGS: The visualized lung bases are unremarkable. The visualized portions of the heart are within normal limits. Bilateral breast implants. Normal liver. Normal gallbladder and extrahepatic biliary system. Normal spleen. Normal pancreas. Normal bilateral adrenal glands. Markedly abnormal right kidney. There is markedly heterogeneous density and enhancement, probable enlargement from edema, and prominent perinephric stranding. Findings are most consistent with pyelonephritis. Normal left kidney. Normal visualized stomach. Normal small intestine. Normal colon. The appendix is visualized and appears normal. Normal abdominal aorta. Normal inferior vena cava. Normal retroperitoneum. Normal urinary bladder. Normal visualized uterus. Normal abdominal wall. Normal osseous structures. CT/Abdomen/Pelvis W IV Cont ONLY IMPRESSION: Findings most consistent with right pyelonephritis. Correlate with physical exam and urinalysis. Electronically Signed: Frankie Hull MD at 18:51 EDT , Service support ,
--- NOTE | 2020-03-22 16:21 | ED.DCSUM_ITS ---
History of Present Illness Chief Complaint: Fever Informant: Patient Onset: Days Context: Gradual Onset Timing: Intermittent Current Severity: Moderate Maximum Severity: Severe Narrative: The patient is an otherwise healthy 49-year-old female who presents to the emergency department fever, nausea, and abdominal pain. The patient states her symptoms began 1 week ago. She states that she had flank pain, mostly on the right side. She also spiked a fever. She states she is been having intermittent fever since. Today, her pain worsened. She is been acutely nauseated without vomiting. She does admit to lack of appetite and the pain is migrated more to her right lower quadrant. She states if she moves or twists, the pain is very severe. She has had history of prior and tubal ligation. She denies any other abdominal surgery. The patient takes no daily medications. She states up until last week, she has been in her normal state of health. She denies any sick contacts. Prior similar symptoms: No Recent Illness/Hospitalization: No Past Medical History - Allergies and Home Meds Allergies/Adverse Reactions: Allergies No Known Allergies Allergy (Verified 03/22/20 16:06) Primary Care Physician: Bambi Mondragon DO [Primary Care Provider] - Prior records reviewed: Yes Past Medical History: None Surgical History: - - , tubal ligation Smoking Status: Never smoker Review of Systems General: Reports: Chills, Fever Eyes: Denies: Visual changes - bilaterally, Diplopia ENT: Denies: Rhinorrhea, Sore throat Cardiovascular: Denies: Chest pain, Palpitations Respiratory: Denies: Dyspnea, Cough, Dyspnea on exertion Gastrointestinal: Reports: Abdominal pain, Nausea Genitourinary: Reports: Dysuria Musculoskeletal: Reports: Back pain Skin: Denies: Rash, Wounds Neurological: Denies: Headache, Weakness, Numbness Physical Exam Vital Signs/Narrative: Vital Signs Temp Pulse Resp BP Pulse Ox 03/22/20 16:07 99.8 F H 101 H 18 124/73 H 97 Inital Vital Signs reviewed: Yes General: Well nourished, Well developed, No Acute Distress Head: Normocephalic, Atraumatic Eyes: Perrl, EOMI ENT: Moist mucous membranes, No rhinorrhea Neck: Supple, Nontender Cardiovascular: Regular rate, Regular rhythm, No murmurs Respiratory: No distress, CTA bilaterally, Chest nontender Abdomen: Soft, Nondistended, Normal bowel sounds, Tender, Guarding. Negative for: Rebound tenderness, Hyperactive bowel sounds Back: Normal Inspection, CVA tenderness Extremities: Nontender, No edema Skin: Normal color, No rash Neurological: Alert, Oriented x3, Cranial nerves II-XII grossly intact, Normal Strength, Normal Sensation Psychological: Normal affect, Normal Mood Diagnostic/Tx/Re-eval Clinical Impression(s) from Imaging Studies Abdomen/Pelvis CT 03/22/20 16:19 IMPRESSION: Findings most consistent with right pyelonephritis. Correlate with physical exam and urinalysis. Electronically Signed: Frankie Hull MD at 18:51 EDT , Service support , Abnormal Lab Results 03/22/20 03/22/20 03/22/20 17:35 17:35 17:35 WBC 16.1 H RBC 3.82 L Hgb 11.7 L Hct 35.2 L MCV 92.1 MCH 30.6 MCHC 33.2 RDW Std Deviation 43.6 RDW Coeff of Christa 13.0 Plt Count 197 MPV 11.0 Immature Gran % (Auto) 0.700 Neut % (Auto) 82.6 H Lymph % (Auto) 6.0 L [place] % (Auto) 10.3 H Eos % (Auto) 0.1 Baso % (Auto) 0.3 Absolute Neuts (auto) 13.3 H Absolute Lymphs (auto) 0.97 Nucleated RBC % 0 Differential Comment SCANNED Diff Path Review May foll Platelet Estimate ADEQUATE RBC Morphology NORM C+C Sodium 136 Potassium 3.5 Chloride 103 Carbon Dioxide 24.0 Anion Gap 9 BUN 7 Creatinine 0.73 Estim Creat Clear Calc 81.38 Est GFR (MDRD) Af Amer 108 Est GFR (MDRD) Non-Af 90 BUN/Creatinine Ratio 9.5 L Glucose 110 H Lactic Acid 1.5 Calcium 8.7 Total Bilirubin 1.00 AST 76 H ALT 212 H Alkaline Phosphatase 272 H Total Protein 7.2 Albumin 2.7 L Globulin 4.5 H Albumin/Globulin Ratio 0.6 L Urine Color Urine Clarity Urine pH Ur Specific [place] Urine Protein Urine Glucose (UA) Urine Ketones Urine Occult Blood Urine Nitrite Urine Bilirubin Urine Urobilinogen Ur Leukocyte Esterase Urine RBC Urine WBC Ur Squamous Epith Cells Urine Bacteria Urine Mucus 04/27/20 17:35 WBC RBC Hgb Hct MCV MCH MCHC RDW Std Deviation RDW Coeff of Christa Plt Count MPV Immature Gran % (Auto) Neut % (Auto) Lymph % (Auto) [place] % (Auto) Eos % (Auto) Baso % (Auto) Absolute Neuts (auto) Absolute Lymphs (auto) Nucleated RBC % Differential Comment Diff Path Review Platelet Estimate RBC Morphology Sodium Potassium Chloride Carbon Dioxide Anion Gap BUN Creatinine Estim Creat Clear Calc Est GFR (MDRD) Af Amer Est GFR (MDRD) Non-Af BUN/Creatinine Ratio Glucose Lactic Acid Calcium Total Bilirubin AST ALT Alkaline Phosphatase Total Protein Albumin Globulin Albumin/Globulin Ratio Urine Color Yellow Urine Clarity Clear Urine pH 6.5 Ur Specific [place] 1.005 Urine Protein 30 H Urine Glucose (UA) Normal Urine Ketones 15 H Urine Occult Blood 150 H Urine Nitrite Negative Urine Bilirubin Negative Urine Urobilinogen Normal Ur Leukocyte Esterase 500 H Urine RBC 0-5 SEEN Urine WBC 5-10 SEEN Ur Squamous Epith Cells 0 SEEN Urine Bacteria 1+ Urine Mucus 0 SEEN - Medical Decision Making The patient presents with fever, chills, myalgias. She has flank pain and dysuria. She has had migratory pain to her abdomen. On arrival, she was tachycardic, but not hypotensive or febrile. However, given her symptoms blood cultures were obtained. Sepsis work-up was pursued. Patient does have a leukocytosis. She also has elevation of her liver enzymes. Her urine does show some trace evidence of infection and culture was added. Patient is given fluids and analgesics and is feeling improved. CT demonstrates evidence of pyelonephritis with rather significant edema and stranding around the kidney. The patient was covered with broad-spectrum antibiotics. At this point, she will be admitted to the hospital. Impression 1. Pyelonephritis 2. Sepsis ED Disposition - Plan for ED Patient: Referrals: Bambi Mondragon DO [Primary Care Provider] -
[2020-03-22] MEDS: Ketorolac 30 MG/ML Syringe IV (17:30)
[2020-03-22] MEDS: Ondansetron 4 MG/2 ML Vial IV (17:30)
[2020-03-22] MEDS: Morphine 4 MG/ML Syringe IV (17:30)
[2020-03-22] MEDS: 0.9% Normal Saline 1,000 ML 1000 ML IV (17:30)
[2020-03-22 17:58] LABS: Mucous, Urine 0 SEEN /hpf (<or=2+); Squamous Epithelial Cells - UA 0 SEEN /hpf (5-10)
[2020-03-22 18:01] LABS: Absolute Lymphocyte Count 0.97 X10^3/uL (0.83-4.51); Absolute Neutrophil Count 13.3 X10^3/uL (2.0-7.7); Basophil# 0.05 X10^3/uL; Basophil% 0.3 % (0-1); Eosinophil# 0.02 X10^3/uL; Eosinophils% 0.1 % (0-5); Hematocrit 35.2 % (37-47); Hemoglobin 11.7 g/dL (12.0-15.0); Lymphocyte # 0.97 X10^3/ul (4.0); Mean Corp Hgb Conc 33.2 g/dL (32-36); Mean Corpuscular Hgb 30.6 pg (27.0-32.0); Mean Corpuscular Volume 92.1 fL (81-99); Monocyte# 1.66 X10^3/uL; Monocyte% 10.3 % (0-10); NRBC Flagged by Analyzer 0 % (0-5); Neutrophil # 13.28 X10^3/uL (2.7-7.7); Neutrophil % 82.6 % (47-70); POSITIVE DIFFERENTIAL YES; Platelet Count 197 K/mm3 (150-450); RBC Distribution Width SD 43.6 fl (35.1-43.9); Red Blood Count 3.82 M/mm3 (4.2-5.4); White Blood Count 16.1 K/mm3 (4.4-11.0)
[2020-03-22 18:09] LABS: Color, Urine Yellow (Yellow); Glucose, Dipstick Normal (Normal); Ketone-Dipstick 15 mg/dl (Negative); Leukocyte Esterase-Dipstick 500 /ul (Negative); Nitrite-Dipstick Negative (Negative); Occult Blood-Urine 150 /ul (Negative); Protein-Dipstick 30 mg/dl (Negative); Specific Gravity, Urine 1.005 (1.002-1.030); Urine Bilirubin Dipstick Negative (Negative); Urine Clarity Clear (Clear); Urine Urobilinogen Normal (Normal); Urine pH 6.5 (5.0 - 8.0)
[2020-03-22 18:14] LABS: ALB/GLOB Ratio 0.6 RATIO (0.9-2.4); AST(SGOT) 76 U/L (15-37); Alanine Aminotransfer ALT/SGPT 212 U/L (13-56); Albumin, Serum 2.7 g/dL (3.2-5.0); Alkaline Phosphatase 272 U/L (45-117); Anion Gap 9 (5-15); BUN 7 mg/dL (7-18); BUN/Creat Ratio 9.5 RATIO (10-20); Calcium,Total 8.7 mg/dL (8.5-10.1); Chloride 103 mmol/L (98-107); Creatinine, Serum 0.73 mg/dL (0.55-1.02); EST Glomerular Filtration Rate 90 mL/min (>60); Est Glom Filt Rate - Afr Amer 108 mL/min (>60); Estimated Creatinine Clearance 81.38 ml/min; Globulin 4.5 g/dL (2.2-4.2); Glucose 110 mg/dL (74-106); Potassium 3.5 mmol/L (3.5-5.1); Protein, Total 7.2 g/dL (6.4-8.2); Sodium Level 136 mmol/L (136-145)
[2020-03-22 18:18] LABS: Differential Indicated SCAN CRITERIA MET
[2020-03-22 18:20] LABS: Bacteria 1+ /hpf (None Seen); Red Blood Cells-Urine 0-5 SEEN /hpf (0-5); White Blood Cells 5-10 SEEN /hpf (0-5)
[2020-03-22 18:27] LABS: Lactic Acid 1.5 mmol/L (0.4-1.9)
[2020-03-22 18:46] VITALS: BP 102/68; PULSE 99; RESP 16; O2SAT 98
[2020-03-22 18:46] LABS: Platelet Estimate ADEQUATE (ADEQ); Red Cell Morphology NORM C+C NORMAL (NORM C&C)
[2020-03-22 18:47] LABS: Differential Comment SCANNED
[2020-03-22] MEDS: Morphine 2 MG/ML Syringe IV (18:55)
[2020-03-22 19:12] VITALS: BP 105/68; PULSE 93; RESP 22; TEMP 37.7; O2SAT 97
[2020-03-22 19:13] VITALS: BP 105/68; PULSE 93; RESP 22; TEMP 37.7; O2SAT 97
[2020-03-22] MEDS: Acetaminophen 500 MG Tablet 1000 MG PO (19:54)
--- NOTE | 2020-03-22 19:56 | PCM.HP.STD ---
Problem List (1) Pyelonephritis of right kidney Status: Acute History of Present Illness Date of Admission: 03/22/20 Chief Complaint: right flank pain The patient is a 49 year old male patient with no past medical history presents emergency room with right flank pain. Onset of this pain began 1 week ago and has been associated with increased urgency and frequency of urination and has progressed to nausea and anorexia. The pain became excruciating earlier today so she came to the emergency room for evaluation. CT scan shows a markedly enlarged right kidney consistent with hydronephrosis and pyelonephritis, laboratory studies reveal a white blood cell count of 16.1, hemoglobin 11.7 hematocrit, hematocrit 35.2, platelets 197, sodium 136, potassium 3.5, chloride 103, bicarb 24, BUN 7, creatinine 1.73, alk phos 272, urinalysis positive. Patient states her pain is currently 3 out of 10 in her right flank area after receiving some morphine in the emergency room the patient will be admitted to the general medical floor for treatment of pyelonephritis. Past Medical History Medical History: Medical History (Last Updated 10/24/18 @ 15:[address] Bozena Fuentes MD) History of headache Z87.898 Allergies No Known Allergies Allergy (Verified 03/22/20 16:06) Home Medications: Ambulatory Orders Medication Instructions Recorded Sumatriptan Succinate [Imitrex] 50 mg PO .X1 PRN 09/24/14 Surgical History: Surgical History (Last Updated 12/08/19 @ 14:04 by Mayra Rubalcava) delivery delivered O82 H/O breast augmentation Z98.82 History of endometrial ablation Z98.890 Tubal ligation status Z98.51 Surgical History: - - , tubal ligation Smoking Status: Never smoker - *Family History Maternal History Items: No pertinent history Review of Systems Constitutional: Reports: Chills, Fever, Weight Change, Fatigue HEENT: Denies: Head Aches, Sinus Congestion, Sinus Drainage Cardiovascular: Denies: Chest Pain, Palpitations Respiratory: Denies: Cough, Shortness of breath at rest, Sputum production Gastrointestinal: Denies: Abdominal Pain, Nausea, Vomiting Genitourinary: Reports: Dysuria, Urgency Musculoskeletal: Denies: Joint Pain, Joint Tenderness Skin: Denies: Rash, Wounds Neurological: Denies: Numbness, Tingling, Focal weakness Psychiatric: Denies: Anxiety, Depression, Homicidal Ideations, Suicidal Ideations Hematologic/ Lymphatic: Denies: Easy Bruising, Easy Bleeding VTE Information - Inpt Only VTE Present on Admission: No VTE Mechan Device Prophylaxis: SCD's VTE Pharm Prophylaxis ordered?: No Patient Problems: Active and Suspected Problems (Last Updated 10/24/18 @ 15:[address] Bozena Fuentes MD) Pyelonephritis of right kidney (Acute) - Physical Exam Vitals/I&O's: Vital Signs Temp Pulse Resp BP Pulse Ox 99.8 F H 93 22 H 105/68 97 03/22/20 19:13 03/22/20 19:13 03/22/20 19:13 03/22/20 19:13 03/22/20 19:13 Oxygen Delivery Method Room Air Weight: 135 lb Body Mass Index (BMI) 23.1 Intake and Output for Last 24 Hours 03/20/20 03/21/20 03/22/20 23:59 23:59 23:59 Intake Total 1000 / 1000 Balance 1000 / 1000 General: Alert, Oriented x3, Cooperative HEENT: Atraumatic, Normocephalic Neck: Supple Lungs: Clear to auscultation, Normal air movement Cardiovascular: Regular rate, Normal S1, Normal S2, No murmurs Abdomen: Bowel Sounds Present, Tender - right side Extremities: No edema Skin: No rashes Musculoskeletal: No Tenderness to Palpation of Joints or Extremities Neurological: Neuro grossly intact Psych/Mental Status: Normal Affect, Appropriate Laboratory Results 03/22/20 17:35: WBC 16.1 H, RBC 3.82 L, Hgb 11.7 L, Hct 35.2 L, MCV 92.1, MCH 30.6, MCHC 33.2, RDW Std Deviation 43.6, RDW Coeff of Christa 13.0, Plt Count 197, MPV 11.0, Immature Gran % (Auto) 0.700, Neut % (Auto) 82.6 H, Lymph % (Auto) 6.0 L, [place] % (Auto) 10.3 H, Eos % (Auto) 0.1, Baso % (Auto) 0.3, Absolute Neuts (auto) 13.3 H, Absolute Lymphs (auto) 0.97, Nucleated RBC % 0, Differential Comment SCANNED, Diff Path Review May foll, Platelet Estimate ADEQUATE, RBC Morphology NORM C+C 04/27/20 17:35: Sodium 136, Potassium 3.5, Chloride 103, Carbon Dioxide 24.0, Anion Gap 9, BUN 7, Creatinine 0.73, Estim Creat Clear Calc 81.38, Est GFR (MDRD) Af Amer 108, Est GFR (MDRD) Non-Af 90, BUN/Creatinine Ratio 9.5 L, Glucose 110 H, Calcium 8.7, Total Bilirubin 1.00, AST 76 H, ALT 212 H, Alkaline Phosphatase 272 H, Total Protein 7.2, Albumin 2.7 L, Globulin 4.5 H, Albumin/Globulin Ratio 0.6 L 03/22/20 17:35: Lactic Acid 1.5 03/22/20 17:35: Urine Color Yellow, Urine Clarity Clear, Urine pH 6.5, Ur Specific [place] 1.005, Urine Protein 30 H, Urine Glucose (UA) Normal, Urine Ketones 15 H, Urine Occult Blood 150 H, Urine Nitrite Negative, Urine Bilirubin Negative, Urine Urobilinogen Normal, Ur Leukocyte Esterase 500 H, Urine RBC 0-5 SEEN, Urine WBC 5-10 SEEN, Ur Squamous Epith Cells 0 SEEN, Urine Bacteria 1+, Urine Mucus 0 SEEN Assessment/Plan All Active Problems (Last Updated 10/24/18 @ 15:[address] Bozena Fuentes MD) Pyelonephritis of right kidney (Acute) Plan 1. Acute pyelonephritis?admit to general medical floor, IV D5 half-normal saline with 20 of K at 125 cc/h, Rocephin IV 2 g every 24 hours, repeat CBC BMP in the morning, morphine 2 to 4 mg IV every 2 to 3 hours as needed for pain, Zofran 4 mg IV every 8 hours as needed nausea, encourage p.o. intake as patient is able. 2. DVT prophylaxis?SCDs 3. We will hold routine medications as there are not many at this time Inpatient E&M: 62144 Init Hosp L3
[2020-03-22 20:28] VITALS: BMI 24.0
[2020-03-22 20:37] VITALS: BMI 24.0
[2020-03-22 20:42] VITALS: BP 103/65; PULSE 89; RESP 16; TEMP 37.2; O2SAT 98
[2020-03-22] MEDS: 0.9% Saline Lock 10 ML Syringe IV (21:16)
[2020-03-22] MEDS: Ceftriaxone 1 GM/50 ML BAG IV (21:23)
[2020-03-23] VITALS (7 sets, daily range): BP systolic 88–105; BP diastolic 53–70; PULSE 79–102; RESP 16–20; TEMP 37.1–39.4; O2SAT 93–98
[2020-03-23] MEDS: Morphine 4 MG/ML Syringe IV ×3 (00:07→22:37)
[2020-03-23] MEDS: Ondansetron 4 MG/2 ML Vial IV ×2 (03:14→14:40)
[2020-03-23] MEDS: Acetaminophen 325 MG Tablet 650 MG PO ×2 (04:52→14:41)
[2020-03-23 06:17] LABS: Absolute Lymphocyte Count 0.73 X10^3/uL (0.83-4.51); Absolute Neutrophil Count 11.4 X10^3/uL (2.0-7.7); Basophil# 0.04 X10^3/uL; Basophil% 0.3 % (0-1); Eosinophil# 0.01 X10^3/uL; Eosinophils% 0.1 % (0-5); Hematocrit 30.6 % (37-47); Hemoglobin 10.4 g/dL (12.0-15.0); Lymphocyte # 0.73 X10^3/ul (4.0); Lymphocyte % 5.3 % (19-41); Mean Corpuscular Hgb 31.3 pg (27.0-32.0); Mean Corpuscular Volume 92.2 fL (81-99); Monocyte# 1.47 X10^3/uL; Monocyte% 10.7 % (0-10); NRBC Flagged by Analyzer 0 % (0-5); Neutrophil # 11.37 X10^3/uL (2.7-7.7); Neutrophil % 82.9 % (47-70); Platelet Count 220 K/mm3 (150-450); RBC Distribution Width CV 13.2 % (11.6-14.6); RBC Distribution Width SD 44.5 fl (35.1-43.9); Red Blood Count 3.32 M/mm3 (4.2-5.4); White Blood Count 13.7 K/mm3 (4.4-11.0)
[2020-03-23 06:41] LABS: Anion Gap 5 (5-15); BUN 8 mg/dL (7-18); BUN/Creat Ratio 9.8 RATIO (10-20); Calcium,Total 7.7 mg/dL (8.5-10.1); Chloride 104 mmol/L (98-107); Creatinine, Serum 0.82 mg/dL (0.55-1.02); EST Glomerular Filtration Rate 79 mL/min (>60); Est Glom Filt Rate - Afr Amer 95 mL/min (>60); Estimated Creatinine Clearance 72.45 ml/min; Glucose 151 mg/dL (74-106); Potassium 3.5 mmol/L (3.5-5.1); Sodium Level 134 mmol/L (136-145)
[2020-03-23] MEDS: 0.9% Normal Saline 1,000 ML 999 ML IV (06:41)
--- NOTE | 2020-03-23 09:12 | PN_ITS ---
Patient Problems: Active and Suspected Problems (Last Updated 10/24/18 @ 15:[address] Bozena Fuentes MD) Pyelonephritis of right kidney (Acute) Subjective: Feels better than when she came in, though she still does not feel great still has significant right-sided flank pain Vitals/I&O's: Vital Signs Temp Pulse Resp BP Pulse Ox 99.8 F H 92 18 94/58 L 93 03/23/20 06:20 03/23/20 06:20 03/23/20 06:20 03/23/20 06:20 03/23/20 06:20 Oxygen Delivery Method Room Air Weight: 139 lb 15.896 oz Body Mass Index (BMI) 24.0 Intake and Output for Last 24 Hours 03/21/20 03/22/20 03/23/20 23:59 23:59 23:59 Intake Total 1150 / 1150 1162.50 / 1162.50 Output Total 400 / 400 200 / 200 Balance 750 / 750 962.50 / 962.50 General: Alert, Oriented x3, Cooperative, No apparent distress HEENT: Atraumatic, PERRLA, EOMI, Normocephalic Oral: Dry Mucosa Neck: Supple, No JVD Lungs: Clear to auscultation, Normal air movement, No rhonchi, No wheeze, No rales Cardiovascular: Regular rate, Regular Rhythm, Normal S1, Normal S2, No murmurs Abdomen: Soft, Non-Distended, No Hepato-splenomegaly, Tender - Right CVA Extremities: No edema, Capillary Refill Less than 3 Seconds Skin: No rashes, No breakdown Neurological: Neuro grossly intact, Sensory exam intact to light touch and pain Psych/Mental Status: Normal Affect, Appropriate Laboratory Results 03/22/20 17:35: WBC 16.1 H, RBC 3.82 L, Hgb 11.7 L, Hct 35.2 L, MCV 92.1, MCH 30.6, MCHC 33.2, RDW Std Deviation 43.6, RDW Coeff of Christa 13.0, Plt Count 197, MPV 11.0, Immature Gran % (Auto) 0.700, Neut % (Auto) 82.6 H, Lymph % (Auto) 6.0 L, [place] % (Auto) 10.3 H, Eos % (Auto) 0.1, Baso % (Auto) 0.3, Absolute Neuts (auto) 13.3 H, Absolute Lymphs (auto) 0.97, Nucleated RBC % 0, Differential Comment SCANNED, Diff Path Review March, Platelet Estimate ADEQUATE, RBC Morphology NORM C+C 03/22/20 17:35: Sodium 136, Potassium 3.5, Chloride 103, Carbon Dioxide 24.0, Anion Gap 9, BUN 7, Creatinine 0.73, Estim Creat Clear Calc 81.38, Est GFR (MDRD) Af Amer 108, Est GFR (MDRD) Non-Af 90, BUN/Creatinine Ratio 9.5 L, Glucose 110 H, Calcium 8.7, Total Bilirubin 1.00, AST 76 H, ALT 212 H, Alkaline Phosphatase 272 H, Total Protein 7.2, Albumin 2.7 L, Globulin 4.5 H, Al bumin/Globulin Ratio 0.6 L 03/22/20 17:35: Lactic Acid 1.5 03/22/20 17:35: Urine Color Yellow, Urine Clarity Clear, Urine pH 6.5, Ur Specific [place] 1.005, Urine Protein 30 H, Urine Glucose (UA) Normal, Urine Ketones 15 H, Urine Occult Blood 150 H, Urine Nitrite Negative, Urine Bilirubin Negative, Urine Urobilinogen Normal, Ur Leukocyte Esterase 500 H, Urine RBC 0-5 SEEN, Urine WBC 5-10 SEEN, Ur Squamous Epith Cells 0 SEEN, Urine Bacteria 1+, Urine Mucus 0 SEEN 03/23/20 06:09: WBC 13.7 H, RBC 3.32 L, Hgb 10.4 L, Hct 30.6 L, MCV 92.2, MCH 31.3, MCHC 34.0, RDW Std Deviation 44.5 H, RDW Coeff of Christa 13.2, Plt Count 220, MPV 10.0, Immature Gran % (Auto) 0.700, Neut % (Auto) 82.9 H, Lymph % (Auto) 5.3 L, [place] % (Auto) 10.7 H, Eos % (Auto) 0.1, Baso % (Auto) 0.3, Absolute Neuts (auto) 11.4 H, Absolute Lymphs (auto) 0.73 L, Nucleated RBC % 0 03/23/20 06:09: Sodium 134 L, Potassium 3.5, Chloride 104, Carbon Dioxide 25.0, Anion Gap 5, BUN 8, Creatinine 0.82, Estim Creat Clear Calc 72.45, Est GFR (MDRD) Af Amer 95, Est GFR (MDRD) Non-Af 79, BUN/Creatinine Ratio 9.8 L, Glucose 151 H, Calcium 7.7 L Current Medications Acetaminophen (Tylenol) 650 mg PO Q6H PRN PRN PRN Reason: Pain Score 1-10/Temp > 100.7 F Last Admin: 03/23/20 04:52 Dose: 650 mg Documented by: Sodium Chloride () 250 mls @ 15 mls/hr IV .[id number] PRN PRN Reason: Saline Flush Sodium Chloride () 250 mls @ 15 mls/hr IV .[id number] PRN PRN Reason: Additional IVPB Infusion Potassium Chloride/Dextrose/Sod Cl () 1,000 mls @ 125 mls/hr IV .Q8H [facility] Last Infusion: 03/23/20 08:06 Dose: 125 mls/hr Documented by: Ceftriaxone Sodium (Rocephin) 1 gm in 50 mls @ 100 mls/hr IV Q12 [facility] Last Infusion: 03/22/20 21:53 Dose: Infused Documented by: Morphine Sulfate () 4 mg IV Q3H PRN PRN PRN Reason: Pain Score 6-10/10 Last Admin: 03/23/20 07:20 Dose: 2 mg Documented by: Ondansetron HCl (Zofran) 4 mg IV Q8H PRN PRN PRN Reason: NAUSEA/VOMITING Last Admin: 03/23/20 03:14 Dose: 4 mg Documented by: Oxycodone HCl (Oxyir) 5 mg PO Q4H PRN PRN PRN Reason: Pain Score 4-5/10 Sodium Chloride () 10 - 40 ml IV UD PRN PRN Reason: SALINE FLUSH Last Admin: 03/22/20 21:16 Dose: 20 ml Documented by: STROKE Vital Signs/Narrative: Vital Signs Temp Pulse Resp BP Pulse Ox 03/23/20 06:20 99.8 F H 92 18 94/58 L 93 Medical Necessity - Tobacco Use Smoking Status: Never smoker Assessment/Plan All Active Problems (Last Updated 10/24/18 @ 15:[address] Bozena Fuentes MD) Pyelonephritis of right kidney (Acute) 1. Acute pyelonephritis -Urine cultures of blood cultures are pending -Continue with IV fluids -Continue with Rocephin -There is significant perinephric stranding on the right on CT scan 2. History of migraines -Stable at the moment -Imitrex is available if necessary DVT: SCDs Inpatient E&M: 40823 Subs Hosp L2
[2020-03-23] MEDS: Ceftriaxone 1 GM/50 ML BAG IV ×2 (09:42→22:32)
--- NOTE | 2020-03-23 09:55 | CASEMGMT ---
RN TAMIR Face to Face with patient for initial transition planning/care coordination assessment. RN CM introduced self and role at [facility]. Patient lying in bed, alert and oriented. Patient willing to participate in assessment and is able to answer all questions appropriately. Care providers, pharmacy, and demographics verified. Patient wishes to discharge home, denies need for home health at this time. Patient states he has no further needs or concerns at this time. CM to follow for discharge planning needs that may arise. PCP: Giancarlo Specialists: SOHAIL Fuentes Preferred Pharmacy: [facility] Insurance: [place] Prescription Benefit: yes Living Will/HPOA: Living will only LNOK: Son Living Arrangements: Patient lives alone in single story home with 3 steps to enter the home. Transportation: Self/family DME/HHC: Patient denies any DME or HHC previously Disposition Plan: Patient to discharge home with family support and follow-up plans in place. Khadra ROMERO, RN, CM
[2020-03-23] MEDS: proCHLORPERazine 10 MG/2 ML Vial IV (10:45)
[2020-03-23 12:22] LABS: Pathologist Review Reviewed
[2020-03-23] MEDS: Rizatriptan Benzoate 10 MG Tablet PO (15:09)
[2020-03-23] MEDS: Benzonatate 100 MG Capsule PO (20:14)
[2020-03-23] MEDS: 0.9% Saline Lock 10 ML Syringe IV (22:33)
[2020-03-24] VITALS (8 sets, daily range): BP systolic 102–120; BP diastolic 50–69; PULSE 82–90; RESP 18–22; TEMP 37.2–38; O2SAT 91–96
[2020-03-24] MEDS: Rizatriptan Benzoate 10 MG Tablet PO ×3 (02:04→15:40)
[2020-03-24 06:45] LABS: Absolute Lymphocyte Count 1.24 X10^3/uL (0.83-4.51); Absolute Neutrophil Count 8.3 X10^3/uL (2.0-7.7); Basophil# 0.04 X10^3/uL; Basophil% 0.4 % (0-1); Eosinophil# 0.05 X10^3/uL; Eosinophils% 0.5 % (0-5); Hematocrit 29.4 % (37-47); Hemoglobin 9.8 g/dL (12.0-15.0); Lymphocyte # 1.24 X10^3/ul (4.0); Lymphocyte % 11.8 % (19-41); Mean Corp Hgb Conc 33.3 g/dL (32-36); Mean Corpuscular Hgb 30.7 pg (27.0-32.0); Mean Corpuscular Volume 92.2 fL (81-99); Mean Platelet Vol. 9.9 fl (6.2-12.0); Monocyte# 0.81 X10^3/uL; Monocyte% 7.7 % (0-10); NRBC Flagged by Analyzer 0 % (0-5); Neutrophil # 8.28 X10^3/uL (2.7-7.7); Neutrophil % 78.6 % (47-70); Platelet Count 259 K/mm3 (150-450); RBC Distribution Width CV 13.5 % (11.6-14.6); RBC Distribution Width SD 45.7 fl (35.1-43.9); Red Blood Count 3.19 M/mm3 (4.2-5.4); White Blood Count 10.5 K/mm3 (4.4-11.0)
[2020-03-24 07:12] LABS: Anion Gap 4 (5-15); BUN 4 mg/dL (7-18); BUN/Creat Ratio 6.3 RATIO (10-20); Calcium,Total 7.8 mg/dL (8.5-10.1); Chloride 107 mmol/L (98-107); Creatinine, Serum 0.63 mg/dL (0.55-1.02); EST Glomerular Filtration Rate 106 mL/min (>60); Est Glom Filt Rate - Afr Amer 129 mL/min (>60); Glucose 112 mg/dL (74-106); Potassium 3.4 mmol/L (3.5-5.1); Sodium Level 137 mmol/L (136-145)
--- NOTE | 2020-03-24 08:14 | NURSING ---
PT C/O SOB, DRY COUGH CRACKLES RLL. DR Lockett NOTIFIED. REVIEWED THIS AM'S LABS/VITAL SIGNS ETC. STATES PT CAN PROBABLY BE DC'D LATER TODAY.
[2020-03-24] MEDS: oxyCODONE 5 MG Tablet PO ×2 (08:28→21:41)
--- NOTE | 2020-03-24 09:50 | RAD_ITS ---
STUDY: X-RAY CHEST REASON FOR EXAM: Female, 49 years old. Dry cough with chest pain on and off for several weeks TECHNIQUE: Single AP portable view of the chest. COMPARISON: None. FINDINGS: Patchy bibasilar infiltrates worse at the left lung base with blunting of both costophrenic angles. Normal size heart. Normal mediastinum and jonathon. Normal visualized pulmonary arteries. Normal visualized aortic arch and descending thoracic aorta. Normal visualized thoracic spine. Normal visualized ribs, clavicles, and shoulders. There is no demonstrated abnormality of the visualized soft tissue structures of the upper abdomen. RAD/Chest 1 View (Portable) IMPRESSION: Patchy bibasilar infiltrates worse on the left side with blunting of both costophrenic angles. Electronically Signed: Dangelo Mondragon, at 10:31 EDT , Service support ,
[2020-03-24] MEDS: guaiFENesin Dm 10 ML UDC PO ×2 (10:03→21:41)
[2020-03-24] MEDS: 0.9% Saline Lock 10 ML Syringe IV ×3 (10:04→15:43)
[2020-03-24 10:17] LABS: AST(SGOT) 63 U/L (15-37); Alanine Aminotransfer ALT/SGPT 146 U/L (13-56); Albumin, Serum 2.1 g/dL (3.2-5.0); Alkaline Phosphatase 233 U/L (45-117); Bilirubin, Direct 0.38 mg/dL (0.00-0.30); Globulin 3.9 g/dL (2.2-4.2)
--- NOTE | 2020-03-24 10:58 | NURSING ---
Late entry - 1015 Dr Lockett here seeing pt. New orders received.
--- NOTE | 2020-03-24 11:05 | NURSING ---
RESTING IN BED WITH EYES CLOSED
--- NOTE | 2020-03-24 11:21 | NURSING ---
report called to Sriram on MS2
--- NOTE | 2020-03-24 12:36 | PN_ITS ---
Patient Problems: Active and Suspected Problems (Last Updated 10/24/18 @ 15:[address] Bozena Fuentes MD) Pyelonephritis of right kidney (Acute) Subjective: Patient was seen and examined today, her white blood cell count today normalized, patient complained at the time of my examination today of a cough and severe headache-she has a history of migraines and she states she gets a migraine headache once or twice per month. Patient states that she generally feels unwell today, urine culture resulted positive for E. coli which was sensitive to many different antibiotics. Patient complained of shortness of breath, her pulse ox on room air was 91 although she was placed on oxygen last night according to her medical record. - Physical Exam Vitals/I&O's: Vital Signs Temp Pulse Resp BP Pulse Ox 99.2 F H 85 18 107/61 91 03/24/20 07:28 03/24/20 07:28 03/24/20 09:22 03/24/20 07:03/24/20 09:22 Oxygen Flow Rate (L/min) 3 Oxygen Delivery Method Room Air Weight: 63.5 kg Body Mass Index (BMI) 24.0 Intake and Output for Last 24 Hours 03/22/20 03/23/20 03/24/20 23:59 23:59 23:59 Intake Total 1150 / 1150 4541.67 / 5141.67 1214.58 / 1214.58 Output Total 400 / 400 1400 / 1700 800 / 800 Balance 750 / 750 3141.67 / 3441.67 414.58 / 414.58 General: Alert, Oriented x3, Cooperative, Well developed, - - Patient appears uncomfortable due to severe headache HEENT: Atraumatic, PERRLA, EOMI, Normocephalic Oral: Moist Mucosa Neck: Supple, No JVD, Trachea Midline, Thyroid Normal Size and Texture Lungs: Clear to auscultation, Normal air movement, No rhonchi, No wheeze, No rales Cardiovascular: Regular rate, Regular Rhythm, Normal S1, Normal S2, No murmurs, PMI Normal, No rub noted Abdomen: Bowel Sounds Present, Soft, Non Tender, Non-Distended, No hernias noted Extremities: No clubbing, No cyanosis, No edema, Capillary Refill Less than 3 Seconds Skin: No rashes, No breakdown Musculoskeletal: No Tenderness to Palpation of Joints or Extremities Neurological: Cranial nerves II-XII grossly intact, Neuro grossly intact, Sensory exam intact to light touch and pain, Coordination normal Psych/Mental Status: Normal Affect, Appropriate, Alert and oriented to time, place, person, mood and affect Microbiology Past 72 Hours 03/22/20 17:35 Urine, Clean Catch Urine Culture - Final Presumptive E. coli Laboratory Results 03/24/20 06:35: WBC 10.5, RBC 3.19 L, Hgb 9.8 L, Hct 29.4 L, MCV 92.2, MCH 30.7, MCHC 33.3, RDW Std Deviation 45.7 H, RDW Coeff of Christa 13.5, Plt Count 259, MPV 9.9, Immature Gran % (Auto) 1.000 H, Neut % (Auto) 78.6 H, Lymph % (Auto) 11.8 L , [place] % (Auto) 7.7, Eos % (Auto) 0.5, Baso % (Auto) 0.4, Absolute Neuts (auto) 8.3 H, Absolute Lymphs (auto) 1.24, Nucleated RBC % 0 03/24/20 06:35: Sodium 137, Potassium 3.4 L, Chloride 107, Carbon Dioxide 26.0, Anion Gap 4 L, BUN 4 L, Creatinine 0.63, Estim Creat Clear Calc 94.30, Est GFR (MDRD) Af Amer 129, Est GFR (MDRD) Non-Af 106, BUN/Creatinine Ratio 6.3 L, Glucose 112 H, Calcium 7.8 L 03/24/20 06:35: Total Bilirubin 0.60, Direct Bilirubin 0.38 H, AST 63 H, ALT 146 H, Alkaline Phosphatase 233 H, Total Protein 6.0 L, Albumin 2.1 L, Globulin 3.9 Current Medications Acetaminophen (Tylenol) 650 mg PO Q6H PRN PRN PRN Reason: Pain Score 1-10/Temp > 100.7 F Last Admin: 03/23/20 14:41 Dose: 650 mg Documented by: Benzonatate (Tessalon Perle) 100 mg PO TID PRN PRN PRN Reason: COUGH Last Admin: 03/23/20 20:14 Dose: 100 mg Documented by: Guaifenesin (Robitussin Dm) 10 ml PO Q6H PRN PRN PRN Reason: COUGH Last Admin: 03/24/20 10:03 Dose: 10 ml Documented by: Heparin Sodium (Porcine) (Heparin Na) 5,000 unit SC Q12 NAT Sodium Chloride () 250 mls @ 15 mls/hr IV .[id number] PRN PRN Reason: Saline Flush Sodium Chloride () 250 mls @ 15 mls/hr IV .[id number] PRN PRN Reason: Additional IVPB Infusion Ceftriaxone Sodium (Rocephin) 1 gm in 50 mls @ 100 mls/hr IV Q24 NAT Azithromycin 500 mg/ Dextrose 255 mls @ 250 mls/hr IV Q24 NAT Morphine Sulfate () 4 mg IV Q3H PRN PRN PRN Reason: Pain Score 6-10/10 Last Admin: 03/23/20 22:37 Dose: 2 mg Documented by: Ondansetron HCl (Zofran) 4 mg IV Q8H PRN PRN PRN Reason: NAUSEA/VOMITING Last Admin: 03/23/20 14:40 Dose: 4 mg Documented by: Oxycodone HCl (Oxyir) 5 mg PO Q4H PRN PRN PRN Reason: Pain Score 4-5/10 Last Admin: 03/24/20 08:28 Dose: 5 mg Documented by: Prochlorperazine Edisylate (Compazine Iv) 10 mg IV Q6H PRN PRN PRN Reason: NAUSEA/VOMITING Last Admin: 03/23/20 10:45 Dose: 10 mg Documented by: Rizatriptan Benzoate (Maxalt) 10 mg PO .X1 PRN PRN PRN Reason: MIGRAINE MOULTON Last Admin: 03/24/20 02:04 Dose: 10 mg Documented by: Sodium Chloride () 10 - 40 ml IV UD PRN PRN Reason: SALINE FLUSH Last Admin: 03/24/20 10:04 Dose: 10 ml Documented by: Medical Necessity - Tobacco Use Smoking Status: Never smoker Assessment/Plan All Active Problems (Last Updated 10/24/18 @ 15:[address] Bozena Fuentes MD) Pyelonephritis of right kidney (Acute) #1 bilateral pulmonary infiltrates suggestive of either bilateral pneumonia or coronavirus infection-I did a stat portable chest x-ray on the patient this morning, it showed bilateral infiltrates suggestive of either pneumonia or coronavirus infection-I explained this to the patient and told her that if we were going to rule coronavirus out she would have to stay in the hospital until the test comes back or her breathing stabilized. Patient is okay with this, she will be transferred to [place] [id number]. In the meantime of ordered a respiratory panel, a urinary Legionella antigen and streptococcal antigen and I have extended her antibiotic coverage to include Zithromax along with her Rocephin. #2 acute pyelonephritis secondary to E. coli-again patient will remain on Rocephin #3 cephalgia-secondary either to migraine or sequela from coronavirus-patient was given Maxalt this morning Inpatient E&M: 89397 Subs Hosp L2
[2020-03-24] MEDS: Ceftriaxone 1 GM/50 ML BAG IV (15:41)
[2020-03-24] MEDS: Heparin Injection (Vial) 5,000 UNIT/ML VIAL 5000 UNIT SC (21:40)
[2020-03-25 02:28] VITALS: BP 106/63; PULSE 89; RESP 22; TEMP 37; O2SAT 96
[2020-03-25] MEDS: oxyCODONE 5 MG Tablet PO (02:33)
[2020-03-25] MEDS: Rizatriptan Benzoate 10 MG Tablet PO (04:58)
[2020-03-25] MEDS: guaiFENesin Dm 10 ML UDC PO ×2 (05:00→10:59)
--- NOTE | 2020-03-25 05:55 | RAD_ITS ---
HISTORY: SOB AND COUGH ADDITIONAL HISTORY: None provided. TECHNIQUE: Frontal chest radiograph. Number of images including paperwork: 1 COMPARISON: 03/24/2020 FINDINGS: LUNGS AND PLEURA: Small bilateral pleural effusions. Minimal decrease in bibasilar opacities. No dense consolidation. No pneumothorax. CARDIAC SILHOUETTE: Unremarkable. MEDIASTINUM AND MEGAN: Unremarkable. UPPER ABDOMEN: Unremarkable. SKELETON AND SOFT TISSUES: No acute findings. OTHER DEVICES AND HARDWARE: None. RAD/Chest 1 View (Portable) IMPRESSION: Minimal decrease in bibasilar infiltrates. at 0328 Reported and signed by: Seble Bueno MD Electronically Signed: Seble Bueno MD at 3:28 EDT Tel , Service support ,
[2020-03-25 08:24] VITALS: BP 119/73; PULSE 91; RESP 16; TEMP 36.7; O2SAT 94
[2020-03-25] MEDS: Acetaminophen 325 MG Tablet 650 MG PO (08:37)
[2020-03-25] MEDS: 0.9% Saline Lock 10 ML Syringe IV (09:56)
[2020-03-25] MEDS: Ceftriaxone 1 GM/50 ML BAG IV (09:56)
[2020-03-25] MEDS: Heparin Injection (Vial) 5,000 UNIT/ML VIAL 5000 UNIT SC (10:55)
--- NOTE | 2020-03-25 11:59 | DCINST_ITS ---
- Discharge Diagnoses Current Active Problems: Current Active and Chronic Problems (Last Updated 10/24/18 @ 15:[address] Bozena Fuentes MD) Pyelonephritis of right kidney (Acute) You will use the following diet at home:: No restrictions Discharge Activity: Return to Normal Activity - ease back into normal routine. No intense exercise (e.g., running while on levofloxacin). Call your doctor if you observe: Fever of 101 or Higher, Shortness of breath Allergies/Adverse Reactions: Allergies No Known Allergies Allergy (Verified 03/22/20 16:06) Medications to take at Discharge Sumatriptan Succinate [Imitrex] 50 mg PO .X1 PRN 09/24/14 Acetaminophen 2 tab PO Q8H PRN #1 tablet 03/25/20 Albuterol Inhaler [Ventolin Hfa] 2 puff INHALATION Q4H PRN PRN #1 inhaler 03/25/20 Ibuprofen 3 tab PO Q6H PRN #1 tablet 03/25/20 Oxycodone [Oxyir] 5 mg PO Q6H PRN 3 Days #12 tab 03/25/20 Prednisone [Deltasone] 2 tab PO DAILY #8 tab 03/25/20 levoFLOXacin tablet [Levaquin tablet] 750 mg PO DAILY #5 tab 03/25/20 The following prescriptions were given: Acetaminophen 2 tab PO Q8H PRN #1 tablet PRN Reason: Pain Or Fever Prednisone [Deltasone] 2 tab PO DAILY #8 tab Transmission Status: Pending to [id number] Ibuprofen 3 tab PO Q6H PRN #1 tablet PRN Reason: Pain Or Fever levoFLOXacin tablet [Levaquin tablet] 750 mg PO DAILY #5 tab Transmission Status: Pending to [id number] Oxycodone [Oxyir] 5 mg PO Q6H PRN 3 Days #12 tab PRN Reason: Pain Score 4-5/10 Transmission Status: Received by [id number] Albuterol Inhaler [Ventolin Hfa] 2 puff INHALATION Q4H PRN PRN #1 inhaler PRN Reason: Shortness Of Breath Primary Care Physician: Bambi Mondragon DO [Primary Care Provider] - Within 1 Week Test Results: Test results from this visit will be discussed in further detail at your follow- up appointment, if applicable. Please Follow Up With: Fabián Lerma MD - Pulmonology. When: 1-2 months. Or another gauge machine operator. Proposed Discharge Date: 03/25/20
--- NOTE | 2020-03-25 12:01 | PCM.DC.SUM ---
Discharge Date and Diagnosis - Problem List Patient Problems: Active and Suspected Problems (Last Updated 10/24/18 @ 15:[address] Bozena Fuentes MD) Pyelonephritis of right kidney (Acute) Date of Admission: 03/22/20 Date of Discharge: 03/25/20 - Primary Discharge Diagnosis Active and Suspected Problems (Last Updated 10/24/18 @ 15:[address] Bozena Fuentes MD) Sepsis Acute pyelonephritis Acute pneumonia, possible pneumococcal Possible acute exacerbation of asthma Hospital Course and Treatment Imaging Results: 03/25/20 05:55 Chest 1 View (Portable) [RAD] AM (NON MEDS) Clinical Impression(s) from Imaging Studies Abdomen/Pelvis CT 03/22/20 16:19 IMPRESSION: Findings most consistent with right pyelonephritis. Correlate with physical exam and urinalysis. Electronically Signed: Frankie Hull MD at 18:51 EDT , Service support , Chest X-Ray 03/24/20 09:50 IMPRESSION: Patchy bibasilar infiltrates worse on the left side with blunting of both costophrenic angles. Electronically Signed: Dangelo Mondragon, at 10:31 EDT , Service support , Chest X-Ray 03/25/20 05:55 IMPRESSION: Minimal decrease in bibasilar infiltrates. at 0328 Reported and signed by: Seble Bueno MD Electronically Signed: Seble Bueno MD at 3:28 EDT Tel , Service support , Operations: None Procedures: None Summary of Care Provided: The patient is a 49 year old F presents with fever, nausea and abdominal pain. Patient was having right-sided flank pain. Symptoms began a week ago and just progressively got worse. Patient presented with sepsis and was found to have a acute right pyelonephritis. Patient was started on ceftriaxone. While she was here she became short of breath and did have an x-ray that showed new infiltrates with that were not present on her CT of the abdomen pelvis which did catch the lower parts of her lungs. Concern was for developing pneumonia or even COVID. Patient was started on Rocephin and azithromycin and has improved. Patient still with some flank pain but overall better. Patient stated that she waited to be evaluated for this flank pain. Patient was checked for COVID-19 and results are still pending. Patient advised to quarantine herself from others in her household though she is getting around them for she and them both wear masks. And the COVID test is negative then she can resume normal interactions but if it is positive that she would need to wait 7 days after symptoms began which was on the 29th or 72 hours after last fever before releasing those restrictions whenever can last. Patient will be discharged with Levaquin. Patient is active when she is well and will be advised to avoid intense exercise while she is on Levaquin. Patient was ambulated and pulse ox was normal at around 93%. Patient states that she has issues where she does get short of breath at times due to possible chemical exposure and other things. Patient is never been formally evaluated for asthma. Have advised patient to follow-up with pulmonology for asthma exacerbation with pulmonary function tests as outpatient when she is well. Patient will be discharged with prednisone taper as patient states that she already has albuterol metered-dose inhalers at home. [] Patient Problems: Active and Suspected Problems (Last Updated 10/24/18 @ 15:[address] Bozena Fuentes MD) Pyelonephritis of right kidney (Acute) - Physical Exam Vitals/I&O's: Vital Signs Temp Pulse Resp BP Pulse Ox 36.7 C 91 16 119/73 94 03/25/20 08:24 03/25/20 08:24 03/25/20 08:24 03/25/20 08:24 03/25/20 08:24 Oxygen Flow Rate (L/min) 2 Oxygen Delivery Method Room Air Weight: 63.5 kg Body Mass Index (BMI) 24.0 Intake and Output for Last 24 Hours 03/23/20 03/24/20 03/25/20 23:59 23:59 23:59 Intake Total 4541.67 / 5141.67 2799.58 / 2799.58 850 / 850 Output Total 1400 / 1700 1150 / 1150 900 / 900 Balance 3141.67 / 3441.67 1649.58 / 1649.58 -50 / -50 General: Alert, No apparent distress HEENT: Atraumatic, Normocephalic Oral: Moist Mucosa, No Gingival or Mucosal Lesions/ Ulcerations Neck: No Nodes, Trachea Midline Lungs: Clear to auscultation, Normal air movement, No rhonchi, No wheeze Cardiovascular: Regular rate, Regular Rhythm, Normal S1, Normal S2, No murmurs Abdomen: Bowel Sounds Present, Soft, Non Tender, Non-Distended, No Hepato-splenomegaly Extremities: No edema, No Calf Tenderness Psych/Mental Status: Appropriate, Anxious Microbiology Past 72 Hours 03/22/20 16:50 Blood Culture (Wb) - Anticubital Left Blood Culture - Preliminary No growth in 48 hours. 03/22/20 17:35 Blood Culture (Wb) - Anticubital Right Blood Culture - Preliminary No growth in 48 hours. 03/24/20 13:22 Mucosa - Nose Respiratory Panel (PCR) - Final 03/24/20 14:39 Urine, Clean Catch Legionella Antigen - Final 03/24/20 14:39 Urine, Clean Catch Streptococcus pneumoniae Antigen (M - Final 03/22/20 17:35 Urine, Clean Catch Urine Culture - Final Presumptive E. coli Laboratory Results 03/24/20 13:20: COVID-19 ([facility]) Pending Current Medications Acetaminophen (Tylenol) 650 mg PO Q6H PRN PRN PRN Reason: Pain Score 1-10/Temp > 100.7 F Last Admin: 03/25/20 08:37 Dose: 650 mg Documented by: Albuterol Sulfate (Ventolin Hfa (Sp)) 2 puff INHALATION Q2H PRN PRN PRN Reason: SOB &/OR WHEEZING Benzonatate (Tessalon Perle) 100 mg PO TID PRN PRN PRN Reason: COUGH Last Admin: 03/23/20 20:14 Dose: 100 mg Documented by: Guaifenesin (Robitussin Dm) 10 ml PO Q6H PRN PRN PRN Reason: COUGH Last Admin: 03/25/20 10:59 Dose: 10 ml Documented by: Heparin Sodium (Porcine) (Heparin Na) 5,000 unit SC Q12 NAT Last Admin: 03/25/20 10:55 Dose: 5,000 unit Documented by: Sodium Chloride () 250 mls @ 15 mls/hr IV .[id number] PRN PRN Reason: Saline Flush Sodium Chloride () 250 mls @ 15 mls/hr IV .[id number] PRN PRN Reason: Additional IVPB Infusion Ceftriaxone Sodium (Rocephin) 1 gm in 50 mls @ 100 mls/hr IV Q24 NAT Last Infusion: 03/25/20 10:29 Dose: Infused Documented by: Azithromycin 500 mg/ Dextrose 255 mls @ 250 mls/hr IV Q24 NAT Last Admin: 03/25/20 10:55 Dose: 250 mls/hr Documented by: Miscellaneous Information (Pocket Chamber) 1 each INHALATION Q2H PRN PRN PRN Reason: Albuterol MDI Morphine Sulfate () 4 mg IV Q3H PRN PRN PRN Reason: Pain Score 6-10/10 Last Admin: 03/23/20 22:37 Dose: 2 mg Documented by: Ondansetron HCl (Zofran) 4 mg IV Q8H PRN PRN PRN Reason: NAUSEA/VOMITING Last Admin: 03/23/20 14:40 Dose: 4 mg Documented by: Oxycodone HCl (Oxyir) 5 mg PO Q4H PRN PRN PRN Reason: Pain Score 4-5/10 Last Admin: 03/25/20 02:33 Dose: 5 mg Documented by: Prochlorperazine Edisylate (Compazine Iv) 10 mg IV Q6H PRN PRN PRN Reason: NAUSEA/VOMITING Last Admin: 03/23/20 10:45 Dose: 10 mg Documented by: Rizatriptan Benzoate (Maxalt) 10 mg PO .X1 PRN PRN PRN Reason: MIGRAINE MOULTON Last Admin: 03/25/20 04:58 Dose: 10 mg Documented by: Sodium Chloride () 10 - 40 ml IV UD PRN PRN Reason: SALINE FLUSH Last Admin: 03/25/20 09:56 Dose: 10 ml Documented by: Discharge Diet: No Restrictions Discharge Activity: Return to Normal Activity - ease back into normal routine. No intense exercise (e.g., running while on levofloxacin). Call your doctor if you observe: Fever of 101 or Higher, Shortness of breath Home Medications: Medications to take at Discharge Sumatriptan Succinate [Imitrex] 50 mg PO .X1 PRN 09/24/14 Acetaminophen 2 tab PO Q8H PRN #1 tablet 03/25/20 Albuterol Inhaler [Ventolin Hfa] 2 puff INHALATION Q4H PRN PRN #1 inhaler 03/25/20 Ibuprofen 3 tab PO Q6H PRN #1 tablet 03/25/20 Oxycodone [Oxyir] 5 mg PO Q6H PRN 3 Days #12 tab 03/25/20 Prednisone [Deltasone] 2 tab PO DAILY #8 tab 03/25/20 levoFLOXacin tablet [Levaquin tablet] 750 mg PO DAILY #5 tab 03/25/20 Following Prescrptions Were Given to Patient: Acetaminophen 2 tab PO Q8H PRN #1 tablet PRN Reason: Pain Or Fever Prednisone [Deltasone] 2 tab PO DAILY #8 tab Transmission Status: Pending to [facility]/pharmacy #3321 Ibuprofen 3 tab PO Q6H PRN #1 tablet PRN Reason: Pain Or Fever levoFLOXacin tablet [Levaquin tablet] 750 mg PO DAILY #5 tab Transmission Status: [facility] to [facility] Oxycodone [Oxyir] 5 mg PO Q6H PRN 3 Days #12 tab PRN Reason: Pain Score 4-5/10 Transmission Status: Received by [id number] Albuterol Inhaler [Ventolin Hfa] 2 puff INHALATION Q4H PRN PRN #1 inhaler PRN Reason: Shortness Of Breath Primary Care Physician: Bambi Mondragon DO [Primary Care Provider] - Within 1 Week Please Follow Up With: Fabián Lerma MD - Pulmonology. When: 1-2 months. Or another trust and estates paralegal. Additional Instructions: Wear cloth mask around family while they are wearing cloth masks around you until COVID-19 testing is negative. If you wind up being positive for COVID-19 after 7 days when respiratory symptoms began (03/24/2020-03/29/2020) or 72 hours after last fever (whichever comes last) you leave your house and be among those in your house without face coverings (unless one of them is ill.) Disposition: Home Minutes spent on discharge:: 40 Patient Condition:: Good Medical Necessity - Tobacco Use Smoking Status: Never smoker Meaningful Use Info Meaningful Use Diagnoses (Choose all that apply): None applicable Inpatient E&M: 70192 Disch Hosp
[2020-03-25] MEDS: predniSONE 20 MG Tablet 40 MG PO (13:29)
[2020-03-25 14:02] VITALS: BP 123/64; PULSE 84; RESP 16; TEMP 37.2; O2SAT 97
--- NOTE | 2020-03-26 17:22 | NURSING ---
Patient called and notified that COVID test did result today and it was not detected (negative). Pt very thankful. Notified that she should still follow up with PCP. Pt asked what lab it was sent to- notified OD. Pt denies further questions.
== END 2020-03-25 15:10 | disposition home or self-care (01) | DRG 871 ==
LOC: ED 19:11 → MS3 20:51 → MS2 03-24 11:53
PROVIDERS: Family Medicine; Internal Medicine; Admitting Provider Family Medicine; Emergency Provider Emergency Medicine; PCP Internal Medicine
DX: A41.9 Sepsis, unspecified organism (principal); N10 Acute pyelonephritis; B96.20 Unspecified Escherichia coli [E. coli] as the cause of diseases classified elsewhere; J13 Pneumonia due to Streptococcus pneumoniae; J45.901 Unspecified asthma with (acute) exacerbation; G43.909 Migraine, unspecified, not intractable, without status migrainosus; Z79.899 Other long term (current) drug therapy; Z79.52 Long term (current) use of systemic steroids
CPT/HCPCS: 36415; 71045; 74177; 80048; 80053; 80076; 81001; 83605; 85025; 87040; 87086; 87088; 87186; 87449; 87633; 87635; 96361; 96365; 96375; 96376; 99283; J7030; J7050; Q9967; A4216; J2405; U0004

== ENCOUNTER → 2020-04-06 07:58 | Outpatient (CLI) | payer OTHER, SELFPAY ==
[2020-03-22 20:28] VITALS: BMI 24.0
--- NOTE | 2020-04-06 08:02 | US_ITS ---
STUDY: RENAL ULTRASOUND - COMPLETE REASON FOR EXAM: Female, 50 years old. PYELONEPHRITIS TECHNIQUE: Ultrasound evaluation of the kidneys was performed with real-time and static aguilar-scale imaging. COMPARISON: None. FINDINGS: RIGHT KIDNEY: Normal location of the right kidney, which is normal in size. The right kidney measures 11.5 cm x 5.3 cm x 3.9 cm. There is a normal cortex of the right kidney. The renal cortex measures 1.1 cm. There is no right renal mass or cyst. There are no right renal calculi. There is no right hydronephrosis. DISTAL RIGHT URETER: There is non-visualization of the distal right ureter. There is no demonstrated right ureterovesical junction calculus. There is no demonstrated right ureteral jet. LEFT KIDNEY: Normal location of the left kidney, which is normal in size. The left kidney measures 11.3 cm x 4.6 cm x 6.1 cm. There is a normal cortex of the left kidney. The renal cortex measures 1.7 cm. There is no left renal mass or cyst. There are no left renal calculi. There is no left hydronephrosis. DISTAL LEFT URETER: There is non-visualization of the distal left ureter. There is no demonstrated left ureterovesical junction calculus. There is no demonstrated left ureteral jet. BLADDER: The distended urinary bladder has a volume of 44 ml. There is a normal wall thickness of the distended urinary bladder. There is no demonstrated mass within the urinary bladder. There are no demonstrated bladder calculi. US/Kidney and Bladder IMPRESSION: Normal ultrasound of the kidneys and urinary bladder. Electronically Signed: Dangelo Mondragon, at 8:56 EDT , Service support ,
--- NOTE | 2020-04-06 09:20 | BI_ITS ---
MAMMOGRAPHY - BILATERAL DIAGNOSTIC REASON FOR EXAM: Female, 50 years old. Left breast lump. PERTINENT HISTORY: Non-contributory. Bilateral breast implants. TECHNIQUE: Digital bilateral breast brooke (3D mammographic acquisition) in the CC and MLO projections. 2-D mediolateral oblique (MLO) and craniocaudad (CC) views of both breasts were obtained. CAD: Full Field Digital Mammography with Computer Added Detection was performed. COMPARISON: Comparison is made with prior examination dated December 21, 2018 and May 09, 2009. FINDINGS: Breast Composition: The breasts are extremely dense, which lowers the sensitivity of mammography. There is a 7.7 mm x 1.4 cm nodule in the upper slightly lateral portion of the right breast. Stable small left retroareolar nodule. There now is evidence of bilateral breast implants. No other significant abnormalities are identified. BI/DIAG MAMM W/CAD, BILAT IMPRESSION: Status post bilateral breast implants. Well-defined nodules in both breasts as described. Correlation with ultrasound of both breasts is recommended. ASSESSMENT CATEGORY: BIRADS Category 0: Incomplete. Need additional imaging evaluation. A letter regarding these results will be sent to the patient by the facility within 30 days. Approximately 10% of breast cancers are not detected by mammography. A normal mammogram should not delay biopsy of a clinically suspicious abnormality. Electronically Signed: Dangelo Mondragon, at 11:04 EDT , Service support ,
--- NOTE | 2020-04-06 09:20 | US_ITS ---
STUDY: ULTRASOUND BREAST - RIGHT REASON FOR EXAM: Female, 50 years old. Abnormal screening mammogram. TECHNIQUE: Axial and longitudinal images of the RIGHT breast were performed with a high resolution ultrasound transducer. # OF IMAGES: 50 COMPARISON: Comparison is made with prior mammogram done earlier in the day. FINDINGS: RIGHT Breast: 4 cysts are seen in the lateral midportion of the right breast. The largest measures 1 cm x 1.5 cm x 0.8 cm. This is at the 10:00 position of the breast at 5 cm from the nipple. IMPRESSION: 4 benign-appearing cysts in the lateral midportion of the right breast. ASSESSMENT CATEGORY: BIRADS Category 2: Benign. A letter regarding these results will be sent to the patient by the facility within 30 days. Electronically Signed: Dangelo Giancarlo, at 12:21 EDT , Service support , STUDY: ULTRASOUND BREAST - LEFT REASON FOR EXAM: Female, 50 years old. Abnormal screening mammogram. TECHNIQUE: Axial and longitudinal images of the LEFT breast were performed with a high resolution ultrasound transducer. # OF IMAGES: 50 COMPARISON: Comparison is made with prior mammogram done earlier today. FINDINGS: LEFT Breast: The inferior lateral aspect of the retroareolar region of the left breast was examined. 3 subcentimeter cysts are seen. The largest measures 7 mm x 6 mm x 3 mm. This is at the 6:00 position of the breast at 1 cm from the nipple. US/Breast Limited Unilateral IMPRESSION: Subcentimeters cysts seen in the inferior lateral aspect of the left breast as described. ASSESSMENT CATEGORY: BIRADS Category 2: Benign. A letter regarding these results will be sent to the patient by the facility within 30 days. Electronically Signed: Dangelo Mondragon, at 12:22 EDT , Service support ,
== END ==
PROVIDERS: PCP Internal Medicine; Referring Provider Internal Medicine; Visit Provider Internal Medicine
DX: Z12.31 Encounter for screening mammogram for malignant neoplasm of breast (principal); N63.20 Unspecified lump in the left breast, unspecified quadrant; N60.02 Solitary cyst of left breast; N12 Tubulo-interstitial nephritis, not specified as acute or chronic
CPT/HCPCS: 76642; 76770; 77062; 77066; G0279

== ENCOUNTER → 2020-05-10 07:00 | Outpatient (CLI) | payer OTHER, SELFPAY ==
[2020-04-29 10:38] VITALS: BMI 24.0
--- NOTE | 2020-05-10 13:01 | PFT ---
INTRODUCTION: The patient is a 50-year-old female who presents for pulmonary function studies secondary to a diagnosis of asthma. Respiratory therapy reports good patient effort. Bronchodilators were used during testing. INTERPRETATION: Forced expiration spirometry demonstrates no evidence of a large airways obstructive ventilatory defect. There was no significant response to aerosolized bronchodilators, based upon strict ATS criteria. Spirograms are of good quality and plateau normally. The respiratory flow volume loop appears normal. Body plethysmography was performed and reveals lung volumes to be within normal limits. Diffusing capacity by single breath CO is also within normal limits at 99% of predicted. IMPRESSION: Grossly normal pulmonary function studies.
== END ==
PROVIDERS: PCP Internal Medicine; Referring Provider Internal Medicine Critical Care Medicine; Visit Provider Internal Medicine Critical Care Medicine
DX: J45.20 Mild intermittent asthma, uncomplicated (principal)
CPT/HCPCS: 94060; 94726; 94729

== ENCOUNTER → 2020-06-23 | Outpatient (CLI) | payer OTHER, SELFPAY ==
[2020-06-23 13:22] VITALS: BMI 24.0
[2020-06-23 20:10] LABS: Chlamydia Trachomatis by PCR Negative (Negative); Neisserai gonorrhoeae by PCR Negative (Negative); Probe Check PASS; Sample Adequacy Control PASS; Specimen Processing Control PASS
== END | disposition home or self-care (01) ==
LOC: LABSPEC 16:46
PROVIDERS: PCP Internal Medicine; Referring Provider Nurse Practitioner Women's Health; Visit Provider Nurse Practitioner Women's Health
DX: A64 Unspecified sexually transmitted disease (principal); N39.0 Urinary tract infection, site not specified
CPT/HCPCS: 87070; 87086; 87205; 87491; 87591

== ENCOUNTER → 2021-05-17 08:47 | Outpatient (CLI) | payer OTHER, SELFPAY ==
[2021-04-07 09:29] VITALS: BMI 24.0
--- NOTE | 2021-05-17 08:59 | US_ITS ---
STUDY: ULTRASOUND BREAST - RIGHT REASON FOR EXAM: Female, 51 years old. TECHNIQUE: Axial and longitudinal images of the RIGHT breast were performed with a high resolution ultrasound transducer. # OF IMAGES: 28 COMPARISON: None. FINDINGS: Ultrasound of both breasts was done. Bilateral implants noted. There are multiple cysts involving both breasts similar to what was seen in the previous examination of 04/06/2020. All of these cysts are below 1 cm. No solid nodule seen in either breast. There is evidence of ductal ectasia bilaterally. IMPRESSION: Multiple cysts involving the parenchyma of both breasts with ductal ectasia. No significant change since in March 2020 Electronically Signed: Lebron Frances, at 8:36 EDT Tel , Service support , STUDY: ULTRASOUND BREAST - LEFT REASON FOR EXAM: Female, 51 years old. TECHNIQUE: Axial and longitudinal images of the LEFT breast were performed with a high resolution ultrasound transducer. # OF IMAGES: 28 COMPARISON: None. FINDINGS: LEFT Breast: Please see the ultrasound report of the right the breast. US/Breast Limited Unilateral IMPRESSION: ASSESSMENT CATEGORY: Electronically Signed: Lebron Frances, at 8:40 EDT Tel , Service support ,
--- NOTE | 2021-05-17 08:59 | BI_ITS ---
MAMMOGRAPHY - BILATERAL DIAGNOSTIC REASON FOR EXAM: Female, 51 years old. change to breast implant right PERTINENT HISTORY: Non-contributory. TECHNIQUE: Digital examination. Mediolateral oblique (MLO) and craniocaudad (CC) views of both breasts were obtained. CAD: COMPARISON: 04/06/2020 FINDINGS: Breast Composition: Heterogeneous dense parenchyma. Bilateral implants which appear to be intact. There are no dominant masses or suspicious calcifications. No other significant abnormalities are identified. BI/DIAG MAMM W/CAD BILELIE IMPRESSION: Stable bilateral diagnostic mammogram. Unchanged since 04/06/2020. ASSESSMENT CATEGORY: 2 FOLLOW UP RECOMMENDATION: Approximately 10% of breast cancers are not detected by mammography. A normal mammogram should not delay biopsy of a clinically suspicious abnormality. Electronically Signed: Lebron Frances, at 8:39 EDT Tel , Service support ,
== END ==
PROVIDERS: Referring Provider Nurse Practitioner Women's Health; Visit Provider Nurse Practitioner Women's Health
DX: N60.11 Diffuse cystic mastopathy of right breast (principal); N60.12 Diffuse cystic mastopathy of left breast; Z98.82 Breast implant status
CPT/HCPCS: 76642; 77062; 77066; G0279

== ENCOUNTER → 2021-08-22 12:44 | Outpatient (CLI) | payer OTHER, SELFPAY ==
[2021-08-22 14:13] LABS: Vitamin D,25 Hydroxy 19.6 ng/mL
[2021-08-22 14:13] LABS: Cholesterol 235 mg/dL (200); Estradiol 122.4 pg/mL; Follicle Stimulating Hormone 4.2 mIU/mL; Glucose 93 mg/dL (74-106); High Density Lipoprotein 75 mg/dL; T4 Free Direct 0.86 ng/dL (0.76-1.46); Thyroid Stim Hormone (TSH) 2.41 uIU/mL (0.358-3.74); Triglycerides 100 mg/dL; Very Low Density Lipoprotein 20 mg/dL (5-40)
[2021-08-24 03:07] LABS: Chlamydia By Nucleic Acid AMP Negative (Negative)
[2021-08-24 09:30] LABS: Gonococcus By Nucleic Acid AMP Negative (Negative)
[2021-08-26 13:36] LABS: HPV APTIMA, High Risk Negative (Negative)
== END ==
PROVIDERS: PCP Family Medicine; Referring Provider Obstetrics & Gynecology; Visit Provider Obstetrics & Gynecology
DX: Z12.4 Encounter for screening for malignant neoplasm of cervix (principal); Z11.3 Encounter for screening for infections with a predominantly sexual mode of transmission; N95.1 Menopausal and female climacteric states; N89.8 Other specified noninflammatory disorders of vagina
CPT/HCPCS: 36415; 80061; 82306; 82670; 82947; 83001; 84439; 84443; 87070; 87205; 87491; 87591; 87624; 88175; G0145

== ENCOUNTER → 2022-08-23 | Outpatient (CLI) | payer OTHER, SELFPAY | END | disposition home or self-care (01) | LOC: OPBI 17:55 | PROVIDERS: PCP Family Medicine; Visit Provider Obstetrics & Gynecology | DX: R69 Illness, unspecified (principal) | CPT/HCPCS: 87070; 87205; 87491; 87591 ==

== ENCOUNTER → 2022-08-23 | Outpatient (CLI) | payer OTHER, SELFPAY ==
[2022-08-25 22:06] LABS: Chlamydia By Nucleic Acid AMP Negative (Negative)
[2022-08-27 09:09] LABS: Gonococcus By Nucleic Acid AMP Negative (Negative)
== END | disposition home or self-care (01) ==
LOC: LABSPEC 08-24 08:09
PROVIDERS: PCP Family Medicine; Visit Provider Obstetrics & Gynecology
DX: A64 Unspecified sexually transmitted disease (principal)
CPT/HCPCS: 87070; 87205; 87491; 87591

== ENCOUNTER → 2023-08-30 | Outpatient (CLI) | payer SELFPAY | END | disposition home or self-care (01) | LOC: CVS 09:32 | PROVIDERS: PCP Family Medicine; Referring Provider Internal Medicine Cardiovascular Disease; Visit Provider Internal Medicine Cardiovascular Disease | DX: Z00.00 Encounter for general adult medical examination without abnormal findings (principal) ==

== ENCOUNTER → 2023-08-30 | Outpatient (CLI) | payer SELFPAY ==
--- NOTE | 2023-08-30 09:23 | ECHOD_ITS ---
Version 2 Reason For Study: PREPROCEDURE EXAM Procedure This was a 2D Doppler, Color Flow transthoracic echocardiogram. Exam performed in department. Left Ventricle Normal LV size. Left ventricular systolic function is normal. The estimated ejection fraction is 55 %. Normal diastology for age. No regional wall motion abnormalities noted. Right Ventricle Normal RV size. Normal systolic function. Atria Normal left atrium. Normal right atrium. Mitral Valve Mild diffuse mitral valve thickening. Equivocal mitral valve prolapse. Tricuspid Valve Normal tricuspid valve. Mild tricuspid valve insufficiency. Pulmonary artery systolic pressure is 26 mmHg. Pulmonic Valve Normal pulmonic valve. Great Vessels Normal aortic root. The pulmonary artery is normal size. Normal inferior vena cava. Pericardium/Pleural No pericardial effusion. MMode/2D Measurements & Calculations LVIDd: 4.3 cm IVSd: 0.85 cm Ao root diam: 2.7 cm LVIDs: 3.2 cm LVPWd: 0.87 cm FS: 26.1 % LAV(MOD-bp): 36.8 ml LVAd ap4: 24.8 cm2 LVAd ap2: 21.3 cm2 LAV(MOD-bp) Indexed: 22.1 ml/m2 LVLd ap4: 6.9 cm LVLd ap2: 6.7 cm LAV(MOD-sp2): 41.7 ml EDV(MOD-sp4): 73.5 ml EDV(MOD-sp2): 59.6 ml LAV(MOD-sp4): 30.9 ml EDV(sp4-el): 75.8 ml EDV(sp2-el): 57.2 ml LVAs ap4: 15.2 cm2 LVAs ap2: 12.7 cm2 LVLs ap4: 5.6 cm LVLs ap2: 5.7 cm ESV(MOD-sp4): 33.8 ml ESV(MOD-sp2): 24.9 ml ESV(sp4-el): 35.0 ml ESV(sp2-el): 24.1 ml EF(MOD-sp4): 54.1 % EF(MOD-sp2): 58.2 % EF(sp4-el): 53.8 % SV(MOD-sp4): 39.7 ml SV(MOD-sp2): 34.7 ml SV(sp4-el): 40.8 ml LA dimension(2D): 3.3 cm LA A4 area: 12.9 cm2 RA A4 area: 13.1 cm2 TAPSE: 1.7 cm Time Measurements MV dec time: 0.19 sec Doppler Measurements & Calculations MV E max kirk: 62.6 cm/sec Lat Peak E' Kirk: 12.4 cm/sec Med Peak E' Kirk: 10.8 cm/sec MV A max kirk: 46.0 cm/sec E/E' lat: 5.1 E/E' med: 5.8 MV E/A: 1.4 MV dec slope: 342.0 cm/sec2 Ao V2 max: 90.9 cm/sec LV V1 max: 87.6 cm/sec Ao max P.3 mmHg LV V1 max P.1 mmHg Ao V2 mean: 66.6 cm/sec LV V1 mean P.8 mmHg Ao mean P.0 mmHg LV V1 mean: 63.0 cm/sec Ao V2 VTI: 21.3 cm LV V1 VTI: 20.1 cm AV (velocity ratio): 0.94 PA V2 max: 84.9 cm/sec TR max kirk: 238.7 cm/sec PA V2 mean: 53.6 cm/sec TR max P.8 mmHg ECHO/Echo Complete Interpretation Summary Normal LV size. Left ventricular systolic function is normal. The estimated ejection fraction is 55 %. Mild diffuse mitral valve thickening. Equivocal mitral valve prolapse. Ordering Physician: Jose Cheung Referring Physician: Yue Castro Performed By: Shruthi Ortiz, RDCS, RVT
== END | disposition home or self-care (01) ==
PROVIDERS: PCP Family Medicine; Referring Provider Internal Medicine Cardiovascular Disease; Visit Provider Internal Medicine Cardiovascular Disease
DX: Z01.818 Encounter for other preprocedural examination (principal); I34.1 Nonrheumatic mitral (valve) prolapse
CPT/HCPCS: 93225; 93226; 93306

== ENCOUNTER 2024-01-01 13:34 | Emergency (ER) | payer MEDICAID, SELFPAY ==
[2024-01-01 13:36] VITALS: BP 129/87; PULSE 114; RESP 21; TEMP 36.4; O2SAT 100
[2024-01-01 13:55] VITALS: BMI 23.8
[2024-01-01 14:15] VITALS: BMI 23.8
--- NOTE | 2024-01-01 15:16 | CT_ITS ---
STUDY: CT ORBITS WITH CONTRAST REASON FOR EXAM: Female, 53 years old. [place] Linder, retro-orbital pressure, mild proptosi RADIATION DOSAGE (If Supplied By Facility): CTDIvol = ( 29.38 ) mGy, DLP = ( 378.5 ) mGycm TECHNIQUE: The patient was scanned in a multi detector CT scanner. Transaxial imaging was performed following the intravenous administration of IV 100mL Isovue-370. Sagittal and coronal images were reconstructed. Individualized dose optimization techniques were used for this CT. COMPARISON: None. FINDINGS: Normal globes. Normal intraconal spaces. Normal optic nerve sheath complex. Normal bilateral extraocular muscles. Normal lacrimal glands. Normal bilateral medial and inferior orbital cohn. Normal bilateral maxillary bones. Normal bilateral frontozygomatic arches. Normal bilateral zygomatic temporal arches. Normal frontal sinus. Normal ethmoidal sinuses. Normal maxillary sinuses. Normal sphenoid sinuses. Normal soft tissue structures. There is no demonstrated abnormal enhancement. CT/Orb Sella Post Fossa Ear W/CON IMPRESSION: Normal enhanced CT examination of the bilateral orbits. Electronically Signed: Frankie Hull MD at 16:45 EST ,
[2024-01-01] MEDS: Ondansetron 4 MG/2 ML Vial IV (16:11)
[2024-01-01] MEDS: Morphine 4 MG/ML Syringe IV (16:11)
[2024-01-01] MEDS: diazePAM 5 MG Tablet 2.5 MG PO (16:24)
--- NOTE | 2024-01-01 16:24 | EX.ED.DYSGE1 ---
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 Patient reports completing cycle of valacyclovir which she completed 12/30/2023. Patient reports taking meclizine for vertigo without relief. She also reports that she has begun tapering her steroids in which she is taking 20 mg a day now for the past 4 days. Patient is concerned as symptoms are worsening. Prior similar symptoms: Yes Recent Illness/Hospitalization: Yes PFSH <Elena Tracy RN - Last Filed: 01/01/24 16:37> [facility] Medical History Adhesive capsulitis of left shoulder Anemia Bilateral primary osteoarthritis of knee Fibrocystic breast changes of both breasts History of depression History of headache Left knee pain Leukocytosis Mild intermittent asthma Mitral valve prolapse Palpitations Pyelonephritis of right kidney Right knee pain Thrombocytopenia Vitamin D deficiency Home Medications ibuprofen 200 mg capsule 200 mg PO Q6H PRN fever or pain 06/14/23 [History Last Taken Unknown] acetaminophen-caffeine 500 mg-65 mg tablet (Excedrin Tension Headache) 1 tab PO Q12H PRN 07/13/23 [History Last Taken Unknown] loratadine 10 mg tablet (Claritin) 10 mg PO DAILY 08/29/23 [History Last Taken Unknown] sumatriptan succinate 50 mg tablet See Rx Instructions PO .COMPLEX 08/29/23 [History Last Taken Unknown] diazepam 2 mg tablet 2 mg PO TID PRN PRN Vertigo 4 days #10 TABLETS 01/01/24 [Rx Last Taken Unknown] ergocalciferol (vitamin D2) 1,250 mcg (50,000 unit) capsule 01/01/24 [History Last Taken Unknown] oxycodone-acetaminophen 5 mg-325 mg tablet (Percocet) 1 tab PO Q8H PRN pain 4 days #10 tabs 01/01/24 [Rx Last Taken Unknown] Allergy/AdvReac Type Severity Reaction Status Date / Time No Known Allergies Allergy Verified 01/01/24 13:40 Family History Mother Cancer skin- basal cell, squamous cell Arthritis Diabetes Hypertension High cholesterol Glaucoma Neuropathy Age related osteoporosis Thyroid disorder Osteoporosis Father Alzheimer disease mild Hypertension Ischemic heart disease Quad bypass CAD (coronary artery disease) Cancer bladder Diabetes CVA (cerebral vascular accident) Surgical History delivery delivered H/O breast augmentation History of arthroscopy of right shoulder History of breast augmentation History of endometrial ablation History of tonsillectomy and adenoidectomy Hx of tympanostomy tubes (~1977) Status post endovenous radiofrequency ablation (RFA) of saphenous vein Tubal ligation status Social History adopted: No household members: children number of children: 2 history of recent travel: Yes Smoking Status: Never smoker alcohol intake: current details: social substance use type: does not use caffeine: Yes what type of physical activity do you participate in: walking seatbelt use: always do you feel safe at home: Yes additional social history: unemployed ROS <Elena Tracy RN - Last Filed: 01/01/24 16:37> ROS ED Constitutional Constitutional ED: Denies chills, fever(s) or sweats Eyes Eyes: Reports diplopia ENT ENT ED: Reports ear pain Cardiovascular Cardiovascular: Denies chest pain or palpitations Respiratory/Chest Respiratory/Chest: Denies cough or dyspnea Gastrointestinal Gastrointestinal: Reports nausea; Denies abdominal pain, diarrhea or vomiting Genitourinary Genitourinary ED: Denies dysuria, hematuria or urinary frequency <Dr. Randy Wilkes MD - Last Filed: 01/01/24 17:09> ROS ED Musculoskeletal Musculoskeletal: Denies arthralgias, back pain or myalgias Integumentary Denies rash Neurologic Neurologic: Reports headache(s) Psychiatric Psychiatric: Reports anxiety Endocrine Endocrinology: Denies cold intolerance or heat intolerance Hematologic/Lymphatic Hematologic/Lymphatic: Reports systems reviewed and no addt'l complaints, except as documented Allergic/Immunologic Allergic/Immunologic ED: Denies mouth swelling, tongue swelling or urticaria EXAM <Elena Tracy RN - Last Filed: 01/01/24 16:37> Physical Exam Const Vital Signs: 01/01/24 13:36 Temperature 97.6 F L Temperature Source Temporal Pulse Rate 114 H Respiratory Rate 21 H Blood Pressure 129/87 H Blood Pressure Mean 101 Pulse Ox 100 Oxygen Delivery Method Room Air Positive well nourished and well developed General Appearance ED: well developed HEENT Reports moist mucous membranes Eyes PERRL and EOMs intact bilaterally Chest Wall inspection of chest normal Resp normal respiratory effort and clear to auscultation bilaterally Cardio regular rate, regular rhythm, S1 normal heart sound and S2 normal heart sound GI normal to inspection, nondistended, normoactive bowel sounds and non-tender Palpation: soft Extremity normal to inspection Neuro oriented x3 and no sensory deficits noted Neuro Narrative: Wide unsteady gait Sensorium / Orientation: alert Motor Exam: strength 5/5 throughout Psych mental status grossly normal Mood & Affect: anxious Skin Skin Narrative: Red flat rash noted to neck and upper chest. General Skin Exam: elasticity normal Rashes: rashes noted <Dr. Randy Wilkes MD - Last Filed: 01/01/24 17:09> Physical Exam Const Vital Signs: 01/01/24 13:36 Temperature 97.6 F L Temperature Source Temporal Pulse Rate 114 H Respiratory Rate 21 H Blood Pressure 129/87 H Blood Pressure Mean 101 Pulse Ox 100 Oxygen Delivery Method Room Air HEENT HEENT Narrative: Patient has evidence of prior rash external auditory canal left side. Neck no lymphadenopathy, supple and no JVD Back/Spine no CVA tenderness MDM <Elena Tracy RN - Last Filed: 01/01/24 16:37> [facility] Lab Data Labs: Laboratory Results - last 24 hr 01/01/24 16:08 WBC 10.6 RBC 4.93 Hgb 14.9 Hct 47.0 MCV 95.3 MCH 30.2 MCHC 31.7 L RDW Std Deviation 47.4 H RDW Coeff of Christa 13.5 Plt Count 353 MPV 9.6 Immature Gran % (Auto) 0.300 Neut % (Auto) 80.9 H Lymph % (Auto) 13.1 L [place] % (Auto) 5.2 Eos % (Auto) 0.1 Baso % (Auto) 0.4 Absolute Neuts (auto) 8.6 H Absolute Lymphs (auto) 1.39 Nucleated RBC % 0 ESR 1 Sodium 137 Potassium 3.9 Chloride 103 Carbon Dioxide 31.0 Anion Gap 3 L BUN 19 H Creatinine 0.90 Estim Creat Clear Calc 60.49 Est GFR (MDRD) Af Amer 84 Est GFR (MDRD) Non-Af 70 BUN/Creatinine Ratio 21.1 H Glucose 113 H Calcium 9.7 Total Bilirubin 0.20 AST 18 ALT 40 Alkaline Phosphatase 63 Total Protein 8.3 H Albumin 4.3 Globulin 4.0 Albumin/Globulin Ratio 1.1 Radiography Diagnostic Testing: Clinical Impression(s) from Imaging Studies CT Orbit Sella Inner 01/01/24 15:16 IMPRESSION: Normal enhanced CT examination of the bilateral orbits. Electronically Signed: Frankie Hull MD at 16:45 EST , <Dr. Randy Wilkes MD - Last Filed: 01/01/24 17:09> [facility] Narrative Medical decision making narrative: I have personally performed a face to face assessment of the patient and have reviewed the [place] Note. I performed a substantive portion of the visit including all aspects of the following. My jansen findings include: History is remarkable for admission to [facility] December 20. She was seen by infectious disease, otolaryngology, hospitalist and neurology. 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 She completed a course of antiviral. She is on prednisone. She continues to have problems with balance and pain. She is now complaining of retro-orbital discomfort on the left side. She denies fever or chills. She does report occasional double vision and trouble vision. The double vision is horizontal and not vertical. She reports pain with movement of her eye. She does report mild nasal congestion. She denies drainage from her ear. She is having trouble walking. She is scheduled to see neurology tomorrow. She saw her primary care physician yesterday. Exam is remarkable for peripheral 7th nerve palsy on the left. There is remanence of rash left ear. The TM is normal. Nares is patent. She complains of tenderness over the maxillary and frontal sinus to percussion. Posterior pharynx is unremarkable. Uvula is midline. There is no deviation with protrusion. There may be 1 shotty cervical anterior left superior node. Trachea is midline. There is no stridor. There is no tenderness over the right or left carotid artery. There is no carotid bruits noted. Neck is supple. Heart lung exam is remarkable for tachycardia otherwise unremarkable. She is alert oriented x 3. There is no dysmetria. Romberg with eyes open and close resulted in patient falling backwards with her eyes closed. Gait was observed and she is ataxic. There is no limitation of movement of her eyes. There is no diplopia with upward gaze. There may be slight proptosis on the left. Sclera is anicteric. Conjunctive is pink. 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 Medical Decision Making because of her complaint of retro-orbital discomfort will obtain CT of the orbits to assess for orbital cellulitis. CBC was obtained as well as ESR and electrolyte panel. Other additions or changes: Records from [place] were reviewed. Patient had a nonenhanced MRI on the which was normal. Viral panel which was negative. There was no assessment for herpes simplex virus or herpes varicella infection. CBC was remarkable slight elevated white count otherwise unremarkable. Comprehensive metabolic panel was unremarkable except for slight elevation in glucose of 111. ESR was normal, 3. Case was turned over to the evening physician Dr. Flynn for disposition once CT of the orbit, cell and auditory canal has been interpreted by radiologist. Per my independent review there is no evidence of orbital cellulitis. Sinuses that are visualized appear normal. The mastoid air cells appear normal. I do not appreciate fluid in the middle ear. Lab Data Labs: Laboratory Results - last 24 hr 01/01/24 16:08 WBC 10.6 RBC 4.93 Hgb 14.9 Hct 47.0 MCV 95.3 MCH 30.2 MCHC 31.7 L RDW Std Deviation 47.4 H RDW Coeff of Christa 13.5 Plt Count 353 MPV 9.6 Immature Gran % (Auto) 0.300 Neut % (Auto) 80.9 H Lymph % (Auto) 13.1 L [place] % (Auto) 5.2 Eos % (Auto) 0.1 Baso % (Auto) 0.4 Absolute Neuts (auto) 8.6 H Absolute Lymphs (auto) 1.39 Nucleated RBC % 0 ESR 1 Sodium 137 Potassium 3.9 Chloride 103 Carbon Dioxide 31.0 Anion Gap 3 L BUN 19 H Creatinine 0.90 Estim Creat Clear Calc 60.49 Est GFR (MDRD) Af Amer 84 Est GFR (MDRD) Non-Af 70 BUN/Creatinine Ratio 21.1 H Glucose 113 H Calcium 9.7 Total Bilirubin 0.20 AST 18 ALT 40 Alkaline Phosphatase 63 Total Protein 8.3 H Albumin 4.3 Globulin 4.0 Albumin/Globulin Ratio 1.1 Radiography Diagnostic Testing: Clinical Impression(s) from Imaging Studies CT Orbit Sella Inner 01/01/24 15:16 IMPRESSION: Normal enhanced CT examination of the bilateral orbits. 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), Retro-orbital pain of left eye, Left ear pain, Sinus tachycardia Instructions: Shingles (Herpes Zoster), ED Davalos's Palsy, ED Pain, Acute, Uncertain Cause, ED Vertigo, Unspecified Prescriptions: New oxycodone-acetaminophen [Percocet] 5-325 mg tablet 1 tab PO Q8H PRN (Reason: pain) 4 Days Qty: 10 0RF diazepam [diazepam] 2 mg tablet 2 mg PO TID PRN PRN (Reason: Vertigo) 4 Days Qty: 10 0RF No Action ibuprofen 200 mg capsule 200 mg PO Q6H PRN (Reason: fever or pain) loratadine [Claritin] 10 mg tablet 10 mg PO DAILY Excedrin Tension Headache 500-65 mg tablet 1 tab PO Q12H PRN sumatriptan succinate 50 mg tablet See Rx Instructions PO .COMPLEX Rx Instructions: take 1 tab at onset of headache; if no relief may repeat 1 tab after at least 2 hrs; max = 4 tabs/24 hr PO ergocalciferol (vitamin D2) 1,250 mcg (50,000 unit) capsule Patient Comments: TAKE 1 CAPSULE BY MOUTH ONCE A WEEK DIRECTED Primary Care Provider: Yue Castro Referrals: uYe Castro MD [Primary Care Provider] - 3-5 Days Disposition Disposition: Home, Self Care
[2024-01-01 16:33] LABS: Absolute Lymphocyte Count 1.39 X10^3/uL (0.83-4.51); Absolute Neutrophil Count 8.6 X10^3/uL (2.0-7.7); Basophil# 0.04 X10^3/uL; Basophil% 0.4 % (0-1); Eosinophil# 0.01 X10^3/uL; Eosinophils% 0.1 % (0-5); Hemoglobin 14.9 g/dL (12.0-15.0); Lymphocyte # 1.39 X10^3/ul (0.83-4.51); Lymphocyte % 13.1 % (19-41); Mean Corp Hgb Conc 31.7 g/dL (32-36); Mean Corpuscular Hgb 30.2 pg (27.0-32.0); Mean Corpuscular Volume 95.3 fL (81-99); Mean Platelet Vol. 9.6 fl (6.2-12.0); Monocyte# 0.55 X10^3/uL; Monocyte% 5.2 % (0-10); NRBC Flagged by Analyzer 0 % (0-5); Neutrophil # 8.59 X10^3/uL (2.7-7.7); Neutrophil % 80.9 % (47-70); Platelet Count 353 K/mm3 (150-450); RBC Distribution Width CV 13.5 % (11.6-14.6); RBC Distribution Width SD 47.4 fl (35.1-43.9); Red Blood Count 4.93 M/mm3 (4.2-5.4); White Blood Count 10.6 K/mm3 (4.4-11.0)
[2024-01-01 16:49] LABS: ALB/GLOB Ratio 1.1 RATIO (0.9-2.4); AST(SGOT) 18 U/L (15-37); Alanine Aminotransfer ALT/SGPT 40 U/L (13-56); Albumin, Serum 4.3 g/dL (3.2-5.0); Alkaline Phosphatase 63 U/L (45-117); Anion Gap 3 (5-15); BUN 19 mg/dL (7-18); BUN/Creat Ratio 21.1 RATIO (10-20); Calcium,Total 9.7 mg/dL (8.5-10.1); Chloride 103 mmol/L (98-107); EST Glomerular Filtration Rate 70 mL/min (>60); Est Glom Filt Rate - Afr Amer 84 mL/min (>60); Estimated Creatinine Clearance 60.49 ml/min; Glucose 113 mg/dL (74-106); Potassium 3.9 mmol/L (3.5-5.1); Protein, Total 8.3 g/dL (6.4-8.2); Sodium Level 137 mmol/L (136-145)
[2024-01-01 16:54] LABS: Erythrocyte Sedimentation Rate 1 mm/hr (0-30)
[2024-01-01 18:18] VITALS: BP 114/89; PULSE 98; RESP 16; O2SAT 99
== END 2024-01-01 18:50 | disposition home or self-care (01) ==
PROVIDERS: Emergency Provider Emergency Medicine; PCP Family Medicine; Visit Provider Emergency Medicine
DX: B02.21 Postherpetic geniculate ganglionitis (principal); G51.0 Bell's palsy; R09.81 Nasal congestion; J45.20 Mild intermittent asthma, uncomplicated; H57.12 Ocular pain, left eye; H92.02 Otalgia, left ear; R00.0 Tachycardia, unspecified; Z79.899 Other long term (current) drug therapy
CPT/HCPCS: 70481; 80053; 85025; 85652; 96374; 96375; 99283; Q9967; A4216; J2405